=== PATIENT | female | born 1950 | race Caucasian/White ===

== ENCOUNTER → 2016-09-07 | Outpatient (CLI) | payer MEDICARE ==
--- NOTE | 2016-09-08 11:14 | MM ---
Reason for exam: additional evaluation requested from prior study. Last mammogram was performed 1 year ago. History: Patient is postmenopausal. Family history of breast cancer in maternal cousin at age 64. Excisional biopsy of the left breast. 2 excisional biopsies of the right breast. Physical Findings: Nurse did not find any significant physical abnormalities on exam. MG 3D Diag Mammo W/Cad HEATH Bilateral CC and MLO view(s) were taken. Prior study comparison: September 21, 2015, right breast MG 3d diag mammo w/cad RT. April 11, 2015, bilateral MG screening mammo w CAD. There are scattered fibroglandular densities. There is no discrete abnormality. No significant new findings when compared with previous films. These results were verbally communicated with the patient and result sheet given to the patient on 09/07/16. ASSESSMENT: Negative, BI-RAD 1 RECOMMENDATION: Routine screening mammogram of the right breast in 1 year.
== END | disposition home or self-care (01) ==
LOC: RADMAMWWP 15:08
PROVIDERS: ATTEND Family Medicine
DX: R92.8 Other abnormal and inconclusive findings on diagnostic imaging of breast (principal)
CPT/HCPCS: G0204; G0279

== ENCOUNTER → 2017-06-20 | Outpatient (CLI) | payer MEDICARE | END | disposition home or self-care (01) | LOC: LABWHC1 10:06 | PROVIDERS: ATTEND Otolaryngology | DX: J30.89 Other allergic rhinitis (principal) | CPT/HCPCS: 36415 ==

== ENCOUNTER → 2017-06-27 | Outpatient (CLI) | payer MEDICARE ==
[2017-06-27 09:44] LABS: Anion Gap 15 mmol/L; Basophils # (A) 0.1 k/uL (0-0.2); Basophils % (A) 1 %; Blood Urea Nitrogen 7 mg/dL (7-17); Carbon Dioxide 21 mmol/L (22-30); Chloride 98 mmol/L (98-107); Eosinophils # (A) 0.1 k/uL (0-0.7); Eosinophils % (A) 2 %; Glucose 204 mg/dL (74-99); HCT 40.7 % (34.0-46.0); HGB 13.5 gm/dL (11.4-16.0); Lymphocytes # (A) 1.4 k/uL (1.0-4.8); Lymphocytes % (A) 24 %; MCH 27.4 pg (25.0-35.0); MCHC 33.2 g/dL (31.0-37.0); MCV 82.5 fL (80.0-100.0); Mean Platelet Volume 6.5; Monocytes # (A) 0.3 k/uL (0-1.0); Monocytes % (A) 5 %; Neutrophils # (A) 4.1 k/uL (1.3-7.7); Neutrophils % (A) 68 %; Platelet Count 317 k/uL (150-450); RBC 4.94 m/uL (3.80-5.40); Sodium 134 mmol/L (137-145); WBC 6.1 k/uL (3.8-10.6)
== END | disposition home or self-care (01) ==
LOC: LABPAT 08:49
PROVIDERS: ATTEND Obstetrics & Gynecology
DX: Z01.818 Encounter for other preprocedural examination (principal); E11.9 Type 2 diabetes mellitus without complications; I10 Essential (primary) hypertension; N81.10 Cystocele, unspecified; R94.31 Abnormal electrocardiogram [ECG] [EKG]; R00.1 Bradycardia, unspecified; I51.0 Cardiac septal defect, acquired; Z01.812 Encounter for preprocedural laboratory examination
CPT/HCPCS: 36415; 80051; 82565; 82947; 84520; 85025; 87086; 93005

== ENCOUNTER 2017-07-04 07:50 | Day surgery (SDC) | payer MEDICARE ==
[2017-06-23 09:58] VITALS: BMI 29.2
[~2017-07-04 07:50] MED LIST: DEXAMETHASONE SOD PHOSPHATE 10 MG/ML 1 ML VIAL IV ONE; MIDAZOLAM 2 MG/2 ML VIAL IV PRN; ONDANSETRON 4 MG/2 ML VIAL IVP ONE; ceFAZolin IN SWFI 2 GM/20 ML SYRINGE IVP ONE; fentaNYL (PF) 50 MCG/ML 2 ML AMP IV PRN
[2017-07-04] MEDS: LACTATED RINGERS 1,000 ML IV SCH ×3 (08:21→12:59)
[2017-07-04] MEDS ORDERED: LIDOCAINE 1% 20 ML VIAL (10MG/ML) FOR IV START INTRADERMA ONE (08:21)
[2017-07-04 08:23] LABS: Glucose,Whole Blood 232 mg/dL (75-99)
[2017-07-04] MEDS ORDERED: INSULIN ASPART 100 UNIT/ML 1 ML 10 ML VIAL SQ ONE ×2 (08:54→13:47)
[2017-07-04] MEDS ORDERED: diphenhydrAMINE 50 MG/ML 1 ML VIAL ONE (09:13)
[2017-07-04] MEDS ORDERED: MORPHINE SULFATE (PF) 0.3 MG/0.3 ML SYR ONE (09:13)
[2017-07-04] MEDS ORDERED: fentaNYL (PF) 50 MCG/ML 2 ML AMP ONE (09:13)
[2017-07-04] MEDS ORDERED: GLYCOPYRROLATE 0.2 MG/ML 2 ML VIAL ONE (09:13)
[2017-07-04] MEDS ORDERED: PROPOFOL 10 MG/ML 20 ML VIAL IV ONE (09:13)
[2017-07-04] MEDS ORDERED: MIDAZOLAM 2 MG/2 ML VIAL ONE (09:13)
[2017-07-04] MEDS ORDERED: diphenhydrAMINE 50 MG/ML 1 ML VIAL IVP PRN (09:33)
[2017-07-04] MEDS ORDERED: MORPHINE SULF 5MG/10ML VL IVP PRN (09:33)
[2017-07-04] MEDS ORDERED: ONDANSETRON 4 MG/2 ML VIAL IVP PRN (09:33)
[2017-07-04] MEDS ORDERED: NALOXONE 0.4 MG/ML 1 ML VIAL IV PRN (09:33)
[2017-07-04] MEDS ORDERED: VASOPRESSIN 20 UNIT/ML 1 ML VIAL SQ ONE (09:35)
[2017-07-04] MEDS ORDERED: BACITRACIN 500 UNIT/GM OINT 28.4 GM TUBE TOPICAL ONE (09:36)
[2017-07-04] MEDS ORDERED: METOCLOPRAMIDE 5 MG/ML 2 ML VIAL IVP PRN (10:22)
[2017-07-04] MEDS ORDERED: KETOROLAC 30 MG/ML 1 ML VIAL IVP PRN (10:22)
[2017-07-04] MEDS ORDERED: ZOLPIDEM 5 MG TAB PO PRN (10:22)
--- NOTE | 2017-07-04 10:22 | P.OP ---
Date of Procedure: 07/04/17 Preoperative Diagnosis: Grade 4 cystocele Postoperative Diagnosis: Same, enterocele Procedure(s) Performed: Anterior colporrhaphy and enterocele repair Anesthesia: spinal Surgeon: Sandra Gallardo Perforator Loader #1: Chinedu Bo Estimated Blood Loss (ml): 120 IV fluids (ml): 600 Urine output (ml): 375 Pathology: none sent Condition: stable Disposition: PACU Operative Findings: Enterocele, repaired. Description of Procedure: Patient is brought to the operating room where a spinal with Duramorph is administered. She's placed in the dorsal lithotomy position. Antibiotics are given. The appropriate timeout is performed to assure proper patient and procedural identification. The perineal body is prepped and draped in usual sterile fashion. Bladder is drained for 375 mL of clear yellow urine. The uterosacral cardinal ligament dimples are identified and grasped with Allis clamps. An incision is made between the 2 dimples with the scalpel. The tissue was injected with a dilute Pitressin solution. Metzenbaum scissors are used in the midline to approximately 1.5 mL inferior to the urethra and the mucosa is opened. It is held with Allis clamps and a fanlike fashion. The mucosa is dissected off of the underlying fascial layer in its entirety to completely expose the large grade 4 cystocele. Upon doing so an enterocele is noted at the base. This is completely exposed. 2-0 Vicryl sutures are used to bring the mucosal edges along together in the midline to completely reduce the cystocele. A Lucia catheter is placed in the bladder is drained prior to doing so. Urine is noted to be clear. The enterocele was also repaired using 2-0 Vicryl suture with interrupted stitches. Excellent reapproximation and reduction is noted. Metzenbaum scissors are used to trim the redundant mucosa. 2-0 Vicryl sutures used in a running locking fashion to completely close the anterior repair. Reinforcement of the enterocele is performed. Rectal exam reveals no rectal lesions or defects. Lucia is once again noted to be draining clear urine. The vagina is packed with one-inch iodophor gauze. All sponge needle and enhancement counts are correct at the end of the procedure. Total estimated blood loss 120 mL, fluid replacement 600 mL, total urine 375 mL, clear. Patient is brought back to the recovery room in very good condition with stable vital signs including a pulse of 58, respirations 12, blood pressure 140/70.
[2017-07-04 10:32] LABS: Glucose,Whole Blood 213 mg/dL (75-99)
[2017-07-04 14:16] LABS: Glucose,Whole Blood 233 mg/dL (75-99)
[2017-07-04] MEDS: diphenhydrAMINE 50 MG/ML 1 ML VIAL IVP PRN ×2 (14:21→20:12)
[2017-07-04] MEDS ORDERED: metFORMIN 500 MG TAB PO SCH (16:00)
[2017-07-04] MEDS ORDERED: traZODone HCL 50 MG TAB PO SCH (21:00)
[2017-07-04] MEDS ORDERED: MORPHINE ORAL SOLN 10 MG/5 ML CUP PO PRN (22:05)
--- NOTE | 2017-07-05 06:55 | P.PN ---
Progress Note - Text Progress Note Date: 07/05/17 Postoperative day 1 status post cystocele repair, under spinal anesthesia, and intrathecal morphine given for postoperative analgesia, patient doing well, there is no anesthesia related complications, Patient had no headache, vital signs stable , Assessment and plan= postop day 1 ,, doing well there is no anesthesia related complication.
[2017-07-05] MEDS ORDERED: PANTOPRAZOLE 40 MG TABLET PO SCH (07:30)
--- NOTE | 2017-07-05 07:56 | P.DS ---
Providers Date of admission: 07/04/17 Expected date of discharge: 07/05/17 Attending physician: Sandra Gallardo Primary care physician: [facility] Course: This is a 66-year-old female who presented with an increasingly symptomatic perineal bulge. She is status post hysterectomy years ago for benign disease. On examination she is noted to have a grade 4 cystocele. After thorough consultation and consideration, she elected to have surgical repair. Please see my admitting history and physical for details. Preoperatively patient's blood sugar was 232, this was treated with insulin. Patient underwent an anterior colporrhaphy without difficulty, vagina was packed with iodoform gauze. She did well intraoperatively with no issues, please see my dictated operative note for details. This morning she is also doing well. Vaginal packing has been removed. Lucia catheter is removed. Vital signs are stable and she has remained afebrile. Her diet has been advanced as she is passing flatus. Her pain is well controlled, Duramorph spinal was placed yesterday with excellent results. Chest is clear in all quintana. Extremities are negative. There is only scant vaginal drainage noted. Bladder training has commenced this morning. Upon successful results, patient will be discharged home later today. She is in very good condition for discharge home. Her fasting blood sugar this morning is 201, that was covered with 2 units of regular insulin. I have reminded her no intercourse, tampons or douching. She will use [id number] Aleve or Advil as needed for pain. I reminded her no heavy lifting, no driving for 2 weeks, no vacuuming. She will call with any vaginal bleeding, any pain not alleviated by over-the- counter products, or indeed with any difficulties or concerns. She has an appointment upcoming with Dr. Cuello for better blood sugar control. Patient Condition at Discharge: Good Plan - Discharge Summary Discharge Rx Participant: Yes New Discharge Prescriptions: No Action traZODone HCL [Desyrel] 50 mg PO HS Ondansetron [Zofran ODT] 8 mg PO BID PRN PRN Reason: Nausea metFORMIN HCL [Glucophage] 500 mg PO DAILY Pantoprazole [Protonix] 40 mg PO DAILY Lisinopril [Zestril] 10 mg PO DAILY Fluticasone Nasal [place] [Flonase Nasal [place]] 1 spray EA NOSTRIL DAILY Atorvastatin Calcium [Lipitor] 20 mg PO HS Lexapro(Dose Unknown) 1 tab PO DAILY Discharge Medication List traZODone HCL [Desyrel] 50 mg PO HS 09/16/13 [History] Atorvastatin Calcium [Lipitor] 20 mg PO HS 06/23/17 [History] Fluticasone Nasal [place] [Flonase Nasal [place]] 1 spray EA NOSTRIL DAILY 06/23/17 [History] Lexapro(Dose Unknown) 1 tab PO DAILY 06/23/17 [History] Lisinopril [Zestril] 10 mg PO DAILY 06/23/17 [History] Ondansetron [Zofran ODT] 8 mg PO BID PRN 06/23/17 [History] Pantoprazole [Protonix] 40 mg PO DAILY 06/23/17 [History] metFORMIN HCL [Glucophage] 500 mg PO DAILY 06/23/17 [History] Follow up Appointment(s)/Referral(s): Sandra Gallardo MD [STAFF PHYSICIAN] - 2 Weeks
[2017-07-05] MEDS ORDERED: INSULIN ASPART 100 UNIT/ML 1 ML 10 ML VIAL SQ ONE (08:00)
[2017-07-05 13:34] VITALS: BP 153/74; PULSE 70; RESP 20; TEMP 97
== END 2017-07-05 12:25 | disposition home or self-care (01) ==
LOC: OR 07:50 → 6PED 10:17 → OR 07-05 12:25
PROVIDERS: ATTEND Obstetrics & Gynecology
DX: N81.10 Cystocele, unspecified (principal); N81.5 Vaginal enterocele; I10 Essential (primary) hypertension; E78.5 Hyperlipidemia, unspecified; E11.9 Type 2 diabetes mellitus without complications; E78.00 Pure hypercholesterolemia, unspecified; M79.7 Fibromyalgia; K21.9 Gastro-esophageal reflux disease without esophagitis; Z79.84 Long term (current) use of oral hypoglycemic drugs; Z79.899 Other long term (current) drug therapy; Z90.710 Acquired absence of both cervix and uterus; Z82.49 Family history of ischemic heart disease and other diseases of the circulatory system
CPT/HCPCS: 57265; 82947; J2250; J1200; J1100; J2405; J2274; J3010; J2704; J0690; 86850; 86900; 86901

== ENCOUNTER → 2017-10-10 | Outpatient (CLI) | payer MEDICARE ==
--- NOTE | 2017-10-12 11:24 | MM ---
Reason for exam: screening (asymptomatic). Last mammogram was performed 1 year and 1 month ago. History: Patient is postmenopausal. Family history of breast cancer in maternal cousin at age 64. Excisional biopsy of the left breast. 2 excisional biopsies of the right breast. Physical Findings: A clinical breast exam by your physician is recommended on an annual basis and results should be correlated with mammographic findings. MG 3D Screening Mammo W/Cad Bilateral CC and MLO view(s) were taken. Prior study comparison: September 07, 2016, bilateral MG 3d diag mammo w/cad HEATH. September 21, 2015, right breast MG 3d diag mammo w/cad RT. There are scattered fibroglandular densities. There is chronic nodularity in the right breast. No significant changes when compared with prior studies. ASSESSMENT: Negative, BI-RAD 1 RECOMMENDATION: Routine screening mammogram of both breasts in 1 year.
== END | disposition home or self-care (01) ==
LOC: RADMAMWWP 12:56
PROVIDERS: ATTEND Family Medicine
DX: Z12.31 Encounter for screening mammogram for malignant neoplasm of breast (principal)
CPT/HCPCS: 77063; 77067

== ENCOUNTER 2020-04-02 09:00 | Inpatient (IN) | payer MEDICARE ==
[2020-04-02] MEDS ORDERED: SODIUM CHLORIDE 0.9% 1,000 ML IV ONE (09:05)
--- NOTE | 2020-04-02 09:08 | ED ---
General Adult HPI - General Stated complaint: ams Time Seen by Provider: 04/02/20 09:05 Source: patient, EMS, RN notes reviewed Mode of arrival: EMS Limitations: altered mental status, physical limitation - History of Present Illness Initial comments: Patient is a pleasant 69-year-old female presenting to the emergency Department with change in mental status. Patient is a poor historian and offers no history. Patient reportedly has history of similar symptoms previously ass ociated with low sodium levels. Last known well was last night. Patient did have an episode of fall with right knee Fracture approximately 2 weeks ago. - Related Data Home Medications Medication Instructions Recorded Confirmed traZODone HCL [Desyrel] 50 mg PO HS 09/16/13 07/04/17 Atorvastatin Calcium [Lipitor] 20 mg PO HS 06/23/17 07/04/17 Fluticasone Nasal [place] [Flonase 1 spray EA NOSTRIL DAILY 06/23/17 07/04/17 Nasal [place]] Lexapro(Dose Unknown) 1 tab PO DAILY 06/23/17 07/04/17 Ondansetron [Zofran ODT] 8 mg PO BID PRN 06/23/17 07/04/17 Pantoprazole [Protonix] 40 mg PO DAILY 06/23/17 07/04/17 lisinopriL [Zestril] 10 mg PO DAILY 06/23/17 07/04/17 metFORMIN HCL [Glucophage] 500 mg PO DAILY 06/23/17 07/04/17 Allergies Allergy/AdvReac Type Severity Reaction Status Date / Time No Known Allergies Allergy Verified 04/02/20 09:01 Review of Systems ROS Statement: Those systems with pertinent positive or pertinent negative responses have been documented in the HPI. ROS Other: All systems not noted in ROS Statement are negative. Limitations: ROS unobtainable due to patients medical condition Neurological: Reports: confusion Past Medical History Past Medical History: Diabetes Mellitus, GERD/Reflux, Hyperlipidemia, Hypertension Additional Past Medical History / Comment(s): FIBROMYALGIA History of Any Multi-Drug Resistant Organisms: None Reported Past Surgical History: Adenoidectomy, Appendectomy, Cholecystectomy, Hysterectomy, Tonsillectomy, Tubal Ligation Additional Past Surgical History / Comment(s): CARARACT RT EYE 07/02/2013 Past Anesthesia/Blood Transfusion Reactions: Motion Sickness, Postoperative Nausea & Vomiting (PONV) Past Psychological History: No Psychological Hx Reported Past Alcohol Use History: None Reported Past Drug Use History: None Reported - Past Family History Mother Family Medical History: Cancer General Exam Limitations: altered mental status, physical limitation General appearance: alert, in no apparent distress Head exam: Present: atraumatic Eye exam: Present: normal appearance, PERRL, EOMI ENT exam: Present: normal oropharynx Neck exam: Present: normal inspection, full ROM. Absent: tenderness, meningismus Respiratory exam: Present: normal lung sounds bilaterally Cardiovascular Exam: Present: regular rate, normal rhythm GI/Abdominal exam: Present: soft. Absent: tenderness Extremities exam: Present: other (Long-leg cast on the right) Neurological exam: Present: alert, CN II-XII intact. Absent: motor sensory deficit Expanded Neurological exam: Present: protecting the airway Patient oriented to: Absent: person, place, time Cranial nerves: EOM's Intact: Normal Motor strength exam: RUE: 5, LUE: 5, RLE: 5 (Limited evaluation secondary to lo ng leg cast), LLE: 5 Eye Response: (4) open spontaneously Motor Response: (5) localizes to pain Verbal Response: (3) inappropriate words Psychiatric exam: Present: normal affect, normal mood Skin exam: Present: normal color Course Vital Signs 04/02/20 04/02/20 04/02/20 09:02 09:28 09:42 Temperature 96.8 F L Pulse Rate 71 79 64 Respiratory 16 20 16 Rate Blood Pressure 141/110 182/81 152/70 O2 Sat by Pulse 97 97 Oximetry EKG Findings - EKG Comments: EKG Findings:: Normal sinus rhythm 70. OR 158. QRS 74. QT 392. QTC 423. Normal axis. Normal QRS. No acute ST change. Medical Decision Making - Medical Decision Making Patient reevaluated and updated. Case was discussed with Dr. olea, who will admit for Dr. Meraz. She agrees with IV fluids at 75 mL per hour with normal saline. She would like nephrology consult and seizure precautions and telemetry monitoring. - Lab Data Result diagrams: 04/02/20 09:12 04/02/20 09:12 Lab Results 04/02/20 04/02/20 04/02/20 Range/Units 09:06 09:12 09:12 WBC 14.7 H (3.8-10.6) k/uL RBC 4.67 (3.80-5.40) m/uL Hgb 12.9 (11.4-16.0) gm/dL Hct 37.6 (34.0-46.0) % MCV 80.5 D (80.0-100.0) fL MCH 27.6 (25.0-35.0) pg MCHC 34.3 (31.0-37.0) g/dL RDW 13.9 (11.5-15.5) % Plt Count 514 H (150-450) k/uL MPV 5.9 Neutrophils % 87 % Lymphocytes % 7 % Monocytes % 3 % Eosinophils % 1 % Basophils % 1 % Neutrophils # 12.9 H (1.3-7.7) k/uL Lymphocytes # 1.0 (1.0-4.8) k/uL Monocytes # 0.5 (0-1.0) k/uL Eosinophils # 0.2 (0-0.7) k/uL Basophils # 0.1 (0-0.2) k/uL PT 9.7 (9.0-12.0) sec INR 0.9 (<1.2) APTT 22.4 (22.0-30.0) sec Sodium (137-145) mmol/L Potassium (3.5-5.1) mmol/L Chloride (98-107) mmol/L Carbon Dioxide (22-30) mmol/L Anion Gap mmol/L BUN (7-17) mg/dL Creatinine (0.52-1.04) mg/dL Est GFR (CKD-EPI)AfAm (>60 ml/min/1.73 sqM) Est GFR (CKD-EPI)NonAf (>60 ml/min/1.73 sqM) Glucose (74-99) mg/dL POC Glucose (mg/dL) 254 H (75-99) mg/dL POC Glu Ocean Forwarder ID Svacha, II, Humberto Calcium (8.4-10.2) mg/dL Total Bilirubin (0.2-1.3) mg/dL AST (14-36) U/L ALT (4-34) U/L Alkaline Phosphatase (38-126) U/L Troponin I (0.000-0.034) ng/mL Total Protein (6.3-8.2) g/dL Albumin (3.5-5.0) g/dL Urine Color Urine Appearance (Clear) Urine pH (5.0-8.0) Ur Specific Eleva (1.001-1.035) Urine Protein (Negative) Urine Glucose (UA) (Negative) Urine Ketones (Negative) Urine Blood (Negative) Urine Nitrite (Negative) Urine Bilirubin (Negative) Urine Urobilinogen (<2.0) mg/dL Ur Leukocyte Esterase (Negative) Urine RBC (0-5) /hpf Urine WBC (0-5) /hpf Ur Squamous Epith Cells (0-4) /hpf Urine Bacteria (None) /hpf Urine Mucus (None) /hpf Urine Opiates Screen (NotDetected) Ur Oxycodone Screen (NotDetected) Urine Methadone Screen (NotDetected) Ur Propoxyphene Screen (NotDetected) Ur Barbiturates Screen (NotDetected) U Tricyclic Antidepress (NotDetected) Ur Phencyclidine Scrn (NotDetected) Ur Amphetamines Screen (NotDetected) U Methamphetamines Scrn (NotDetected) U Benzodiazepines Scrn (NotDetected) Urine Cocaine Screen (NotDetected) U Marijuana (THC) Screen (NotDetected) 04/02/20 04/02/20 04/02/20 Range/Units 09:12 09:12 09:21 WBC (3.8-10.6) k/uL RBC (3.80-5.40) m/uL Hgb (11.4-16.0) gm/dL Hct (34.0-46.0) % MCV (80.0-100.0) fL MCH (25.0-35.0) pg MCHC (31.0-37.0) g/dL RDW (11.5-15.5) % Plt Count (150-450) k/uL MPV Neutrophils % % Lymphocytes % % Monocytes % % Eosinophils % % Basophils % % Neutrophils # (1.3-7.7) k/uL Lymphocytes # (1.0-4.8) k/uL Monocytes # (0-1.0) k/uL Eosinophils # (0-0.7) k/uL Basophils # (0-0.2) k/uL PT (9.0-12.0) sec INR (<1.2) APTT (22.0-30.0) sec Sodium 119 L* (137-145) mmol/L Potassium 5.1 (3.5-5.1) mmol/L Chloride 85 L (98-107) mmol/L Carbon Dioxide 24 (22-30) mmol/L Anion Gap 10 mmol/L BUN 8 (7-17) mg/dL Creatinine 0.45 L (0.52-1.04) mg/dL Est GFR (CKD-EPI)AfAm >90 (>60 ml/min/1.73 sqM) Est GFR (CKD-EPI)NonAf >90 (>60 ml/min/1.73 sqM) Glucose 256 H (74-99) mg/dL POC Glucose (mg/dL) (75-99) mg/dL POC Glu Ocean Forwarder ID Calcium 9.7 (8.4-10.2) mg/dL Total Bilirubin 1.2 (0.2-1.3) mg/dL AST 31 (14-36) U/L ALT 16 (4-34) U/L Alkaline Phosphatase 134 H (38-126) U/L Troponin I 0.093 H* (0.000-0.034) ng/mL Total Protein 7.7 (6.3-8.2) g/dL Albumin 4.4 (3.5-5.0) g/dL Urine Color Light Yellow Urine Appearance Cloudy H (Clear) Urine pH 6.0 (5.0-8.0) Ur Specific Eleva 1.011 (1.001-1.035) Urine Protein 1+ H (Negative) Urine Glucose (UA) 4+ H (Negative) Urine Ketones Trace H (Negative) Urine Blood Trace H (Negative) Urine Nitrite Negative (Negative) Urine Bilirubin Negative (Negative) Urine Urobilinogen <2.0 (<2.0) mg/dL Ur Leukocyte Esterase Moderate H (Negative) Urine RBC 5 (0-5) /hpf Urine WBC 28 H (0-5) /hpf Ur Squamous Epith Cells 1 (0-4) /hpf Urine Bacteria Many H (None) /hpf Urine Mucus Rare H (None) /hpf Urine Opiates Screen Detected H (NotDetected) Ur Oxycodone Screen Not Detected (NotDetected) Urine Methadone Screen Not Detected (NotDetected) Ur Propoxyphene Screen Not Detected (NotDetected) Ur Barbiturates Screen Not Detected (NotDetected) U Tricyclic Antidepress Not Detected (NotDetected) Ur Phencyclidine Scrn Not Detected (NotDetected) Ur Amphetamines Screen Not Detected (NotDetected) U Methamphetamines Scrn Not Detected (NotDetected) U Benzodiazepines Scrn Detected H (NotDetected) Urine Cocaine Screen Not Detected (NotDetected) U Marijuana (THC) Screen Not Detected (NotDetected) - Radiology Data Radiology results: report reviewed (Computed tomography scan of the brain shows atrophy.), image reviewed (X-ray shows right basilar atelectasis versus infiltrate.) Disposition Clinical Impression: Altered mental status, Hyponatremia Disposition: ADMITTED IP TO THIS HOSP Is patient prescribed a controlled substance at d/c from ED?: No Referrals: Vicky Fabian MD [Primary Care Provider] - 1-2 days Decision Time: 10:44
[2020-04-02 09:12] LABS: Glucose,Whole Blood 254 mg/dL (75-99)
[2020-04-02] MEDS ORDERED: LORazepam 2 MG/ML INJ IV STA (09:13)
[2020-04-02 09:22] LABS: Basophils # (A) 0.1 k/uL (0-0.2); Basophils % (A) 1 %; Eosinophils # (A) 0.2 k/uL (0-0.7); Eosinophils % (A) 1 %; HCT 37.6 % (34.0-46.0); HGB 12.9 gm/dL (11.4-16.0); Lymphocytes % (A) 7 %; MCH 27.6 pg (25.0-35.0); MCHC 34.3 g/dL (31.0-37.0); Mean Platelet Volume 5.9; Monocytes # (A) 0.5 k/uL (0-1.0); Monocytes % (A) 3 %; Neutrophils # (A) 12.9 k/uL (1.3-7.7); Neutrophils % (A) 87 %; Platelet Count 514 k/uL (150-450); RBC 4.67 m/uL (3.80-5.40); RDW 13.9 % (11.5-15.5); WBC 14.7 k/uL (3.8-10.6)
[2020-04-02 09:24] LABS: MCV 80.5 fL (80.0-100.0)
[2020-04-02 09:35] LABS: ALT 16 U/L (4-34); AST 31 U/L (14-36); African American GFR (CKD) >90 (>60 ml/min/1.73 sqM); Albumin 4.4 g/dL (3.5-5.0); Alkaline Phosphatase 134 U/L (38-126); Anion Gap 10 mmol/L; Blood Urea Nitrogen 8 mg/dL (7-17); Calcium 9.7 mg/dL (8.4-10.2); Carbon Dioxide 24 mmol/L (22-30); Chloride 85 mmol/L (98-107); Glucose 256 mg/dL (74-99); Non-African American GFR(CKD) >90 (>60 ml/min/1.73 sqM); Potassium 5.1 mmol/L (3.5-5.1); Total Bilirubin 1.2 mg/dL (0.2-1.3); Total Protein 7.7 g/dL (6.3-8.2)
[2020-04-02 09:37] LABS: INR 0.9 (<1.2); Prothrombin Time 9.7 sec (9.0-12.0)
[2020-04-02 09:38] LABS: Partial Thromboplastin Time 22.4 sec (22.0-30.0)
[2020-04-02 09:46] LABS: Appearance,Urine Cloudy (Clear); Bacteria,Urine Many /hpf; Bilirubin,Urine Negative (Negative); Blood,Urine Trace (Negative); Color,Urine Light Yellow; Glucose,Urine (UA) 4+ (Negative); Ketones,Urine Trace (Negative); Leukocyte Esterase,Urine Moderate (Negative); Mucus,Urine Rare /hpf; Nitrite,Urine Negative (Negative); Protein,Urine 1+ (Negative); RBC,Urine 5 /hpf (0-5); Specific Gravity,Urine 1.011 (1.001-1.035); Squamous Epithelial Cell,Urine 1 /hpf (0-4); Urobilinogen,Urine <2.0 mg/dL (<2.0); WBC,Urine 28 /hpf (0-5)
[2020-04-02 09:53] LABS: Amphetamine Screen,Urine Not Detected (NotDetected); Barbiturate Screen,Urine Not Detected (NotDetected); Benzodiazepines Screen,Urine Detected (NotDetected); Cocaine Screen,Urine Not Detected (NotDetected); Methadone Screen, Urine Not Detected (NotDetected); Opiate Screen,Urine Detected (NotDetected); Oxycodone Screen, Urine Not Detected (NotDetected); Phencyclidine Screen,Urine Not Detected (NotDetected); Tricyclic Antidepressant,Urine Not Detected (NotDetected); Urn Cannabinoid Scrn Not Detected (NotDetected)
--- NOTE | 2020-04-02 09:55 | CT ---
EXAMINATION TYPE: CT brain wo con DATE OF EXAM: 04/02/2020 COMPARISON: None INDICATION: AMS DLP: 2421.4 mGycm, Automated exposure control for dose reduction was used. CONTRAST: None CT of the brain is performed utilizing 3 mm thick sections through the posterior fossa and 3 mm thick sections through the remaining calvarium. Study is performed within 24 hours of arrival to the hosp ital. Some motion artifact is present in the obscure subtle findings. Scan was repeated. No abnormal hyperdensity is present to suggest an acute intracranial hemorrhage. No mass lesion is evident. No acute infarcts are evident. Periventricular white matter hypodensity is present, likely on the bas is of chronic white matter ischemic changes. Ventricles and sulci are prominent for the patient age. Paranasal sinuses and mastoid air cells within the [id number] are clear. IMPRESSIONS: 1. Atrophy with periventricular white matter chronic appearing ischemic type changes.
[2020-04-02 09:58] LABS: Sodium 119 mmol/L (137-145)
[2020-04-02] MEDS ORDERED: SODIUM CHLORIDE 0.9% 500 ML 250 ML IV STA (10:03)
--- NOTE | 2020-04-02 10:10 | XR ---
EXAMINATION TYPE: XR chest 1V portable DATE OF EXAM: 04/02/2020 Comparison: None Clinical History: 69-year-old female confusion, altered mental status Findings: Leftward patient rotation alters the normal cardiomediastinal contours. Heart upper limits of normal in size. Mild interstitial prominence as a chronic appearance. There is some focal medial right basil ar opacity. Left basilar opacity is a strandy appearance suggesting atelectasis. No pleural effusion. Impression: Rotated exam. Focal medial right basilar atelectasis versus infiltrate. Correlate with patient's symp toms. Some strandy left basilar atelectasis.
[2020-04-02] MEDS ORDERED: NALOXONE 0.4 MG/ML 1 ML VIAL IV PRN (10:44)
[2020-04-02 12:21] LABS: Glucose,Whole Blood 193 mg/dL (75-99)
[2020-04-02] MEDS ORDERED: MELATONIN 3 MG TABLET PO PRN (13:59)
[2020-04-02] MEDS ORDERED: ACETAMINOPHEN TAB 325 MG TAB PO PRN (13:59)
[2020-04-02] MEDS ORDERED: bisacodyL 5 MG TABLET.DR PO PRN (13:59)
[2020-04-02] MEDS ORDERED: ONDANSETRON 4 MG/2 ML VIAL IVP PRN (13:59)
[2020-04-02 14:53] VITALS: BMI 23.3
--- NOTE | 2020-04-02 15:11 | P.HPIM ---
History of Present Illness H&P Date: 04/02/20 Chief Complaint: altered mentation Patient is a 69 yo CF with a hx of DM, prior hyponatremia resulting in altered mentation, htn, and hld who presented to the emergency department with family for confusion and altered mentation. She was seen and examined in the emergency department and underwent an extensive evaluation. On arrival her blood pressure was 141/110 the remainder of her vital signs within normal limits. Laboratory analysis showed white blood cell count of 14, 514, sodium 119, BUN 8, creatinine 0.45, glucose 256. Urinalysis showed 20 white blood cells was negative for nitrites. She underwent a chest x-ray which showed possible right lower lobe infiltrate. She also underwent a head CT which showed small vessel ischemic changes. She was given a bolus and started on 0.9 NS @75 MLS per hour. She became agitated and was given one dose of ativan. Patient seen and examined at bedside. She is intermittently awake and follows some simple commands. She is not answering questions. History is obtained from her son Milton over the phone secondary to COVID 19 pandemic. He reports that she was discharged home from [facility] after undergoing surgery for a right knee fracture. She was discharged home on 03/22/2020. She has had a poor appetite. She has been drinking only Diet Coke but no water. He reports that they did start new medications on discharge home. He reports that over the last 1-2 days they noticed that she is speaking nonsensically picking at things that aren't there. He feels she may be hallucinating. He reports she has also been undergoing a dementia workup with the [place] [facility] and they are due to get results back soon. He denies any cough, cold, fever, flu, nausea, vomiting, or diarrhea. Review of Systems Pertinent positives and negatives as discussed in HPI, a complete review of systems was performed and all other systems are negative. Past Medical History Past Medical History: Diabetes Mellitus, GERD/Reflux, Hyperlipidemia, Hypertension Additional Past Medical History / Comment(s): FIBROMYALGIA History of Any Multi-Drug Resistant Organisms: None Reported Past Surgical History: Adenoidectomy, Appendectomy, Cholecystectomy, Hysterectomy, Tonsillectomy, Tubal Ligation Additional Past Surgical History / Comment(s): CARARACT RT EYE 07/02/2013, bladder suspension, repair of the fracture, left knee replacement Past Anesthesia/Blood Transfusion Reactions: Motion Sickness, Postoperative Nausea & Vomiting (PONV) Past Psychological History: Depression Smoking Status: Never smoker Past Drug Use History: None Reported Additional History: Lives with her cousin - Past Family History Mother Family Medical History: Cancer Medications and Allergies Home Medications Medication Instructions Recorded Confirmed Type traZODone HCL [Desyrel] 100 mg PO HS PRN 09/16/13 04/02/20 History Pantoprazole [Protonix] 40 mg PO DAILY 06/23/17 04/02/20 History metFORMIN HCL [Glucophage] 500 mg PO BID 06/23/17 04/02/20 History ARIPiprazole [Abilify] 5 mg PO DAILY 04/02/20 04/02/20 History Aspirin EC [Ecotrin] 325 mg PO DIRECTED 04/02/20 04/02/20 History Ergocalciferol (Vitamin D2) 1,250 mcg PO Q7D 04/02/20 04/02/20 History [Drisdol] FLUoxetine HCL [PROzac] 10 mg PO DAILY 04/02/20 04/02/20 History Furosemide [Lasix] 20 mg PO DAILY 04/02/20 04/02/20 History Metoprolol Tartrate [Lopressor] 100 mg PO BID 04/02/20 04/02/20 History Montelukast Sodium [Singulair] 10 mg PO HS 04/02/20 04/02/20 History Potassium Chloride ER [K-Dur 20] 20 meq PO DAILY 04/02/20 04/02/20 History Allergies Allergy/AdvReac Type Severity Reaction Status Date / Time No Known Allergies Allergy Verified 04/02/20 10:55 Physical Exam Osteopathic Statement: *. No significant issues noted on an osteopathic structural exam other than those noted in the History and Physical/Consult. Vitals: Vital Signs Temp Pulse Pulse Resp BP BP Pulse Ox 04/02/20 11:44 97.8 F 113 H 18 169/73 95 04/02/20 10:50 67 16 151/88 97 04/02/20 09:42 64 16 152/70 97 04/02/20 09:28 79 20 182/81 97 04/02/20 09:02 96.8 F L 71 16 141/110 Intake and Output 04/01/20 04/02/20 04/02/20 22:59 06:59 14:59 Other: Weight 63.503 kg General: non toxic, no distress, appears at stated age Derm: warm, dry Head: atraumatic, normocephalic, symmetric Eyes: EOMI, no lid lag, anicteric sclera, pupils equal round reactive to light ENT: Nose and ears atraumatic, no thrush, no pharyngeal erythema Neck: No thyromegaly, no cervical lymphadenopathy, trachea midline, supple Mouth: no lip lesion, mucus membranes moist Cardiovascular: S1S2 reg, no murmur, positive posterior tibial pulse bilateral, no edema, capillary refill less than 2 seconds Lungs: Decreased breath sounds bilateral bilateral, no ronchi, no rales, no wheeze, no accessory muscle use Abdominal: soft, nontender to palpation, no guarding, no appreciable organomegaly, normal bowel sounds Ext: Right lower extremity with cast in place from ankle to mid thigh, bruising noted at the top of the cast. Patient would not participate in formal muscle strength testing however moving all 4 extremities independently, able to wiggle toes. no contractures Neuro: CN II-XI grossly intact, light touch intact all 4 extremities, cannot follow requests for finger to nose Psych: Alert to self, lethargic, blunted affect Results CBC & Chem 7: 04/02/20 09:12 04/02/20 09:12 Labs: Abnormal Lab Results - Last 24 Hours (Table) 04/02/20 04/02/20 04/02/20 Range/Units 09:06 09:12 09:12 WBC 14.7 H (3.8-10.6) k/uL Plt Count 514 H (150-450) k/uL Neutrophils # 12.9 H (1.3-7.7) k/uL Sodium 119 L* (137-145) mmol/L Chloride 85 L (98-107) mmol/L Creatinine 0.45 L (0.52-1.04) mg/dL Glucose 256 H (74-99) mg/dL POC Glucose (mg/dL) 254 H (75-99) mg/dL Alkaline Phosphatase 134 H (38-126) U/L Troponin I (0.000-0.034) ng/mL Urine Appearance (Clear) Urine Protein (Negative) Urine Glucose (UA) (Negative) Urine Ketones (Negative) Urine Blood (Negative) Ur Leukocyte Esterase (Negative) Urine WBC (0-5) /hpf Urine Bacteria (None) /hpf Urine Mucus (None) /hpf Urine Opiates Screen (NotDetected) U Benzodiazepines Scrn (NotDetected) 04/02/20 04/02/20 04/02/20 Range/Units 09:12 09:21 12:14 WBC (3.8-10.6) k/uL Plt Count (150-450) k/uL Neutrophils # (1.3-7.7) k/uL Sodium (137-145) mmol/L Chloride (98-107) mmol/L Creatinine (0.52-1.04) mg/dL Glucose (74-99) mg/dL POC Glucose (mg/dL) 193 H (75-99) mg/dL Alkaline Phosphatase (38-126) U/L Troponin I 0.093 H* (0.000-0.034) ng/mL Urine Appearance Cloudy H (Clear) Urine Protein 1+ H (Negative) Urine Glucose (UA) 4+ H (Negative) Urine Ketones Trace H (Negative) Urine Blood Trace H (Negative) Ur Leukocyte Esterase Moderate H (Negative) Urine WBC 28 H (0-5) /hpf Urine Bacteria Many H (None) /hpf Urine Mucus Rare H (None) /hpf Urine Opiates Screen Detected H (NotDetected) U Benzodiazepines Scrn Detected H (NotDetected) Chest x-ray: report reviewed, image reviewed CT Scan - head: report reviewed Thrombosis Risk Factor Assmnt - DVT/VTE Prophylaxis DVT/VTE Prophylaxis: Mechanical Prophylaxis ordered - Choose All That Apply Any of the Below Risk Factors Present?: Yes Each Factor Represents 1 point: History of prior major surgery (<1month) Other Risk Factors: Yes Each Risk Factor Represents 2 Points: Age 61-74 years, Immobilizing plaster cast, Major surgery Each Risk Factor Represents 5 Points: Hip, pelvis, or leg fracture (< 1 month) Thrombosis Risk Factor Assessment Total Risk Factor Score: 12 Thrombosis Risk Factor Assessment Level: High Risk Assessment and Plan Assessment: Hyponatremia - suspect due to poor oral intake with lasix and prozac - lytes q6 h - consult nephro - check TSH - check urine lytes - seizure precautions Acute metabolic encephalopathy - likely due to hyponatremia - treatment as above Leukocytosis, suspect reactive - uA bland, CXR possible RLL infiltrate but patient without sx per son - repeat in AM - monitor fever profile Thrombycytosis - suspect reactive Recent R LE fracture - in long cast - obtain records from [facility] until records available - pain medications - resume home aspirin twice daily for DVT prophylaxis DM 2 - hold metformin - SSI - Check A1C HTN, elevated on arrival - continue with lopressor Depression - hold prozac due to hyponatremia - Hold atarax that was recently prescribed due to hx of hallucination - supportive care Recent fall Dementia - safe and supportive environment The patient is admitted with an anticipated greater than 2 midnight stay for evaluation of hyponatremia with altered mentation. Surrogate decision-maker: Biju Rose CODE STATUS:Full, by default Milton unsure what she would want DVT prophylaxis: ASA BID Discussed with: Patient, nursing, son, ED physician Anticipated discharge date: 3-[address]: [facility] vs SNF A total of 65 minutes was spent on the care of this complex patient more than 50% of the time was spent in counseling and care coordination.
[2020-04-02 15:42] LABS: Potassium 4.2 mmol/L (3.5-5.1)
[2020-04-02 17:02] LABS: Glucose,Whole Blood 189 mg/dL (75-99)
[2020-04-02] MEDS: INSULIN ASPART (NovoLOG) 100 UNIT/ML VIAL SQ SCH ×2 (17:22→20:25)
[2020-04-02 19:58] LABS: Glucose,Whole Blood 162 mg/dL (75-99)
[2020-04-02] MEDS: METOPROLOL TARTRATE 50 MG TAB PO SCH (20:24)
[2020-04-02] MEDS: MONTELUKAST 10 MG TAB PO SCH (20:24)
[2020-04-02] MEDS: ASPIRIN 325 MG TAB PO SCH (20:24)
[2020-04-02 21:20] LABS: Potassium 4.1 mmol/L (3.5-5.1)
[2020-04-03 04:32] LABS: Hemoglobin A1C 7.1 % (4.0-6.0)
[2020-04-03 06:10] LABS: Glucose,Whole Blood 193 mg/dL (75-99)
[2020-04-03] MEDS: INSULIN ASPART (NovoLOG) 100 UNIT/ML VIAL SQ SCH ×4 (06:32→20:22)
[2020-04-03] MEDS: PANTOPRAZOLE 40 MG TABLET PO SCH (06:32)
[2020-04-03 07:55] LABS: Basophils # (A) 0.1 k/uL (0-0.2); Basophils % (A) 1 %; Eosinophils # (A) 0.1 k/uL (0-0.7); Eosinophils % (A) 1 %; HCT 32.8 % (34.0-46.0); HGB 11.1 gm/dL (11.4-16.0); Lymphocytes # (A) 1.2 k/uL (1.0-4.8); Lymphocytes % (A) 14 %; MCH 27.5 pg (25.0-35.0); MCHC 33.9 g/dL (31.0-37.0); MCV 81.1 fL (80.0-100.0); Mean Platelet Volume 6.1; Monocytes # (A) 0.4 k/uL (0-1.0); Monocytes % (A) 5 %; Neutrophils # (A) 6.5 k/uL (1.3-7.7); Neutrophils % (A) 78 %; Platelet Count 472 k/uL (150-450); RBC 4.05 m/uL (3.80-5.40); WBC 8.4 k/uL (3.8-10.6)
[2020-04-03 08:17] LABS: African American GFR (CKD) >90 (>60 ml/min/1.73 sqM); Anion Gap 6 mmol/L; Blood Urea Nitrogen 5 mg/dL (7-17); Calcium 9.5 mg/dL (8.4-10.2); Carbon Dioxide 25 mmol/L (22-30); Chloride 92 mmol/L (98-107); Glucose 169 mg/dL (74-99); Magnesium 1.5 mg/dL (1.6-2.3); Non-African American GFR(CKD) >90 (>60 ml/min/1.73 sqM); Phosphorus 3.4 mg/dL (2.5-4.5); Potassium 4.1 mmol/L (3.5-5.1); Sodium 123 mmol/L (137-145)
[2020-04-03] MEDS: ARIPiprazole 5 MG TAB PO SCH (08:44)
[2020-04-03] MEDS: METOPROLOL TARTRATE 50 MG TAB PO SCH ×2 (08:44→20:22)
[2020-04-03] MEDS: ASPIRIN 325 MG TAB PO SCH ×2 (08:44→20:22)
[2020-04-03] MEDS ORDERED: Magnesium Replacement Protocol 1 EACH MISC MISCELLANE PRN (10:05)
[2020-04-03 11:46] LABS: Glucose,Whole Blood 209 mg/dL (75-99)
--- NOTE | 2020-04-03 12:09 | P.PN ---
Subjective Progress Note Date: 04/03/20 (delayed charting seen at 0900) Principal diagnosis: Confusion Patient is a 69 yo CF with a hx of DM, prior hyponatremia resulting in altered mentation, htn, and hld who presented to the emergency department with family for confusion and altered mentation. She was seen and examined in the emergency department and underwent an extensive evaluation. On arrival her blood pressure was 141/110 the remainder of her vital signs within normal limits. Laboratory analysis showed white blood cell count of 14, 514, sodium 119, BUN 8, creatinine 0.45, glucose 256. Urinalysis showed 20 white blood cells was negative for nitrites. She underwent a chest x-ray which showed possible right lower lobe infiltrate. She also underwent a head CT which showed small vessel ischemic changes. She was given a bolus and started on 0.9 NS @75 MLS per hour. She became agitated and was given one dose of ativan. It came to light that she was discharged home from [facility] after undergoing surgery for a right knee fracture. She was discharged home on 03/22/2020. She has had a poor appetite. He reports that they did start new medications on discharge home, which appear to be pain medications, ASA for DVT prophylaxis, and hydroxizine for anxiety. She her hydroxyzine was called has been reported to cause hallucinations. Her Prozac was stopped as her urine lites appear consistent with SIADH. Nephrology was consulted. Patient seen and examined at bedside. Today she is awake and alert to self and being in the hospital. She denies any pain in her right lower extremity. She denies any nausea, vomiting, or diarrhea. She denies any chest pain or shortness of breath. He states she is feeling well. General: non toxic, no distress, appears at stated age Derm: Bruising at the proximal portion of her cast, warm, dry Head: atraumatic, normocephalic, symmetric Eyes: EOMI, no lid lag, anicteric sclera Mouth: no lip lesion, mucus membranes moist Cardiovascular: S1S2 reg, no murmur, positive posterior tibial pulse bilateral, Lungs: CTA bilateral, no rhonchi, no rales , no accessory muscle use Abdominal: soft, nontender to palpation, no guarding, no appreciable o rganomegaly Ext: Right leg in cast, no gross muscle atrophy, no edema, no contractures Neuro: CN II-XI grossly intact, no focal neuro deficits Psych: Alert, oriented to self and being in the hospital, not month or year, appropriate affect Hyponatremia secondary to SIADH and poor solute intake - Improving slowly -Nephrology recommendations appreciated -Decrease IV fluids -Continue off of Prozac -TSH normal -Seizure precautions can be discontinued -Follow lites Acute metabolic encephalopathy -Improving -Stay off hydroxyzine and Prozac. Likely also improving as sodium levels continue to improve Elevated troponin -Not significant enough to be consistent with type II [place] -Likely stress-induced -Not consistent with acute coronary syndrome -No further workup indicated Thrombycytosis - suspect reactive - follow cbc DM 2 - hold metformin - SSI - A1C 7.1 - mild hyperglycemia start levemir Recent R LE fracture - in long cast - NWB - pain medications - Aspirin twice daily for DVT prophylaxis HTN, elevated on arrival - continue with lopressor Depression - hold prozac due to hyponatremia - Hold atarax that was recently prescribed due hallucinations - supportive care Recent fall - fall precautions Dementia - safe and supportive environment - continue out patient work-up Leukocytosis, resolved DVT prophylaxis: ASA BID Discussed with: Patient, nursing, Anticipated discharge date: 3-[address]: [facility] vs SNF A total of 25 minutes was spent on the care of this complex patient more than 50% of the time was spent in counseling and care coordination. Objective - Vital Signs Vital signs: Vital Signs Temp 97.7 F 04/03/20 07:45 Pulse 71 04/03/20 08:00 Resp 17 04/03/20 08:00 BP 138/65 04/03/20 07:45 Pulse Ox 96 04/03/20 07:45 Intake & Output 04/02/20 04/03/20 04/03/20 18:59 06:59 18:59 Intake Total 240 259 240 Output Total 650 350 Balance -410 -91 240 Weight 63.503 kg 67 kg Intake: Intake, IV Titration 159 Amount Sodium Chloride 0.9% 1, 159 000 ml @ 75 mls/hr IV . [id number] ONE Rx#:[id number] Oral 240 100 240 Output: Urine 650 350 Other: Voiding Method Indwelling Catheter Indwelling Catheter Indwelling Catheter - Labs CBC & Chem 7: 04/03/20 07:10 04/03/20 07:10 Labs: Abnormal Lab Results - Last 24 Hours (Table) 12/31/20 12/31/20 12/31/20 Range/Units 12:14 14:44 14:44 Hgb (11.4-16.0) gm/dL Hct (34.0-46.0) % Plt Count (150-450) k/uL Sodium (137-145) mmol/L Chloride (98-107) mmol/L BUN (7-17) mg/dL Creatinine (0.52-1.04) mg/dL Glucose (74-99) mg/dL POC Glucose (mg/dL) 193 H (75-99) mg/dL Hemoglobin A1c (4.0-6.0) % Osmolality 256 L (280-301) mosm/kg Magnesium (1.6-2.3) mg/dL Troponin I 0.073 H* (0.000-0.034) ng/mL 04/02/20 04/02/20 04/02/20 Range/Units 14:44 16:39 16:59 Hgb (11.4-16.0) gm/dL Hct (34.0-46.0) % Plt Count (150-450) k/uL Sodium 120 L (137-145) mmol/L Chloride 89 L (98-107) mmol/L BUN (7-17) mg/dL Creatinine (0.52-1.04) mg/dL Glucose (74-99) mg/dL POC Glucose (mg/dL) 189 H (75-99) mg/dL Hemoglobin A1c (4.0-6.0) % Osmolality (280-301) mosm/kg Magnesium (1.6-2.3) mg/dL Troponin I 0.071 H* (0.000-0.034) ng/mL 04/02/20 04/02/20 04/02/20 Range/Units 17:02 19:55 20:47 Hgb (11.4-16.0) gm/dL Hct (34.0-46.0) % Plt Count (150-450) k/uL Sodium 120 L (137-145) mmol/L Chloride 91 L (98-107) mmol/L BUN (7-17) mg/dL Creatinine (0.52-1.04) mg/dL Glucose (74-99) mg/dL POC Glucose (mg/dL) 162 H (75-99) mg/dL Hemoglobin A1c 7.1 H (4.0-6.0) % Osmolality (280-301) mosm/kg Magnesium (1.6-2.3) mg/dL Troponin I (0.000-0.034) ng/mL 04/03/20 04/03/20 04/03/20 Range/Units 02:28 06:07 07:10 Hgb (11.4-16.0) gm/dL Hct (34.0-46.0) % Plt Count (150-450) k/uL Sodium 122 L 123 L (137-145) mmol/L Chloride 92 L 92 L (98-107) mmol/L BUN 5 L (7-17) mg/dL Creatinine 0.48 L (0.52-1.04) mg/dL Glucose 169 H (74-99) mg/dL POC Glucose (mg/dL) 193 H (75-99) mg/dL Hemoglobin A1c (4.0-6.0) % Osmolality (280-301) mosm/kg Magnesium 1.5 L (1.6-2.3) mg/dL Troponin I (0.000-0.034) ng/mL 04/03/20 04/03/20 Range/Units 07:10 11:43 Hgb 11.1 L (11.4-16.0) gm/dL Hct 32.8 L (34.0-46.0) % Plt Count 472 H (150-450) k/uL Sodium (137-145) mmol/L Chloride (98-107) mmol/L BUN (7-17) mg/dL Creatinine (0.52-1.04) mg/dL Glucose (74-99) mg/dL POC Glucose (mg/dL) 209 H (75-99) mg/dL Hemoglobin A1c (4.0-6.0) % Osmolality (280-301) mosm/kg Magnesium (1.6-2.3) mg/dL Troponin I (0.000-0.034) ng/mL Microbiology - Last 24 Hours (Table) 04/02/20 09:21 Urine Culture - Preliminary Urine,Voided
[2020-04-03] MEDS: SODIUM CHLORIDE 0.9% 1,000 ML IV SCH (12:14)
[2020-04-03] MEDS: MAGNESIUM SULFATE-D5W PMX 1 GM in DEXTROSE/WATER 1 100ML.BAG IVPB SCH ×2 (12:15→17:11)
[2020-04-03 13:18] LABS: Sodium 123 mmol/L (137-145)
--- NOTE | 2020-04-03 13:22 | CONS ---
CONSULTATION REASON FOR CONSULT: Hyponatremia. HISTORY OF PRESENT ILLNESS: The patient is a 69-year-old female who was admitted to the hospital with history of altered mental status according to family. The patient was noted to have a serum sodium of 119 on admission. Patient initially received normal saline bolus, a liter, and also received 75 mL an hour of saline. Her serum sodium increased to 122 early this morning and then 123 today. There is no history of nausea, vomiting or diarrhea. However, it appears that the patient has not been eating much recently prior to admission. A urine osmolality was done, which was 449. Random urine sodium 80. Blood pressure has not been low. Systolic blood pressure has been about 130-140 with occasional elevated pressure at 160 mmHg for systolic. Patient has had good urine output. She was maintained on Lasix prior to admission. She is also maintained on Prozac which is not new. Review of previous labs shows serum sodium of 128 and 132 in February of 2020. PAST MEDICAL HISTORY: Significant for type 2 diabetes, gastroesophageal reflux disease, hyperlipidemia, hypertension, fibromyalgia. PAST SURGICAL HISTORY: Adenoidectomy, appendectomy, cholecystectomy, hysterectomy, tonsillectomy, tubal ligation, history of left knee arthroplasty, bladder suspension, repair of fractured left knee, cataract surgery. SOCIAL HISTORY: Negative for smoking, drug abuse or alcohol abuse. MEDICATIONS: Medications prior to admission included Desyrel, Protonix, Glucophage, Abilify, aspirin, Drisdol, Prozac, Lasix, Lopressor, Singulair, K-Dur. ALLERGIES: None. REVIEW OF SYSTEMS: As per HPI. Other systems negative. EXAMINATION: Patient is comfortable. She is awake but confused, not in any acute distress. Blood pressure is 138/65, heart rate 71 per minute, she is afebrile. Examination of the heart S1, S2. Examination of lungs, decreased breath sounds at bases. Abdomen is soft, nontender. Examination of lower extremities shows no significant edema. LEATHER SEASONER exam grossly intact. LABS: Show sodium 123, potassium 4.1, chloride 92, BUN 5, serum creatinine 0.48. TSH 1.06. Phosphorus is low at 1.5. Urine osmolality 449, random urine sodium 80. Chest x-ray on admission shows medial right basilar atelectasis versus infiltrate. ASSESSMENT: 1. Hyponatremia, possibly hypovolemic as serum sodium has improved with normal saline administration. I will resume saline at about 75 mL an hour and recheck sodium in 4 hours time. TSH is not elevated. Random urine osmolality is slightly on the higher side. However, if the serum sodium continues to improve with the saline, then that goes against SIADH. Volume status-paredes, patient appears euvolemic or mildly hypovolemic. 2. Possible pneumonia noted on chest x-ray. 3. Hypophosphatemia associated with decreased oral intake. 4. Type 2 diabetes maintained on Glucophage as outpatient. 5. Encephalopathy, most likely related to underlying electrolyte disturbance and possible urinary tract infection. PLAN: Resume saline at 50 mL an hour. Repeat sodium in 4 hours. Encourage increased oral intake. Replace phosphorus. Add Neutra-Phos orally. Encourage increased oral protein intake and check random cortisol level. Thank you for this consultation. We will continue to follow the patient with you during her hospitalization. MMMAYKELL / CANDYN: [phone] /
[2020-04-03 16:28] LABS: Glucose,Whole Blood 164 mg/dL (75-99)
[2020-04-03 20:10] LABS: Glucose,Whole Blood 252 mg/dL (75-99)
[2020-04-03] MEDS: traZODone HCL 50 MG TAB PO PRN (20:22)
[2020-04-03] MEDS: MONTELUKAST 10 MG TAB PO SCH (20:22)
[2020-04-03] MEDS: INSULIN DETEMIR (LEVEMIR) 100 UNIT/ML SYR SQ SCH (20:24)
[2020-04-04] MEDS: SODIUM CHLORIDE 0.9% 1,000 ML IV SCH ×2 (05:32→22:50)
[2020-04-04 06:15] LABS: Glucose,Whole Blood 222 mg/dL (75-99)
[2020-04-04] MEDS: PANTOPRAZOLE 40 MG TABLET PO SCH (06:20)
[2020-04-04] MEDS: INSULIN ASPART (NovoLOG) 100 UNIT/ML VIAL SQ SCH ×4 (06:20→20:22)
[2020-04-04 06:49] LABS: HCT 31.9 % (34.0-46.0); HGB 10.9 gm/dL (11.4-16.0); MCHC 34.1 g/dL (31.0-37.0); Mean Platelet Volume 6.1; Platelet Count 475 k/uL (150-450); RBC 3.89 m/uL (3.80-5.40); RDW 14.1 % (11.5-15.5); WBC 9.5 k/uL (3.8-10.6)
[2020-04-04 06:56] LABS: African American GFR (CKD) >90 (>60 ml/min/1.73 sqM); Anion Gap 7 mmol/L; Blood Urea Nitrogen 6 mg/dL (7-17); Calcium 9.4 mg/dL (8.4-10.2); Carbon Dioxide 25 mmol/L (22-30); Chloride 96 mmol/L (98-107); Glucose 162 mg/dL (74-99); Magnesium 1.6 mg/dL (1.6-2.3); Non-African American GFR(CKD) >90 (>60 ml/min/1.73 sqM); Potassium 3.6 mmol/L (3.5-5.1); Sodium 128 mmol/L (137-145)
--- NOTE | 2020-04-04 09:09 | P.PN ---
Subjective Progress Note Date: 04/04/20 Principal diagnosis: This is a 69-year-old female seen in consultation because of hyponatremia, with mental status changes. Her hyponatremia is likely from volume depletion from h er mental status changes and may be secondary to the hyponatremia but other causes need to be explored. She has responded very well to IV saline. Her urine studies though were somewhat suggestive of SIADH with urine osmolality being 449 and urine sodium me 80. She remains confused but awake alert cheerful She is eating 50% of the meals per the sitter was in the room and looks comfortable Objective - Vital Signs Vital signs: Vital Signs Temp 98.0 F 04/04/20 03:16 Pulse 63 04/04/20 03:16 Resp 16 04/04/20 03:16 BP 141/85 04/04/20 03:16 Pulse Ox 100 04/04/20 03:16 Intake & Output 04/03/20 04/04/20 04/04/20 18:59 06:59 18:59 Intake Total 480 675 240 Output Total 400 1800 Balance 80 -1125 240 Weight 61.5 kg Intake: Intake, IV Titration 675 Amount Sodium Chloride 0.9% 1, 675 000 ml @ 50 mls/hr IV . Q20H ANDREW Rx#:[id number] Oral 480 240 Output: Urine 400 1800 Uretheral (Lucia) 900 Other: Voiding Method Indwelling Catheter Diaper # Voids 2 Awake alert but this patient. HEENT exam no JVP neck is supple no facial asymmetry Lungs clear to auscultation good air entry bilaterally Heart sounds unremarkable no murmur rub gallop Abdomen soft nontender Extremity exam was minimal neurologically awake alert but disoriented moves all her exchanges #Right leg is in cast - Labs CBC & Chem 7: 04/04/20 06:17 04/04/20 06:17 Labs: Abnormal Lab Results - Last 24 Hours (Table) 04/03/20 04/03/20 04/03/20 Range/Units 11:43 12:44 16:26 Hgb (11.4-16.0) gm/dL Hct (34.0-46.0) % Plt Count (150-450) k/uL Sodium 123 L (137-145) mmol/L Chloride (98-107) mmol/L BUN (7-17) mg/dL Creatinine (0.52-1.04) mg/dL Glucose (74-99) mg/dL POC Glucose (mg/dL) 209 H 164 H (75-99) mg/dL 04/03/20 04/03/20 04/04/20 Range/Units 20:09 20:12 06:13 Hgb (11.4-16.0) gm/dL Hct (34.0-46.0) % Plt Count (150-450) k/uL Sodium 122 L (137-145) mmol/L Chloride (98-107) mmol/L BUN (7-17) mg/dL Creatinine (0.52-1.04) mg/dL Glucose (74-99) mg/dL POC Glucose (mg/dL) 252 H 222 H (75-99) mg/dL 04/04/20 04/04/20 Range/Units 06:17 06:17 Hgb 10.9 L (11.4-16.0) gm/dL Hct 31.9 L (34.0-46.0) % Plt Count 475 H (150-450) k/uL Sodium 128 L (137-145) mmol/L Chloride 96 L (98-107) mmol/L BUN 6 L (7-17) mg/dL Creatinine 0.42 L (0.52-1.04) mg/dL Glucose 162 H (74-99) mg/dL POC Glucose (mg/dL) (75-99) mg/dL Microbiology - Last 24 Hours (Table) 04/02/20 10:59 Blood Culture - Preliminary Blood No Growth after 24 hours 04/02/20 09:21 Urine Culture - Preliminary Urine,Voided Gram Neg Bacilli Assessment and Plan Assessment: Impression 1. Hyponatremia likely from volume depletion improved with IV saline. Sodium was 119 on 04/02/2020 and is currently 128 this morning on 04/04/19. 2. Encephalopathy remains confused but awake alert. 3. Diabetes mellitus with blood sugar in the 200 range recommendation 1. Maintain IV saline at 50 an hour. 2. Avoid any medication that might add to her confusion 3. Monitor labs today and tomorrow 4. Will continue to follow closely
[2020-04-04] MEDS: ASPIRIN 325 MG TAB PO SCH ×2 (09:17→20:22)
[2020-04-04] MEDS: METOPROLOL TARTRATE 50 MG TAB PO SCH ×2 (09:17→20:22)
[2020-04-04] MEDS: ARIPiprazole 5 MG TAB PO SCH (09:17)
--- NOTE | 2020-04-04 11:52 | P.PN ---
Subjective Progress Note Date: 04/04/20 (delayed charting seen at 0910) Principal diagnosis: Confusion Patient is a 69 yo CF with a hx of DM, prior hyponatremia resulting in altered mentation, htn, and hld who presented to the emergency department with family for confusion and altered mentation. She was seen and examined in the emergency department and underwent an extensive evaluation. On arrival her blood pressure was 141/110 the remainder of her vital signs within normal limits. Laboratory analysis showed white blood cell count of 14, 514, sodium 119, BUN 8, creatinine 0.45, glucose 256. Urinalysis showed 20 white blood cells was negative for nitrites. She underwent a chest x-ray which showed possible right lower lobe infiltrate. She also underwent a head CT which showed small vessel ischemic changes. She was given a bolus and started on 0.9 NS @75 MLS per hour. She became agitated and was given one dose of ativan. It came to light that she was discharged home from [facility] after undergoing surgery for a right knee fracture. She was discharged home on 03/22/2020. She has had a poor appetite. He reports that they did start new medications on discharge home, which appear to be pain medications, ASA for DVT prophylaxis, and hydroxizine for anxiety. She her hydroxyzine was called has been reported to cause hallucinations. Her Prozac was stopped as her urine lytes appear consistent with SIADH. Nephrology was consulted. They felt likely due to dehydration. She was continued on IVF. Her sodium continued to improved. She had clear mentation on 04/03/20, but then she had worsening hallucination on 04/04/20. Patient seen and examined at bedside. Today she is awake and alert to self only. She denies chest pain, shortness of breath, nausea, and pain. General: non toxic, no distress, appears at stated age Derm: Bruising at the proximal portion of her cast, warm, dry Head: atraumatic, normocephalic, symmetric Eyes: EOMI, no lid lag, anicteric sclera Mouth: no lip lesion, mucus membranes moist Cardiovascular: S1S2 reg, no murmur, positive posterior tibial pulse bilateral, Lungs: CTA bilateral, no rhonchi, no rales , no accessory muscle use Abdominal: soft, nontender to palpation, no guarding, no appreciable organomegaly Ext: Right leg in cast, no gross muscle atrophy, no edema, no contractures Neuro: CN II-XI grossly intact, no focal neuro deficits Psych: Alert, oriented to self and being in the hospital, not month or year, appropriate affect Hyponatremia secondary to dehydration - Improving slowly - Nephrology recommendations appreciated - Decrease IV fluids - trial back on prozac - TSH normal - Seizure precautions can be discontinued - Follow lytes - off lasix Acute metabolic encephalopathy on dementia -Improving -Stay off hydroxyzine and Prozac. Likely also improving as sodium levels continue to improve Klebsiella UTI - Kefzol - transition to keflex on discharge Elevated troponin -Not significant enough to be consistent with type II VT -Likely stress-induced -Not consistent with acute coronary syndrome -No further workup indicated Thrombycytosis - suspect reactive - follow cbc DM 2 - hold metformin - SSI - A1C 7.1 - levemir Recent R LE fracture - in long cast - NWB - pain medications start scheduled - Aspirin twice daily for DVT prophylaxis HTN, elevated on arrival - continue with lopressor Depression - hold prozac due to hyponatremia - Hold atarax that was recently prescribed due hallucinations - supportive care Recent fall - fall precautions Dementia - safe and supportive environment - continue out patient work-up Leukocytosis, resolved Was going to call son but DVT prophylaxis: ASA BID Discussed with: Patient, nursing, Anticipated discharge date: 2-[address]: [facility] A total of 25 minutes was spent on the care of this complex patient more than 50% of the time was spent in counseling and care coordination. Objective - Vital Signs Vital signs: Vital Signs Temp 97.7 F 04/04/20 08:00 Pulse 66 04/04/20 11:25 Resp 18 04/04/20 11:25 BP 166/67 04/04/20 11:25 Pulse Ox 97 04/04/20 11:25 Intake & Output 04/03/20 04/04/20 04/04/20 18:59 06:59 18:59 Intake Total 480 675 240 Output Total 400 1800 Balance 80 -1125 240 Weight 61.5 kg Intake: Intake, IV Titration 675 Amount Sodium Chloride 0.9% 1, 675 000 ml @ 50 mls/hr IV . Q20H [facility] Rx#:[id number] Oral 480 240 Output: Urine 400 1800 Uretheral (Lucia) 900 Other: Voiding Method Indwelling Catheter Diaper Diaper # Voids 2 - Labs CBC & Chem 7: 04/04/20 06:17 04/04/20 06:17 Labs: Abnormal Lab Results - Last 24 Hours (Table) 04/03/20 04/03/20 04/03/20 Range/Units 11:43 12:44 16:26 Hgb (11.4-16.0) gm/dL Hct (34.0-46.0) % Plt Count (150-450) k/uL Sodium 123 L (137-145) mmol/L Chloride (98-107) mmol/L BUN (7-17) mg/dL Creatinine (0.52-1.04) mg/dL Glucose (74-99) mg/dL POC Glucose (mg/dL) 209 H 164 H (75-99) mg/dL 04/03/20 04/03/20 04/04/20 Range/Units 20:09 20:12 06:13 Hgb (11.4-16.0) gm/dL Hct (34.0-46.0) % Plt Count (150-450) k/uL Sodium 122 L (137-145) mmol/L Chloride (98-107) mmol/L BUN (7-17) mg/dL Creatinine (0.52-1.04) mg/dL Glucose (74-99) mg/dL POC Glucose (mg/dL) 252 H 222 H (75-99) mg/dL 04/04/20 04/04/20 Range/Units 06:17 06:17 Hgb 10.9 L (11.4-16.0) gm/dL Hct 31.9 L (34.0-46.0) % Plt Count 475 H (150-450) k/uL Sodium 128 L (137-145) mmol/L Chloride 96 L (98-107) mmol/L BUN 6 L (7-17) mg/dL Creatinine 0.42 L (0.52-1.04) mg/dL Glucose 162 H (74-99) mg/dL POC Glucose (mg/dL) (75-99) mg/dL Microbiology - Last 24 Hours (Table) 04/02/20 09:21 Urine Culture - Final Urine,Voided Klebsiella pneumoniae 04/02/20 10:59 Blood Culture - Preliminary Blood No Growth after 24 hours
[2020-04-04 12:05] LABS: Glucose,Whole Blood 112 mg/dL (75-99)
[2020-04-04] MEDS: FLUoxetine HCL 10 MG CAP PO SCH (12:40)
[2020-04-04] MEDS: ACETAMINOPHEN TAB 325 MG TAB PO SCH ×2 (12:40→20:22)
[2020-04-04 16:29] LABS: Glucose,Whole Blood 159 mg/dL (75-99)
[2020-04-04 18:32] LABS: African American GFR (CKD) >90 (>60 ml/min/1.73 sqM); Anion Gap 6 mmol/L; Blood Urea Nitrogen 7 mg/dL (7-17); Calcium 9.2 mg/dL (8.4-10.2); Carbon Dioxide 23 mmol/L (22-30); Chloride 99 mmol/L (98-107); Glucose 196 mg/dL (74-99); Non-African American GFR(CKD) >90 (>60 ml/min/1.73 sqM); Potassium 3.5 mmol/L (3.5-5.1); Sodium 128 mmol/L (137-145)
[2020-04-04 20:14] LABS: Glucose,Whole Blood 196 mg/dL (75-99)
[2020-04-04] MEDS: MONTELUKAST 10 MG TAB PO SCH (20:22)
[2020-04-04] MEDS: traZODone HCL 50 MG TAB PO PRN (20:22)
[2020-04-04] MEDS: INSULIN DETEMIR (LEVEMIR) 100 UNIT/ML SYR SQ SCH (20:22)
[2020-04-05] MEDS: ACETAMINOPHEN TAB 325 MG TAB PO SCH ×3 (03:41→21:41)
[2020-04-05 06:15] LABS: Glucose,Whole Blood 155 mg/dL (75-99)
[2020-04-05] MEDS: INSULIN ASPART (NovoLOG) 100 UNIT/ML VIAL SQ SCH ×4 (06:27→21:41)
[2020-04-05] MEDS: PANTOPRAZOLE 40 MG TABLET PO SCH (06:29)
[2020-04-05 06:47] LABS: African American GFR (CKD) >90 (>60 ml/min/1.73 sqM); Anion Gap 4 mmol/L; Blood Urea Nitrogen 8 mg/dL (7-17); Calcium 9.2 mg/dL (8.4-10.2); Carbon Dioxide 24 mmol/L (22-30); Chloride 99 mmol/L (98-107); Glucose 146 mg/dL (74-99); Non-African American GFR(CKD) >90 (>60 ml/min/1.73 sqM); Potassium 3.8 mmol/L (3.5-5.1); Sodium 127 mmol/L (137-145)
[2020-04-05 06:50] LABS: HCT 33.8 % (34.0-46.0); HGB 10.7 gm/dL (11.4-16.0); Hypochromasia Slight; MCH 26.8 pg (25.0-35.0); MCHC 31.7 g/dL (31.0-37.0); MCV 84.6 fL (80.0-100.0); Mean Platelet Volume 6.3; Platelet Count 479 k/uL (150-450); RBC 3.99 m/uL (3.80-5.40); RDW 14.4 % (11.5-15.5)
--- NOTE | 2020-04-05 09:50 | P.PN ---
Subjective Progress Note Date: 04/05/20 Principal diagnosis: This is a 69-year-old female seen in consultation because of hyponatremia, with mental status changes. Her hyponatremia is likely from volume depletion, as it responded fairly well with normal saline. Her mental status changes is slightly better this morning. Her sodium is in the 128. According to the nursing staff she is eating about 75% of her food and is not taking in large amounts of fluids Patient seems happy cheerful was able to tell me that she was at [facility] but unable to name it and she was disoriented in time Although her response to IV fluid suggest volume depletion, Her urine studies though were somewhat suggestive of SIADH with urine osmolality being 449 and urine sodium me 80. Objective - Vital Signs Vital signs: Vital Signs Temp 97.9 F 04/05/20 04:00 Pulse 58 L 04/05/20 04:00 Resp 14 04/05/20 04:00 BP 165/74 04/05/20 04:00 Pulse Ox 99 04/05/20 04:00 Intake & Output 04/04/20 04/05/20 04/05/20 18:59 06:59 18:59 Intake Total 1370 400 0 Output Total 600 350 Balance 770 50 0 Weight 69 kg Intake: IV 400 400 Sodium Chloride 0.9% 1, 400 400 000 ml @ 50 mls/hr IV . Q20H [facility] Rx#:[id number] Intake, IV Titration 50 Amount ceFAZolin 2 gm In Sodium 50 Chloride 0.9% 50 ml @ 100 mls/hr IVPB Q8HR [facility] Rx# :[id number] Oral 920 0 Output: Urine 600 350 Other: Voiding Method Indwelling Catheter Indwelling Catheter # Voids 1 Exertion awake alert disoriented except that [facility] neck is supple no facial asymmetry Lungs are clear to auscultation good air entry bilaterally Heart sounds unremarkable Abdomen soft nontender Was no edema Neurologically awake alert but disoriented - Labs CBC & Chem 7: 04/05/20 06:11 04/05/20 06:11 Labs: Abnormal Lab Results - Last 24 Hours (Table) 04/04/20 04/04/20 04/04/20 Range/Units 12:01 16:27 18:02 Hgb (11.4-16.0) gm/dL Hct (34.0-46.0) % Plt Count (150-450) k/uL Sodium 128 L (137-145) mmol/L Creatinine 0.48 L (0.52-1.04) mg/dL Glucose 196 H (74-99) mg/dL POC Glucose (mg/dL) 112 H 159 H (75-99) mg/dL 04/04/20 04/05/20 04/05/20 Range/Units 20:11 06:11 06:11 Hgb 10.7 L (11.4-16.0) gm/dL Hct 33.8 L (34.0-46.0) % Plt Count 479 H (150-450) k/uL Sodium 127 L (137-145) mmol/L Creatinine 0.47 L (0.52-1.04) mg/dL Glucose 146 H (74-99) mg/dL POC Glucose (mg/dL) 196 H (75-99) mg/dL 04/05/20 Range/Units 06:14 Hgb (11.4-16.0) gm/dL Hct (34.0-46.0) % Plt Count (150-450) k/uL Sodium (137-145) mmol/L Creatinine (0.52-1.04) mg/dL Glucose (74-99) mg/dL POC Glucose (mg/dL) 155 H (75-99) mg/dL Microbiology - Last 24 Hours (Table) 04/02/20 10:59 Blood Culture - Preliminary Blood No Growth after 48 hours 04/02/20 09:21 Urine Culture - Final Urine,Voided Klebsiella pneumoniae Assessment and Plan Assessment: Impression 1. Hyponatremia likely from volume depletion improved with IV saline. Sodium was 119 on 04/02/2020 and is currently 128 on 04/04/19, further is down to 127. 2. Encephalopathy remains confused but awake alert, slight improvement. 3. Diabetes mellitus with blood sugar in the 146-190 rang. Recommendations 1. Discontinue IV fluids and reassess 2. Check orthostatic changes and reported back to me 3. Recheck labs tomorrow 4. Will continue to follow closely
[2020-04-05] MEDS: ASPIRIN 325 MG TAB PO SCH ×2 (10:09→21:40)
[2020-04-05] MEDS: METOPROLOL TARTRATE 50 MG TAB PO SCH ×2 (10:09→21:40)
--- NOTE | 2020-04-05 11:02 | P.PN ---
Subjective Progress Note Date: 04/05/20 Principal diagnosis: Confusion Patient is a 69 yo CF with a hx of DM, prior hyponatremia resulting in altered mentation, htn, and hld who presented to the emergency department with family for confusion and altered mentation. She was seen and examined in the emergency department and underwent an extensive evaluation. On arrival her blood pressure was 141/110 the remainder of her vital signs within normal limits. Laboratory analysis showed white blood cell count of 14, 514, sodium 119, BUN 8, creatinine 0.45, glucose 256. Urinalysis showed 20 white blood cells was negative for nitrites. She underwent a chest x-ray which showed possible right lower lobe infiltrate. She also underwent a head CT which showed small vessel ischemic changes. She was given a bolus and started on 0.9 NS @75 MLS per hour. She became agitated and was given one dose of ativan. It came to light that she was discharged home from [facility] after undergoing surgery for a right knee fracture. She was discharged home on 03/22/2020. She has had a poor appetite. He reports that they did start new medications on discharge home, which appear to be pain medications, ASA for DVT prophylaxis, and hydroxizine for anxiety. She her hydroxyzine was called has been reported to cause hallucinations. Her Prozac was stopped as her urine lytes appear consistent with SIADH. Nephrology was consulted. They felt likely due to dehydration. She was continued on IVF. Her sodium continued to improved. She had clear mentation on 04/03/20, but then she had worsening hallucination on 04/04/20. She was found to have a klebsiella UTI and was started on kefzol. She also had urinary retention and a hernandez cath was placed. She was started on scheduled tylenol. She seen and examined at bedside. She is alert and oriented to her date, year, and place. She is much more awake and alert and does not longer period be hallucinating. She initially eyes pain but when after she got Tylenol she does state Yes her leg hurts slightly. She denies any nausea or vomiting and ate breakfast well. General: non toxic, no distress, appears at stated age Derm: Bruising at the proximal portion of her cast, warm, dry Head: atraumatic, normocephalic, symmetric Eyes: EOMI, no lid lag, anicteric sclera Mouth: no lip lesion, mucus membranes moist Cardiovascular: S1S2 reg, no murmur, positive posterior tibial pulse bilateral, Lungs: CTA bilateral, no rhonchi, no rales , no accessory muscle use Abdominal: soft, nontender to palpation, no guarding, no appreciable organomegaly Ext: Right leg in cast, no gross muscle atrophy, no edema, no contractures Neuro: CN II-XI grossly intact, no focal neuro deficits Psych: Alert, oriented to self and being in the hospital, not month or year, appropriate affect Hyponatremia secondary to dehydration - Improving slowly - Nephrology recommendations appreciated, off IVF - trial back on prozac started on 04/04/20 - TSH normal - Follow lytes - off lasix Acute metabolic encephalopathy on dementia -Improving -Stay off hydroxyzine. Likely also improving as sodium levels continue to improve Klebsiella UTI - Kefzol - transition to keflex on discharge Elevated troponin -Not significant enough to be consistent with type II NM -Likely stress-induced -Not consistent with acute coronary syndrome -No further workup indicated Thrombycytosis - suspect reactive - follow cbc DM 2 - hold metformin - SSI - A1C 7.1 - levemir Recent R LE fracture - in long cast - WB as tolerated - pain medications start scheduled - Aspirin twice daily for DVT prophylaxis HTN, elevated on arrival - continue with lopressor Depression - hold prozac due to hyponatremia - Hold atarax that was recently prescribed due hallucinations - supportive care Recent fall - fall precautions Dementia - safe and supportive environment - continue out patient work-up Leukocytosis, resolved Was going to call son but DVT prophylaxis: ASA BID Discussed with: Patient, nursing, Anticipated discharge date: in AM Anticipated discharge place: A total of 25 minutes was spent on the care of this complex patient more than 50% of the time was spent in counseling and care coordination. Objective - Vital Signs Vital signs: Vital Signs Temp 98.4 F 04/05/20 09:00 Pulse 57 L 04/05/20 09:00 Resp 16 04/05/20 09:00 BP 143/63 04/05/20 09:00 Pulse Ox 99 04/05/20 09:00 Intake & Output 04/04/20 04/05/20 04/05/20 18:59 06:59 18:59 Intake Total 1370 400 0 Output Total 600 350 Balance 770 50 0 Weight 69 kg Intake: IV 400 400 Sodium Chloride 0.9% 1, 400 400 000 ml @ 50 mls/hr IV . Q20H [facility] Rx#:[id number] Intake, IV Titration 50 Amount ceFAZolin 2 gm In Sodium 50 Chloride 0.9% 50 ml @ 100 mls/hr IVPB Q8HR [facility] Rx# :[id number] Oral 920 0 Output: Urine 600 350 Other: Voiding Method Indwelling Catheter Indwelling Catheter Indwelling Catheter # Voids 1 - Labs CBC & Chem 7: 04/05/20 06:11 04/05/20 06:11 Labs: Abnormal Lab Results - Last 24 Hours (Table) 04/04/20 04/04/20 04/04/20 Range/Units 12:01 16:27 18:02 Hgb (11.4-16.0) gm/dL Hct (34.0-46.0) % Plt Count (150-450) k/uL Sodium 128 L (137-145) mmol/L Creatinine 0.48 L (0.52-1.04) mg/dL Glucose 196 H (74-99) mg/dL POC Glucose (mg/dL) 112 H 159 H (75-99) mg/dL 04/04/20 04/05/20 04/05/20 Range/Units 20:11 06:11 06:11 Hgb 10.7 L (11.4-16.0) gm/dL Hct 33.8 L (34.0-46.0) % Plt Count 479 H (150-450) k/uL Sodium 127 L (137-145) mmol/L Creatinine 0.47 L (0.52-1.04) mg/dL Glucose 146 H (74-99) mg/dL POC Glucose (mg/dL) 196 H (75-99) mg/dL 04/05/20 Range/Units 06:14 Hgb (11.4-16.0) gm/dL Hct (34.0-46.0) % Plt Count (150-450) k/uL Sodium (137-145) mmol/L Creatinine (0.52-1.04) mg/dL Glucose (74-99) mg/dL POC Glucose (mg/dL) 155 H (75-99) mg/dL Microbiology - Last 24 Hours (Table) 04/02/20 10:59 Blood Culture - Preliminary Blood No Growth after 48 hours 04/02/20 09:21 Urine Culture - Final Urine,Voided Klebsiella pneumoniae
[2020-04-05 11:08] LABS: Glucose,Whole Blood 199 mg/dL (75-99)
[2020-04-05] MEDS: FLUoxetine HCL 10 MG CAP PO SCH (11:22)
[2020-04-05] MEDS: ARIPiprazole 5 MG TAB PO SCH (11:22)
[2020-04-05 17:06] LABS: Glucose,Whole Blood 195 mg/dL (75-99)
[2020-04-05 21:14] LABS: Glucose,Whole Blood 192 mg/dL (75-99)
[2020-04-05] MEDS: MONTELUKAST 10 MG TAB PO SCH (21:40)
[2020-04-05] MEDS: INSULIN DETEMIR (LEVEMIR) 100 UNIT/ML SYR SQ SCH (21:41)
[2020-04-06] MEDS: ACETAMINOPHEN TAB 325 MG TAB PO SCH ×2 (04:56→14:12)
[2020-04-06 05:31] LABS: African American GFR (CKD) >90 (>60 ml/min/1.73 sqM); Anion Gap 5 mmol/L; Blood Urea Nitrogen 9 mg/dL (7-17); Calcium 9.3 mg/dL (8.4-10.2); Carbon Dioxide 25 mmol/L (22-30); Chloride 99 mmol/L (98-107); Glucose 168 mg/dL (74-99); Magnesium 1.4 mg/dL (1.6-2.3); Non-African American GFR(CKD) >90 (>60 ml/min/1.73 sqM); Sodium 129 mmol/L (137-145)
[2020-04-06] MEDS: MAGNESIUM SULFATE-D5W PMX 1 GM in DEXTROSE/WATER 1 100ML.BAG IVPB SCH ×3 (06:06→14:12)
[2020-04-06 07:30] LABS: Glucose,Whole Blood 138 mg/dL (75-99)
[2020-04-06] MEDS: PANTOPRAZOLE 40 MG TABLET PO SCH (09:19)
[2020-04-06] MEDS: INSULIN ASPART (NovoLOG) 100 UNIT/ML VIAL SQ SCH ×2 (09:19→14:13)
[2020-04-06] MEDS: ARIPiprazole 5 MG TAB PO SCH (09:19)
[2020-04-06] MEDS: METOPROLOL TARTRATE 50 MG TAB PO SCH (09:20)
[2020-04-06] MEDS: FLUoxetine HCL 10 MG CAP PO SCH (09:20)
[2020-04-06] MEDS: ASPIRIN 325 MG TAB PO SCH (09:22)
--- NOTE | 2020-04-06 09:27 | P.DS ---
Providers Date of admission: 04/02/20 10:44 Expected date of discharge: 04/06/20 Attending physician: Idalmis Puri DO Consults: 04/02/20 10:44 Consult Physician Urgent Consulting Provider: Alix Martin Consult Reason/Comments: Hyponatremia, altered mental status Do you want consulting provider notified?: Yes [facility]: Discharge Diagnosis: Hyponatremia secondary to dehydration Acute metabolic encephalopathy on dementia Klebsiella UTI, present on admission Elevated troponin Thrombocytosis Diabetes mellitus type 2 Right lower extremity patellar fracture Hypertension Depression Recent fall Leukocytosis Hospital Course: Patient is a 69 yo CF with a hx of DM, prior hyponatremia resulting in altered mentation, htn, and hld who presented to the emergency department with family for confusion and altered mentation. She was seen and examined in the emergency department and underwent an extensive evaluation. On arrival her blood pressure was 141/110 the remainder of her vital signs within normal limits. Laboratory analysis showed white blood cell count of 14, 514, sodium 119, BUN 8, creatinine 0.45, glucose 256. Urinalysis showed 20 white blood cells was negative for nitrites. She underwent a chest x-ray which showed possible right lower lobe in filtrate. She also underwent a head CT which showed small vessel ischemic changes. She was given a bolus and started on 0.9 NS @75 MLS per hour. She became agitated and was given one dose of ativan. It came to light that she was discharged home from [facility] after undergoing surgery for a right knee fracture. She was discharged home on 03/22/2020. She has had a poor appetite. He reports that they did start new medications on discharge home, which appear to be pain medications, ASA for DVT prophylaxis, and hydroxizine for anxiety. She her hydroxyzine was called has been reported to cause hallucinations. Her Prozac was stopped as her urine lytes appear consistent with SIADH. Nephrology was consulted. They felt likely due to dehydration. She was continued on IVF. Her sodium continued to improved. She had clear mentation on 04/03/20, but then she had worsening hallucination on 04/04/20. She was found to have a klebsiella UTI and was started on kefzol. She also had urinary retention and a hernandez cath was placed, this was discontinued on the evening of 04/05/2020 and she was able to void on her own. She was started on scheduled tylenol seemed to improve her mentation. She continued to do well off of IV fluids and on her Prozac. She was determined state discharge home. She will have a repeat basic metabolic profile in 3-5 days with results to Dr. Fabian. She will also complete an additional 4 days of Cefpodoxime. Patient seen and examined at bedside. She denies any pain, nausea, vomiting. Vital signs reviewed and stable. General: non toxic, no distress, appears at stated age Derm: warm, dry Head: atraumatic, normocephalic, symmetric Eyes: EOMI, no lid lag, anicteric sclera Mouth: no lip lesion, mucus membranes moist Cardiovascular: S1S2 reg, no murmur, positive posterior tibial pulse bilateral, Lungs: CTA bilateral, no rhonchi, no rales , no accessory muscle use Abdominal: soft, nontender to palpation, no guarding, no appreciable organomega ly Ext: no gross muscle atrophy, no edema, no contractures Neuro: CN II-XI grossly intact, no focal neuro deficits Psych: Alert, oriented to self and location, not year, appropriate affect A total of 35 minutes of time were spent preparing this complex discharge summary . Plan - Discharge Summary Discharge Rx Participant: No New Discharge Prescriptions: New RX: Cefpodoxime Proxetil [Vantin] 200 mg PO Q12HR #8 tab Continue RX: traZODone HCL [Desyrel] 100 mg PO HS PRN PRN Reason: SLEEP RX: metFORMIN HCL [Glucophage] 500 mg PO BID RX: Pantoprazole [Protonix] 40 mg PO DAILY RX: Aspirin EC [Ecotrin] 325 mg PO DIRECTED RX: Metoprolol Tartrate [Lopressor] 100 mg PO BID RX: Montelukast Sodium [Singulair] 10 mg PO HS RX: FLUoxetine HCL [PROzac] 10 mg PO DAILY RX: Ergocalciferol (Vitamin D2) [Drisdol] 1,250 mcg PO Q7D RX: ARIPiprazole [Abilify] 5 mg PO DAILY Discontinued Potassium Chloride ER [K-Dur 20] 20 meq PO DAILY Furosemide [Lasix] 20 mg PO DAILY Discharge Medication List RX: traZODone HCL [Desyrel] 100 mg PO HS PRN 09/16/13 [History] RX: Pantoprazole [Protonix] 40 mg PO DAILY 06/23/17 [History] RX: metFORMIN HCL [Glucophage] 500 mg PO BID 06/23/17 [History] RX: ARIPiprazole [Abilify] 5 mg PO DAILY 04/02/20 [History] RX: Aspirin EC [Ecotrin] 325 mg PO DIRECTED 04/02/20 [History] RX: Ergocalciferol (Vitamin D2) [Drisdol] 1,250 mcg PO Q7D 04/02/20 [History] RX: FLUoxetine HCL [PROzac] 10 mg PO DAILY 04/02/20 [History] RX: Metoprolol Tartrate [Lopressor] 100 mg PO BID 04/02/20 [History] RX: Montelukast Sodium [Singulair] 10 mg PO HS 04/02/20 [History] RX: Cefpodoxime Proxetil [Vantin] 200 mg PO Q12HR #8 tab 04/06/20 [Rx] Follow up Appointment(s)/Referral(s): Vicky Fabian MD [Primary Care Provider] - 1-2 days Ambulatory/Diagnostic Orders: Basic Metabolic Panel [LAB.AMB] Time Frame: 3 Days, Location: None Selected Activity/Diet/Wound Care/Special Instructions: Activity: as tolerated Diet: Carb consistent Special Instructions: Repeat Labs in 3-5 days with home health Discharge Disposition: HOME WITH HOME HEALTH SERVICES
[2020-04-06 12:04] LABS: Glucose,Whole Blood 222 mg/dL (75-99)
[2020-04-06 12:15] VITALS: BP 126/78; PULSE 53; RESP 16; TEMP 97.5
== END 2020-04-06 15:48 | disposition home health service (06) | DRG 640 ==
LOC: EC 09:00 → 3SCARD 10:44 → 6NMEDSUR 04-05 16:29
PROVIDERS: ADMIT Internal Medicine; ATTEND Internal Medicine
DX: E87.1 Hypo-osmolality and hyponatremia (principal); G93.41 Metabolic encephalopathy; I67.89 Other cerebrovascular disease; N39.0 Urinary tract infection, site not specified; F03.90 Unspecified dementia, unspecified severity, without behavioral disturbance, psychotic disturbance, mood disturbance, and anxiety; E11.65 Type 2 diabetes mellitus with hyperglycemia; B96.1 Klebsiella pneumoniae [K. pneumoniae] as the cause of diseases classified elsewhere; E78.5 Hyperlipidemia, unspecified; E86.1 Hypovolemia; E86.0 Dehydration; I10 Essential (primary) hypertension; M79.7 Fibromyalgia; F32.9 Major depressive disorder, single episode, unspecified; F41.9 Anxiety disorder, unspecified; R77.8 Other specified abnormalities of plasma proteins; K21.9 Gastro-esophageal reflux disease without esophagitis; Z79.84 Long term (current) use of oral hypoglycemic drugs; Z79.82 Long term (current) use of aspirin; Z79.899 Other long term (current) drug therapy; Z91.81 History of falling; Z90.89 Acquired absence of other organs; Z90.49 Acquired absence of other specified parts of digestive tract; Z87.19 Personal history of other diseases of the digestive system; Z90.710 Acquired absence of both cervix and uterus; Z87.42 Personal history of other diseases of the female genital tract; Z98.51 Tubal ligation status; Z87.81 Personal history of (healed) traumatic fracture; Z96.652 Presence of left artificial knee joint; Z98.41 Cataract extraction status, right eye; Z87.448 Personal history of other diseases of urinary system; Z98.890 Other specified postprocedural states; Z80.9 Family history of malignant neoplasm, unspecified
CPT/HCPCS: 36415; 51702; 70450; 71045; 80048; 80051; 80053; 80306; 81001; 82533; 83036; 83735; 83930; 83935; 84100; 84295; 84300; 84443; 84484; 85025; 85027; 85610; 85730; 87040; 87077; 87086; 87186; 93005; 96361; 96374; 99285

== ENCOUNTER 2020-07-14 10:54 | Inpatient (IN) | payer MEDICARE ==
--- NOTE | 2020-07-14 11:59 | XR ---
EXAMINATION TYPE: XR chest 2V DATE OF EXAM: 07/14/2020 COMPARISON: 04/02/2020 TECHNIQUE: PA and lateral views submitted. HISTORY: Weakness FINDINGS: The lungs are clear and there is no pneumothorax, pleural effusion, or focal pneumonia. Heart enlar ged. Coarsened interstitium. Hyperinflation suggests COPD. Degenerative changes of the spine. IMPRESSION: 1. Cardiomegaly and COPD correlate for interstitial chronic lung disease or mild interstitial pneumon itis..
[2020-07-14 12:16] LABS: Basophils # (A) 0.1 k/uL (0-0.2); Basophils % (A) 1 %; Eosinophils # (A) 0.1 k/uL (0-0.7); Eosinophils % (A) 1 %; HCT 36.1 % (34.0-46.0); HGB 11.5 gm/dL (11.4-16.0); Lymphocytes % (A) 12 %; MCH 24.7 pg (25.0-35.0); MCHC 31.8 g/dL (31.0-37.0); MCV 77.7 fL (80.0-100.0); Mean Platelet Volume 6.3; Microcytosis Slight; Monocytes # (A) 0.3 k/uL (0-1.0); Monocytes % (A) 4 %; Neutrophils # (A) 6.6 k/uL (1.3-7.7); Neutrophils % (A) 82 %; Platelet Count 346 k/uL (150-450); RBC 4.65 m/uL (3.80-5.40); RDW 15.1 % (11.5-15.5); WBC 8.1 k/uL (3.8-10.6)
[2020-07-14 12:22] LABS: ALT 15 U/L (4-34); AST 25 U/L (14-36); African American GFR (CKD) >90 (>60 ml/min/1.73 sqM); Albumin 4.2 g/dL (3.5-5.0); Alkaline Phosphatase 117 U/L (38-126); Anion Gap 8 mmol/L; Blood Urea Nitrogen 10 mg/dL (7-17); Calcium 9.8 mg/dL (8.4-10.2); Carbon Dioxide 25 mmol/L (22-30); Chloride 93 mmol/L (98-107); Glucose 180 mg/dL (74-99); Magnesium 1.5 mg/dL (1.6-2.3); Non-African American GFR(CKD) >90 (>60 ml/min/1.73 sqM); Phosphorus 4.2 mg/dL (2.5-4.5); Potassium 4.8 mmol/L (3.5-5.1); Sodium 126 mmol/L (137-145); Total Bilirubin 0.7 mg/dL (0.2-1.3); Total Protein 7.2 g/dL (6.3-8.2)
[2020-07-14 12:28] LABS: INR 0.9 (<1.2); Prothrombin Time 9.9 sec (9.0-12.0)
[2020-07-14] MEDS: SODIUM CHLORIDE 0.9% 1,000 ML IV SCH (12:45)
[2020-07-14] MEDS ORDERED: MAGNESIUM OXIDE 400 MG TAB PO STA (12:53)
[2020-07-14] MEDS ORDERED: NALOXONE 0.4 MG/ML 1 ML VIAL IV PRN ×2 (12:55→14:06)
--- NOTE | 2020-07-14 12:55 | ED ---
Weakness HPI - General Chief complaint: Weakness Stated complaint: Weakness Source: EMS Mode of arrival: EMS Limitations: altered mental status - History of Present Illness Initial comments: 69-year-old female presenting today for chief complaint of generalized weakness. Patient lives in assisted care where she has appeared weaker for the past 2 days. Patient today was using her walker when they stated that she was so weak she slumped over. Patient denies any current complaints she states she has no chest pain shortness of breath nausea vomiting diarrhea fevers rashes he denies any abdominal pain, or headaches. on arrival patient is appears well nontoxic in no acute distress. - Related Data Home Medications Medication Instructions Recorded Confirmed traZODone HCL [Desyrel] 100 mg PO HS PRN 09/16/13 04/02/20 Pantoprazole [Protonix] 40 mg PO DAILY 06/23/17 04/02/20 metFORMIN HCL [Glucophage] 500 mg PO BID 06/23/17 04/02/20 ARIPiprazole [Abilify] 5 mg PO DAILY 04/02/20 04/02/20 Aspirin EC [Ecotrin] 325 mg PO DIRECTED 04/02/20 04/02/20 Ergocalciferol (Vitamin D2) 1,250 mcg PO Q7D 04/02/20 04/02/20 [Drisdol (50,000 Iu)] FLUoxetine HCL [PROzac] 10 mg PO DAILY 04/02/20 04/02/20 Metoprolol Tartrate [Lopressor] 100 mg PO BID 04/02/20 04/02/20 Montelukast Sodium [Singulair] 10 mg PO HS 04/02/20 04/02/20 Previous Rx's Medication Instructions Recorded Cefpodoxime Proxetil [Vantin] 200 mg PO Q12HR #8 tab 04/06/20 Allergies Allergy/AdvReac Type Severity Reaction Status Date / Time No Known Allergies Allergy Verified 07/14/20 12:50 Review of Systems ROS Statement: Those systems with pertinent positive or pertinent negative responses have been documented in the HPI. ROS Other: All systems not noted in ROS Statement are negative. Past Medical History Past Medical History: Dementia, Diabetes Mellitus, GERD/Reflux, Hyperlipidemia, Hypertension Additional Past Medical History / Comment(s): FIBROMYALGIA History of Any Multi-Drug Resistant Organisms: None Reported Past Surgical History: Adenoidectomy, Appendectomy, Cholecystectomy, Hysterectomy, Tonsillectomy, Tubal Ligation Additional Past Surgical History / Comment(s): CARARACT RT EYE 07/02/2013, bladder suspension, repair of the fracture, left knee replacement Past Anesthesia/Blood Transfusion Reactions: Motion Sickness, Postoperative Nausea & Vomiting (PONV) Past Psychological History: Depression Smoking Status: Never smoker Past Alcohol Use History: None Reported Past Drug Use History: None Reported - Past Family History Mother Family Medical History: Cancer General Exam - General Exam Comments Initial Comments: General: The patient is awake and alert, in no distress Eye: +3 mm pupils are equal, round and reactive to light, extra-ocular movements are intact. No nystagmus. There is normal conjunctiva bilaterally. No signs of icterus. Ears, nose, mouth and throat: There are moist mucous membranes and no oral lesions. Neck: The neck is supple, there is no tenderness or JVD. Cardiovascular: There is a regular rate and rhythm. No murmur, rub or gallop is appreciated. Respiratory: Lungs are clear to auscultation, respirations are non-labored, breath sounds are equal. No wheezes, stridor, rales, or rhonchi. Gastrointestinal: Soft, non-distended, non-tender abdomen without masses or organomegaly noted. There is no rebound or guarding present. Musculoskeletal: Normal ROM, no tenderness. Strength 5/5. Sensation intact. Radial and DP pulses equal bilaterally 2+. Neurological: A&O x 2 (not to time). CN II-XII intact, There are no obvious motor or sensory deficits. Coordination appears grossly intact. Speech is normal. Skin: Skin is warm and dry and no rashes or lesions are noted. Psychiatric: Cooperative, appropriate mood & affect, normal judgment. Limitations: altered mental status Course Vital Signs 07/14/20 07/14/20 07/14/20 10:58 11:30 12:00 Temperature 98.0 F Pulse Rate 66 59 L 68 Respiratory 16 16 16 Rate Blood Pressure 152/82 152/82 151/73 O2 Sat by Pulse 100 100 97 Oximetry EKG Findings - EKG Comments: EKG Findings:: Ventricular rate 64 bpm, TX interval 148 ms, QRS duration 76. And, QT/QTC 416/429 ms. This is normal sinus with no ST elevation or depression. Nonspecific T wave changes Medical Decision Making - Medical Decision Making Patient is both hyponatremic and hypochloremic. She has struggled with hyponatremia in the past. Given patient's symptomatic with generalized weakness patient will be admitted for replenishment. patient appears well nontoxic in no acute distress. Dr Monterroso is agreeable to admission. SOund physicians accepted admission. - Lab Data Result diagrams: 07/14/20 11:40 07/14/20 11:40 Lab Results 07/14/20 07/14/20 07/14/20 Range/Units 11:40 11:40 11:40 WBC 8.1 (3.8-10.6) k/uL RBC 4.65 (3.80-5.40) m/uL Hgb 11.5 (11.4-16.0) gm/dL Hct 36.1 (34.0-46.0) % MCV 77.7 L (80.0-100.0) fL MCH 24.7 L (25.0-35.0) pg MCHC 31.8 (31.0-37.0) g/dL RDW 15.1 (11.5-15.5) % Plt Count 346 (150-450) k/uL MPV 6.3 Neutrophils % 82 % Lymphocytes % 12 % Monocytes % 4 % Eosinophils % 1 % Basophils % 1 % Neutrophils # 6.6 (1.3-7.7) k/uL Lymphocytes # 1.0 (1.0-4.8) k/uL Monocytes # 0.3 (0-1.0) k/uL Eosinophils # 0.1 (0-0.7) k/uL Basophils # 0.1 (0-0.2) k/uL Microcytosis Slight PT 9.9 (9.0-12.0) sec INR 0.9 (<1.2) APTT 19.2 L (22.0-30.0) sec Sodium 126 L (137-145) mmol/L Potassium 4.8 (3.5-5.1) mmol/L Chloride 93 L (98-107) mmol/L Carbon Dioxide 25 (22-30) mmol/L Anion Gap 8 mmol/L BUN 10 (7-17) mg/dL Creatinine 0.52 (0.52-1.04) mg/dL Est GFR (CKD-EPI)AfAm >90 (>60 ml/min/1.73 sqM) Est GFR (CKD-EPI)NonAf >90 (>60 ml/min/1.73 sqM) Glucose 180 H (74-99) mg/dL Plasma Lactic Acid Matty (0.7-2.0) mmol/L Calcium 9.8 (8.4-10.2) mg/dL Phosphorus 4.2 (2.5-4.5) mg/dL Magnesium 1.5 L (1.6-2.3) mg/dL Total Bilirubin 0.7 (0.2-1.3) mg/dL AST 25 (14-36) U/L ALT 15 (4-34) U/L Alkaline Phosphatase 117 (38-126) U/L Troponin I (0.000-0.034) ng/mL Total Protein 7.2 (6.3-8.2) g/dL Albumin 4.2 (3.5-5.0) g/dL Coronavirus (PCR) (Not Detectd) 07/14/20 07/14/20 07/14/20 Range/Units 11:40 11:40 11:40 WBC (3.8-10.6) k/uL RBC (3.80-5.40) m/uL Hgb (11.4-16.0) gm/dL Hct (34.0-46.0) % MCV (80.0-100.0) fL MCH (25.0-35.0) pg MCHC (31.0-37.0) g/dL RDW (11.5-15.5) % Plt Count (150-450) k/uL MPV Neutrophils % % Lymphocytes % % Monocytes % % Eosinophils % % Basophils % % Neutrophils # (1.3-7.7) k/uL Lymphocytes # (1.0-4.8) k/uL Monocytes # (0-1.0) k/uL Eosinophils # (0-0.7) k/uL Basophils # (0-0.2) k/uL Microcytosis PT (9.0-12.0) sec INR (<1.2) APTT (22.0-30.0) sec Sodium (137-145) mmol/L Potassium (3.5-5.1) mmol/L Chloride (98-107) mmol/L Carbon Dioxide (22-30) mmol/L Anion Gap mmol/L BUN (7-17) mg/dL Creatinine (0.52-1.04) mg/dL Est GFR (CKD-EPI)AfAm (>60 ml/min/1.73 sqM) Est GFR (CKD-EPI)NonAf (>60 ml/min/1.73 sqM) Glucose (74-99) mg/dL Plasma Lactic Acid Matty 1.3 (0.7-2.0) mmol/L Calcium (8.4-10.2) mg/dL Phosphorus (2.5-4.5) mg/dL Magnesium (1.6-2.3) mg/dL Total Bilirubin (0.2-1.3) mg/dL AST (14-36) U/L ALT (4-34) U/L Alkaline Phosphatase (38-126) U/L Troponin I <0.012 (0.000-0.034) ng/mL Total Protein (6.3-8.2) g/dL Albumin (3.5-5.0) g/dL Coronavirus (PCR) Not Detected (Not Detectd) Disposition Clinical Impression: Hyponatremia, Generalized weakness Disposition: ADMITTED IP TO THIS HOSP Condition: Stable Is patient prescribed a controlled substance at d/c from ED?: No Referrals: Vicky Fabian MD [Primary Care Provider] - 1-2 days Time of Disposition: 12:54 Decision to Admit Reason: Admit from EC Decision Date: 07/14/20 Decision Time: 12:55
[2020-07-14 12:58] LABS: Partial Thromboplastin Time 19.2 sec (22.0-30.0)
[2020-07-14] MEDS ORDERED: MELATONIN 3 MG TABLET PO PRN (14:06)
[2020-07-14] MEDS ORDERED: ACETAMINOPHEN TAB 325 MG TAB PO PRN (14:06)
[2020-07-14] MEDS: MAGNESIUM SULFATE-D5W PMX 1 GM in DEXTROSE/WATER 1 100ML.BAG IVPB SCH ×2 (14:11→15:38)
[2020-07-14 14:38] LABS: Appearance,Urine Clear (Clear); Bilirubin,Urine Negative (Negative); Blood,Urine Negative (Negative); Color,Urine Colorless; Glucose,Urine (UA) Negative (Negative); Ketones,Urine Negative (Negative); Leukocyte Esterase,Urine Negative (Negative); Nitrite,Urine Negative (Negative); Protein,Urine Trace (Negative); Urobilinogen,Urine <2.0 mg/dL (<2.0)
--- NOTE | 2020-07-14 15:06 | P.HPIM ---
History of Present Illness H&P Date: 07/14/20 History of presenting illness: Patient is a 69-year-old female with a past medical history of hypertension, hyperlipidemia, ama-[id number]-[id number] diabetes mellitus type 2, COPD not on home oxygen dependent, GERD, and dementia. Patient presented to the emergency department with a chief complaint of weakness and was found to be hyponatremic with sodium of 126 and hypomagnesemic with magnesium of 1.5 resulting in admission under our services for continued medical management. EKG was completed showing normal sinus rhythm at 64 bpm with no noted T-wave or ST abnormalities. Troponin normal findings at < 0.012. Covid 19 PCR negative. CBC and liver profile unremarkable. Serum glucose 180. Chest x-ray negative for acute cardiopulmonary process showing signs of chronic interstitial lung disease/COPD and cardiomegaly. Upon assessment at bedside patient was alert to person and place but is confused to time and situation. Patient reports that the year is 1981 and she lives at home with her mom and dad who take care of her, however she was able to state her full name, that she was in [facility] [place], and that she had 2 sons name Jackie. Pt denies having any complaints at this time including headache, lightheadedness, dizziness, chest pain, palpitations, shortness of breath, abdominal pain, nausea, or experiencing any numbness/tingling/weakness in extremities. Called and spoke with patient's son, Milton Del Real. Patient's son reports that his mother lives at home with her cousin and typically takes care of herself. He does report that she has episodes of confusion and will at times believes that her parents are still ali ve or will be confused to her current location. He states that she just recently had a stay in [facility] for physical therapy and was discharged home back home 2 weeks ago and has since been fine. Milton confirmed patient's past medical history and states that his mother is to remain a full code at this time. Review of systems: Pertinent positives and negatives as discussed in HPI, a complete review of systems was unable to be performed secondary to patient's alteration in mental status. Physical exam: General: non toxic, no distress, appears at stated age Derm: warm, dry Head: atraumatic, normocephalic, symmetric Eyes: Pupils equal, round, and reactive. EOMI, no lid lag, anicteric sclera. Mouth: no lip lesion, mucus membranes moist. Cardiovascular: S1S2 normal with regular rate and rhythm. Murmur noted. Positive posterior tibial pulses bilaterally, cap refill less than 2 seconds. Lungs: Respirations even, regular, and unlabored on room air. Lungs CTA bilater ally, no rhonchi, no rales, or wheezes noted. No accessory muscle use. Abdominal: Soft, nontender to palpation, no guarding, no appreciable organomegaly Ext: No gross muscle atrophy, no edema, no contractures. Neuro: GCS 14. Patient following commands and moving upper and lower extremities was equal and moderate strength. Sensation reported to be intact. No focal neuro deficits. Psych: Awake, confused with pleasant and appropriate affect Assessment and Plan of care: Weakness, possibly resulting from mild dehydration -Gentle hydration with IV fluids. -Replacement of abnormal electrolyte levels. -PT/OT consult for evaluation for possible placement in subacute rehabilitation facility. -Fall precautions. -Bladder management with Urinalysis. Hyponatremia, likely secondary to dehydration -Sodium 126 -Gentle hydration with 0.9% normal saline at 75 mL's per hour. -Will continue to monitor closely with repeat a.m. labs. Hypomagnesemia -Magnesium 1.5. Orders for replacement. -Will continue to monitor with repeat a.m. labs. Dementia with increased confusion -Patient to be provided with assistance and redirection as needed. -Fall precautions. -Placement of abnormal electrolyte levels. -Urinalysis to be obtained secondary to increased confusion. Hypertension -Monitor vital signs and Patient to continue daily medication management with metoprolol 100 mg twice daily. COPD, not in acute exacerbation -Chest x-ray positive for hyperinflation suggestive of chronic interstitial lung disease/COPD and cardiomegaly. Negative for acute cardiopulmonary process. -Continue daily Singulair -Encourage incentive spirometry 10-15 times hourly while awake. The patient is admitted with an anticipated greater than 2 midnight stay for evaluation of increased weakness. Surrogate decision-maker: Self, in the event patient is unable to make decisions for herself, decisions to be made by her son's Milton and Juan CODE STATUS: Full code DVT prophylaxis: Lovenox Discussed with: Patient, RN, and patient's son Milton Anticipated discharge date: Clinical course to determine Anticipated discharge place: Home A total of 45 minutes was spent on the care of this complex patient more than 50% of the time was spent in counseling and care coordination. Past Medical History Past Medical History: Dementia, Diabetes Mellitus, GERD/Reflux, Hyperlipidemia, Hypertension Additional Past Medical History / Comment(s): FIBROMYALGIA History of Any Multi-Drug Resistant Organisms: None Reported Past Surgical History: Adenoidectomy, Appendectomy, Cholecystectomy, Hysterectomy, Tonsillectomy, Tubal Ligation Additional Past Surgical History / Comment(s): CARARACT RT EYE 07/02/2013, bladder suspension, repair of the fracture, left knee replacement Past Anesthesia/Blood Transfusion Reactions: Motion Sickness, Postoperative Nausea & Vomiting (PONV) Past Psychological History: Depression Smoking Status: Never smoker Past Alcohol Use History: None Reported Past Drug Use History: None Reported - Past Family History Mother Family Medical History: Cancer Medications and Allergies Home Medications Medication Instructions Recorded Confirmed Type metFORMIN HCL [Glucophage] 500 mg PO BID 06/23/17 07/14/20 History Aspirin EC [Ecotrin] 325 mg PO DAILY 04/02/20 07/14/20 History Metoprolol Tartrate [Lopressor] 100 mg PO BID 04/02/20 07/14/20 History Montelukast Sodium [Singulair] 10 mg PO DAILY 04/02/20 07/14/20 History ALPRAZolam [Xanax] 0.25 mg PO BID 07/14/20 07/14/20 History FLUoxetine HCL [PROzac] 20 mg PO DAILY 07/14/20 07/14/20 History Tamsulosin [Flomax] 0.4 mg PO DAILY 07/14/20 07/14/20 History Vitamin D3 1250 Mcg 1,250 mcg PO TH 07/14/20 07/14/20 History Allergies Allergy/AdvReac Type Severity Reaction Status Date / Time No Known Allergies Allergy Verified 07/14/20 12:50 Physical Exam Vitals: Vital Signs Temp Pulse Resp BP Pulse Ox 07/14/20 12:00 68 16 151/73 97 07/14/20 11:30 59 L 16 152/82 100 07/14/20 10:58 98.0 F 66 16 152/82 100 Intake and Output 07/13/20 07/14/20 07/14/20 22:59 06:59 14:59 Other: Weight 72.575 kg Results CBC & Chem 7: 07/14/20 11:40 07/14/20 11:40 Labs: Abnormal Lab Results - Last 24 Hours (Table) 07/14/20 07/14/20 07/14/20 Range/Units 11:40 11:40 11:40 MCV 77.7 L (80.0-100.0) fL MCH 24.7 L (25.0-35.0) pg APTT 19.2 L (22.0-30.0) sec Sodium 126 L (137-145) mmol/L Chloride 93 L (98-107) mmol/L Glucose 180 H (74-99) mg/dL Magnesium 1.5 L (1.6-2.3) mg/dL
[2020-07-14 17:12] LABS: Glucose,Whole Blood 142 mg/dL (75-99)
[2020-07-14 20:17] LABS: Glucose,Whole Blood 177 mg/dL (75-99)
[2020-07-14] MEDS: METOPROLOL TARTRATE 50 MG TAB PO SCH (20:21)
[2020-07-15] MEDS: SODIUM CHLORIDE 0.9% 1,000 ML IV SCH ×2 (01:10→15:04)
[2020-07-15 06:29] LABS: Basophils % (A) 1 %; Eosinophils % (A) 1 %; HCT 32.8 % (34.0-46.0); HGB 11.4 gm/dL (11.4-16.0); Lymphocytes % (A) 20 %; MCH 26.6 pg (25.0-35.0); MCHC 34.8 g/dL (31.0-37.0); MCV 76.5 fL (80.0-100.0); Mean Platelet Volume 6.6; Microcytosis Slight; Monocytes # (A) 0.3 k/uL (0-1.0); Monocytes % (A) 6 %; Neutrophils # (A) 3.6 k/uL (1.3-7.7); Neutrophils % (A) 71 %; Platelet Count 317 k/uL (150-450); RBC 4.28 m/uL (3.80-5.40); RDW 14.9 % (11.5-15.5); WBC 5.1 k/uL (3.8-10.6)
[2020-07-15 06:58] LABS: ALT 13 U/L (4-34); AST 24 U/L (14-36); African American GFR (CKD) >90 (>60 ml/min/1.73 sqM); Albumin 3.6 g/dL (3.5-5.0); Albumin/Globulin Ratio 1.3; Alkaline Phosphatase 101 U/L (38-126); Anion Gap 9 mmol/L; Blood Urea Nitrogen 7 mg/dL (7-17); Calcium 9.4 mg/dL (8.4-10.2); Carbon Dioxide 24 mmol/L (22-30); Chloride 98 mmol/L (98-107); Globulin 2.7 g/dL; Glucose 170 mg/dL (74-99); Magnesium 1.7 mg/dL (1.6-2.3); Non-African American GFR(CKD) >90 (>60 ml/min/1.73 sqM); Potassium 4.3 mmol/L (3.5-5.1); Sodium 131 mmol/L (137-145); Total Bilirubin 0.8 mg/dL (0.2-1.3); Total Protein 6.3 g/dL (6.3-8.2)
[2020-07-15 07:04] LABS: Glucose,Whole Blood 181 mg/dL (75-99)
[2020-07-15] MEDS: METOPROLOL TARTRATE 50 MG TAB PO SCH (07:55)
[2020-07-15] MEDS ORDERED: ASPIRIN 325 MG TAB PO SCH (09:00)
[2020-07-15] MEDS ORDERED: FLUoxetine HCL 20 MG CAP PO SCH (09:00)
[2020-07-15] MEDS ORDERED: TAMSULOSIN 0.4 MG CAP.ER.24H PO SCH (09:00)
[2020-07-15] MEDS ORDERED: MONTELUKAST 10 MG TAB PO SCH (09:00)
[2020-07-15] MEDS ORDERED: ENOXAPARIN 40 MG/0.4 ML SYRINGE SQ SCH (09:00)
[2020-07-15 11:41] LABS: Glucose,Whole Blood 172 mg/dL (75-99)
[2020-07-15] MEDS: MAGNESIUM SULFATE-D5W PMX 1 GM in DEXTROSE/WATER 1 100ML.BAG IVPB SCH ×2 (12:41→13:49)
--- NOTE | 2020-07-15 12:53 | P.DS ---
Providers Date of admission: 07/14/20 12:55 Expected date of discharge: 07/15/20 Attending physician: Garry Hamlin Primary care physician: Vicky Fabian [facility] Course: Discharge Diagnosis: Weakness, secondary to mild dehydration Hyponatremia, likely secondary to dehydration, improved Hypomagnesemia, resolved Dementia Hypertension COPD, not in acute exacerbation Hospital Course: Patient is a 69-year-old female with a past medical history of hypertension, hyperlipidemia, [id number] diabetes mellitus type 2, COPD not on home oxygen dependent, GERD, and dementia. Patient presented to the emergency department with a chief complaint of weakness status post a recent stay at [facility] for rehab. EKG was completed showing normal sinus rhythm at 64 bpm with no noted T-wave or ST abnormalities. Troponin normal findings at < 0.012. Covid 19 PCR negative. CBC and liver profile unremarkable. Serum glucose 180. BMP revealed hyponatremia with sodium of 126 and hypomagnesemia with magnesium of 1.5. Chest x-ray negative for acute cardiopulmonary process showing signs of chronic interstitial lung disease/COPD and cardiomegaly. Urinalysis negative for infection. She was found to be hyponatremic with sodium of 126 and hypomagnesemic with magnesium of 1.5 resulting in admission under our services for continued medical management. Electrolyte abnormalities were replaced/corrected. Patient currently at baseline mentation and condition is stable. She is being discharged home in the care of her cousin Nina and as discussed with pt's son, Milton. Patient has 24-hour residential home care to assist with any further needs. Family declining PT/OT or any further assistance at this time. Patient is being discharged home on Mag- Ox 400 mg daily and given scripts to have BMP and magnesium levels drawn in 3 days to continue to monitor electrolyte levels with results to be sent to PCP. Physical exam: Patient seen and evaluated at bedside. She is doing well this morning. Sitting up in bed eating her breakfast. she remains confused and continues to think parents are still alive and asking RN to call her dad. After discussion with pt's son this is reported to be patient's baseline mentation.Pt denies any complaints, states her breakfast is fantastic and denies having any headache, dizziness, lightheadedness, chest pain, palpitations, shortness of breath, weakness, tingling, or numbness. General: non toxic, no distress, appears at stated age Derm: warm, dry Head: atraumatic, normocephalic, symmetric Eyes: Pupils equal, round, and reactive. EOMI, no lid lag, anicteric sclera. Mouth: no lip lesion, mucus membranes moist. Cardiovascular: S1S2 normal with regular rate and rhythm. Murmur noted. Positive posterior tibial pulses bilaterally, cap refill less than 2 seconds. Lungs: Respirations even, regular, and unlabored on room air. Lungs CTA bilaterally, no rhonchi, no rales, or wheezes noted. No accessory muscle use. Abdominal: Soft, nontender to palpation, no guarding, no appreciable organomegaly Ext: No gross muscle atrophy, no edema, no contractures. Neuro: GCS 14. Patient following commands and moving upper and lower ext remities was equal and moderate strength. Sensation reported to be intact. No focal neuro deficits. Psych: Awake, confused with pleasant and appropriate affect A total of 45 minutes of time were spent preparing this complex discharge summary. Patient Condition at Discharge: Stable Plan - Discharge Summary Discharge Rx Participant: No New Discharge Prescriptions: New Magnesium Oxide [Magox 400] 400 mg PO DAILY 30 Days #30 tablet Continue metFORMIN HCL [Glucophage] 500 mg PO BID Aspirin EC [Ecotrin] 325 mg PO DAILY Metoprolol Tartrate [Lopressor] 100 mg PO BID Montelukast Sodium [Singulair] 10 mg PO DAILY FLUoxetine HCL [PROzac] 20 mg PO DAILY ALPRAZolam [Xanax] 0.25 mg PO BID Tamsulosin [Flomax] 0.4 mg PO DAILY Vitamin D3 1250 Mcg 1,250 mcg PO TH Discharge Medication List metFORMIN HCL [Glucophage] 500 mg PO BID 06/23/17 [History] Aspirin EC [Ecotrin] 325 mg PO DAILY 04/02/20 [History] Metoprolol Tartrate [Lopressor] 100 mg PO BID 04/02/20 [History] Montelukast Sodium [Singulair] 10 mg PO DAILY 04/02/20 [History] ALPRAZolam [Xanax] 0.25 mg PO BID 07/14/20 [History] FLUoxetine HCL [PROzac] 20 mg PO DAILY 07/14/20 [History] Tamsulosin [Flomax] 0.4 mg PO DAILY 07/14/20 [History] Vitamin D3 1250 Mcg 1,250 mcg PO TH 07/14/20 [History] Magnesium Oxide [Magox 400] 400 mg PO DAILY 30 Days #30 tablet 07/15/20 [Rx] Follow up Appointment(s)/Referral(s): Vicky Fabian MD [Primary Care Provider] - 1-2 days Residential Home,Health [NON-STAFF] - 1-2 Days Ambulatory/Diagnostic Orders: Basic Metabolic Panel [LAB.AMB] Time Frame: 3 Days, Location: None Selected Magnesium [LAB.AMB] Time Frame: 3 Days, Location: None Selected Activity/Diet/Wound Care/Special Instructions: Activity: As tolerated Diet: Heart healthy and carb consistent diet. Special Instructions: You are being discharged back home with residential home care. We are sending you home on a new medication, Mag-Ox. This is for supplementation of your magnesium because your levels were very low. It is important that you follow up with your PCP-Dr. Sharpe for a follow up evaluation and also have your blood drawn in 3 days to check your magnesium and sodium levels because they were both low when you came in. Thank you for allowing us to participate in your care.
[2020-07-15 14:55] VITALS: BP 164/77; PULSE 57; RESP 16; TEMP 97.6
[2020-07-16] MEDS ORDERED: CHOLECALCIFEROL 25 MCG (1000 IU) TABLET PO SCH (09:00)
== END 2020-07-15 15:27 | disposition home health service (06) | DRG 641 ==
LOC: EC 10:54 → 6NMEDSUR 12:55
PROVIDERS: ADMIT Internal Medicine; ATTEND Internal Medicine
DX: E87.1 Hypo-osmolality and hyponatremia (principal); E86.0 Dehydration; F03.90 Unspecified dementia, unspecified severity, without behavioral disturbance, psychotic disturbance, mood disturbance, and anxiety; E11.9 Type 2 diabetes mellitus without complications; Z96.652 Presence of left artificial knee joint; F32.9 Major depressive disorder, single episode, unspecified; K21.9 Gastro-esophageal reflux disease without esophagitis; E78.5 Hyperlipidemia, unspecified; I11.9 Hypertensive heart disease without heart failure; E87.8 Other disorders of electrolyte and fluid balance, not elsewhere classified; E83.42 Hypomagnesemia; J44.9 Chronic obstructive pulmonary disease, unspecified; Z20.822 Contact with and (suspected) exposure to COVID-19; M79.7 Fibromyalgia; Z79.84 Long term (current) use of oral hypoglycemic drugs; Z79.82 Long term (current) use of aspirin; Z79.899 Other long term (current) drug therapy; Z90.49 Acquired absence of other specified parts of digestive tract; Z90.710 Acquired absence of both cervix and uterus; Z90.89 Acquired absence of other organs; Z98.51 Tubal ligation status; Z98.41 Cataract extraction status, right eye; Z98.890 Other specified postprocedural states; Z80.9 Family history of malignant neoplasm, unspecified
CPT/HCPCS: 36415; 71046; 80053; 81003; 83605; 83735; 83880; 84100; 84484; 85025; 85610; 85730; 87635; 93005; 99285

== ENCOUNTER 2020-07-24 16:09 | Inpatient (IN) | payer MEDICARE ==
[2020-07-24 16:37] LABS: Basophils # (A) 0.1 k/uL (0-0.2); Basophils % (A) 1 %; Eosinophils # (A) 0.1 k/uL (0-0.7); Eosinophils % (A) 1 %; Lymphocytes # (A) 1.7 k/uL (1.0-4.8); Lymphocytes % (A) 23 %; MCH 25.2 pg (25.0-35.0); MCHC 32.6 g/dL (31.0-37.0); MCV 77.3 fL (80.0-100.0); Mean Platelet Volume 6.4; Monocytes # (A) 0.4 k/uL (0-1.0); Monocytes % (A) 5 %; Neutrophils # (A) 5.1 k/uL (1.3-7.7); Neutrophils % (A) 68 %; Platelet Count 367 k/uL (150-450); RBC 4.78 m/uL (3.80-5.40); RDW 14.8 % (11.5-15.5); WBC 7.5 k/uL (3.8-10.6)
[2020-07-24 17:09] LABS: ALT 12 U/L (4-34); AST 26 U/L (14-36); African American GFR (CKD) >90 (>60 ml/min/1.73 sqM); Albumin 4.2 g/dL (3.5-5.0); Alkaline Phosphatase 158 U/L (38-126); Anion Gap 10 mmol/L; Blood Urea Nitrogen 9 mg/dL (7-17); Calcium 10.1 mg/dL (8.4-10.2); Carbon Dioxide 24 mmol/L (22-30); Chloride 92 mmol/L (98-107); Glucose 136 mg/dL (74-99); Non-African American GFR(CKD) >90 (>60 ml/min/1.73 sqM); Potassium 4.4 mmol/L (3.5-5.1); Sodium 126 mmol/L (137-145); Total Bilirubin 0.6 mg/dL (0.2-1.3); Total Protein 7.1 g/dL (6.3-8.2)
--- NOTE | 2020-07-24 17:09 | US ---
EXAMINATION TYPE: US venous doppler duplex LE RT DATE OF EXAM: 07/24/2020 4:21 PM COMPARISON: NONE CLINICAL HISTORY: swelling. Edema right leg SIDE PERFORMED: right TECHNIQUE: The lower extremity deep venous system is examined utilizing real time linear array sonog michele with graded compression, doppler sonography and color-flow sonography. VESSELS IMAGED: Common Femoral Vein Deep Femoral Vein Greater Saphenous Vein * Femoral Vein Popliteal Vein Small Saphenous Vein * Proximal Calf Veins (* superficial vessels) Right Leg: Grayscale, color doppler, spectral doppler imaging performed of the deep veins of the rig ht lower extremity. There is normal flow, compressibility, and vascular waveforms. IMPRESSION: No evidence of right lower extremity deep venous thrombosis.
[2020-07-24] MEDS ORDERED: SODIUM CHLORIDE 0.9% 1,000 ML IV ONE (17:34)
[2020-07-24] MEDS ORDERED: SODIUM CHLORIDE 0.9% 1,000 ML IV SCH (17:45)
[2020-07-24] MEDS ORDERED: NALOXONE 0.4 MG/ML 1 ML VIAL IV PRN (18:54)
--- NOTE | 2020-07-24 18:54 | ED ---
General Adult HPI - General Chief complaint: Recheck/Abnormal Lab/Rx Stated complaint: Abn Labs Source: patient, EMS, Caregiver Mode of arrival: EMS - History of Present Illness Initial comments: 69 female who presents with history of dementia presents to the emergency department for abnormal labs. Patient states that she had labs completed yesterday. Her primary care office. Was called today and told that her sodium level was low. Patient admits to generalized weakness however cannot provide any additional history. Patient does not appear to be on a diuretic. She denies any dizziness or headaches. Reports good oral intake of food and water. She denies any chest pain or shortness of breath. No changes in her urination to include increased frequency or retention. On physical exam is noted the patient has right lower trauma swelling. States this been present for several months. Denies history of DVT or PE. The remainder of the HPI is limited because of the patient's dementia - Related Data Home Medications Medication Instructions Recorded Confirmed metFORMIN HCL [Glucophage] 500 mg PO BID 06/23/17 07/30/20 Aspirin EC [Ecotrin] 325 mg PO DAILY 04/02/20 07/30/20 Metoprolol Tartrate [Lopressor] 100 mg PO BID 04/02/20 07/30/20 Montelukast Sodium [Singulair] 10 mg PO DAILY 04/02/20 07/30/20 ALPRAZolam [Xanax] 0.25 mg PO BID 07/14/20 07/30/20 Tamsulosin [Flomax] 0.4 mg PO DAILY 07/14/20 07/30/20 Cholecalciferol [Vitamin D3 (25 25 mcg PO DAILY 07/24/20 07/30/20 Mcg = 1000 Iu)] Donepezil [Aricept] 10 mg PO DAILY 07/24/20 07/30/20 Allergies Allergy/AdvReac Type Severity Reaction Status Date / Time No Known Allergies Allergy Verified 07/30/20 12:46 Review of Systems ROS Statement: Those systems with pertinent positive or pertinent negative responses have been documented in the HPI. ROS Other: All systems not noted in ROS Statement are negative. Past Medical History Past Medical History: Dementia, Diabetes Mellitus, GERD/Reflux, Hyperlipidemia, Hypertension Additional Past Medical History / Comment(s): FIBROMYALGIA History of Any Multi-Drug Resistant Organisms: None Reported Past Surgical History: Adenoidectomy, Appendectomy, Cholecystectomy, Hysterectomy, Tonsillectomy, Tubal Ligation Additional Past Surgical History / Comment(s): CARARACT RT EYE 07/02/2013, bladder suspension, repair of the fracture, left knee replacement Past Anesthesia/Blood Transfusion Reactions: Motion Sickness, Postoperative Nausea & Vomiting (PONV) Past Psychological History: Depression Smoking Status: Never smoker Past Alcohol Use History: None Reported Past Drug Use History: None Reported - Past Family History Mother Family Medical History: Cancer General Exam General appearance: alert, in no apparent distress Head exam: Present: atraumatic, normocephalic, normal inspection Eye exam: Present: normal appearance, PERRL, EOMI. Absent: scleral icterus, conjunctival injection, periorbital swelling ENT exam: Present: normal exam, mucous membranes moist Neck exam: Present: normal inspection. Absent: tenderness, meningismus, lymphadenopathy Respiratory exam: Present: normal lung sounds bilaterally. Absent: respiratory distress, wheezes, rales, rhonchi, stridor Cardiovascular Exam: Present: regular rate, normal rhythm, normal heart sounds. Absent: systolic murmur, diastolic murmur, rubs, gallop, clicks GI/Abdominal exam: Present: soft, normal bowel sounds. Absent: distended, t enderness, guarding, rebound, rigid Extremities exam: Present: normal inspection, full ROM, normal capillary refill. Absent: tenderness, pedal edema, joint swelling, calf tenderness Back exam: Present: normal inspection Neurological exam: Present: alert, CN II-XII intact, other (oriented x 2. poor historian) Psychiatric exam: Present: normal affect, normal mood Skin exam: Present: warm, dry, intact, normal color. Absent: rash Course Vital Signs 07/24/20 07/24/20 16:11 20:12 Temperature 98.5 F Pulse Rate 63 57 L Respiratory 18 18 Rate Blood Pressure 151/82 168/87 O2 Sat by Pulse 99 99 Oximetry EKG Findings - EKG Comments: EKG Findings:: EKG demonstrates normal sinus rhythm with a ventricular rate of 62. UT interval 154. QRS 74. QTC 420. No acute ST segment elevations or depressions Medical Decision Making - Medical Decision Making Upon arrival patient is placed into room 23. A thorough history and physical exam was performed. IV is established. Laboratory studies are conducted. Ultrasound is performed patient's right lower extremity. Sodium is 126. Ultrasound demonstrates no evidence of DVT. Patient was given a liter bolus of normal saline. Reports that she cannot urinate at this time. Did recommend admission. Spoke with Dr. Johansen who agreed to admit the patient. Patient awaiting a bed on the floor. - Lab Data Result diagrams: 07/25/20 05:50 07/26/20 06:02 Lab Results 07/24/20 07/24/20 07/24/20 Range/Units 16:27 16:27 16:27 WBC 7.5 (3.8-10.6) k/uL RBC 4.78 (3.80-5.40) m/uL Hgb 12.0 (11.4-16.0) gm/dL Hct 37.0 (34.0-46.0) % MCV 77.3 L (80.0-100.0) fL MCH 25.2 (25.0-35.0) pg MCHC 32.6 (31.0-37.0) g/dL RDW 14.8 (11.5-15.5) % Plt Count 367 (150-450) k/uL MPV 6.4 Neutrophils % 68 % Lymphocytes % 23 % Monocytes % 5 % Eosinophils % 1 % Basophils % 1 % Neutrophils # 5.1 (1.3-7.7) k/uL Lymphocytes # 1.7 (1.0-4.8) k/uL Monocytes # 0.4 (0-1.0) k/uL Eosinophils # 0.1 (0-0.7) k/uL Basophils # 0.1 (0-0.2) k/uL Sodium 126 L (137-145) mmol/L Potassium 4.4 (3.5-5.1) mmol/L Chloride 92 L (98-107) mmol/L Carbon Dioxide 24 (22-30) mmol/L Anion Gap 10 mmol/L BUN 9 (7-17) mg/dL Creatinine 0.51 L (0.52-1.04) mg/dL Est GFR (CKD-EPI)AfAm >90 (>60 ml/min/1.73 sqM) Est GFR (CKD-EPI)NonAf >90 (>60 ml/min/1.73 sqM) Glucose 136 H (74-99) mg/dL Osmolality 267 L (280-301) mosm/kg Calcium 10.1 (8.4-10.2) mg/dL Total Bilirubin 0.6 (0.2-1.3) mg/dL AST 26 (14-36) U/L ALT 12 (4-34) U/L Alkaline Phosphatase 158 H (38-126) U/L NT-Pro-B Natriuret Pep 895 pg/mL Total Protein 7.1 (6.3-8.2) g/dL Albumin 4.2 (3.5-5.0) g/dL TSH 2.010 (0.465-4.680) mIU/L Coronavirus (PCR) (Not Detectd) 07/24/20 Range/Units 18:26 WBC (3.8-10.6) k/uL RBC (3.80-5.40) m/uL Hgb (11.4-16.0) gm/dL Hct (34.0-46.0) % MCV (80.0-100.0) fL MCH (25.0-35.0) pg MCHC (31.0-37.0) g/dL RDW (11.5-15.5) % Plt Count (150-450) k/uL MPV Neutrophils % % Lymphocytes % % Monocytes % % Eosinophils % % Basophils % % Neutrophils # (1.3-7.7) k/uL Lymphocytes # (1.0-4.8) k/uL Monocytes # (0-1.0) k/uL Eosinophils # (0-0.7) k/uL Basophils # (0-0.2) k/uL Sodium (137-145) mmol/L Potassium (3.5-5.1) mmol/L Chloride (98-107) mmol/L Carbon Dioxide (22-30) mmol/L Anion Gap mmol/L BUN (7-17) mg/dL Creatinine (0.52-1.04) mg/dL Est GFR (CKD-EPI)AfAm (>60 ml/min/1.73 sqM) Est GFR (CKD-EPI)NonAf (>60 ml/min/1.73 sqM) Glucose (74-99) mg/dL Osmolality (280-301) mosm/kg Calcium (8.4-10.2) mg/dL Total Bilirubin (0.2-1.3) mg/dL AST (14-36) U/L ALT (4-34) U/L Alkaline Phosphatase (38-126) U/L NT-Pro-B Natriuret Pep pg/mL Total Protein (6.3-8.2) g/dL Albumin (3.5-5.0) g/dL TSH (0.465-4.680) mIU/L Coronavirus (PCR) Not Detected (Not Detectd) Disposition Clinical Impression: Hyponatremia, Generalized weakness Disposition: ADMITTED IP TO THIS [facility] Condition: Stable Is patient prescribed a controlled substance at d/c from ED?: No Decision to Admit Reason: Admit from EC Decision Date: 07/24/20 Decision Time: 18:53
--- NOTE | 2020-07-24 22:13 | P.HPIM ---
History of Present Illness H&P Date: 07/24/20 The patient is a 69 yo F with a PMH of dementia, COPD, Type 2 DM, HTN, and depression who was sent to the ED at advice of her production internship for hyponatremia. History obtained from the patient's son Vimal via phone as well as the emergency room physician. The patient was recently admitted to [facility] 2 weeks ago for hyponatremia and subsequently underwent blood work yesterday ordered by the production internship who then contacted the patient earlier today after her sodium resulted as 123 as per the son. The patient was subsequently brought into the emergency room. The patient was unable to provide any meaningful history due to her dementia. She noted that the last thing she remembers was waking up in the emergency room and that she could not tell me the events of the day or of the prior day. The son notes that this is in line with the patient's moderate dementia and that she is normally only oriented to self and place. The patient also was unable to recall that she lives with her cousin who helps her with her ADLs. The son also reports that he does not believe that his mother drinks an excess amount of water. The patient however denied any active complaints. She denied dizziness, headaches, weakness, numbness, tingling. Denied chest discomfort, shortness of breath, fever, chills, cough, nausea, vomiting, abdominal pain, diarrhea. evaluation in the emergency [facility] revealed a sodium of 126, chloride 92, BUN 9, creatinine 0.51, glucose 136, osmolality low at 267, alk phos 158, proBNP 895, albumin 4.2. Review of Systems Pertinent positives and negatives as discussed in HPI, a complete review of systems was performed and all other systems are negative. Past Medical History Past Medical History: Dementia, Diabetes Mellitus, GERD/Reflux, Hyperlipidemia, Hypertension Additional Past Medical History / Comment(s): FIBROMYALGIA History of Any Multi-Drug Resistant Organisms: None Reported Past Surgical History: Adenoidectomy, Appendectomy, Cholecystectomy, Hysterectomy, Tonsillectomy, Tubal Ligation Additional Past Surgical History / Comment(s): CARARACT RT EYE 07/02/2013, bladder suspension, repair of the fracture, left knee replacement Past Anesthesia/Blood Transfusion Reactions: Motion Sickness, Postoperative Nausea & Vomiting (PONV) Past Psychological History: Depression Smoking Status: Never smoker Past Alcohol Use History: None Reported Past Drug Use History: None Reported - Past Family History Mother Family Medical History: Cancer Medications and Allergies Home Medications Medication Instructions Recorded Confirmed Type metFORMIN HCL [Glucophage] 500 mg PO BID 06/23/17 07/24/20 History Aspirin EC [Ecotrin] 325 mg PO DAILY 04/02/20 07/24/20 History Metoprolol Tartrate [Lopressor] 100 mg PO BID 04/02/20 07/24/20 History Montelukast Sodium [Singulair] 10 mg PO DAILY 04/02/20 07/24/20 History ALPRAZolam [Xanax] 0.25 mg PO BID 07/14/20 07/24/20 History FLUoxetine HCL [PROzac] 20 mg PO DAILY 07/14/20 07/24/20 History Tamsulosin [Flomax] 0.4 mg PO DAILY 07/14/20 07/24/20 History Cholecalciferol [Vitamin D3 (25 25 mcg PO DAILY 07/24/20 07/24/20 History Mcg = 1000 Iu)] Donepezil [Aricept] 10 mg PO DAILY 07/24/20 07/24/20 History Allergies Allergy/AdvReac Type Severity Reaction Status Date / Time No Known Allergies Allergy Verified 07/14/20 12:50 Physical Exam Vitals: Vital Signs Temp Pulse Resp BP Pulse Ox 07/24/20 20:12 57 L 18 168/87 99 07/24/20 16:11 98.5 F 63 18 151/82 99 Intake and Output 07/24/20 07/24/20 07/24/20 06:59 14:59 22:59 Other: Weight 83.915 kg General: non toxic, no distress, appears at stated age, obese Derm: no unusual rashes/lesions no unusual ecchymoses, warm, dry Head: atraumatic, normocephalic, symmetric Eyes: EOMI, no lid lag, anicteric sclera, pupils equal round reactive to light ENT: Nose and ears atraumatic, no thrush, no pharyngeal erythema Neck: No thyromegaly, no cervical lymphadenopathy, trachea midline, supple Mouth: no lip lesion, mucus membranes moist Cardiovascular: S1S2 reg, no murmur, positive posterior tibial pulse bilateral, trace bilateral lower extremity pitting edema, capillary refill less than 2 seconds Lungs: CTA bilateral, no rhonchi, no rales , no accessory muscle use Abdominal: soft, nontender to palpation, no guarding, no appreciable organomegaly, normal bowel sounds Ext: no gross muscle atrophy, muscle strength 5 out of 5 in all 4 extremities grossly, no contractures, Neuro: CN II-XI grossly intact, light touch intact all 4 extremities, finger to nose within normal limits, Psych: Alert, oriented only to self, knows she is in the hospital, not oriented to time Results CBC & Chem 7: 07/24/20 16:27 07/24/20 16:27 Labs: Abnormal Lab Results - Last 24 Hours (Table) 07/24/20 07/24/20 Range/Units 16:27 16:27 MCV 77.3 L (80.0-100.0) fL Sodium 126 L (137-145) mmol/L Chloride 92 L (98-107) mmol/L Creatinine 0.51 L (0.52-1.04) mg/dL Glucose 136 H (74-99) mg/dL Osmolality 267 L (280-301) mosm/kg Alkaline Phosphatase 158 H (38-126) U/L Assessment and Plan Plan: Asymptomatic hypotonic hyponatremia, unclear etiology, possibly SIADH (?drug induced from SSRI use) versus primary polydipsia -Obtain urine studies -Patient not on diuretic at home -Consult nephrology (patient following with Dr Montes as an outpt) -Monitor BMP -Fluid restriction for now due to hypotonicity Chronic conditions: Dementia, hypertension, COPD, type II DM -Continue with home medications -Hold oral hypoglycemics -Check A1c -Lispro insulin sliding scale blood glucose monitoring DVT prophylaxis -Heparin subq The patient is admitted with an anticipated greater than 2 midnight stay for evaluation of hyponatremia CODE STATUS: Full Code Discussed with: Patient Anticipated discharge date: 2-[address]: Home A total of 35 minutes was spent on the care of this complex patient more than 50% of the time was spent in counseling and care coordination.
[2020-07-24] MEDS: HEPARIN SODIUM,PORCINE/PF 5,000 UNIT/0.5 ML SYRINGE SQ SCH (23:27)
[2020-07-25 03:23] LABS: Appearance,Urine Clear (Clear); Bilirubin,Urine Negative (Negative); Blood,Urine Negative (Negative); Color,Urine Colorless; Glucose,Urine (UA) Negative (Negative); Ketones,Urine Negative (Negative); Leukocyte Esterase,Urine Negative (Negative); Nitrite,Urine Negative (Negative); Protein,Urine Negative (Negative); Specific Gravity,Urine 1.006 (1.001-1.035); Urobilinogen,Urine <2.0 mg/dL (<2.0)
[2020-07-25 03:58] LABS: Creatinine,Urine Random 24.2 mg/dL
[2020-07-25 06:28] LABS: Basophils # (A) 0.1 k/uL (0-0.2); Basophils % (A) 1 %; Eosinophils # (A) 0.1 k/uL (0-0.7); Eosinophils % (A) 1 %; HCT 32.5 % (34.0-46.0); Lymphocytes # (A) 1.4 k/uL (1.0-4.8); Lymphocytes % (A) 23 %; MCH 25.9 pg (25.0-35.0); MCHC 33.7 g/dL (31.0-37.0); MCV 76.8 fL (80.0-100.0); Mean Platelet Volume 6.2; Microcytosis Slight; Monocytes # (A) 0.4 k/uL (0-1.0); Monocytes % (A) 6 %; Neutrophils % (A) 67 %; Platelet Count 341 k/uL (150-450); RBC 4.24 m/uL (3.80-5.40); RDW 14.9 % (11.5-15.5)
[2020-07-25 06:54] LABS: African American GFR (CKD) >90 (>60 ml/min/1.73 sqM); Anion Gap 7 mmol/L; Blood Urea Nitrogen 7 mg/dL (7-17); Calcium 9.4 mg/dL (8.4-10.2); Carbon Dioxide 24 mmol/L (22-30); Chloride 97 mmol/L (98-107); Glucose 148 mg/dL (74-99); Magnesium 1.4 mg/dL (1.6-2.3); Non-African American GFR(CKD) >90 (>60 ml/min/1.73 sqM); Potassium 4.3 mmol/L (3.5-5.1); Sodium 128 mmol/L (137-145)
[2020-07-25 07:11] LABS: Glucose,Whole Blood 175 mg/dL (75-99)
[2020-07-25] MEDS: ASPIRIN 325 MG TAB PO SCH (07:58)
[2020-07-25] MEDS: MONTELUKAST 10 MG TAB PO SCH (07:58)
[2020-07-25] MEDS: HEPARIN SODIUM,PORCINE/PF 5,000 UNIT/0.5 ML SYRINGE SQ SCH ×2 (07:58→16:35)
[2020-07-25] MEDS: TAMSULOSIN 0.4 MG CAP.ER.24H PO SCH (07:58)
[2020-07-25] MEDS: INSULIN ASPART (NovoLOG) 100 UNIT/ML VIAL SQ SCH ×4 (07:58→20:51)
[2020-07-25] MEDS: METOPROLOL TARTRATE 50 MG TAB PO SCH ×2 (07:58→20:51)
[2020-07-25] MEDS: DONEPEZIL 10 MG TAB PO SCH (07:58)
[2020-07-25 11:26] LABS: Glucose,Whole Blood 160 mg/dL (75-99)
--- NOTE | 2020-07-25 12:40 | P.PN ---
Subjective Progress Note Date: 07/25/20 Principal diagnosis: hyponatremia Patient does not know why she is in the hospital. She denied any complaints currently. No pain, or sob. Objective - Vital Signs Vital signs: Vital Signs Temp 98.1 F 07/25/20 12:29 Pulse 54 L 07/25/20 12:29 Resp 16 07/25/20 12:29 BP 165/76 07/25/20 12:29 Pulse Ox 98 07/25/20 12:29 Intake & Output 07/24/20 07/25/20 07/25/20 18:59 06:59 18:59 Intake Total 600 Balance 600 Weight 83.915 kg 83.915 kg Intake: Intake, IV Titration 600 Amount Sodium Chloride 0.9% 1, 600 000 ml @ 75 mls/hr IV . [id number] [facility] Rx#:[id number] Other: Voiding Method Toilet # Voids 3 1 # Bowel Movements 1 - Exam General: non toxic, no distress, appears at stated age, obese Derm: no unusual rashes/lesions no unusual ecchymoses, warm, dry Head: atraumatic, normocephalic, symmetric Eyes: EOMI, no lid lag, anicteric sclera, pupils equal round reactive to light ENT: Nose and ears atraumatic, no thrush, no pharyngeal erythema Neck: No thyromegaly, no cervical lymphadenopathy, trachea midline, supple Mouth: no lip lesion, mucus membranes moist Cardiovascular: S1S2 reg, no murmur, positive posterior tibial pulse bilateral, trace bilateral lower extremity pitting edema, capillary refill less than 2 seconds Lungs: CTA bilateral, no rhonchi, no rales , no accessory muscle use Abdominal: soft, nontender to palpation, no guarding, no appreciable organomegaly, normal bowel sounds Ext: no gross muscle atrophy, muscle strength 5 out of 5 in all 4 extremities grossly, no contractures, Neuro: CN II-XI grossly intact, light touch intact all 4 extremities, finger to nose within normal limits, Psych: Alert, oriented only to self, knows she is in the hospital, not oriented to time - Labs CBC & Chem 7: 07/25/20 05:50 07/25/20 05:50 Labs: Abnormal Lab Results - Last 24 Hours (Table) 07/24/20 07/24/20 07/25/20 Range/Units 16:27 16:27 05:50 Hgb 11.0 L (11.4-16.0) gm/dL Hct 32.5 L (34.0-46.0) % MCV 77.3 L 76.8 L (80.0-100.0) fL Sodium 126 L (137-145) mmol/L Chloride 92 L (98-107) mmol/L Creatinine 0.51 L (0.52-1.04) mg/dL Glucose 136 H (74-99) mg/dL POC Glucose (mg/dL) (75-99) mg/dL Osmolality 267 L (280-301) mosm/kg Magnesium (1.6-2.3) mg/dL Alkaline Phosphatase 158 H (38-126) U/L 07/25/20 07/25/20 07/25/20 Range/Units 05:50 07:10 11:24 Hgb (11.4-16.0) gm/dL Hct (34.0-46.0) % MCV (80.0-100.0) fL Sodium 128 L (137-145) mmol/L Chloride 97 L (98-107) mmol/L Creatinine 0.47 L (0.52-1.04) mg/dL Glucose 148 H (74-99) mg/dL POC Glucose (mg/dL) 175 H 160 H (75-99) mg/dL Osmolality (280-301) mosm/kg Magnesium 1.4 L (1.6-2.3) mg/dL Alkaline Phosphatase (38-126) U/L Assessment and Plan Plan: Asymptomatic hypotonic hyponatremia, unclear etiology, possibly SIADH (?drug induced from SSRI use) versus primary polydipsia -Plasma and urine osmolalities noted. Could be mild SIADH but more consistent with dehydration. -Consult nephrology (patient following with Dr Montes as an outpt) -Monitor BMP -Fluid restriction Chronic conditions: Dementia, hypertension, COPD, type II DM -Continue with home medications -Hold oral hypoglycemics -Check A1c -Lispro insulin sliding scale blood glucose monitoring DVT prophylaxis -Heparin subq CODE STATUS: Full Code Discussed with: Patient Anticipated discharge date: [address]: Home A total of 35 minutes was spent on the care of this complex patient more than 50% of the time was spent in counseling and care coordination.
[2020-07-25] MEDS: MAGNESIUM SULFATE-D5W PMX 1 GM in DEXTROSE/WATER 1 100ML.BAG IVPB SCH ×2 (12:56→14:24)
--- NOTE | 2020-07-25 13:54 | P.NPCON ---
History of Present Illness - Reason for Consult Consult date: 07/25/20 hyponatremia - Chief Complaint Hyponatremia - History of Present Illness This is a 69-year-old female seen in consultation because of hyponatremia Known with depression, supposedly dementia COPD diabetes and was admitted because of abnormal labs. She is also known with diabetes on metformin Patient denies any cough fever chills shortness of breath nausea vomiting diarrhea. Says she had a good appetite but doesn't like the food is provided here in the hospital. Denies any dizziness Past Medical History Past Medical History: Dementia, Diabetes Mellitus, GERD/Reflux, Hyperlipidemia, Hypertension Additional Past Medical History / Comment(s): FIBROMYALGIA History of Any Multi-Drug Resistant Organisms: None Reported Past Surgical History: Adenoidectomy, Appendectomy, Cholecystectomy, Hysterectomy, Tonsillectomy, Tubal Ligation Additional Past Surgical History / Comment(s): CARARACT RT EYE 07/02/2013, bladder suspension, repair of the fracture, left knee replacement Past Anesthesia/Blood Transfusion Reactions: Motion Sickness, Postoperative Nausea & Vomiting (PONV) Past Psychological History: Depression Smoking Status: Never smoker Past Alcohol Use History: None Reported Past Drug Use History: None Reported - Past Family History Mother Family Medical History: Cancer Medications and Allergies Home Medications Medication Instructions Recorded Confirmed Type metFORMIN HCL [Glucophage] 500 mg PO BID 06/23/17 07/24/20 History Aspirin EC [Ecotrin] 325 mg PO DAILY 04/02/20 07/24/20 History Metoprolol Tartrate [Lopressor] 100 mg PO BID 04/02/20 07/24/20 History Montelukast Sodium [Singulair] 10 mg PO DAILY 04/02/20 07/24/20 History ALPRAZolam [Xanax] 0.25 mg PO BID 07/14/20 07/24/20 History FLUoxetine HCL [PROzac] 20 mg PO DAILY 07/14/20 07/24/20 History Tamsulosin [Flomax] 0.4 mg PO DAILY 07/14/20 07/24/20 History Cholecalciferol [Vitamin D3 (25 25 mcg PO DAILY 07/24/20 07/24/20 History Mcg = 1000 Iu)] Donepezil [Aricept] 10 mg PO DAILY 07/24/20 07/24/20 History Allergies Allergy/AdvReac Type Severity Reaction Status Date / Time No Known Allergies Allergy Verified 07/14/20 12:50 Physical Exam Vitals: Vital Signs Temp Pulse Pulse Resp BP BP Pulse Ox 07/25/20 12:29 98.1 F 54 L 16 165/76 98 07/25/20 04:47 97.8 F 59 L 16 171/79 99 07/24/20 21:16 97.6 F 58 L 16 146/76 97 07/24/20 20:12 57 L 18 168/87 99 07/24/20 16:11 98.5 F 63 18 151/82 99 Intake and Output 07/24/20 07/25/20 07/25/20 22:59 06:59 14:59 Intake Total 600 Balance 600 Intake: Intake, IV Titration 600 Amount Sodium Chloride 0.9% 1, 600 000 ml @ 75 mls/hr IV . [id number] [facility] Rx#:[id number] Other: Voiding Method Toilet # Voids 3 1 # Bowel Movements 1 Weight 83.915 kg Awake alert oriented seems to be comfortable HEENT exam no JVP neck is supple no facial asymmetry Lungs clear to auscultation good air entry bilaterally Heart sounds unremarkable for any murmur rub gallop Abdomen soft nontender Extremity exam was no edema Neurologically awake alert oriented Results - Lab Results Most recent lab results Calcium 9.4 mg/dL (8.4-10.2) 07/25/20 05:50 Magnesium 1.4 mg/dL (1.6-2.3) L 07/25/20 05:50 07/25/20 05:50 07/25/20 05:50 Assessment and Plan Assessment: Impression 1. Hyponatremia secondary to SIADH. Sodium was 126 with normal saline came up to 120. Urine osmolality is 260, urine sodium is 78. TSH was 2.01 on 07/24/2020 and cortisol was 28 2. History of depression and dementia 3. History of COPD 4. History of diabetes mellitus Admission 1. Fluid restrict 2000 mL 2. High-protein intake 3. Check orthostatic changes. Thank you for this consultation we'll continue to follow
[2020-07-25 17:23] LABS: Glucose,Whole Blood 170 mg/dL (75-99)
[2020-07-25 20:24] LABS: Glucose,Whole Blood 145 mg/dL (75-99)
[2020-07-26] MEDS: HEPARIN SODIUM,PORCINE/PF 5,000 UNIT/0.5 ML SYRINGE SQ SCH ×2 (00:59→08:00)
[2020-07-26 07:12] LABS: Glucose,Whole Blood 159 mg/dL (75-99)
[2020-07-26] MEDS: TAMSULOSIN 0.4 MG CAP.ER.24H PO SCH (08:00)
[2020-07-26] MEDS: INSULIN ASPART (NovoLOG) 100 UNIT/ML VIAL SQ SCH ×2 (08:00→13:03)
[2020-07-26] MEDS: METOPROLOL TARTRATE 50 MG TAB PO SCH (08:00)
[2020-07-26] MEDS: MONTELUKAST 10 MG TAB PO SCH (08:00)
[2020-07-26] MEDS: DONEPEZIL 10 MG TAB PO SCH (08:00)
[2020-07-26] MEDS: ASPIRIN 325 MG TAB PO SCH (08:00)
[2020-07-26] MEDS ORDERED: ONDANSETRON 4 MG/2 ML VIAL IVP PRN (10:26)
[2020-07-26 11:28] LABS: African American GFR (CKD) 107.8 (60.0-200.0); Anion Gap 8.5 mmol/L (4.00-12.00); BUN/Creat Ratio 11.67 Ratio (12.00-20.00); Calcium 9.8 mg/dL (8.7-10.3); Carbon Dioxide 23.5 mmol/L (21.6-31.8); Magnesium 1.7 mg/dL (1.5-2.4); Potassium 3.8 mmol/L (3.5-5.5)
[2020-07-26 11:44] LABS: Glucose,Whole Blood 208 mg/dL (75-99)
[2020-07-26 12:40] VITALS: BP 179/81; PULSE 58; RESP 14; TEMP 97.9
--- NOTE | 2020-07-26 15:13 | P.DS ---
Providers Date of admission: 07/24/20 18:54 Expected date of discharge: 07/26/20 Attending physician: Garry Hamlin Consults: 07/24/20 22:11 Consult Physician Urgent Consulting Provider: Sergio Montes Consult Reason/Comments: hypoNa Do you want consulting provider notified?: Yes Primary care physician: [facility] Course: 69 yo F with a PMH of dementia, COPD, Type 2 DM, HTN, and depression who was sent to the ED at advice of her publication director for hyponatremia. Patient was recently admitted to [facility] 2 weeks ago for hyponatremia and subseq uently underwent blood work ordered by the publication director showed Na 123. The patient was subsequently brought into the emergency room. She was confused and did not remember what happened when seen in the ER according to the admitting physician. The patient also was unable to recall that she lives with her cousin who helps her with her ADLs. She doesn't drink an excess amount of water according to her son. The patient however denied any active complaints. She denied dizziness, headaches, weakness, numbness, tingling. Denied chest discomfort, shortness of breath, fever, chills, cough, nausea, vomiting, abdominal pain, diarrhea. Evaluation in the emergency room revealed a sodium of 126, chloride 92, BUN 9, creatinine 0.51, glucose 136, osmolality low at 267, alk phos 158, proBNP 895, albumin 4.2. She was admitted for further evaluation and treatment. Her urine osm came back at 260. This was consistent with SIADH according to nephrology who saw patient while hospitalized. Subsequently she was started on fluid restriction down to 2L per day and that improved her Na to 131 on the day of discharge. She is currently doing well. Her memory seems to be ok according to my exam. She was told that she needs to be on fluid restriction up to 2L per day. BMP will be rechecked in 3 days after discharge. Patient also needs follow up with nephro. She will be discharged in a stable condition. Time for discharge 35 min Patient Condition at Discharge: Stable Plan - Discharge Summary New Discharge Prescriptions: Continue RX: metFORMIN HCL [Glucophage] 500 mg PO BID RX: Aspirin EC [Ecotrin] 325 mg PO DAILY RX: Metoprolol Tartrate [Lopressor] 100 mg PO BID RX: Montelukast Sodium [Singulair] 10 mg PO DAILY RX: ALPRAZolam [Xanax] 0.25 mg PO BID RX: Donepezil [Aricept] 10 mg PO DAILY RX: Cholecalciferol [Vitamin D3 (25 Mcg = 1000 Iu)] 25 mcg PO DAILY RX: Tamsulosin [Flomax] 0.4 mg PO DAILY Discontinued RX: FLUoxetine HCL [PROzac] 20 mg PO DAILY Discharge Medication List RX: metFORMIN HCL [Glucophage] 500 mg PO BID 06/23/17 [History] RX: Aspirin EC [Ecotrin] 325 mg PO DAILY 04/02/20 [History] RX: Metoprolol Tartrate [Lopressor] 100 mg PO BID 04/02/20 [History] RX: Montelukast Sodium [Singulair] 10 mg PO DAILY 04/02/20 [History] RX: ALPRAZolam [Xanax] 0.25 mg PO BID 07/14/20 [History] RX: Tamsulosin [Flomax] 0.4 mg PO DAILY 07/14/20 [History] RX: Cholecalciferol [Vitamin D3 (25 Mcg = 1000 Iu)] 25 mcg PO DAILY 07/24/20 [History] RX: Donepezil [Aricept] 10 mg PO DAILY 07/24/20 [History] Follow up Appointment(s)/Referral(s): Vicky Fabian MD [Primary Care Provider] - 1-2 days [facility] [NON-STAFF] - 1-2 Days Sergio Montes DO [STAFF PHYSICIAN] - 1 Week Patient Instructions/Handouts: Hyponatremia (DC), Weakness (DC), Altered Mental Status (GEN) Activity/Diet/Wound Care/Special Instructions: Per Dr. Warner 2,000cc fluid restriction per 24 hours.
== END 2020-07-26 15:30 | disposition home health service (06) | DRG 645 ==
LOC: EC 16:09 → 5NMEDONC 18:54
PROVIDERS: ADMIT Internal Medicine; ATTEND Internal Medicine
DX: E22.2 Syndrome of inappropriate secretion of antidiuretic hormone (principal); F03.90 Unspecified dementia, unspecified severity, without behavioral disturbance, psychotic disturbance, mood disturbance, and anxiety; E11.9 Type 2 diabetes mellitus without complications; J44.9 Chronic obstructive pulmonary disease, unspecified; Z20.822 Contact with and (suspected) exposure to COVID-19; F32.9 Major depressive disorder, single episode, unspecified; E86.0 Dehydration; E78.5 Hyperlipidemia, unspecified; I10 Essential (primary) hypertension; K21.9 Gastro-esophageal reflux disease without esophagitis; M79.7 Fibromyalgia; Z79.82 Long term (current) use of aspirin; Z79.84 Long term (current) use of oral hypoglycemic drugs; Z79.899 Other long term (current) drug therapy; Z90.49 Acquired absence of other specified parts of digestive tract; Z90.710 Acquired absence of both cervix and uterus; Z90.89 Acquired absence of other organs; Z98.51 Tubal ligation status; Z87.19 Personal history of other diseases of the digestive system; Z87.42 Personal history of other diseases of the female genital tract; Z96.652 Presence of left artificial knee joint; Z98.41 Cataract extraction status, right eye; Z87.81 Personal history of (healed) traumatic fracture; Z87.448 Personal history of other diseases of urinary system; Z98.890 Other specified postprocedural states; Z80.9 Family history of malignant neoplasm, unspecified
CPT/HCPCS: 36415; 80048; 80053; 81003; 82570; 83735; 83880; 83930; 83935; 84300; 84443; 85025; 87635; 93005; 96360; 99285

== ENCOUNTER 2020-07-30 11:25 | Inpatient (IN) | payer MEDICARE ==
[2020-07-30 12:34] LABS: Basophils % (A) 0 %; Eosinophils % (A) 0 %; HCT 35.4 % (34.0-46.0); HGB 12.2 gm/dL (11.4-16.0); Lymphocytes # (A) 0.9 k/uL (1.0-4.8); Lymphocytes % (A) 10 %; MCH 25.9 pg (25.0-35.0); MCHC 34.4 g/dL (31.0-37.0); MCV 75.1 fL (80.0-100.0); Mean Platelet Volume 6.5; Microcytosis Slight; Monocytes # (A) 0.5 k/uL (0-1.0); Monocytes % (A) 5 %; Neutrophils # (A) 7.6 k/uL (1.3-7.7); Neutrophils % (A) 83 %; Platelet Count 363 k/uL (150-450); RBC 4.72 m/uL (3.80-5.40); RDW 14.6 % (11.5-15.5); WBC 9.1 k/uL (3.8-10.6)
[2020-07-30 12:43] LABS: ALT 12 U/L (4-34); AST 22 U/L (14-36); African American GFR (CKD) >90 (>60 ml/min/1.73 sqM); Alkaline Phosphatase 172 U/L (38-126); Anion Gap 10 mmol/L; Blood Urea Nitrogen 7 mg/dL (7-17); Calcium 9.3 mg/dL (8.4-10.2); Carbon Dioxide 25 mmol/L (22-30); Chloride 92 mmol/L (98-107); Glucose 148 mg/dL (74-99); Magnesium 1.2 mg/dL (1.6-2.3); Non-African American GFR(CKD) >90 (>60 ml/min/1.73 sqM); Phosphorus 3.4 mg/dL (2.5-4.5); Potassium 3.3 mmol/L (3.5-5.1); Sodium 127 mmol/L (137-145); Total Bilirubin 1.2 mg/dL (0.2-1.3); Total Protein 6.8 g/dL (6.3-8.2)
[2020-07-30] MEDS ORDERED: POTASSIUM CHLORIDE ER 20 MEQ TAB.ER PO STA (12:52)
[2020-07-30] MEDS ORDERED: SODIUM CHLORIDE 0.9% 1,000 ML IV STA (13:06)
[2020-07-30] MEDS: MAGNESIUM SULFATE-D5W PMX 1 GM in DEXTROSE/WATER 1 100ML.BAG IVPB SCH ×2 (13:17→14:17)
[2020-07-30 13:41] LABS: Appearance,Urine Cloudy (Clear); Bacteria,Urine Rare /hpf; Bilirubin,Urine Negative (Negative); Blood,Urine Small (Negative); Color,Urine Light Yellow; Glucose,Urine (UA) Negative (Negative); Ketones,Urine Negative (Negative); Leukocyte Esterase,Urine Large (Negative); Mucus,Urine Rare /hpf; Nitrite,Urine Positive (Negative); PH, Urine 6.5 (5.0-8.0); Protein,Urine Trace (Negative); RBC,Urine 16 /hpf (0-5); Specific Gravity,Urine 1.008 (1.001-1.035); Squamous Epithelial Cell,Urine 1 /hpf (0-4); Urobilinogen,Urine <2.0 mg/dL (<2.0); WBC,Urine >182 /hpf (0-5)
[2020-07-30] MEDS ORDERED: cefTRIAXone IN SWFI 1,000 MG/10 ML SYRINGE IVP STA (14:01)
--- NOTE | 2020-07-30 14:08 | ED ---
Recheck HPI - General Chief Complaint: Recheck/Abnormal Lab/Rx Stated Complaint: LOW SODIUM Time Seen by Provider: 07/30/20 12:14 Source: patient, EMS Mode of arrival: EMS Limitations: no limitations - History of Present Illness Initial Comments: 69-year-old female with history of dementia, AOx1 at baseline, electron imbalance is present to the emergency department a chief complaint of low sodium. Patient presented to the ED via EMS. The primary care physician contacted the patient's and informed them of a sodium level 124. Patient states she otherwise is feeling well. Patient is alert to self and place but not time. She denies any abdominal, back pain, dysuria, increased urgency or frequency. She denies any chest pain or shortness of breath. Denies any fevers or chills. - Related Data Home Medications Medication Instructions Recorded Confirmed metFORMIN HCL [Glucophage] 500 mg PO BID 06/23/17 07/30/20 Aspirin EC [Ecotrin] 325 mg PO DAILY 04/02/20 07/30/20 Metoprolol Tartrate [Lopressor] 100 mg PO BID 04/02/20 07/30/20 Montelukast Sodium [Singulair] 10 mg PO DAILY 04/02/20 07/30/20 ALPRAZolam [Xanax] 0.25 mg PO BID 07/14/20 07/30/20 Tamsulosin [Flomax] 0.4 mg PO DAILY 07/14/20 07/30/20 Cholecalciferol [Vitamin D3 (25 25 mcg PO DAILY 07/24/20 07/30/20 Mcg = 1000 Iu)] Donepezil [Aricept] 10 mg PO DAILY 07/24/20 07/30/20 Allergies Allergy/AdvReac Type Severity Reaction Status Date / Time No Known Allergies Allergy Verified 07/30/20 12:46 Review of Systems ROS Statement: Those systems with pertinent positive or pertinent negative responses have been documented in the HPI. ROS Other: All systems not noted in ROS Statement are negative. Past Medical History Past Medical History: Dementia, Diabetes Mellitus, GERD/Reflux, Hyperlipidemia, Hypertension Additional Past Medical History / Comment(s): FIBROMYALGIA History of Any Multi-Drug Resistant Organisms: None Reported Past Surgical History: Adenoidectomy, Appendectomy, Cholecystectomy, Hyst erectomy, Tonsillectomy, Tubal Ligation Additional Past Surgical History / Comment(s): CARARACT RT EYE 07/02/2013, bladder suspension, repair of the fracture, left knee replacement Past Anesthesia/Blood Transfusion Reactions: Motion Sickness, Postoperative Nausea & Vomiting (PONV) Past Psychological History: Depression Smoking Status: Never smoker Past Alcohol Use History: None Reported Past Drug Use History: None Reported - Past Family History Mother Family Medical History: Cancer General Exam Limitations: no limitations General appearance: alert, in no apparent distress Head exam: Present: atraumatic, normocephalic, normal inspection Eye exam: Present: normal appearance, PERRL, EOMI Pupils: Present: normal accommodation ENT exam: Present: normal exam, normal oropharynx, mucous membranes moist Neck exam: Present: normal inspection, full ROM. Absent: tenderness Respiratory exam: Present: normal lung sounds bilaterally. Absent: respiratory distress Cardiovascular Exam: Present: regular rate, normal rhythm, normal heart sounds. Absent: systolic murmur Extremities exam: Present: normal inspection, full ROM Back exam: Present: normal inspection, full ROM. Absent: tenderness Neurological exam: Present: alert, oriented X3 Psychiatric exam: Present: normal affect, normal mood Skin exam: Present: warm, dry, intact, normal color Course Vital Signs 07/30/20 11:28 Temperature 98.0 F Pulse Rate 55 L Respiratory 16 Rate Blood Pressure 160/74 O2 Sat by Pulse 100 Oximetry Medical Decision Making - Medical Decision Making 69-year-old female with history of dementia, AOx1 at baseline, electron imb alance is present to the emergency department a chief complaint of low sodium. On physical examination, patient is AOx2. Sodium is 127. Potassium 3.3. Magnesium 1.2.CBCs and a [place]. UA shows elevated leukocyte esterase, white blood cells and positive nitrates. Urine culture pending. We'll start patient on 1 g Rocephin. Last urine culture positive for Klebsiella. Patient was also started on 40 mg of Mariana Dur. 2 g of magnesium sulfate. 75 mL per hour of normal saline. She was ordered given 200 mL of saline bolus and indolence. I spoke with who will admit for further medical management. Case discussed with - Lab Data Result diagrams: 07/30/20 12:20 07/30/20 12:20 Lab Results 07/30/20 07/30/20 07/30/20 Range/Units 12:20 12:20 13:13 WBC 9.1 (3.8-10.6) k/uL RBC 4.72 (3.80-5.40) m/uL Hgb 12.2 (11.4-16.0) gm/dL Hct 35.4 (34.0-46.0) % MCV 75.1 L (80.0-100.0) fL MCH 25.9 (25.0-35.0) pg MCHC 34.4 (31.0-37.0) g/dL RDW 14.6 (11.5-15.5) % Plt Count 363 (150-450) k/uL MPV 6.5 Neutrophils % 83 % Lymphocytes % 10 % Monocytes % 5 % Eosinophils % 0 % Basophils % 0 % Neutrophils # 7.6 (1.3-7.7) k/uL Lymphocytes # 0.9 L (1.0-4.8) k/uL Monocytes # 0.5 (0-1.0) k/uL Eosinophils # 0.0 (0-0.7) k/uL Basophils # 0.0 (0-0.2) k/uL Microcytosis Slight Sodium 127 L (137-145) mmol/L Potassium 3.3 L (3.5-5.1) mmol/L Chloride 92 L (98-107) mmol/L Carbon Dioxide 25 (22-30) mmol/L Anion Gap 10 mmol/L BUN 7 (7-17) mg/dL Creatinine 0.49 L (0.52-1.04) mg/dL Est GFR (CKD-EPI)AfAm >90 (>60 ml/min/1.73 sqM) Est GFR (CKD-EPI)NonAf >90 (>60 ml/min/1.73 sqM) Glucose 148 H (74-99) mg/dL Calcium 9.3 (8.4-10.2) mg/dL Phosphorus 3.4 (2.5-4.5) mg/dL Magnesium 1.2 L (1.6-2.3) mg/dL Total Bilirubin 1.2 (0.2-1.3) mg/dL AST 22 (14-36) U/L ALT 12 (4-34) U/L Alkaline Phosphatase 172 H (38-126) U/L Total Protein 6.8 (6.3-8.2) g/dL Albumin 4.0 (3.5-5.0) g/dL Urine Color Light Yellow Urine Appearance Cloudy H (Clear) Urine pH 6.5 (5.0-8.0) Ur Specific [place] 1.008 (1.001-1.035) Urine Protein Trace H (Negative) Urine Glucose (UA) Negative (Negative) Urine Ketones Negative (Negative) Urine Blood Small H (Negative) Urine Nitrite Positive H (Negative) Urine Bilirubin Negative (Negative) Urine Urobilinogen <2.0 (<2.0) mg/dL Ur Leukocyte Esterase Large H (Negative) Urine RBC 16 H (0-5) /hpf Urine WBC >182 H (0-5) /hpf Urine WBC Clumps Few H (None) /hpf Ur Squamous Epith Cells 1 (0-4) /hpf Urine Bacteria Rare H (None) /hpf Urine Mucus Rare H (None) /hpf Urine Osmolality (50-1400) mosm/kg 07/30/20 Range/Units 13:14 WBC (3.8-10.6) k/uL RBC (3.80-5.40) m/uL Hgb (11.4-16.0) gm/dL Hct (34.0-46.0) % MCV (80.0-100.0) fL MCH (25.0-35.0) pg MCHC (31.0-37.0) g/dL RDW (11.5-15.5) % Plt Count (150-450) k/uL MPV Neutrophils % % Lymphocytes % % Monocytes % % Eosinophils % % Basophils % % Neutrophils # (1.3-7.7) k/uL Lymphocytes # (1.0-4.8) k/uL Monocytes # (0-1.0) k/uL Eosinophils # (0-0.7) k/uL Basophils # (0-0.2) k/uL Microcytosis Sodium (137-145) mmol/L Potassium (3.5-5.1) mmol/L Chloride (98-107) mmol/L Carbon Dioxide (22-30) mmol/L Anion Gap mmol/L BUN (7-17) mg/dL Creatinine (0.52-1.04) mg/dL Est GFR (CKD-EPI)AfAm (>60 ml/min/1.73 sqM) Est GFR (CKD-EPI)NonAf (>60 ml/min/1.73 sqM) Glucose (74-99) mg/dL Calcium (8.4-10.2) mg/dL Phosphorus (2.5-4.5) mg/dL Magnesium (1.6-2.3) mg/dL Total Bilirubin (0.2-1.3) mg/dL AST (14-36) U/L ALT (4-34) U/L Alkaline Phosphatase (38-126) U/L Total Protein (6.3-8.2) g/dL Albumin (3.5-5.0) g/dL Urine Color Urine Appearance (Clear) Urine pH (5.0-8.0) Ur Specific [place] (1.001-1.035) Urine Protein (Negative) Urine Glucose (UA) (Negative) Urine Ketones (Negative) Urine Blood (Negative) Urine Nitrite (Negative) Urine Bilirubin (Negative) Urine Urobilinogen (<2.0) mg/dL Ur Leukocyte Esterase (Negative) Urine RBC (0-5) /hpf Urine WBC (0-5) /hpf Urine WBC Clumps (None) /hpf Ur Squamous Epith Cells (0-4) /hpf Urine Bacteria (None) /hpf Urine Mucus (None) /hpf Urine Osmolality 206 (50-1400) mosm/kg - EKG Data EKG Comments: Sinus bradycardia [place] rate 53, [place] 134, QRS 80, QTC 444. Disposition Clinical Impression: Hypokalemia, Hyponatremia, Hypomagnesemia, Urinary tract infection Disposition: ADMITTED IP TO THIS HOSP Condition: Fair Is patient prescribed a controlled substance at d/c from ED?: No Referrals: Vicky Fabian MD [Primary Care Provider] - 1-2 days Time of Disposition: 14:25
[2020-07-30] MEDS ORDERED: ONDANSETRON 4 MG/2 ML VIAL IVP PRN (14:17)
[2020-07-30] MEDS ORDERED: MORPHINE SULFATE 4 MG/ML SYRINGE IV PRN (14:17)
[2020-07-30] MEDS ORDERED: LORazepam 2 MG/ML INJ IV PRN (14:17)
[2020-07-30] MEDS ORDERED: traMADol 50 MG TAB PO PRN (14:17)
[2020-07-30] MEDS ORDERED: NALOXONE 0.4 MG/ML 1 ML VIAL IV PRN ×2 (14:17→14:46)
[2020-07-30] MEDS ORDERED: LACTATED RINGERS 1,000 ML IV ONE (14:43)
[2020-07-30] MEDS ORDERED: ACETAMINOPHEN TAB 325 MG TAB PO PRN (14:46)
[2020-07-30] MEDS ORDERED: MELATONIN 3 MG TABLET PO PRN (14:46)
[2020-07-30] MEDS: HEPARIN SODIUM,PORCINE/PF 5,000 UNIT/0.5 ML SYRINGE SQ SCH (16:11)
--- NOTE | 2020-07-30 16:18 | P.HPIM ---
History of Present Illness H&P Date: 07/30/20 Chief Complaint: Hyponatremia 69-year-old woman with a history of dementia, depression, SIADH, COPD, diabetes, HTN/HLD presented with hyponatremia. Patient is a poor historian and cannot provide any history, can minimally participate in review of systems. Therefore, history is taken from chart review and ER provider signout. Patient was recently discharged for similar issue, which improved with fluid restriction. Her last hospitalization was characterized by incidental finding of hyponatremia on routine blood check in nephrology clinic, and a short hospitalization with fluid restriction which improved her sodium level. She was discharged approximately 4 days ago, and had routine follow-up with BMP check with her PCP. Her was informed today the patient had hyponatremia again down to 124, and was requested to bring the patient into the emergency room for further evaluation. On arrival, patient's sodium was noted to be 127, but she was also noted to have a urinary tract infection. Medicine was asked to admit the patient for further management of hyponatremia and UTI. Review of Systems All Systems reviewed and pertinent positives and negatives noted in HPI, all other symptoms are negative Past Medical History Past Medical History: Dementia, Diabetes Mellitus, GERD/Reflux, Hyperlipidemia, Hypertension Additional Past Medical History / Comment(s): FIBROMYALGIA History of Any Multi-Drug Resistant Organisms: None Reported Past Surgical History: Adenoidectomy, Appendectomy, Cholecystectomy, Hysterect nguyen, Tonsillectomy, Tubal Ligation Additional Past Surgical History / Comment(s): CARARACT RT EYE 07/02/2013, bladder suspension, repair of the fracture, left knee replacement Past Anesthesia/Blood Transfusion Reactions: Motion Sickness, Postoperative Nausea & Vomiting (PONV) Past Psychological History: Depression Smoking Status: Never smoker Past Alcohol Use History: None Reported Past Drug Use History: None Reported - Past Family History Mother Family Medical History: Cancer Medications and Allergies Home Medications Medication Instructions Recorded Confirmed Type metFORMIN HCL [Glucophage] 500 mg PO BID 06/23/17 07/30/20 History Aspirin EC [Ecotrin] 325 mg PO DAILY 04/02/20 07/30/20 History Metoprolol Tartrate [Lopressor] 100 mg PO BID 04/02/20 07/30/20 History Montelukast Sodium [Singulair] 10 mg PO DAILY 04/02/20 07/30/20 History ALPRAZolam [Xanax] 0.25 mg PO BID 07/14/20 07/30/20 History Tamsulosin [Flomax] 0.4 mg PO DAILY 07/14/20 07/30/20 History Cholecalciferol [Vitamin D3 (25 25 mcg PO DAILY 07/24/20 07/30/20 History Mcg = 1000 Iu)] Donepezil [Aricept] 10 mg PO DAILY 07/24/20 07/30/20 History Allergies Allergy/AdvReac Type Severity Reaction Status Date / Time No Known Allergies Allergy Verified 07/30/20 12:46 Physical Exam Osteopathic Statement: *. No significant issues noted on an osteopathic structural exam other than those noted in the History and Physical/Consult. Vitals: Vital Signs Temp Pulse Resp BP Pulse Ox 07/30/20 11:28 98.0 F 55 L 16 160/74 100 Intake and Output 07/30/20 07/30/20 07/30/20 06:59 14:59 22:59 Other: Weight 74.843 kg Gen: awake, alert and oriented 1 HEENT: normocephalic, atraumatic, good hearing acuity, moist mucous membranes Resp: good air exchange, breathing comfortably with no accessory muscle use, clear to auscultation bilaterally without wheezes or crackles CVS: good distal perfusion x 4, regular rate and rhythm, soft systolic murmur GI: soft, NTTP, ND, appropriate bowel sounds : no SPT, no CVAT, hernandez catheter not present MSK: no pitting edema, no clubbing Neuro: non-focal, moving all extremities Psych: cooperative, euthymic mood Results CBC & Chem 7: 07/30/20 12:20 07/30/20 12:20 Labs: Abnormal Lab Results - Last 24 Hours (Table) 07/30/20 07/30/20 07/30/20 Range/Units 12:20 12:20 13:13 MCV 75.1 L (80.0-100.0) fL Lymphocytes # 0.9 L (1.0-4.8) k/uL Sodium 127 L (137-145) mmol/L Potassium 3.3 L (3.5-5.1) mmol/L Chloride 92 L (98-107) mmol/L Creatinine 0.49 L (0.52-1.04) mg/dL Glucose 148 H (74-99) mg/dL Magnesium 1.2 L (1.6-2.3) mg/dL Alkaline Phosphatase 172 H (38-126) U/L Urine Appearance Cloudy H (Clear) Urine Protein Trace H (Negative) Urine Blood Small H (Negative) Urine Nitrite Positive H (Negative) Ur Leukocyte Esterase Large H (Negative) Urine RBC 16 H (0-5) /hpf Urine WBC >182 H (0-5) /hpf Urine WBC Clumps Few H (None) /hpf Urine Bacteria Rare H (None) /hpf Urine Mucus Rare H (None) /hpf Assessment and Plan Assessment: Hyponatremia secondary to SIADH -Fluid restriction at 2000 mL -Nephrology consult -Urine sodium, osmolality -Serum osmolality -Daily BMP, magnesium -Lactated Ringer's at 75 mL per hour Complicated urinary tract infection -Ceftriaxone 1 g every 24 hours -Follow up urine culture Chronic medical conditions: Hypertension Hyperlipidemia Dementia COPD without exacerbation Type 2 diabetes Depression -Continue home meds -Before meals and at bedtime sugar checks -Low-dose sliding scale insulin -DuoNeb when necessary Patient is a full code Patient's is next of kin DVT prophylaxis with heparin 3 times a day
[2020-07-30] MEDS: INSULIN ASPART (NovoLOG) 100 UNIT/ML VIAL SQ SCH (20:20)
[2020-07-30 20:29] LABS: Glucose,Whole Blood 223 mg/dL (75-99)
[2020-07-30] MEDS: METOPROLOL TARTRATE 50 MG TAB PO SCH (20:31)
[2020-07-30 21:44] LABS: Glucose,Whole Blood 169 mg/dL (75-99)
[2020-07-31] MEDS: ALPRAZolam 0.25 MG TAB PO SCH ×3 (00:16→21:27)
[2020-07-31] MEDS: HEPARIN SODIUM,PORCINE/PF 5,000 UNIT/0.5 ML SYRINGE SQ SCH ×4 (00:18→23:54)
[2020-07-31 05:57] LABS: Basophils % (A) 0 %; Eosinophils % (A) 1 %; HCT 32.4 % (34.0-46.0); HGB 11.1 gm/dL (11.4-16.0); Lymphocytes # (A) 1.6 k/uL (1.0-4.8); Lymphocytes % (A) 20 %; MCH 25.8 pg (25.0-35.0); MCHC 34.4 g/dL (31.0-37.0); MCV 75.2 fL (80.0-100.0); Mean Platelet Volume 6.4; Microcytosis Slight; Monocytes # (A) 0.5 k/uL (0-1.0); Monocytes % (A) 6 %; Neutrophils # (A) 5.6 k/uL (1.3-7.7); Neutrophils % (A) 72 %; Platelet Count 330 k/uL (150-450); RBC 4.31 m/uL (3.80-5.40); RDW 14.7 % (11.5-15.5); WBC 7.8 k/uL (3.8-10.6)
[2020-07-31 07:04] LABS: Glucose,Whole Blood 159 mg/dL (75-99)
[2020-07-31] MEDS: INSULIN ASPART (NovoLOG) 100 UNIT/ML VIAL SQ SCH ×3 (08:07→17:57)
[2020-07-31] MEDS: CHOLECALCIFEROL 25 MCG (1000 IU) TABLET PO SCH (08:07)
[2020-07-31] MEDS: DONEPEZIL 10 MG TAB PO SCH (08:07)
[2020-07-31] MEDS: TAMSULOSIN 0.4 MG CAP.ER.24H PO SCH (08:07)
[2020-07-31] MEDS: MONTELUKAST 10 MG TAB PO SCH (08:07)
[2020-07-31] MEDS: METOPROLOL TARTRATE 50 MG TAB PO SCH ×2 (08:09→21:27)
[2020-07-31] MEDS: ASPIRIN 325 MG TAB PO SCH (09:04)
[2020-07-31 12:28] LABS: Glucose,Whole Blood 130 mg/dL (75-99)
[2020-07-31 13:56] LABS: African American GFR (CKD) 123.2 (60.0-200.0); Anion Gap 11.9 mmol/L (4.00-12.00); Carbon Dioxide 20.1 mmol/L (21.6-31.8); Magnesium 1.3 mg/dL (1.5-2.4); Non-African American GFR(CKD) 106.3 (60.0-200.0); Potassium 3.3 mmol/L (3.5-5.5)
--- NOTE | 2020-07-31 14:01 | P.NPCON ---
History of Present Illness - Reason for Consult hyponatremia - History of Present Illness Reason for consultation: Hyponatremia History of present illness: Patient is a 69-year-old female seen in consultation for hyponatremia. Patient has history of dementia and is not a reliable historian. Patient had blood work an outpatient and was advised to go to the hospital for low sodium level. Her sodium level was 124 and was 127 on admission. She's currently receiving IV fluids. Labs from today are pending. I don't see any diuretics and her home medications. Oral intake has been fair. She denies any vomiting or diarrhea. Denies chest pain or shortness of breath. No edema. Has been voiding. She is incontinent. No fever or chills. Blood pressure stable. Tested negative for coronavirus. Urine osmolality was 206. Patient's potassium and magnesium level were also low on admission. Vital signs are stable. General: The patient appeared well nourished and normally developed. HEENT: Head exam is unremarkable. Neck is without jugular venous distension. LUNGS: Breath sounds decreased. HEART: Rate and Rhythm are regular. ABDOMEN: Soft, nontender. EXTREMITITES: No edema. Past Medical History Past Medical History: Dementia, Diabetes Mellitus, GERD/Reflux, Hyperlipidemia, Hypertension Additional Past Medical History / Comment(s): FIBROMYALGIA History of Any Multi-Drug Resistant Organisms: None Reported Past Surgical History: Adenoidectomy, Appendectomy, Cholecystectomy, Hysterectomy, Tonsillectomy, Tubal Ligation Additional Past Surgical History / Comment(s): CARARACT RT EYE 07/02/2013, bladder suspension, repair of the fracture, left knee replacement Past Anesthesia/Blood Transfusion Reactions: Motion Sickness, Postoperative Nausea & Vomiting (PONV) Past Psychological History: Depression Smoking Status: Never smoker Past Alcohol Use History: None Reported Past Drug Use History: None Reported - Past Family History Mother Family Medical History: Cancer Medications and Allergies Home Medications Medication Instructions Recorded Confirmed Type metFORMIN HCL [Glucophage] 500 mg PO BID 06/23/17 07/30/20 History Aspirin EC [Ecotrin] 325 mg PO DAILY 04/02/20 07/30/20 History Metoprolol Tartrate [Lopressor] 100 mg PO BID 04/02/20 07/30/20 History Montelukast Sodium [Singulair] 10 mg PO DAILY 04/02/20 07/30/20 History ALPRAZolam [Xanax] 0.25 mg PO BID 07/14/20 07/30/20 History Tamsulosin [Flomax] 0.4 mg PO DAILY 07/14/20 07/30/20 History Cholecalciferol [Vitamin D3 (25 25 mcg PO DAILY 07/24/20 07/30/20 History Mcg = 1000 Iu)] Donepezil [Aricept] 10 mg PO DAILY 07/24/20 07/30/20 History Allergies Allergy/AdvReac Type Severity Reaction Status Date / Time No Known Allergies Allergy Verified 07/30/20 12:46 Physical Exam Vitals: Vital Signs Temp Pulse Pulse Resp BP BP Pulse Ox 07/31/20 12:42 98 F 52 L 16 163/82 98 07/31/20 08:09 56 L 07/31/20 04:47 97.6 F 49 L 16 157/75 98 07/30/20 21:33 97.6 F 50 L 16 152/76 98 07/30/20 20:31 97.9 F 56 L 16 155/73 98 07/30/20 16:56 63 18 149/69 99 Intake and Output 07/30/20 07/31/20 07/31/20 22:59 06:59 14:59 Other: Voiding Method Toilet Diaper # Voids 1 Weight 74.843 kg Results - Lab Results Most recent lab results Calcium 9.3 mg/dL (8.4-10.2) 07/30/20 12:20 Phosphorus 3.4 mg/dL (2.5-4.5) 07/30/20 12:20 Magnesium 1.2 mg/dL (1.6-2.3) L 07/30/20 12:20 07/31/20 05:23 07/30/20 12:20 Assessment and Plan Plan: Assessment: 1. Hypovolemic hyponatremia. Sodium level CXXVII on admission. Labs from today pending. Urine osmolality 206. 2. Hypokalemia from poor intake and hypomagnesemia. 3. Hypomagnesemia from poor intake. 4. Diabetes mellitus. Plan: Maintain IV fluids. Normal saline at 75 mL an hour. Magnesium was replaced. Follow-up morning labs. Check TSH. Encourage oral intake, particularly protein. 1500 mL fluid restriction. Check urine sodium level. Thank you for the consultation. I will continue to follow the patient with you during her hospital stay.
[2020-07-31] MEDS ORDERED: POTASSIUM CHLORIDE ER 20 MEQ TAB.ER PO STA (14:49)
[2020-07-31] MEDS: SODIUM CHLORIDE 0.9% 1,000 ML IV SCH ×2 (14:55→23:57)
[2020-07-31 15:21] LABS: African American GFR (CKD) >90 (>60 ml/min/1.73 sqM); Anion Gap 8 mmol/L; Blood Urea Nitrogen 6 mg/dL (7-17); Calcium 9.3 mg/dL (8.4-10.2); Carbon Dioxide 24 mmol/L (22-30); Chloride 96 mmol/L (98-107); Glucose 185 mg/dL (74-99); Magnesium 1.4 mg/dL (1.6-2.3); Non-African American GFR(CKD) >90 (>60 ml/min/1.73 sqM); Potassium 3.4 mmol/L (3.5-5.1); Sodium 128 mmol/L (137-145)
[2020-07-31] MEDS: MAGNESIUM SULFATE-D5W PMX 1 GM in DEXTROSE/WATER 1 100ML.BAG IVPB SCH ×4 (15:48→19:38)
[2020-07-31 17:10] LABS: Glucose,Whole Blood 171 mg/dL (75-99)
--- NOTE | 2020-07-31 17:15 | P.PN ---
Subjective Progress Note Date: 07/31/20 No new complaints today. Na is improving. Objective - Vital Signs Vital signs: Vital Signs Temp 98 F 07/31/20 12:42 Pulse 52 L 07/31/20 12:42 Resp 16 07/31/20 12:42 BP 163/82 07/31/20 12:42 Pulse Ox 98 07/31/20 12:42 Intake & Output 07/30/20 07/31/20 07/31/20 18:59 06:59 18:59 Weight 74.843 kg 74.843 kg Other: Voiding Method Toilet Diaper # Voids 1 - Exam Gen: awake, alert and oriented 1 HEENT: normocephalic, atraumatic, good hearing acuity, moist mucous membranes Resp: good air exchange, breathing comfortably with no accessory muscle use, cl ear to auscultation bilaterally without wheezes or crackles CVS: good distal perfusion x 4, regular rate and rhythm, soft systolic murmur GI: soft, NTTP, ND, appropriate bowel sounds : no SPT, no CVAT, hernandez catheter not present MSK: no pitting edema, no clubbing Neuro: non-focal, moving all extremities Psych: cooperative, euthymic mood - Labs CBC & Chem 7: 07/31/20 05:23 07/31/20 14:09 Labs: Abnormal Lab Results - Last 24 Hours (Table) 07/30/20 07/30/20 07/31/20 Range/Units 20:18 21:42 05:23 Hgb 11.1 L (11.4-16.0) gm/dL Hct 32.4 L (34.0-46.0) % MCV 75.2 L (80.0-100.0) fL Sodium (135-145) mmol/L Potassium (3.5-5.5) mmol/L Chloride (98-107) mmol/L Carbon Dioxide (21.6-31.8) mmol/L BUN (9.0-27.0) mg/dL Creatinine (0.6-1.5) mg/dL Glucose (70-110) mg/dL POC Glucose (mg/dL) 223 H 169 H (75-99) mg/dL Magnesium (1.5-2.4) mg/dL 07/31/20 07/31/20 07/31/20 Range/Units 05:23 07:03 12:24 Hgb (11.4-16.0) gm/dL Hct (34.0-46.0) % MCV (80.0-100.0) fL Sodium 130 L (135-145) mmol/L Potassium 3.3 L (3.5-5.5) mmol/L Chloride (98-107) mmol/L Carbon Dioxide 20.1 L (21.6-31.8) mmol/L BUN 6.0 L (9.0-27.0) mg/dL Creatinine 0.4 L (0.6-1.5) mg/dL Glucose 139 H (70-110) mg/dL POC Glucose (mg/dL) 159 H 130 H (75-99) mg/dL Magnesium 1.3 L (1.5-2.4) mg/dL 07/31/20 07/31/20 Range/Units 14:09 17:08 Hgb (11.4-16.0) gm/dL Hct (34.0-46.0) % MCV (80.0-100.0) fL Sodium 128 L (135-145) mmol/L Potassium 3.4 L (3.5-5.5) mmol/L Chloride 96 L (98-107) mmol/L Carbon Dioxide (21.6-31.8) mmol/L BUN 6 L (9.0-27.0) mg/dL Creatinine (0.6-1.5) mg/dL Glucose 185 H (70-110) mg/dL POC Glucose (mg/dL) 171 H (75-99) mg/dL Magnesium 1.4 L (1.5-2.4) mg/dL Microbiology - Last 24 Hours (Table) 07/30/20 13:13 Urine Culture - Preliminary Urine,Voided Assessment and Plan Assessment: Hyponatremia secondary to SIADH -Fluid restriction at 2000 mL --> reduced to 1500cc by nephro team -Nephrology consult, appreciate recs -Urine sodium, osmolality = pending, 206 -Serum osmolality = pending -Daily BMP, magnesium -Lactated Ringer's at 75 mL per hour -TSH = pending Complicated urinary tract infection -Ceftriaxone 1 g every 24 hours -Follow up urine culture = pending Chronic medical conditions: Hypertension Hyperlipidemia Dementia COPD without exacerbation Type 2 diabetes Depression -Continue home meds -Before meals and at bedtime sugar checks -Low-dose sliding scale insulin -DuoNeb when necessary Patient is a full code Patient's is next of kin DVT prophylaxis with heparin 3 times a day
[2020-07-31 20:24] LABS: Glucose,Whole Blood 215 mg/dL (75-99)
[2020-08-01 07:07] LABS: Glucose,Whole Blood 137 mg/dL (75-99)
[2020-08-01] MEDS: INSULIN ASPART (NovoLOG) 100 UNIT/ML VIAL SQ SCH ×3 (08:32→17:46)
[2020-08-01] MEDS: HEPARIN SODIUM,PORCINE/PF 5,000 UNIT/0.5 ML SYRINGE SQ SCH ×3 (08:33→23:20)
[2020-08-01] MEDS: ASPIRIN 325 MG TAB PO SCH (08:33)
[2020-08-01] MEDS: ALPRAZolam 0.25 MG TAB PO SCH ×2 (08:33→20:18)
[2020-08-01] MEDS: TAMSULOSIN 0.4 MG CAP.ER.24H PO SCH (08:33)
[2020-08-01] MEDS: DONEPEZIL 10 MG TAB PO SCH (08:34)
[2020-08-01] MEDS: CHOLECALCIFEROL 25 MCG (1000 IU) TABLET PO SCH (08:34)
[2020-08-01] MEDS: METOPROLOL TARTRATE 50 MG TAB PO SCH ×2 (08:34→20:18)
[2020-08-01] MEDS: MONTELUKAST 10 MG TAB PO SCH (08:34)
[2020-08-01 10:25] LABS: African American GFR (CKD) 107.8 (60.0-200.0); Anion Gap 11.1 mmol/L (4.00-12.00); BUN/Creat Ratio 8.33 Ratio (12.00-20.00); Calcium 8.9 mg/dL (8.7-10.3); Carbon Dioxide 22.9 mmol/L (21.6-31.8); Magnesium 1.8 mg/dL (1.5-2.4); Potassium 3.6 mmol/L (3.5-5.5)
[2020-08-01 11:29] LABS: Glucose,Whole Blood 228 mg/dL (75-99)
--- NOTE | 2020-08-01 12:43 | P.PN ---
Subjective Progress Note Date: 08/01/20 No major changes, partially oriented, does not appear to be in distress Objective - Vital Signs Vital signs: Vital Signs Temp 97.8 F 08/01/20 12:14 Pulse 54 L 08/01/20 12:14 Resp 18 08/01/20 08:00 BP 136/72 08/01/20 12:14 Pulse Ox 100 08/01/20 12:14 Intake & Output 07/31/20 08/01/20 08/01/20 18:59 06:59 18:59 Intake Total 240 1330 Balance 240 1330 Intake: Intake, IV Titration 1000 Amount Magnesium Sulfate-D5w Pmx 100 1 gm In Dextrose/Water 1 100ml.bag @ 100 mls/hr IVPB Q1H [facility] Rx#: [id number] Sodium Chloride 0.9% 1, 900 000 ml @ 75 mls/hr IV . [id number] [facility] Rx#:[id number] Oral 240 330 Other: Voiding Method Toilet Toilet Toilet Diaper Diaper Diaper Incontinent # Voids 2 1 - Exam Gen: awake, alert and oriented 1 HEENT: normocephalic, atraumatic Resp: Clear to auscultation, no wheezing CVS: good distal perfusion x 4, regular rate and rhythm, soft systolic murmur GI: soft, NTTP, ND, appropriate bowel sounds MSK: no pitting edema, no clubbing Neuro: non-focal, moving all extremities Psych: cooperative - Labs CBC & Chem 7: 07/31/20 05:23 08/01/20 03:39 Labs: Abnormal Lab Results - Last 24 Hours (Table) 07/31/20 07/31/20 07/31/20 Range/Units 05:23 14:09 17:08 Sodium 130 L 128 L (135-145) mmol/L Potassium 3.3 L 3.4 L (3.5-5.5) mmol/L Chloride 96 L (98-107) mmol/L Carbon Dioxide 20.1 L (21.6-31.8) mmol/L BUN 6.0 L 6 L (9.0-27.0) mg/dL Creatinine 0.4 L (0.6-1.5) mg/dL BUN/Creatinine Ratio (12.00-20.00) Ratio Glucose 139 H 185 H (70-110) mg/dL POC Glucose (mg/dL) 171 H (75-99) mg/dL Magnesium 1.3 L 1.4 L (1.5-2.4) mg/dL 07/31/20 08/01/20 08/01/20 Range/Units 20:23 03:39 07:05 Sodium 133 L (135-145) mmol/L Potassium (3.5-5.5) mmol/L Chloride (98-107) mmol/L Carbon Dioxide (21.6-31.8) mmol/L BUN 5.0 L (9.0-27.0) mg/dL Creatinine (0.6-1.5) mg/dL BUN/Creatinine Ratio 8.33 L (12.00-20.00) Ratio Glucose 141 H (70-110) mg/dL POC Glucose (mg/dL) 215 H 137 H (75-99) mg/dL Magnesium (1.5-2.4) mg/dL 08/01/20 Range/Units 11:26 Sodium (135-145) mmol/L Potassium (3.5-5.5) mmol/L Chloride (98-107) mmol/L Carbon Dioxide (21.6-31.8) mmol/L BUN (9.0-27.0) mg/dL Creatinine (0.6-1.5) mg/dL BUN/Creatinine Ratio (12.00-20.00) Ratio Glucose (70-110) mg/dL POC Glucose (mg/dL) 228 H (75-99) mg/dL Magnesium (1.5-2.4) mg/dL Microbiology - Last 24 Hours (Table) 07/30/20 13:13 Urine Culture - Preliminary Urine,Voided Gram Neg Bacilli Assessment and Plan Assessment: Hyponatremia secondary to SIADH -Fluid restriction 1500cc -Nephrology consult, appreciate recs -Lactated Ringer's at 75 mL per hour -TSH = 1.67 Serum sodium improved from 127 upon admission up to 133 Complicated urinary tract infection, gram-negative bacilli -Ceftriaxone 1 g every 24 hours -Follow up urine culture Hypomagnesemia: Magnesium 1.2 upon admission, resolved. Chronic medical conditions: Hypertension Hyperlipidemia Dementia COPD without exacerbation: Oxygen and bronchodilators as indicated Type 2 diabetes: Continue sliding scale Depression Patient is a full code DVT prophylaxis with heparin 3 times a day Disposition: Pending clinical progression
--- NOTE | 2020-08-01 14:34 | P.PN ---
Subjective Progress Note Date: 08/01/20 Follow-up for hyponatremia doing better. No nausea vomiting diarrhea. Objective - Vital Signs Vital signs: Vital Signs Temp 97.8 F 08/01/20 12:14 Pulse 54 L 08/01/20 12:14 Resp 18 08/01/20 08:00 BP 136/72 08/01/20 12:14 Pulse Ox 100 08/01/20 12:14 Intake & Output 07/31/20 08/01/20 08/01/20 18:59 06:59 18:59 Intake Total 240 1330 Balance 240 1330 Intake: Intake, IV Titration 1000 Amount Magnesium Sulfate-D5w Pmx 100 1 gm In Dextrose/Water 1 100ml.bag @ 100 mls/hr IVPB Q1H [facility] Rx#: [id number] Sodium Chloride 0.9% 1, 900 000 ml @ 75 mls/hr IV . [id number] [facility] Rx#:[id number] Oral 240 330 Other: Voiding Method Toilet Toilet Toilet Diaper Diaper Diaper Incontinent # Voids 2 1 - Exam No acute distress S1-S2 heard Decreased breath sounds No edema - Labs CBC & Chem 7: 07/31/20 05:23 08/01/20 03:39 Labs: Abnormal Lab Results - Last 24 Hours (Table) 07/31/20 07/31/20 07/31/20 Range/Units 14:09 17:08 20:23 Sodium 128 L (137-145) mmol/L Potassium 3.4 L (3.5-5.1) mmol/L Chloride 96 L (98-107) mmol/L BUN 6 L (7-17) mg/dL BUN/Creatinine Ratio (12.00-20.00) Ratio Glucose 185 H (74-99) mg/dL POC Glucose (mg/dL) 171 H 215 H (75-99) mg/dL Magnesium 1.4 L (1.6-2.3) mg/dL 08/01/20 08/01/20 08/01/20 Range/Units 03:39 07:05 11:26 Sodium 133 L (137-145) mmol/L Potassium (3.5-5.1) mmol/L Chloride (98-107) mmol/L BUN 5.0 L (7-17) mg/dL BUN/Creatinine Ratio 8.33 L (12.00-20.00) Ratio Glucose 141 H (74-99) mg/dL POC Glucose (mg/dL) 137 H 228 H (75-99) mg/dL Magnesium (1.6-2.3) mg/dL Microbiology - Last 24 Hours (Table) 07/30/20 13:13 Urine Culture - Preliminary Urine,Voided Gram Neg Bacilli Assessment and Plan Assessment: #1 acute on chronic hypovolemic hyponatremia. Baseline serum sodium around 130 to 134. #2 hypokalemia and hypomagnesemia from poor oral intake Plan: #1 serum sodium improving continue on saline at 75 ML's an hour. #2 can be discharged from nephrology point of view to be followed up in the office in 1-2 weeks.
[2020-08-01] MEDS: SODIUM CHLORIDE 0.9% 1,000 ML IV SCH (15:31)
[2020-08-01 17:16] LABS: Glucose,Whole Blood 135 mg/dL (75-99)
[2020-08-01 20:13] LABS: Glucose,Whole Blood 192 mg/dL (75-99)
[2020-08-01 20:39] VITALS: RESP 16
[2020-08-02 06:28] LABS: Basophils # (A) 0.1 k/uL (0-0.2); Basophils % (A) 1 %; Eosinophils # (A) 0.1 k/uL (0-0.7); Eosinophils % (A) 1 %; HCT 33.5 % (34.0-46.0); Lymphocytes # (A) 1.4 k/uL (1.0-4.8); Lymphocytes % (A) 22 %; MCH 25.4 pg (25.0-35.0); MCHC 32.8 g/dL (31.0-37.0); MCV 77.5 fL (80.0-100.0); Mean Platelet Volume 6.4; Microcytosis Slight; Monocytes # (A) 0.4 k/uL (0-1.0); Monocytes % (A) 6 %; Neutrophils # (A) 4.5 k/uL (1.3-7.7); Neutrophils % (A) 68 %; Platelet Count 312 k/uL (150-450); RBC 4.32 m/uL (3.80-5.40); RDW 15.2 % (11.5-15.5); WBC 6.5 k/uL (3.8-10.6)
[2020-08-02 06:45] LABS: ALT 10 U/L (4-34); AST 19 U/L (14-36); African American GFR (CKD) >90 (>60 ml/min/1.73 sqM); Albumin 3.4 g/dL (3.5-5.0); Albumin/Globulin Ratio 1.4; Alkaline Phosphatase 159 U/L (38-126); Anion Gap 6 mmol/L; Blood Urea Nitrogen 6 mg/dL (7-17); Calcium 9.3 mg/dL (8.4-10.2); Carbon Dioxide 24 mmol/L (22-30); Chloride 102 mmol/L (98-107); Globulin 2.4 g/dL; Glucose 147 mg/dL (74-99); Non-African American GFR(CKD) >90 (>60 ml/min/1.73 sqM); Potassium 3.6 mmol/L (3.5-5.1); Sodium 132 mmol/L (137-145); Total Bilirubin 0.6 mg/dL (0.2-1.3); Total Protein 5.8 g/dL (6.3-8.2)
[2020-08-02 07:24] LABS: Glucose,Whole Blood 132 mg/dL (75-99)
[2020-08-02] MEDS: SODIUM CHLORIDE 0.9% 1,000 ML IV SCH (08:21)
[2020-08-02] MEDS: INSULIN ASPART (NovoLOG) 100 UNIT/ML VIAL SQ SCH ×3 (08:21→18:04)
[2020-08-02] MEDS: HEPARIN SODIUM,PORCINE/PF 5,000 UNIT/0.5 ML SYRINGE SQ SCH ×3 (08:56→23:48)
[2020-08-02] MEDS: ALPRAZolam 0.25 MG TAB PO SCH ×2 (08:56→20:20)
[2020-08-02] MEDS: METOPROLOL TARTRATE 50 MG TAB PO SCH ×2 (08:56→20:20)
[2020-08-02] MEDS: ASPIRIN 325 MG TAB PO SCH (08:56)
[2020-08-02] MEDS: CHOLECALCIFEROL 25 MCG (1000 IU) TABLET PO SCH (08:56)
[2020-08-02] MEDS: TAMSULOSIN 0.4 MG CAP.ER.24H PO SCH (08:56)
[2020-08-02] MEDS: MONTELUKAST 10 MG TAB PO SCH (08:56)
[2020-08-02] MEDS: DONEPEZIL 10 MG TAB PO SCH (08:56)
--- NOTE | 2020-08-02 11:14 | P.PN ---
Subjective Progress Note Date: 08/02/20 Feels better, no chest pain no abdominal pain, no nausea no vomiting no dizziness. No shortness of breath. Mental status appears to be better. Objective - Vital Signs Vital signs: Vital Signs Temp 97.8 F 08/02/20 05:00 Pulse 61 08/02/20 08:57 Resp 16 08/02/20 05:00 BP 176/92 08/02/20 05:00 Pulse Ox 100 08/02/20 05:00 Intake & Output 08/01/20 08/02/20 08/02/20 18:59 06:59 18:59 Intake Total 1580 240 Balance 1580 240 Intake: Intake, IV Titration 900 Amount Sodium Chloride 0.9% 1, 900 000 ml @ 75 mls/hr IV . [id number] [facility] Rx#:[id number] Oral 680 240 Other: Voiding Method Toilet Diaper Diaper Incontinent Incontinent # Voids 4 2 - Exam Gen: awake, alert and oriented 2 HEENT: normocephalic, atraumatic Resp: Clear to auscultation, no wheezing CVS: good distal perfusion x 4, regular rate and rhythm, soft systolic murmur GI: soft, NTTP, ND, appropriate bowel sounds MSK: no pitting edema, no clubbing Neuro: non-focal, moving all extremities Psych: cooperative, not in distress - Labs CBC & Chem 7: 08/02/20 05:36 08/02/20 05:36 Labs: Abnormal Lab Results - Last 24 Hours (Table) 08/01/20 08/01/20 08/01/20 Range/Units 11:26 17:12 20:12 Hgb (11.4-16.0) gm/dL Hct (34.0-46.0) % MCV (80.0-100.0) fL Sodium (137-145) mmol/L BUN (7-17) mg/dL Creatinine (0.52-1.04) mg/dL Glucose (74-99) mg/dL POC Glucose (mg/dL) 228 H 135 H 192 H (75-99) mg/dL Alkaline Phosphatase (38-126) U/L Total Protein (6.3-8.2) g/dL Albumin (3.5-5.0) g/dL 08/02/20 08/02/20 08/02/20 Range/Units 05:36 05:36 07:22 Hgb 11.0 L (11.4-16.0) gm/dL Hct 33.5 L (34.0-46.0) % MCV 77.5 L (80.0-100.0) fL Sodium 132 L (137-145) mmol/L BUN 6 L (7-17) mg/dL Creatinine 0.46 L (0.52-1.04) mg/dL Glucose 147 H (74-99) mg/dL POC Glucose (mg/dL) 132 H (75-99) mg/dL Alkaline Phosphatase 159 H (38-126) U/L Total Protein 5.8 L (6.3-8.2) g/dL Albumin 3.4 L (3.5-5.0) g/dL Microbiology - Last 24 Hours (Table) 07/30/20 13:13 Urine Culture - Final Urine,Voided Escherichia coli Assessment and Plan Assessment: Hyponatremia secondary to SIADH -Fluid restriction 1500cc -Nephrology consult, appreciate recs -Lactated Ringer's at 75 mL per hour discontinue fluids. -TSH = 1.67 Serum sodium improved from 127 upon admission up to 132 Complicated urinary tract infection, E. coli -Ceftriaxone 1 g every 24 hours, change to meropenem Hypomagnesemia: Magnesium 1.2 upon admission, resolved. Weakness: Consult PTOT Chronic medical conditions: Hypertension Hyperlipidemia Dementia COPD without exacerbation: Oxygen and bronchodilators as indicated Type 2 diabetes: Continue sliding scale Depression Patient is a full code DVT prophylaxis with heparin 3 times a day Disposition: Pending clinical progression, home versus rehab in 1-2 days
[2020-08-02 11:36] LABS: Glucose,Whole Blood 197 mg/dL (75-99)
[2020-08-02] MEDS: MEROPENEM 1 GM in SODIUM CHLORIDE 0.9% 100 ML IVPB SCH ×2 (13:01→20:20)
--- NOTE | 2020-08-02 15:17 | P.PN ---
Subjective Progress Note Date: 08/02/20 Follow-up for hyponatremia doing better. No nausea vomiting diarrhea. Objective - Vital Signs Vital signs: Vital Signs Temp 97.8 F 08/02/20 12:23 Pulse 55 L 08/02/20 12:23 Resp 16 08/02/20 08:00 BP 164/78 08/02/20 12:23 Pulse Ox 99 08/02/20 12:23 Intake & Output 08/01/20 08/02/20 08/02/20 18:59 06:59 18:59 Intake Total 1580 240 Balance 1580 240 Intake: Intake, IV Titration 900 Amount Sodium Chloride 0.9% 1, 900 000 ml @ 75 mls/hr IV . [id number] [facility] Rx#:[id number] Oral 680 240 Other: Voiding Method Toilet Diaper Diaper Diaper Incontinent Incontinent Incontinent # Voids 4 2 - Exam No acute distress S1-S2 heard Decreased breath sounds No edema - Labs CBC & Chem 7: 08/02/20 05:36 08/02/20 05:36 Labs: Abnormal Lab Results - Last 24 Hours (Table) 08/01/20 08/01/20 08/02/20 Range/Units 17:12 20:12 05:36 Hgb 11.0 L (11.4-16.0) gm/dL Hct 33.5 L (34.0-46.0) % MCV 77.5 L (80.0-100.0) fL Sodium (137-145) mmol/L BUN (7-17) mg/dL Creatinine (0.52-1.04) mg/dL Glucose (74-99) mg/dL POC Glucose (mg/dL) 135 H 192 H (75-99) mg/dL Alkaline Phosphatase (38-126) U/L Total Protein (6.3-8.2) g/dL Albumin (3.5-5.0) g/dL 08/02/20 08/02/20 08/02/20 Range/Units 05:36 07:22 11:34 Hgb (11.4-16.0) gm/dL Hct (34.0-46.0) % MCV (80.0-100.0) fL Sodium 132 L (137-145) mmol/L BUN 6 L (7-17) mg/dL Creatinine 0.46 L (0.52-1.04) mg/dL Glucose 147 H (74-99) mg/dL POC Glucose (mg/dL) 132 H 197 H (75-99) mg/dL Alkaline Phosphatase 159 H (38-126) U/L Total Protein 5.8 L (6.3-8.2) g/dL Albumin 3.4 L (3.5-5.0) g/dL Microbiology - Last 24 Hours (Table) 07/30/20 13:13 Urine Culture - Final Urine,Voided Escherichia coli Assessment and Plan Assessment: #1 acute on chronic hypovolemic hyponatremia. Baseline serum sodium around 130 to 134. #2 hypokalemia and hypomagnesemia from poor oral intake Plan: #1 serum sodium stable. Add Lasix 20 mg by mouth daily. #2 can be discharged from nephrology point of view to be followed up in the office in 1-2 weeks.
[2020-08-02] MEDS: FUROSEMIDE 20 MG TAB PO SCH (16:20)
[2020-08-02 17:21] LABS: Glucose,Whole Blood 146 mg/dL (75-99)
[2020-08-02 20:09] LABS: Glucose,Whole Blood 158 mg/dL (75-99)
[2020-08-03] MEDS: MEROPENEM 1 GM in SODIUM CHLORIDE 0.9% 100 ML IVPB SCH ×2 (04:09→12:56)
[2020-08-03 04:34] VITALS: BP 153/74; TEMP 97.9
[2020-08-03 06:21] LABS: Basophils # (A) 0.1 k/uL (0-0.2); Basophils % (A) 1 %; Eosinophils # (A) 0.1 k/uL (0-0.7); Eosinophils % (A) 1 %; HCT 37.2 % (34.0-46.0); Lymphocytes # (A) 1.9 k/uL (1.0-4.8); Lymphocytes % (A) 25 %; MCH 25.1 pg (25.0-35.0); MCHC 32.4 g/dL (31.0-37.0); MCV 77.5 fL (80.0-100.0); Mean Platelet Volume 7.3; Monocytes # (A) 0.5 k/uL (0-1.0); Monocytes % (A) 7 %; Neutrophils # (A) 4.9 k/uL (1.3-7.7); Neutrophils % (A) 65 %; Platelet Count 348 k/uL (150-450); RDW 14.8 % (11.5-15.5); WBC 7.5 k/uL (3.8-10.6)
[2020-08-03 06:57] LABS: Glucose,Whole Blood 152 mg/dL (75-99)
[2020-08-03] MEDS: INSULIN ASPART (NovoLOG) 100 UNIT/ML VIAL SQ SCH ×2 (08:15→13:00)
[2020-08-03] MEDS: METOPROLOL TARTRATE 50 MG TAB PO SCH (08:16)
[2020-08-03] MEDS: HEPARIN SODIUM,PORCINE/PF 5,000 UNIT/0.5 ML SYRINGE SQ SCH (08:16)
[2020-08-03] MEDS: ASPIRIN 325 MG TAB PO SCH (08:16)
[2020-08-03] MEDS: ALPRAZolam 0.25 MG TAB PO SCH (08:16)
[2020-08-03] MEDS: CHOLECALCIFEROL 25 MCG (1000 IU) TABLET PO SCH (08:18)
[2020-08-03] MEDS: MONTELUKAST 10 MG TAB PO SCH (08:18)
[2020-08-03] MEDS: FUROSEMIDE 20 MG TAB PO SCH (08:18)
[2020-08-03] MEDS: DONEPEZIL 10 MG TAB PO SCH (08:18)
[2020-08-03] MEDS: TAMSULOSIN 0.4 MG CAP.ER.24H PO SCH (08:18)
[2020-08-03 08:26] VITALS: PULSE 60
[2020-08-03 09:32] LABS: African American GFR (CKD) 107.8 (60.0-200.0); Albumin/Globulin Ratio 1.67 (1.60-3.17); Anion Gap 14.2 mmol/L (4.00-12.00); Calcium 9.1 mg/dL (8.7-10.3); Carbon Dioxide 21.8 mmol/L (21.6-31.8); Globulin 2.4 g/dL (1.6-3.3); Potassium 3.6 mmol/L (3.5-5.5); Total Bilirubin 0.6 mg/dL (0.3-1.2); Total Protein 6.4 g/dL (6.2-8.2)
--- NOTE | 2020-08-03 10:12 | P.DS ---
Providers Date of admission: 07/30/20 14:54 Expected date of discharge: 08/03/20 Attending physician: Garry Hamlin Consults: 07/30/20 14:48 Consult Physician Routine Consulting Provider: Sergio Montes Consult Reason/Comments: Hyponatremia Do you want consulting provider notified?: Yes Primary care physician: [facility] Course: HPI: 69-year-old woman with a history of dementia, depression, SIADH, COPD, diabetes, HTN/HLD presented with hyponatremia. Patient is a poor historian and cannot provide any history, can minimally participate in review of systems. Therefore, history is taken from chart review and ER provider signout. Patient was recently discharged for similar issue, which improved with fluid restriction. Her last hospitalization was characterized by incidental finding of hyponatremia on routine blood check in nephrology clinic, and a short hospitalization with fluid restriction which improved her sodium level. She was discharged a pproximately 4 days ago, and had routine follow-up with BMP check with her PCP. Her was informed today the patient had hyponatremia again down to 124, and was requested to bring the patient into the emergency room for further evaluation. On arrival, patient's sodium was noted to be 127, but she was also noted to have a urinary tract infection. Medicine was asked to admit the patient for further management of hyponatremia and UTI. Hospital course and treatment Patient was admitted to the hospital with hyponatremia. She was evaluated by nephrology. Serum sodium 127, she was placed on fluid restriction. She was also given Lasix. She continued to gradually improve. Serum sodium 127 upon admission improved to 134. She also was found to have acute metabolic encephalopathy secondary to UTI. She was seen with IV Rocephin. Urine cultures were consistent with E. coli. She will be discharged home on Macrobid. Metabolic encephalopathy resolved. She feels much better. She will be discharged home with home health follow-up with PCP as an outpatient. That was upon discharge: 1. Acute UTI with metabolic encephalopathy with E. coli 2. Acute on chronic hyponatremia secondary to SIADH 3. Diabetes type 2 with hyperglycemia 4. Metabolic encephalopathy Patient Condition at Discharge: Stable Plan - Discharge Summary New Discharge Prescriptions: New Sulfamethox-Tmp 800-160Mg [Bactrim DS 800-160 mg] 1 tab PO Q12HR 10 Days #20 tab Continue metFORMIN HCL [Glucophage] 500 mg PO BID Aspirin EC [Ecotrin] 325 mg PO DAILY Metoprolol Tartrate [Lopressor] 100 mg PO BID Montelukast Sodium [Singulair] 10 mg PO DAILY ALPRAZolam [Xanax] 0.25 mg PO BID Donepezil [Aricept] 10 mg PO DAILY Cholecalciferol [Vitamin D3 (25 Mcg = 1000 Iu)] 25 mcg PO DAILY Tamsulosin [Flomax] 0.4 mg PO DAILY Discharge Medication List metFORMIN HCL [Glucophage] 500 mg PO BID 06/23/17 [History] Aspirin EC [Ecotrin] 325 mg PO DAILY 04/02/20 [History] Metoprolol Tartrate [Lopressor] 100 mg PO BID 04/02/20 [History] Montelukast Sodium [Singulair] 10 mg PO DAILY 04/02/20 [History] ALPRAZolam [Xanax] 0.25 mg PO BID 07/14/20 [History] Tamsulosin [Flomax] 0.4 mg PO DAILY 07/14/20 [History] Cholecalciferol [Vitamin D3 (25 Mcg = 1000 Iu)] 25 mcg PO DAILY 07/24/20 [History] Donepezil [Aricept] 10 mg PO DAILY 07/24/20 [History] Sulfamethox-Tmp 800-160Mg [Bactrim DS 800-160 mg] 1 tab PO Q12HR 10 Days #20 tab 08/03/20 [Rx] Follow up Appointment(s)/Referral(s): Vicky Fabian MD [Primary Care Provider] - 1-2 days [facility] [NON-STAFF] - 1 Week Discharge Disposition: HOME WITH HOME HEALTH SERVICES
[2020-08-03 12:43] LABS: Glucose,Whole Blood 188 mg/dL (75-99)
--- NOTE | 2020-08-03 14:31 | PN ---
PROGRESS NOTE Patient is seen for followup for hyponatremia which has currently improved with serum sodium staying at about 132-134 mEq/dL. She did get IV fluids and it was mostly hypovolemic hyponatremia. PHYSICAL EXAMINATION: On examination today, blood pressure is 153/74, heart rate 50 per minute. She is afebrile. EXAMINATION OF THE HEART: S1, S2. EXAMINATION OF THE LUNGS: Bilateral breath sounds are heard. Abdomen is soft, nontender. Examination of lower extremities shows no evidence of edema. FOUNDRY METALLURGIST exam grossly intact. LABS: Labs show sodium 134, potassium 3.6, BUN of 6, serum creatinine 0.6 mg/dL. ASSESSMENT: Hyponatremia mostly hypovolemic currently improved. which have been discontinued. Patient can be discharged. She is advised to increase oral intake of protein post discharge and maintain some degree of free water restriction. Repeat labs as outpatient in 3-4 days. MMODL / IJN: [id number] /
== END 2020-08-03 13:30 | disposition home health service (06) | DRG 643 ==
LOC: EC 11:25 → 5NMEDONC 14:54
PROVIDERS: ADMIT Internal Medicine; ATTEND Internal Medicine
DX: E22.2 Syndrome of inappropriate secretion of antidiuretic hormone (principal); G93.41 Metabolic encephalopathy; N39.0 Urinary tract infection, site not specified; I10 Essential (primary) hypertension; F32.9 Major depressive disorder, single episode, unspecified; F03.90 Unspecified dementia, unspecified severity, without behavioral disturbance, psychotic disturbance, mood disturbance, and anxiety; J44.9 Chronic obstructive pulmonary disease, unspecified; E87.6 Hypokalemia; E83.42 Hypomagnesemia; E78.5 Hyperlipidemia, unspecified; M79.7 Fibromyalgia; Z79.84 Long term (current) use of oral hypoglycemic drugs; Z79.82 Long term (current) use of aspirin; E11.65 Type 2 diabetes mellitus with hyperglycemia; Z96.652 Presence of left artificial knee joint; Z20.822 Contact with and (suspected) exposure to COVID-19; B96.20 Unspecified Escherichia coli [E. coli] as the cause of diseases classified elsewhere; E86.1 Hypovolemia; R32 Unspecified urinary incontinence; Z90.710 Acquired absence of both cervix and uterus; B96.1 Klebsiella pneumoniae [K. pneumoniae] as the cause of diseases classified elsewhere; Z79.899 Other long term (current) drug therapy
CPT/HCPCS: 36415; 80048; 80053; 81001; 83735; 83935; 84100; 84300; 84443; 85025; 87077; 87086; 87186; 87635; 93005; 96374; 96375; 96376; 99284

== ENCOUNTER → 2020-08-11 | Outpatient (CLI) | payer MEDICARE ==
--- NOTE | 2020-08-11 12:03 | US ---
EXAMINATION TYPE: US extremity nonvasc mass RT DATE OF EXAM: 08/11/2020 COMPARISON: NONE CLINICAL HISTORY: R22.41 Localized swelling, mass and lump,. Patient unsure why this test was ordered , she said the office felt something. No injury, no bruising, no palp that tech can find. Soft tissue scan of right lateral hip produces no obvious abnormality. IMPRESSION: 1. No abnormality by ultrasound.
== END | disposition home or self-care (01) ==
LOC: RADUSWWP 11:00
PROVIDERS: ATTEND Family Medicine
DX: R22.41 Localized swelling, mass and lump, right lower limb (principal)

== ENCOUNTER 2020-08-21 15:46 | Inpatient (IN) | payer MEDICARE ==
[2020-08-21] MEDS ORDERED: LORazepam 2 MG/ML INJ IV STA (16:03)
[2020-08-21] MEDS ORDERED: SODIUM CHLORIDE 0.9% 500 ML 500 ML IV STA (16:03)
[2020-08-21 16:15] LABS: Glucose,Whole Blood 213 mg/dL (75-99)
--- NOTE | 2020-08-21 16:21 | ED ---
General Adult HPI - General Chief complaint: Seizure Stated complaint: seizure Time Seen by Provider: 08/21/20 16:03 Source: EMS, RN notes reviewed, old records reviewed Mode of arrival: EMS Limitations: altered mental status - History of Present Illness Initial comments: 69-year-old female who had presented with suspected seizure. Upon arrival patient was unable to contribute to history, shortly after arrival she does have a tonic-clonic seizure lasting approximately 1 minute. Patient is maintaining her airway. According to EMS there is no previous history of seizure disorder. Further history will be obtained when family is available. - Related Data Home Medications Medication Instructions Recorded Confirmed metFORMIN HCL [Glucophage] 500 mg PO BID 06/23/17 07/30/20 Aspirin EC [Ecotrin] 325 mg PO DAILY 04/02/20 07/30/20 Metoprolol Tartrate [Lopressor] 100 mg PO BID 04/02/20 07/30/20 Montelukast Sodium [Singulair] 10 mg PO DAILY 04/02/20 07/30/20 ALPRAZolam [Xanax] 0.25 mg PO BID 07/14/20 07/30/20 Tamsulosin [Flomax] 0.4 mg PO DAILY 07/14/20 07/30/20 Cholecalciferol [Vitamin D3 (25 25 mcg PO DAILY 07/24/20 07/30/20 Mcg = 1000 Iu)] Donepezil [Aricept] 10 mg PO DAILY 07/24/20 07/30/20 Previous Rx's Medication Instructions Recorded Furosemide [Lasix] 20 mg PO DAILY 30 Days #30 tab 08/03/20 Sulfamethox-Tmp 800-160Mg [Bactrim 1 tab PO Q12HR 10 Days #20 tab 08/03/20 DS 800-160 mg] Allergies Allergy/AdvReac Type Severity Reaction Status Date / Time No Known Allergies Allergy Verified 08/21/20 15:56 Review of Systems ROS Statement: Those systems with pertinent positive or pertinent negative responses have been documented in the HPI. ROS Other: All systems not noted in ROS Statement are negative. Past Medical History Past Medical History: Dementia, Diabetes Mellitus, GERD/Reflux, Hyperlipidemia, Hypertension Additional Past Medical History / Comment(s): FIBROMYALGIA History of Any Multi-Drug Resistant Organisms: ESBL Date of last positivie culture/infection: 08/01/20 MDRO Source:: urine Past Surgical History: Adenoidectomy, Appendectomy, Cholecystectomy, Hyste rectomy, Tonsillectomy, Tubal Ligation Additional Past Surgical History / Comment(s): CARARACT RT EYE 07/02/2013, bladder suspension, repair of the fracture, left knee replacement Past Anesthesia/Blood Transfusion Reactions: Motion Sickness, Postoperative Nausea & Vomiting (PONV) Past Psychological History: Depression Smoking Status: Never smoker Past Alcohol Use History: None Reported Past Drug Use History: None Reported - Past Family History Mother Family Medical History: Cancer General Exam Limitations: no limitations General appearance: obtunded Head exam: Present: atraumatic, normocephalic Eye exam: Present: normal appearance, PERRL ENT exam: Present: normal exam Neck exam: Present: normal inspection. Absent: tenderness, meningismus Respiratory exam: Present: normal lung sounds bilaterally. Absent: respiratory distress, wheezes Cardiovascular Exam: Present: regular rate, irregular rhythm GI/Abdominal exam: Present: soft. Absent: distended, tenderness Extremities exam: Present: normal inspection, normal capillary refill Neurological exam: Present: other (Postictal). Absent: alert Skin exam: Present: warm, dry, intact. Absent: cyanosis, diaphoretic Course Vital Signs 08/21/20 08/21/20 15:52 17:31 Temperature 98.2 F Pulse Rate 74 76 Respiratory 16 16 Rate Blood Pressure 117/49 116/73 O2 Sat by Pulse 98 100 Oximetry - Reevaluation(s) Reevaluation #1: 08/21/20 17:51 Patient remains somewhat confused but is awake, nonfocal exam. EKG Findings - EKG Comments: EKG Findings:: EKG: Sinus rhythm with sinus arrhythmia, low voltage, rate of 78, NC interval 164, QRS duration 90, QTC 378, no ST segment elevation Medical Decision Making - Medical Decision Making 69-year-old female presenting with new onset seizure. No history of seizure reported. She had ceased prior to arrival and then while in the emergency department has approximately a 92nd episode of tonic-clonic seizure. Head CT performed, negative for intracranial hemorrhage or mass effect. Laboratory testing reveals a hyponatremia, hypokalemia, and hypomagnesemia. His electrolytes are replaced. Patient will be kept in a monitored bed, she is loaded with Keppra. Case discussed with [facility]. Neurology placed on consult. - Lab Data Result diagrams: 08/21/20 16:19 08/21/20 16:19 Lab Results 08/21/20 08/21/20 08/21/20 Range/Units 16:14 16:19 16:19 WBC 9.0 (3.8-10.6) k/uL RBC 4.64 (3.80-5.40) m/uL Hgb 12.0 (11.4-16.0) gm/dL Hct 36.4 (34.0-46.0) % MCV 78.5 L (80.0-100.0) fL MCH 25.9 (25.0-35.0) pg MCHC 32.9 (31.0-37.0) g/dL RDW 15.1 (11.5-15.5) % Plt Count 399 (150-450) k/uL MPV 6.9 Neutrophils % 63 % Lymphocytes % 30 % Monocytes % 5 % Eosinophils % 1 % Basophils % 1 % Neutrophils # 5.6 (1.3-7.7) k/uL Lymphocytes # 2.7 (1.0-4.8) k/uL Monocytes # 0.4 (0-1.0) k/uL Eosinophils # 0.1 (0-0.7) k/uL Basophils # 0.0 (0-0.2) k/uL Sodium 133 L (137-145) mmol/L Potassium 3.3 L (3.5-5.1) mmol/L Chloride 97 L (98-107) mmol/L Carbon Dioxide 14 L (22-30) mmol/L Anion Gap 22 mmol/L BUN 11 (7-17) mg/dL Creatinine 0.61 (0.52-1.04) mg/dL Est GFR (CKD-EPI)AfAm >90 (>60 ml/min/1.73 sqM) Est GFR (CKD-EPI)NonAf >90 (>60 ml/min/1.73 sqM) Glucose 215 H (74-99) mg/dL POC Glucose (mg/dL) 213 H (75-99) mg/dL POC Glu Patient Safety Manager ID Diana Anders Calcium 9.6 (8.4-10.2) mg/dL Magnesium 1.1 L (1.6-2.3) mg/dL Total Bilirubin 0.2 (0.2-1.3) mg/dL AST 25 (14-36) U/L ALT 16 (4-34) U/L Alkaline Phosphatase 126 (38-126) U/L Total Protein 6.8 (6.3-8.2) g/dL Albumin 4.2 (3.5-5.0) g/dL Urine Opiates Screen (NotDetected) Ur Oxycodone Screen (NotDetected) Urine Methadone Screen (NotDetected) Ur Propoxyphene Screen (NotDetected) Ur Barbiturates Screen (NotDetected) U Tricyclic Antidepress (NotDetected) Ur Phencyclidine Scrn (NotDetected) Ur Amphetamines Screen (NotDetected) U Methamphetamines Scrn (NotDetected) U Benzodiazepines Scrn (NotDetected) Urine Cocaine Screen (NotDetected) U Marijuana (THC) Screen (NotDetected) Serum Alcohol <10 mg/dL 08/21/20 Range/Units 17:00 WBC (3.8-10.6) k/uL RBC (3.80-5.40) m/uL Hgb (11.4-16.0) gm/dL Hct (34.0-46.0) % MCV (80.0-100.0) fL MCH (25.0-35.0) pg MCHC (31.0-37.0) g/dL RDW (11.5-15.5) % Plt Count (150-450) k/uL MPV Neutrophils % % Lymphocytes % % Monocytes % % Eosinophils % % Basophils % % Neutrophils # (1.3-7.7) k/uL Lymphocytes # (1.0-4.8) k/uL Monocytes # (0-1.0) k/uL Eosinophils # (0-0.7) k/uL Basophils # (0-0.2) k/uL Sodium (137-145) mmol/L Potassium (3.5-5.1) mmol/L Chloride (98-107) mmol/L Carbon Dioxide (22-30) mmol/L Anion Gap mmol/L BUN (7-17) mg/dL Creatinine (0.52-1.04) mg/dL Est GFR (CKD-EPI)AfAm (>60 ml/min/1.73 sqM) Est GFR (CKD-EPI)NonAf (>60 ml/min/1.73 sqM) Glucose (74-99) mg/dL POC Glucose (mg/dL) (75-99) mg/dL POC Glu Patient Safety Manager ID Calcium (8.4-10.2) mg/dL Magnesium (1.6-2.3) mg/dL Total Bilirubin (0.2-1.3) mg/dL AST (14-36) U/L ALT (4-34) U/L Alkaline Phosphatase (38-126) U/L Total Protein (6.3-8.2) g/dL Albumin (3.5-5.0) g/dL Urine Opiates Screen Not Detected (NotDetected) Ur Oxycodone Screen Not Detected (NotDetected) Urine Methadone Screen Not Detected (NotDetected) Ur Propoxyphene Screen Not Detected (NotDetected) Ur Barbiturates Screen Not Detected (NotDetected) U Tricyclic Antidepress Not Detected (NotDetected) Ur Phencyclidine Scrn Not Detected (NotDetected) Ur Amphetamines Screen Not Detected (NotDetected) U Methamphetamines Scrn Not Detected (NotDetected) U Benzodiazepines Scrn Detected H (NotDetected) Urine Cocaine Screen Not Detected (NotDetected) U Marijuana (THC) Screen Not Detected (NotDetected) Serum Alcohol mg/dL Critical Care Time Critical Care Time: Yes Total Critical Care Time: 35 Disposition Clinical Impression: New onset seizure Disposition: ADMITTED IP TO THIS [facility] Instructions (If sedation given, give patient instructions): Seizure/Epilepsy Discharge Instructions & Follow-Up Referrals: Vicky Fabian MD [Primary Care Provider] - 1-2 days Decision to Admit Reason: Admit from EC Decision Date: 08/21/20 Decision Time: 17:52
[2020-08-21 16:24] LABS: Basophils % (A) 1 %; Eosinophils # (A) 0.1 k/uL (0-0.7); Eosinophils % (A) 1 %; HCT 36.4 % (34.0-46.0); Lymphocytes # (A) 2.7 k/uL (1.0-4.8); Lymphocytes % (A) 30 %; MCH 25.9 pg (25.0-35.0); MCHC 32.9 g/dL (31.0-37.0); MCV 78.5 fL (80.0-100.0); Mean Platelet Volume 6.9; Monocytes # (A) 0.4 k/uL (0-1.0); Monocytes % (A) 5 %; Neutrophils # (A) 5.6 k/uL (1.3-7.7); Neutrophils % (A) 63 %; Platelet Count 399 k/uL (150-450); RBC 4.64 m/uL (3.80-5.40); RDW 15.1 % (11.5-15.5)
[2020-08-21 16:37] LABS: AST 25 U/L (14-36); African American GFR (CKD) >90 (>60 ml/min/1.73 sqM); Albumin 4.2 g/dL (3.5-5.0); Alcohol <10 mg/dL; Alkaline Phosphatase 126 U/L (38-126); Anion Gap 22 mmol/L; Blood Urea Nitrogen 11 mg/dL (7-17); Calcium 9.6 mg/dL (8.4-10.2); Carbon Dioxide 14 mmol/L (22-30); Chloride 97 mmol/L (98-107); Glucose 215 mg/dL (74-99); Magnesium 1.1 mg/dL (1.6-2.3); Non-African American GFR(CKD) >90 (>60 ml/min/1.73 sqM); Potassium 3.3 mmol/L (3.5-5.1); Sodium 133 mmol/L (137-145); Total Bilirubin 0.2 mg/dL (0.2-1.3); Total Protein 6.8 g/dL (6.3-8.2)
[2020-08-21 16:43] LABS: ALT 16 U/L (4-34)
--- NOTE | 2020-08-21 16:43 | CT ---
EXAM: CT brain wo con CLINICAL HISTORY: Pain. COMPARISON: 04/02/2020 TECHNIQUE: Contiguous axial noncontrast images of the brain were obtained. Coronal and sagittal refor mats were generated and reviewed. Automated dose control was used for this exam. FINDINGS: There is no evidence for intracranial hemorrhage, mass effect or midline shift. There is mild white m atter disease and parenchymal volume loss. Ventricular size and configuration is within normal limits for degree of parenchymal volume. The paranasal sinuses are clear. The mastoid air cells are clear. No evidence for calvarial fracture. IMPRESSION: No acute intracranial abnormality.
[2020-08-21 17:25] LABS: Amphetamine Screen,Urine Not Detected (NotDetected); Barbiturate Screen,Urine Not Detected (NotDetected); Benzodiazepines Screen,Urine Detected (NotDetected); Cocaine Screen,Urine Not Detected (NotDetected); Methadone Screen, Urine Not Detected (NotDetected); Opiate Screen,Urine Not Detected (NotDetected); Oxycodone Screen, Urine Not Detected (NotDetected); Phencyclidine Screen,Urine Not Detected (NotDetected); Tricyclic Antidepressant,Urine Not Detected (NotDetected); Urn Cannabinoid Scrn Not Detected (NotDetected)
[2020-08-21] MEDS: MAGNESIUM SULFATE-D5W PMX 1 GM in DEXTROSE/WATER 1 100ML.BAG IVPB SCH ×2 (17:30→19:35)
[2020-08-21] MEDS: SODIUM CHLORIDE 0.9% 1,000 ML IV SCH (17:30)
[2020-08-21] MEDS ORDERED: levETIRAcetam IV 1,000 MG in SALINE 1 100ML.BAG IVPB STA (17:48)
[2020-08-21] MEDS ORDERED: LORazepam 2 MG/ML INJ IV PRN (17:49)
[2020-08-21] MEDS ORDERED: ACETAMINOPHEN TAB 325 MG TAB PO PRN (17:49)
[2020-08-21] MEDS ORDERED: NALOXONE 0.4 MG/ML 1 ML VIAL IV PRN (17:49)
[2020-08-21] MEDS: POTASSIUM CHLORIDE 10 MEQ in WATER FOR INJECTION 1 100ML.BAG IVPB SCH ×2 (20:53→22:44)
[2020-08-21 23:01] LABS: Glucose,Whole Blood 159 mg/dL (75-99)
--- NOTE | 2020-08-21 23:12 | XR ---
EXAMINATION TYPE: XR knee complete RT DATE OF EXAM: 08/21/2020 COMPARISON: NONE HISTORY: Knee pain TECHNIQUE: 3 views FINDINGS: There is plate with screws fixing old fracture of the patella. There is bony density above the patella consistent with 1.5 cm avulsion chip fracture of the superior patella. This is displaced approximately 2 cm. There is small knee joint effusion. Knee joint spaces are fairly normal. IMPRESSION: Old fracture of the patella. There is probably an acute large displaced chip fracture of the superior patella.
--- NOTE | 2020-08-22 00:41 | P.HPIM ---
History of Present Illness H&P Date: 08/22/20 The patient is a 69-year-old female with a PMH of dementia, type II DM, hypertension, hyperlipidemia, SIADH, and depression who was sent in to the emergency room after an episode of seizure at home. Discussed the case with the son Milton via phone ([phone]) who noted that they were having dinner together when she suddenly became unresponsive and tense and subsequently had shaking movements of her entire body. He denied noticing any trauma during the episode. The entire episode lasted nearly a minute with subsequent confusion. The son reports that at baseline, the patient is only oriented to self and place and usually not oriented to time. She was brought into the emergency room where she was noted to have a witnessed tonic-clonic seizure which lasted roughly 1 minute with subsequent post-ictal confusion. At time of interview, the patient was oriented to self and knew she was in the hospital but did not relay any additional complaints. She reported feeling "not well" but denied weakness, numbness, tingling. Denied headache, chest pain, SOB, fever, chills, cough, nausea, vomiting, abdominal pain. She underwent an extensive evaluation in the emergency room with CT brain with no acute abnormalities. EKG reveals sinus rhythm with marked sinus arrhythmia with low voltage QRS at 78 bpm. Laboratory evaluation was remarkable for a magnesium of 1.1, sodium 133, potassium 3.3, chloride 97, CO2 14, and COVID pcr negative. Review of Systems Pertinent positives and negatives as discussed in HPI, a complete review of systems was performed and all other systems are negative. Past Medical History Past Medical History: Dementia, Diabetes Mellitus, GERD/Reflux, Hyperlipidemia, Hypertension Additional Past Medical History / Comment(s): FIBROMYALGIA History of Any Multi-Drug Resistant Organisms: ESBL Date of last positivie culture/infection: 08/01/20 MDRO Source:: urine Past Surgical History: Adenoidectomy, Appendectomy, Cholecystectomy, Hysterectomy, Tonsillectomy, Tubal Ligation Additional Past Surgical History / Comment(s): CARARACT RT EYE 07/02/2013, bladder suspension, repair of the fracture, left knee replacement Past Anesthesia/Blood Transfusion Reactions: Motion Sickness, Postoperative Nausea & Vomiting (PONV) Past Psychological History: Depression Smoking Status: Never smoker Past Alcohol Use History: None Reported Past Drug Use History: None Reported - Past Family History Mother Family Medical History: Cancer Medications and Allergies Home Medications Medication Instructions Recorded Confirmed Type metFORMIN HCL [Glucophage] 500 mg PO BID 06/23/17 08/21/20 History Aspirin EC [Ecotrin] 325 mg PO DAILY 04/02/20 08/21/20 History Metoprolol Tartrate [Lopressor] 100 mg PO BID 04/02/20 08/21/20 History Montelukast Sodium [Singulair] 10 mg PO DAILY 04/02/20 08/21/20 History ALPRAZolam [Xanax] 0.25 mg PO BID 07/14/20 08/21/20 History Tamsulosin [Flomax] 0.4 mg PO DAILY 07/14/20 08/21/20 History Cholecalciferol [Vitamin D3 (25 25 mcg PO DAILY 07/24/20 08/21/20 History Mcg = 1000 Iu)] Donepezil [Aricept] 10 mg PO DAILY 07/24/20 08/21/20 History Furosemide [Lasix] 20 mg PO DAILY 30 Days #30 tab 08/03/20 08/21/20 Rx Allergies Allergy/AdvReac Type Severity Reaction Status Date / Time No Known Allergies Allergy Verified 08/21/20 17:53 Physical Exam Vitals: Vital Signs Temp Pulse Resp BP Pulse Ox 08/21/20 19:02 71 17 131/59 100 08/21/20 17:31 76 16 116/73 100 08/21/20 15:52 98.2 F 74 16 117/49 98 Intake and Output 08/21/20 08/21/20 08/21/20 06:59 14:59 22:59 Other: Weight 68.039 kg General: non toxic, no distress, appears older than stated age, normal weight Derm: no unusual rashes/lesions no unusual ecchymoses, warm, dry Head: atraumatic, normocephalic, symmetric Eyes: EOMI, no lid lag, anicteric sclera, pupils equal round reactive to light ENT: Nose and ears atraumatic, no thrush, no pharyngeal erythema Neck: No thyromegaly, no cervical lymphadenopathy, trachea midline, supple Mouth: no lip lesion, mucus membranes moist Cardiovascular: S1S2 reg, systolic murmur appreciated, positive posterior tibial pulse bilateral, no edema, capillary refill less than 2 seconds Lungs: CTA bilateral, no rhonchi, no rales , no accessory muscle use Abdominal: soft, nontender to palpation, no guarding, no appreciable organome deondre, normal bowel sounds Ext: no gross muscle atrophy, muscle strength 3 out of 5 in all 4 extremities grossly, no contractures, Neuro: CN II-XI grossly intact, light touch intact all 4 extremities, finger to nose within normal limits, Psych: Somewhat lethargic, oriented to person and place him on and oriented to time, knows that she is in [facility] Results CBC & Chem 7: 08/21/20 16:19 08/21/20 16:19 Labs: Abnormal Lab Results - Last 24 Hours (Table) 08/21/20 08/21/20 08/21/20 Range/Units 16:14 16:19 16:19 MCV 78.5 L (80.0-100.0) fL Sodium 133 L (137-145) mmol/L Potassium 3.3 L (3.5-5.1) mmol/L Chloride 97 L (98-107) mmol/L Carbon Dioxide 14 L (22-30) mmol/L Glucose 215 H (74-99) mg/dL POC Glucose (mg/dL) 213 H (75-99) mg/dL Magnesium 1.1 L (1.6-2.3) mg/dL U Benzodiazepines Scrn (NotDetected) 08/21/20 Range/Units 17:00 MCV (80.0-100.0) fL Sodium (137-145) mmol/L Potassium (3.5-5.1) mmol/L Chloride (98-107) mmol/L Carbon Dioxide (22-30) mmol/L Glucose (74-99) mg/dL POC Glucose (mg/dL) (75-99) mg/dL Magnesium (1.6-2.3) mg/dL U Benzodiazepines Scrn Detected H (NotDetected) Assessment and Plan Plan: New onset seizure, possibly secondary to hypomagnesemia -Continue with Keppra -Replace magnesium and monitor -Neurology consult -Seizure, fall, aspiration precautions Hypokalemia -Replace and monitor Hyponatremia, at baseline Chronic conditions: Type II DM, hypertension, hyperlipidemia, dementia -Lispro sliding scale for blood glucose monitoring -Continue with home meds DVT prophylaxis -Heparin subq The patient is admitted with an anticipated greater than 2 midnight stay for evaluation of seizure CODE STATUS: Full Code Discussed with: Patient, Son Anticipated discharge date: 2-[address]: Home A total of 35 minutes was spent on the care of this complex patient more than 50% of the time was spent in counseling and care coordination.
[2020-08-22] MEDS ORDERED: POTASSIUM CHLORIDE ER 20 MEQ TAB.ER PO STA (02:04)
[2020-08-22] MEDS: POTASSIUM CHLORIDE 10 MEQ in WATER FOR INJECTION 1 100ML.BAG IVPB SCH (03:35)
[2020-08-22 07:02] LABS: Glucose,Whole Blood 118 mg/dL (75-99)
--- NOTE | 2020-08-22 07:26 | P.CNNES ---
History of Present Illness Consult date: 08/21/20 Requesting physician: Jean Pierre Jones Reason for Consult: New onset seizure History of Present Illness: Patient is a 69-year-old female who came to the hospital today by ambulance at 3:46 PM for new onset seizure. Patient's vital signs on arrival blood pressure was 117/49, pulse rate 74, temperature 98.2. Patient does not remember details. As per EMS flow sheet, when they arrived, patient was responsive to pain only. Family has mentioned that patient was eating lunch when she went stiff and stopped talking or responding. Family states that it only lasted for a few seconds. When the stiffness was over, the patient would not talk and seemed almost unconscious. No focal deficits were noted by the paramedics. Patient was alert to self, unable to answer questions. There was no facial droop or arm drift. Her blood pressure at the scene was 136/70, pulse rate 62, respiration 12 saturation 95%, and blood glucose 174. Patient's son has informed the primary physician that the seizure lasted for nearly a minute with subsequent confusion. The son has mentioned that because of dementia patient at baseline is oriented to self and place and usually not oriented to time. In the ER patient was noted to have a witnessed tonic-clonic seizure which lasted roughly 1 minute with subsequent post ictal confusion. Patient denies any history of seizures, no family history of epilepsy. She has never smoked tobacco, does not drink alcohol. At present patient denies any problem with the vision, chest pain, any numbness tingling focal weakness or vertigo. No nausea vomiting diarrhea, no headache. No fever or chills. Patient states that she lives with her cousin. She does have 2 children. Patient's blood tests shows normal CBC, sodium 133 potassium 3.3, normal renal functions, normal hepatic panel, urine drug screen positive for benzodiazepine. Grade alcohol level negative. Preston virus PCR negative. CT head showed no acute intracranial process EKG shows sinus rhythm with marked sinus arrhythmia. X-ray of the right knee shows old fracture of the patella. There is probable an acute large displaced chip fracture of the superior patella. Patient does have history of diabetes type 2, dementia, hypertension SIADH and depression. Review of Systems As per mentioned in HPI. All other review of systems completely unremarkable. Patient's right knee is swollen although she is not complaining of pain. Past Medical History Past Medical History: Dementia, Diabetes Mellitus, GERD/Reflux, Hyperlipidemia, Hypertension Additional Past Medical History / Comment(s): FIBROMYALGIA History of Any Multi-Drug Resistant Organisms: ESBL Date of last positivie culture/infection: 08/01/20 MDRO Source:: urine Past Surgical History: Adenoidectomy, Appendectomy, Cholecystectomy, Hysterectomy, Tonsillectomy, Tubal Ligation Additional Past Surgical History / Comment(s): CARARACT RT EYE 07/02/2013, bladder suspension, repair of the fracture, left knee replacement Past Anesthesia/Blood Transfusion Reactions: Motion Sickness, Postoperative Nausea & Vomiting (PONV) Past Psychological History: Depression Smoking Status: Never smoker Past Alcohol Use History: None Reported Past Drug Use History: None Reported - Past Family History Mother Family Medical History: Cancer Medications and Allergies Home Medications Medication Instructions Recorded Confirmed Type metFORMIN HCL [Glucophage] 500 mg PO BID 06/23/17 08/21/20 History Aspirin EC [Ecotrin] 325 mg PO DAILY 04/02/20 08/21/20 History Metoprolol Tartrate [Lopressor] 100 mg PO BID 04/02/20 08/21/20 History Montelukast Sodium [Singulair] 10 mg PO DAILY 04/02/20 08/21/20 History ALPRAZolam [Xanax] 0.25 mg PO BID 07/14/20 08/21/20 History Tamsulosin [Flomax] 0.4 mg PO DAILY 07/14/20 08/21/20 History Cholecalciferol [Vitamin D3 (25 25 mcg PO DAILY 07/24/20 08/21/20 History Mcg = 1000 Iu)] Donepezil [Aricept] 10 mg PO DAILY 07/24/20 08/21/20 History Furosemide [Lasix] 20 mg PO DAILY 30 Days #30 tab 08/03/20 08/21/20 Rx Allergies Allergy/AdvReac Type Severity Reaction Status Date / Time No Known Allergies Allergy Verified 08/21/20 17:53 Physical Examination - Vital Signs Vital Signs: Vital Signs Temp Pulse Resp BP Pulse Ox 08/21/20 21:06 98.2 F 63 18 153/76 98 08/21/20 20:39 98.1 F 61 18 132/76 99 08/21/20 19:02 71 17 131/59 100 08/21/20 17:31 76 16 116/73 100 08/21/20 15:52 98.2 F 74 16 117/49 98 Intake and Output 08/21/20 08/21/20 08/22/20 14:59 22:59 06:59 Other: Weight 68.039 kg Patient is an elderly female, in no acute distress. Patient appears somewhat spacey, flat affect. Patient is having some tardive dyskinesia type movements of her mouth. Patient is alert awake, cannot tell what month or year is it. Patient states that she is currently in [facility] [place] in [place]. She knows her name and date of but does not know her age. Does not know name of the current president. Speech and language functions are normal. Attention, concentration and fund of knowledge is very limited. On cranial examination, pupils are equal, round and reacting to light, visual quintana are full on confrontation with no neglect, extraocular muscles are intact with no nystagmus. Face is symmetric, tongue protrudes to the midline. Palatal elevation and sensation normal, hearing and shoulder shrug normal, facial sensation normal. Shoulder shrug normal. On muscle strength testing, there is no pronator drift and the strength is normal in arms and legs distally and proximally. Deep tendon reflexes are symmetric, 1+ at the biceps, 1 brachioradialis, 1 at the knee, 1 ankle and plantars are upgoing. Patient's right knee is significantly swollen, with bruise on the top. Sensory to touch is equal with no neglect. Cerebellar function showed no ataxia for [id number] testing. No dysdiadochokinesia. Tone and bulk of muscles normal. Gait not checked. On general examination, there is no carotid bruit or murmur, S1-S2 audible. Abdomen is soft nontender. Chest is clear. Peripheral pulses are present. No edema. Results - Laboratory Findings CBC and BMP: 08/21/20 16:19 08/21/20 16:19 Abnormal Lab Findings: Abnormal Labs 08/21/20 08/21/20 08/21/20 16:14 16:19 16:19 MCV 78.5 L Sodium 133 L Potassium 3.3 L Chloride 97 L Carbon Dioxide 14 L Glucose 215 H POC Glucose (mg/dL) 213 H Magnesium 1.1 L U Benzodiazepines Scrn 08/21/20 17:00 MCV Sodium Potassium Chloride Carbon Dioxide Glucose POC Glucose (mg/dL) Magnesium U Benzodiazepines Scrn Detected H Assessment and Plan Assessment: * New onset seizure, unclear etiology * Diabetes * Hypertension * Dementia * Right knee swelling * Mild hyponatremia and hypokalemia, likely not the cause of seizure. Plan: * Patient has new onset seizure (x2), once at home and the second seizure in ER witnessed. Unclear etiology. Patient currently is on Xanax, but apparently her urine drug screen is positive for benzodiazepine, therefore probably not a benzodiazepine withdrawal seizure. * Patient needs further workup including an EEG, MRI of the brain. * Patient's right knee is swollen. Stat x-ray of the right knee was performed, which revealed old fracture of the patella. There is probably an acute large displaced chip fracture of the superior patella. Patient will need orthopedic consultation. * Patient was loaded with Keppra 1000 mg in the ER. We will maintain on Keppra 500 mg twice a day. * Seizure precautions and seizure restrictions discussed including driving, climbing ladders, operating dangerous machinery or unsupervised swimming.
[2020-08-22] MEDS: INSULIN ASPART (NovoLOG) 100 UNIT/ML VIAL SQ SCH ×4 (07:41→20:43)
[2020-08-22] MEDS: SODIUM CHLORIDE 0.9% 1,000 ML IV SCH ×2 (07:42→20:45)
[2020-08-22] MEDS: TAMSULOSIN 0.4 MG CAP.ER.24H PO SCH (09:00)
[2020-08-22] MEDS: MONTELUKAST 10 MG TAB PO SCH (09:00)
[2020-08-22] MEDS: DONEPEZIL 10 MG TAB PO SCH (09:00)
[2020-08-22] MEDS: ASPIRIN 325 MG TAB PO SCH (09:00)
[2020-08-22] MEDS ORDERED: levETIRAcetam IV 500 MG in SODIUM CHLORIDE 0.9% 100 ML IVPB SCH (09:00)
[2020-08-22] MEDS: CHOLECALCIFEROL 25 MCG (1000 IU) TABLET PO SCH (09:00)
[2020-08-22] MEDS: FUROSEMIDE 20 MG TAB PO SCH (09:00)
[2020-08-22] MEDS: levETIRAcetam 500 MG TAB PO SCH ×2 (09:00→20:43)
[2020-08-22] MEDS: HEPARIN SODIUM,PORCINE/PF 5,000 UNIT/0.5 ML SYRINGE SQ SCH ×2 (09:01→16:48)
[2020-08-22] MEDS ORDERED: LORazepam 2 MG/ML INJ IV PRN ×2 (11:01→18:09)
--- NOTE | 2020-08-22 12:08 | P.PN ---
<Gavino Orellana - Last Filed: 08/22/20 11:07> Subjective Progress Note Date: 08/22/20 Hospital course: Patient is a 69-year-old female with a past medical history of hypertension, h yperlipidemia, diabetes mellitus type 2, SIADH, GERD, and dementia. She presented to the emergency department after having a new onset seizure witnessed at home by her son lasting approximately 1 minute. Per ED report patient arrived to the hospital in a postictal state and shortly after had another witnessed seizure by ED staff reported to tonic-clonic motions lasting approximately 90 seconds. Patient was found to have significant hypomagnesemia with a magnesium of 1.1 and hypokalemia with potassium of 3.3. A CT of her head was completed showing no acute intercranial abnormalities. An EKG was completed revealing normal sinus rhythm at 78 bpm with a sinus arrhythmia. X-ray left knee also completed revealing an old fracture of the patella with an acute large displaced chip fracture of the superior patella. CBC and liver profile unremarkable. Covid 19 PCR negative. Patient was given loading dose of Keppra 1000 mg along with magnesium replacement and admitted under our services for evaluation of new onset seizure and severe hypomagnesemia. Neurology and orthopedic surgery on consult. Physical exam: Patient seen and fully evaluated at the bedside. She reports feeling well this morning. She denies having any headache, lightheadedness, dizziness, changes in her vision or hearing, chest pain, palpitations, shortness of breath, abdominal pain, nausea, or experiencing any numbness/tingling/weakness in her extremities. Orthopedic surgery consulted for acute large displaced chip fracture of patient superior patella noted on x-ray. Morning labs still pending results at 11:55 AM. Patient scheduled to have MRI and EEG later today. General: non toxic, no distress, appears at stated age Derm: warm, dry Head: atraumatic, normocephalic, symmetric Eyes: EOMI, no lid lag, anicteric sclera Mouth: no lip lesion, mucus membranes moist Cardiovascular: S1-S2 normal with regular rate and rhythm. Murmur present. No gallops or rubs noted. Posterior tibial pulses palpated. Cap refill less than 2 seconds. No lower extremity edema. Lungs: Respirations even, regular, and unlabored on room air. Lungs clear to auscultation bilaterally. No wheezes, rhonchi, or rales noted. No accessory muscle use. Abdominal: Soft, nontender to palpation, no guarding, no appreciable organomegaly Ext: no gross muscle atrophy, no edema, no contractures Neuro: GCS 14. Patient alert to person and place confused to time and situation. CN II-XII grossly intact with no noted no focal neuro deficits. Negative arm drop, normal [id number], normal [id number]. Psych: Alert, oriented, appropriate affect Plan of care: New-onset seizure, possibly secondary to electrolyte abnormalities -Neurology following, patient scheduled for EEG and MRI later today. -Seizure precautions, aspiration precautions, and fall precautions in place. -Ativan IVP as needed for active seizure activity. -Telemetry monitoring -Continue Keppra 500 mg twice a day. -Electrolyte replacement with continued close monitoring Hypomagnesemia with magnesium 1.1 -Magnesium was replaced, morning labs remain pending. -Will continue to monitor closely and replace abnormal electrolyte values as needed. Hypokalemia -Potassium 3.3, replaced. -We will continue to monitor closely and replace abnormal electrolyte, use as needed. Hypertension -Monitor vital signs and continue daily medication management with metoprolol. Diabetes mellitus -Hold Glucophage in place patient on glycemic protocol NovoLog sliding scale. Dementia -Continue Aricept -Maintain safety while providing assistance and redirection as needed. Other chronic conditions include SIADH, GERD, and hyperlipidemia. CODE STATUS: Full code DVT prophylaxis: Heparin Discussed with: Patient and RN Anticipated discharge date: 1-[address]: Home. A total of 45 minutes was spent on the care of this complex patient more than 50% of the time was spent in counseling and care coordination. Objective - Vital Signs Vital signs: Vital Signs Temp 98.0 F 08/22/20 07:15 Pulse 56 L 08/22/20 07:15 Resp 12 08/22/20 07:15 BP 146/69 08/22/20 07:15 Pulse Ox 100 08/22/20 07:15 Intake & Output 08/21/20 08/22/20 08/22/20 18:59 06:59 18:59 Intake Total 600 Balance 600 Weight 68.039 kg 68.039 kg Intake: Intake, IV Titration 600 Amount Sodium Chloride 0.9% 1, 600 000 ml @ 75 mls/hr IV . [id number] [facility] Rx#:[id number] Other: Voiding Method Bedpan Diaper # Voids 2 - Labs CBC & Chem 7: 08/21/20 16:19 08/21/20 16:19 Labs: Abnormal Lab Results - Last 24 Hours (Table) 08/21/20 08/21/20 08/21/20 Range/Units 16:14 16:19 16:19 MCV 78.5 L (80.0-100.0) fL Sodium 133 L (137-145) mmol/L Potassium 3.3 L (3.5-5.1) mmol/L Chloride 97 L (98-107) mmol/L Carbon Dioxide 14 L (22-30) mmol/L Glucose 215 H (74-99) mg/dL POC Glucose (mg/dL) 213 H (75-99) mg/dL Magnesium 1.1 L (1.6-2.3) mg/dL U Benzodiazepines Scrn (NotDetected) 08/21/20 08/21/20 08/22/20 Range/Units 17:00 22:48 07:01 MCV (80.0-100.0) fL Sodium (137-145) mmol/L Potassium (3.5-5.1) mmol/L Chloride (98-107) mmol/L Carbon Dioxide (22-30) mmol/L Glucose (74-99) mg/dL POC Glucose (mg/dL) 159 H 118 H (75-99) mg/dL Magnesium (1.6-2.3) mg/dL U Benzodiazepines Scrn Detected H (NotDetected) <Misha Milton - Last Filed: 08/22/20 17:49> Objective - Vital Signs Vital signs: Vital Signs Temp 98.3 F 08/22/20 13:05 Pulse 48 L 08/22/20 13:05 Resp 14 08/22/20 13:05 BP 154/69 08/22/20 13:05 Pulse Ox 99 08/22/20 13:05 Intake & Output 08/21/20 08/22/20 08/22/20 18:59 06:59 18:59 Intake Total 600 Balance 600 Weight 68.039 kg 68.039 kg Intake: Intake, IV Titration 600 Amount Sodium Chloride 0.9% 1, 600 000 ml @ 75 mls/hr IV . [id number] [facility] Rx#:[id number] Other: Voiding Method Bedpan Bedpan Diaper Diaper # Voids 2 - Labs CBC & Chem 7: 08/21/20 16:19 08/22/20 07:33 Labs: Abnormal Lab Results - Last 24 Hours (Table) 08/21/20 08/22/20 08/22/20 Range/Units 22:48 07:01 07:33 BUN 6.0 L (9.0-27.0) mg/dL Creatinine 0.5 L (0.6-1.5) mg/dL Glucose 131 H (70-110) mg/dL POC Glucose (mg/dL) 159 H 118 H (75-99) mg/dL Hemoglobin A1c (4.0-6.0) % Magnesium 1.4 L (1.5-2.4) mg/dL 08/22/20 08/22/20 08/22/20 Range/Units 07:33 13:00 16:51 BUN (9.0-27.0) mg/dL Creatinine (0.6-1.5) mg/dL Glucose (70-110) mg/dL POC Glucose (mg/dL) 139 H 113 H (75-99) mg/dL Hemoglobin A1c 7.1 H (4.0-6.0) % Magnesium (1.5-2.4) mg/dL Assessment and Plan Assessment: I reviewed the documentation as provided by the HOLDEN above, who is the original author of this note. I agree with the documented assessment and plan, with the following changes: None
[2020-08-22 12:17] LABS: African American GFR (CKD) 114.5 (60.0-200.0); Anion Gap 8.1 mmol/L (4.00-12.00); Calcium 8.8 mg/dL (8.7-10.3); Carbon Dioxide 23.9 mmol/L (21.6-31.8); Magnesium 1.4 mg/dL (1.5-2.4); Non-African American GFR(CKD) 98.8 (60.0-200.0); Potassium 3.5 mmol/L (3.5-5.5)
--- NOTE | 2020-08-22 12:47 | MR ---
EXAMINATION TYPE: MR brain wo/w con DATE OF EXAM: 08/22/2020 COMPARISON: CT brain from yesterday. HISTORY: New onset seizure. TECHNIQUE: Multiplanar, multisequence images of the brain and brainstem is performed without and with IV contras t, utilizing 7 mL intravenous Gadavist . FINDINGS: Exam slightly suboptimal as patient unable to hold still for ideal imaging. Diffusion weigh ramandeep images demonstrate no evidence of a recent infarct or other diffusion abnormality. There is no w orrisome extra-axial fluid collection. Mild/moderate diffuse ventricular and sulcal prominence. Areas of T2 hyperintensity throughout the white matter bilaterally greatest at periventricular levels note d. Midline structures demonstrate normal morphology. The craniocervical junction appears within normal limits. Post contrast images demonstrate no abnormal enhancement. The dural venous sinuses appear pa tent. The visualized sinuses are clear and the globes are intact. IMPRESSION: Mild to moderate diffuse cerebral atrophy and chronic small vessel ischemic changes. No s uspicious enhancement noted.
[2020-08-22] MEDS: METOPROLOL TARTRATE 50 MG TAB PO SCH ×2 (12:50→20:43)
[2020-08-22 13:01] LABS: Glucose,Whole Blood 139 mg/dL (75-99)
[2020-08-22 14:12] LABS: Hemoglobin A1C 7.1 % (4.0-6.0)
[2020-08-22] MEDS: MAGNESIUM SULFATE-D5W PMX 1 GM in DEXTROSE/WATER 1 100ML.BAG IVPB SCH ×3 (16:39→18:38)
[2020-08-22 16:52] LABS: Glucose,Whole Blood 113 mg/dL (75-99)
--- NOTE | 2020-08-22 19:57 | P.CNOR ---
<Rafael Weaver - Last Filed: 08/22/20 19:57> History of Present Illness - HPI Consult date: 08/22/20 Requesting physician: Gavino Oerllana Consult reason: other (X-ray left knee revealing acute Lg displaced chip fracture superior patella) History of present illness: Patient peeling the hospital yesterday status post seizure. Patient does have a complex medical history including hypertension, hyperlipidemia, diabetes, dementia. Procedure was witnessed by son last night and last about a minute. Patient cannot hospital postictal state and had another seizure which the ER staff witnessed. This lasts about [address] of head was performed and found no acute intercranial changes. X-ray left knee showed acute large displaced chip fracture of the superior patella. I saw the patient late this afternoon and knee immobilizer was placed. She does say she has a previous history of left knee replacement. Patient does not have great recall due to mental status. Patient says she does have pain over the right knee. Patient denies any radiation. Patient denies pain in any other locations. She says once the immobilizer was then placed she has been able to walk. Patient denies shortness breath, chest pain, fever, nausea, vomiting, change in vision.. Patient denies loss of bowel/bladder control. Past Medical History Past Medical History: Dementia, Diabetes Mellitus, GERD/Reflux, Hyperlipidemia, Hypertension Additional Past Medical History / Comment(s): FIBROMYALGIA History of Any Multi-Drug Resistant Organisms: ESBL Year Discovered:: 08/01/20 MDRO Source:: urine Past Surgical History: Adenoidectomy, Appendectomy, Cholecystectomy, Hysterectomy, Tonsillectomy, Tubal Ligation Additional Past Surgical History / Comment(s): CARARACT RT EYE 07/02/2013, bladder suspension, repair of the fracture, left knee replacement Past Anesthesia/Blood Transfusion Reactions: Motion Sickness, Postoperative Nausea & Vomiting (PONV) Past Psychological History: Depression Smoking Status: Never smoker Past Alcohol Use History: None Reported Past Drug Use History: None Reported - Past Family History Mother Family Medical History: Cancer Medications and Allergies Home Medications Medication Instructions Recorded Confirmed Type metFORMIN HCL [Glucophage] 500 mg PO BID 06/23/17 08/21/20 History Aspirin EC [Ecotrin] 325 mg PO DAILY 04/02/20 08/21/20 History Metoprolol Tartrate [Lopressor] 100 mg PO BID 04/02/20 08/21/20 History Montelukast Sodium [Singulair] 10 mg PO DAILY 04/02/20 08/21/20 History ALPRAZolam [Xanax] 0.25 mg PO BID 07/14/20 08/21/20 History Tamsulosin [Flomax] 0.4 mg PO DAILY 07/14/20 08/21/20 History Cholecalciferol [Vitamin D3 (25 25 mcg PO DAILY 07/24/20 08/21/20 History Mcg = 1000 Iu)] Donepezil [Aricept] 10 mg PO DAILY 07/24/20 08/21/20 History Furosemide [Lasix] 20 mg PO DAILY 30 Days #30 tab 08/03/20 08/21/20 Rx Allergies Allergy/AdvReac Type Severity Reaction Status Date / Time No Known Allergies Allergy Verified 08/21/20 17:53 Physical Examination Skin inspection: Right knee demonstrates ecchymosis anteriorly over the right patella. Scar evident over the left anterior knee. Rest of exam negative Palpation: Tenderness to palpation of right patella superiorly. Nontender to palpation throughout the rest of exam; mild suprapatellar effusion. Range of motion: Right lower extremity exam limited due to patient pain in area. Upper extremities full range of motion. Left lower extremity full range of motion Sensation: Sensation equal, bilateral, symmetric throughout the upper and lower extremities bilaterally. Motor: Upper extremities bilateral - 5/5; left lower extremity 5/5; right lower extremity - 4/5 hip flexion. Dorsiflexion and plantarflexion of feet 5/5 bilaterally Neurovascular: Capillary refill below 3 seconds in feet bilaterally. Dorsalis pedis pulse present 2+ bilaterally; radial pulses present 2+ bilaterally. Tensioning signs: Negative Homans; negative Kassy's bilaterally. Negative clonus upon dorsiflexing feet bilaterally Results - Labs Labs: Abnormal Lab Results - Last 24 Hours (Table) 08/21/20 08/22/20 08/22/20 Range/Units 22:48 07:01 07:33 BUN 6.0 L (9.0-27.0) mg/dL Creatinine 0.5 L (0.6-1.5) mg/dL Glucose 131 H (70-110) mg/dL POC Glucose (mg/dL) 159 H 118 H (75-99) mg/dL Hemoglobin A1c (4.0-6.0) % Magnesium 1.4 L (1.5-2.4) mg/dL 08/22/20 08/22/20 08/22/20 Range/Units 07:33 13:00 16:51 BUN (9.0-27.0) mg/dL Creatinine (0.6-1.5) mg/dL Glucose (70-110) mg/dL POC Glucose (mg/dL) 139 H 113 H (75-99) mg/dL Hemoglobin A1c 7.1 H (4.0-6.0) % Magnesium (1.5-2.4) mg/dL H & H 08/21/20 Range/Units 16:19 Hgb 12.0 (11.4-16.0) gm/dL Hct 36.4 (34.0-46.0) % Result Diagrams: 08/21/20 16:19 08/22/20 07:33 Assessment and Plan Assessment: 1. Large displaced chip fracture superior right patella 2. Multiple medical comorbidities Plan: 1. Large displaced chip fracture superior right patella - knee immobilizer applied. awaiting CT results. We'll continue to follow patient in hospital. 2. Multiple medical comorbidities - medical following 3. Appreciate medical management 4. Pain management - stable at this time; continue Tylenol 5. PT/OT - weight bearing as tolerated 6. GI prophylaxis/DVT prophylaxis - heparin 7. Appreciate consult Time with Patient: Less than 30 <Charles Ortega - Last Filed: 08/22/20 20:00> Physical Examination Osteopathic Statement: *. No significant issues noted on an osteopathic structural exam other than those noted in the History and Physical/Consult. Results - Labs Labs: Abnormal Lab Results - Last 24 Hours (Table) 08/21/20 08/22/20 08/22/20 Range/Units 22:48 07:01 07:33 BUN 6.0 L (9.0-27.0) mg/dL Creatinine 0.5 L (0.6-1.5) mg/dL Glucose 131 H (70-110) mg/dL POC Glucose (mg/dL) 159 H 118 H (75-99) mg/dL Hemoglobin A1c (4.0-6.0) % Magnesium 1.4 L (1.5-2.4) mg/dL 08/22/20 08/22/20 08/22/20 Range/Units 07:33 13:00 16:51 BUN (9.0-27.0) mg/dL Creatinine (0.6-1.5) mg/dL Glucose (70-110) mg/dL POC Glucose (mg/dL) 139 H 113 H (75-99) mg/dL Hemoglobin A1c 7.1 H (4.0-6.0) % Magnesium (1.5-2.4) mg/dL H & H 08/21/20 Range/Units 16:19 Hgb 12.0 (11.4-16.0) gm/dL Hct 36.4 (34.0-46.0) % Result Diagrams: 08/21/20 16:19 08/22/20 07:33 Assessment and Plan Plan: 1. Displaced proximal pole patellar fracture s/p patellar OIRF, suspect quad insufficiency secondary to this - knee immobilizer applied. awaiting CT results. We'll continue to follow patient in hospital. 2. Multiple medical comorbidities - medical following 3. Appreciate medical management 4. Pain management - stable at this time; continue Tylenol 5. PT/OT - weight bearing as tolerated 6. GI prophylaxis/DVT prophylaxis - heparin 7. Appreciate consult
[2020-08-22 20:37] LABS: Glucose,Whole Blood 170 mg/dL (75-99)
--- NOTE | 2020-08-22 22:28 | CT ---
EXAMINATION TYPE: CT knee RT wo con DATE OF EXAM: 08/22/2020 COMPARISON: Knee x-ray yesterday HISTORY: Right knee pain. CT DLP: 377.4 mGycm Automated exposure control for dose reduction was used. Images obtained from the distal femur to the proximal tibia without contrast. There is large knee joint effusion. There is irregular comminuted fragmented bone in the knee joint e ffusion above the patella. This is angular and consistent with a large chip fracture of the superior aspect of the patella. This is 13 mm from the body of the patella. There is expanded metal and screws fixing old fracture of the patella. The distal femur is intact. The proximal tibia is intact. There is metal artifact from the hardware f ixing the patella. The medial and lateral joint spaces are fairly well-maintained. IMPRESSION: Large chip fracture with comminution of the superior patella and superior displacement of the fragmen t. Large knee joint effusion. 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 These measure up to 8 mm. No change in fragment position compared to the knee x-ray yesterday. The joint effusion appears incre ased compared to yesterday.
[2020-08-23 07:42] LABS: Glucose,Whole Blood 135 mg/dL (75-99)
[2020-08-23] MEDS: INSULIN ASPART (NovoLOG) 100 UNIT/ML VIAL SQ SCH ×4 (08:25→21:33)
[2020-08-23] MEDS: TAMSULOSIN 0.4 MG CAP.ER.24H PO SCH (08:34)
[2020-08-23] MEDS: levETIRAcetam 500 MG TAB PO SCH ×2 (08:34→21:32)
[2020-08-23] MEDS: HEPARIN SODIUM,PORCINE/PF 5,000 UNIT/0.5 ML SYRINGE SQ SCH ×4 (08:34→23:11)
[2020-08-23] MEDS: SODIUM CHLORIDE 0.9% 1,000 ML IV SCH ×2 (08:35→23:12)
[2020-08-23] MEDS: CHOLECALCIFEROL 25 MCG (1000 IU) TABLET PO SCH (08:35)
[2020-08-23] MEDS: MONTELUKAST 10 MG TAB PO SCH (08:35)
[2020-08-23] MEDS: METOPROLOL TARTRATE 50 MG TAB PO SCH ×2 (08:35→21:33)
[2020-08-23] MEDS: FUROSEMIDE 20 MG TAB PO SCH (08:35)
[2020-08-23] MEDS: DONEPEZIL 10 MG TAB PO SCH (08:35)
[2020-08-23] MEDS: ASPIRIN 325 MG TAB PO SCH (08:35)
[2020-08-23 08:51] LABS: HCT 34.3 % (34.0-46.0); HGB 11.8 gm/dL (11.4-16.0); MCH 26.4 pg (25.0-35.0); MCHC 34.4 g/dL (31.0-37.0); MCV 76.7 fL (80.0-100.0); Mean Platelet Volume 6.5; Microcytosis Slight; Platelet Count 359 k/uL (150-450); RBC 4.46 m/uL (3.80-5.40); RDW 15.1 % (11.5-15.5); WBC 7.7 k/uL (3.8-10.6)
[2020-08-23 09:11] LABS: African American GFR (CKD) >90 (>60 ml/min/1.73 sqM); Anion Gap 7 mmol/L; Blood Urea Nitrogen 3 mg/dL (7-17); Calcium 9.4 mg/dL (8.4-10.2); Carbon Dioxide 26 mmol/L (22-30); Chloride 99 mmol/L (98-107); Glucose 179 mg/dL (74-99); Magnesium 1.5 mg/dL (1.6-2.3); Non-African American GFR(CKD) >90 (>60 ml/min/1.73 sqM); Potassium 3.7 mmol/L (3.5-5.1); Sodium 132 mmol/L (137-145)
--- NOTE | 2020-08-23 09:20 | P.PN ---
Subjective Progress Note Date: 08/23/20 Principal diagnosis: Large displaced chip fracture superior right patella I saw the patient late this morning. She does say she has a previous history of left knee replacement. Patient does not have great recall due to mental status. Patient says she does have pain over the right knee. Patient denies any radiation. Patient denies pain in any other locations. She says once the immobilizer was then placed she has been able to walk. Patient cannot recall what surgeons performs knee surgery. She denies any new pain today. Knee immobilizer is still in place. Patient denies shortness breath, chest pain, fever, nausea, vomiting, change in vision.. Patient denies loss of bowel/bladder control. Objective - Vital Signs Vital signs: Vital Signs Temp 98.1 F 08/23/20 04:15 Pulse 62 08/23/20 04:15 Resp 20 08/23/20 04:15 BP 154/89 08/23/20 04:15 Pulse Ox 99 08/23/20 04:15 Intake & Output 08/22/20 08/23/20 08/23/20 18:59 06:59 18:59 Intake Total 1520 340 Balance 1520 340 Intake: Intake, IV Titration 900 Amount Magnesium Sulfate-D5w Pmx 300 1 gm In Dextrose/Water 1 100ml.bag @ 100 mls/hr IVPB Q1H ANDREW Rx#: [id number] Sodium Chloride 0.9% 1, 600 000 ml @ 75 mls/hr IV . [id number] ANDREW Rx#:[id number] Oral 620 340 Other: Voiding Method Bedpan Bedpan Diaper Diaper # Voids 3 2 - Exam Skin inspection: Right knee demonstrates ecchymosis anteriorly over the right patella. Scar evident over the left anterior knee. Rest of exam negative Palpation: Tenderness to palpation of right patella superiorly. Nontender to palpation throughout the rest of exam; mild suprapatellar effusion. Range of motion: Right lower extremity exam limited due to patient pain in area. Upper extremities full range of motion. Left lower extremity full range of motion Sensation: Sensation equal, bilateral, symmetric throughout the upper and lower extremities bilaterally. Motor: Upper extremities bilateral - 5/5; left lower extremity 5/5; right lower extremity - 4/5 hip flexion. Dorsiflexion and plantarflexion of feet 5/5 bilaterally Neurovascular: Capillary refill below 3 seconds in feet bilaterally. Dorsalis pedis pulse present 2+ bilaterally; radial pulses present 2+ bilaterally. Tensioning signs: Negative Homans; negative Kassy's bilaterally. Negative clonus upon dorsiflexing feet bilaterally - Labs CBC & Chem 7: 08/23/20 08:36 08/23/20 08:36 Labs: Abnormal Lab Results - Last 24 Hours (Table) 08/22/20 08/22/20 08/22/20 Range/Units 07:33 07:33 13:00 MCV (80.0-100.0) fL Sodium (137-145) mmol/L BUN 6.0 L (9.0-27.0) mg/dL Creatinine 0.5 L (0.6-1.5) mg/dL Glucose 131 H (70-110) mg/dL POC Glucose (mg/dL) 139 H (75-99) mg/dL Hemoglobin A1c 7.1 H (4.0-6.0) % Magnesium 1.4 L (1.5-2.4) mg/dL 08/22/20 08/22/20 08/23/20 Range/Units 16:51 20:36 07:40 MCV (80.0-100.0) fL Sodium (137-145) mmol/L BUN (9.0-27.0) mg/dL Creatinine (0.6-1.5) mg/dL Glucose (70-110) mg/dL POC Glucose (mg/dL) 113 H 170 H 135 H (75-99) mg/dL Hemoglobin A1c (4.0-6.0) % Magnesium (1.5-2.4) mg/dL 08/23/20 08/23/20 Range/Units 08:36 08:36 MCV 76.7 L (80.0-100.0) fL Sodium 132 L (137-145) mmol/L BUN 3 L (9.0-27.0) mg/dL Creatinine 0.51 L (0.6-1.5) mg/dL Glucose 179 H (70-110) mg/dL POC Glucose (mg/dL) (75-99) mg/dL Hemoglobin A1c (4.0-6.0) % Magnesium 1.5 L (1.5-2.4) mg/dL Assessment and Plan Assessment: 1. Large displaced chip fracture superior right patella 2. Multiple medical comorbidities Plan: 1. Large displaced chip fracture superior right patella - CT performed yesterday demonstrating similar findings x-ray. No significant new findings. Patient to keep the knee immobilizer on at this time. We'll continue with conservative treatment at this time. We'll continue to follow patient in hospital. 2. Multiple medical comorbidities - medical following 3. Appreciate medical management 4. Pain management - stable at this time; continue Tylenol 5. PT/OT - weight bearing as tolerated 6. GI prophylaxis/DVT prophylaxis - heparin 7. Appreciate consult Time with Patient: Less than 30
--- NOTE | 2020-08-23 11:40 | P.PN ---
<Gavino Orellana - Last Filed: 08/23/20 11:33> Subjective Progress Note Date: 08/23/20 Hospital course: Patient is a 69-year-old female with a past medical history of hypertension, h yperlipidemia, diabetes mellitus type 2, SIADH, GERD, and dementia. She presented to the emergency department after having a new onset seizure witnessed at home by her son lasting approximately 1 minute. Per ED report patient arrived to the hospital in a postictal state and shortly after had another witnessed seizure by ED staff reported to tonic-clonic motions lasting approximately 90 seconds. Patient was found to have significant hypomagnesemia with a magnesium of 1.1 and hypokalemia with potassium of 3.3. A CT of her head was completed showing no acute intercranial abnormalities. An EKG was completed revealing normal sinus rhythm at 78 bpm with a sinus arrhythmia. X-ray left knee also completed revealing an old fracture of the patella with an acute large displaced chip fracture of the superior patella. CBC and liver profile unremarkable. Covid 19 PCR negative. Patient was given loading dose of Keppra 1000 mg along with magnesium replacement and admitted under our services for evaluation of new onset seizure and severe hypomagnesemia. Neurology and orthopedic surgery on consult. Physical exam: Patient seen and fully evaluated at the bedside. She reports feeling well this morning. Per RN and sitter at bedside patient has had multiple episodes of confusion and anxious behaviors. Patient required medication to assist with behaviors and agitation. Currently patient is calm and cooperative and alert to person and place only. She denies having any headache, lightheadedness, dizziness, changes in her vision or hearing, chest pain, palpitations, shortness of breath, abdominal pain, nausea, or experiencing any numbness/t ingling/weakness in her extremities. Patient is awaiting to have EEG completed later today. Continues to have hypomagnesemia with magnesium of 1.5, will give an additional 3 g. General: non toxic, no distress, appears at stated age Derm: warm, dry Head: atraumatic, normocephalic, symmetric Eyes: EOMI, no lid lag, anicteric sclera Mouth: no lip lesion, mucus membranes moist Cardiovascular: S1-S2 normal with regular rate and rhythm. Murmur present. No gallops or rubs noted. Posterior tibial pulses palpated. Cap refill less than 2 seconds. No lower extremity edema. Lungs: Respirations even, regular, and unlabored on room air. Lungs clear to auscultation bilaterally. No wheezes, rhonchi, or rales noted. No accessory muscle use. Abdominal: Soft, nontender to palpation, no guarding, no appreciable organomegaly Ext: no gross muscle atrophy, no edema, no contractures Neuro: GCS 14. Patient alert to person and place confused to time and situation. CN II-XII grossly intact with no noted no focal neuro deficits. Negative arm drop, normal [id number], normal [id number]. Psych: Alert, oriented, appropriate affect Plan of care: New-onset seizure, possibly secondary to electrolyte abnormalities with significant hypomagnesemia -Neurology following, patient awaiting for EEG to be completed. -MRI brain completed revealing mild to moderate diffuse cerebral atrophy and chronic small vessel ischemic changes. No suspicious enhancement noted.. -Seizure precautions, aspiration precautions, and fall precautions in place. -Ativan IVP as needed for active seizure activity. -Telemetry monitoring -Continue Keppra 500 mg twice a day. -Electrolyte replacement with continued close monitoring Hypomagnesemia -Magnesium 1.5, replaced -Will continue to monitor closely and replace abnormal electrolyte values as needed. Hypokalemia, resolved Hypertension -Monitor vital signs and continue daily medication management with metoprolol. Diabetes mellitus -Hold Glucophage and place patient on glycemic protocol with NovoLog sliding scale. Dementia -Continue Aricept -Maintain safety while providing assistance and redirection as needed. Other chronic conditions include SIADH, GERD, and hyperlipidemia. CODE STATUS: Full code DVT prophylaxis: Heparin Discussed with: Patient and RN Anticipated discharge date: 1-[address]: Home. A total of 45 minutes was spent on the care of this complex patient more than 50% of the time was spent in counseling and care coordination. Objective - Vital Signs Vital signs: Vital Signs Temp 98.1 F 08/23/20 04:15 Pulse 62 08/23/20 04:15 Resp 20 08/23/20 04:15 BP 154/89 08/23/20 04:15 Pulse Ox 99 08/23/20 04:15 Intake & Output 08/22/20 08/23/20 08/23/20 18:59 06:59 18:59 Intake Total 1520 340 Balance 1520 340 Intake: Intake, IV Titration 900 Amount Magnesium Sulfate-D5w Pmx 300 1 gm In Dextrose/Water 1 100ml.bag @ 100 mls/hr IVPB Q1H ANDREW Rx#: [id number] Sodium Chloride 0.9% 1, 600 000 ml @ 75 mls/hr IV . [id number] ANDREW Rx#:[id number] Oral 620 340 Other: Voiding Method Bedpan Bedpan Diaper Diaper # Voids 3 2 - Labs CBC & Chem 7: 08/23/20 08:36 08/23/20 08:36 Labs: Abnormal Lab Results - Last 24 Hours (Table) 08/22/20 08/22/20 08/22/20 Range/Units 07:33 07:33 13:00 MCV (80.0-100.0) fL Sodium (137-145) mmol/L BUN 6.0 L (9.0-27.0) mg/dL Creatinine 0.5 L (0.6-1.5) mg/dL Glucose 131 H (70-110) mg/dL POC Glucose (mg/dL) 139 H (75-99) mg/dL Hemoglobin A1c 7.1 H (4.0-6.0) % Magnesium 1.4 L (1.5-2.4) mg/dL 08/22/20 08/22/20 08/23/20 Range/Units 16:51 20:36 07:40 MCV (80.0-100.0) fL Sodium (137-145) mmol/L BUN (9.0-27.0) mg/dL Creatinine (0.6-1.5) mg/dL Glucose (70-110) mg/dL POC Glucose (mg/dL) 113 H 170 H 135 H (75-99) mg/dL Hemoglobin A1c (4.0-6.0) % Magnesium (1.5-2.4) mg/dL 08/23/20 08/23/20 Range/Units 08:36 08:36 MCV 76.7 L (80.0-100.0) fL Sodium 132 L (137-145) mmol/L BUN 3 L (9.0-27.0) mg/dL Creatinine 0.51 L (0.6-1.5) mg/dL Glucose 179 H (70-110) mg/dL POC Glucose (mg/dL) (75-99) mg/dL Hemoglobin A1c (4.0-6.0) % Magnesium 1.5 L (1.5-2.4) mg/dL <KarineOpalmaulik - Last Filed: 08/23/20 12:10> Objective - Vital Signs Vital signs: Vital Signs Temp 98.1 F 08/23/20 04:15 Pulse 62 08/23/20 04:15 Resp 20 08/23/20 04:15 BP 154/89 08/23/20 04:15 Pulse Ox 99 08/23/20 04:15 Intake & Output 08/22/20 08/23/20 08/23/20 18:59 06:59 18:59 Intake Total 1520 340 Balance 1520 340 Intake: Intake, IV Titration 900 Amount Magnesium Sulfate-D5w Pmx 300 1 gm In Dextrose/Water 1 100ml.bag @ 100 mls/hr IVPB Q1H ANDREW Rx#: [id number] Sodium Chloride 0.9% 1, 600 000 ml @ 75 mls/hr IV . [id number] ANDREW Rx#:[id number] Oral 620 340 Other: Voiding Method Bedpan Bedpan Diaper Diaper # Voids 3 2 - Labs CBC & Chem 7: 08/23/20 08:36 08/23/20 08:36 Labs: Abnormal Lab Results - Last 24 Hours (Table) 08/22/20 08/22/20 08/22/20 Range/Units 07:33 07:33 13:00 MCV (80.0-100.0) fL Sodium (137-145) mmol/L BUN 6.0 L (9.0-27.0) mg/dL Creatinine 0.5 L (0.6-1.5) mg/dL Glucose 131 H (70-110) mg/dL POC Glucose (mg/dL) 139 H (75-99) mg/dL Hemoglobin A1c 7.1 H (4.0-6.0) % Magnesium 1.4 L (1.5-2.4) mg/dL 08/22/20 08/22/20 08/23/20 Range/Units 16:51 20:36 07:40 MCV (80.0-100.0) fL Sodium (137-145) mmol/L BUN (9.0-27.0) mg/dL Creatinine (0.6-1.5) mg/dL Glucose (70-110) mg/dL POC Glucose (mg/dL) 113 H 170 H 135 H (75-99) mg/dL Hemoglobin A1c (4.0-6.0) % Magnesium (1.5-2.4) mg/dL 08/23/20 08/23/20 Range/Units 08:36 08:36 MCV 76.7 L (80.0-100.0) fL Sodium 132 L (137-145) mmol/L BUN 3 L (9.0-27.0) mg/dL Creatinine 0.51 L (0.6-1.5) mg/dL Glucose 179 H (70-110) mg/dL POC Glucose (mg/dL) (75-99) mg/dL Hemoglobin A1c (4.0-6.0) % Magnesium 1.5 L (1.5-2.4) mg/dL Assessment and Plan Assessment: I reviewed the documentation as provided by the HOLDEN above, who is the original author of this note. I agree with the documented assessment and plan, with the following changes: None
[2020-08-23 12:20] LABS: Glucose,Whole Blood 153 mg/dL (75-99)
[2020-08-23] MEDS: MAGNESIUM SULFATE-D5W PMX 1 GM in DEXTROSE/WATER 1 100ML.BAG IVPB SCH ×3 (12:23→15:01)
[2020-08-23 17:04] LABS: Glucose,Whole Blood 178 mg/dL (75-99)
[2020-08-23 21:06] LABS: Glucose,Whole Blood 163 mg/dL (75-99)
--- NOTE | 2020-08-24 00:05 | P.PN ---
Subjective Progress Note Date: 08/23/20 Agent was seen for a follow-up via Tele-neurology. Patient is laying comfortably in the bed. Has not had any further syncopal spells or seizures. Telemetry monitoring showing sinus bradycardia in the 50s and 40s. Patient denies any headache or any pain anywhere. Apparently patient had undergone [place] wireless vaccination from [employer] recently. After the first dose, she was hospitalized and was found to have electrolyte imbalance with low sodium potassium and magnesium. She received the second dose of Pfizer vaccine given 08/18/2020, 4 days prior to seizure. Uncertain if there is any relation to the vaccination. Objective - Vital Signs Vital signs: Vital Signs Temp 98.1 F 08/23/20 04:15 Pulse 62 08/23/20 04:15 Resp 20 08/23/20 04:15 BP 154/89 08/23/20 04:15 Pulse Ox 99 08/23/20 04:15 Intake & Output 08/22/20 08/23/20 08/23/20 18:59 06:59 18:59 Intake Total 1520 340 Balance 1520 340 Intake: Intake, IV Titration 900 Amount Magnesium Sulfate-D5w Pmx 300 1 gm In Dextrose/Water 1 100ml.bag @ 100 mls/hr IVPB Q1H ANDREW Rx#: [id number] Sodium Chloride 0.9% 1, 600 000 ml @ 75 mls/hr IV . [id number] ANDREW Rx#:[id number] Oral 620 340 Other: Voiding Method Bedpan Bedpan Diaper Diaper # Voids 3 2 - Exam Patient is alert and awake, laying comfortably in the bed. Patient could not tell the current month or the year. She knows her name, and date of , but does not know her age. She thinks she is a house in [facility]. When I asked, whose house as it, states some person named "Poly" owns it. Patient moves her arms and left leg easily. Her right leg is in a brace because of knee injury. - Labs CBC & Chem 7: 08/23/20 08:36 08/23/20 08:36 Labs: Abnormal Lab Results - Last 24 Hours (Table) 08/22/20 08/22/20 08/22/20 Range/Units 07:33 07:33 13:00 MCV (80.0-100.0) fL Sodium (137-145) mmol/L BUN 6.0 L (9.0-27.0) mg/dL Creatinine 0.5 L (0.6-1.5) mg/dL Glucose 131 H (70-110) mg/dL POC Glucose (mg/dL) 139 H (75-99) mg/dL Hemoglobin A1c 7.1 H (4.0-6.0) % Magnesium 1.4 L (1.5-2.4) mg/dL 08/22/20 08/22/20 08/23/20 Range/Units 16:51 20:36 07:40 MCV (80.0-100.0) fL Sodium (137-145) mmol/L BUN (9.0-27.0) mg/dL Creatinine (0.6-1.5) mg/dL Glucose (70-110) mg/dL POC Glucose (mg/dL) 113 H 170 H 135 H (75-99) mg/dL Hemoglobin A1c (4.0-6.0) % Magnesium (1.5-2.4) mg/dL 08/23/20 08/23/20 Range/Units 08:36 08:36 MCV 76.7 L (80.0-100.0) fL Sodium 132 L (137-145) mmol/L BUN 3 L (9.0-27.0) mg/dL Creatinine 0.51 L (0.6-1.5) mg/dL Glucose 179 H (70-110) mg/dL POC Glucose (mg/dL) (75-99) mg/dL Hemoglobin A1c (4.0-6.0) % Magnesium 1.5 L (1.5-2.4) mg/dL Assessment and Plan Assessment: * New onset seizure, unclear etiology * Patient has recently received [employer] Covid vaccination, 4 days prior to her seizure. * Diabetes * Hypertension * Dementia * Right knee swelling * Mild hyponatremia and hypokalemia, likely not the cause of seizure. Plan: * Patient has new onset seizure (x2), once at home and the second seizure in ER witnessed. Unclear etiology. Patient currently is on Xanax, but apparently her urine drug screen is positive for benzodiazepine, therefore probably not a benzodiazepine withdrawal seizure. * EEG is pending. * MRI of the brain with and without contrast revealed mild to moderate diffuse cerebral atrophy and chronic small vessel ischemic changes. No suspicious enhancement noted. * Patient's right knee CT revealed large chip fracture with comminution of the superior patella and superior displacement of the fragment. Large knee joint effusion. 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 These measure up to 8 mm. Patient is followed up by orthopedic surgery. * Patient was loaded with Keppra 1000 mg in the ER. We will maintain on Keppra 500 mg twice a day. * Patient has dementia. We will check B12, folate, RPR. TSH is normal 1.92. Patient is on Aricept 10 mg daily. May consider adding Namenda. * Seizure precautions and seizure restrictions discussed including driving, climbing ladders, operating dangerous machinery or unsupervised swimming.
[2020-08-24 06:30] LABS: African American GFR (CKD) >90 (>60 ml/min/1.73 sqM); Anion Gap 8 mmol/L; Blood Urea Nitrogen 3 mg/dL (7-17); Carbon Dioxide 25 mmol/L (22-30); Chloride 99 mmol/L (98-107); Glucose 144 mg/dL (74-99); Potassium 3.4 mmol/L (3.5-5.1); Sodium 132 mmol/L (137-145)
[2020-08-24 06:31] LABS: ALT 11 U/L (4-34); AST 20 U/L (14-36); Albumin 3.5 g/dL (3.5-5.0); Albumin/Globulin Ratio 1.4; Alkaline Phosphatase 114 U/L (38-126); Calcium 9.2 mg/dL (8.4-10.2); Globulin 2.5 g/dL; Magnesium 1.5 mg/dL (1.6-2.3); Non-African American GFR(CKD) >90 (>60 ml/min/1.73 sqM); Total Bilirubin 0.5 mg/dL (0.2-1.3)
[2020-08-24 07:21] LABS: Glucose,Whole Blood 156 mg/dL (75-99)
[2020-08-24] MEDS ORDERED: POTASSIUM CHLORIDE ER 20 MEQ TAB.ER PO STA (07:57)
--- NOTE | 2020-08-24 08:05 | P.PN ---
Subjective Progress Note Date: 08/24/20 Patient seen and examined she is doing well she is seated eating breakfast this morning she has a knee immobilizer right lower extremity no pain at this time no fevers chills shortness of breath or chest pain Objective - Vital Signs Vital signs: Vital Signs Temp 98.3 F 08/24/20 05:00 Pulse 53 L 08/24/20 05:00 Resp 16 08/24/20 05:00 BP 169/77 08/24/20 05:00 Pulse Ox 98 08/24/20 05:00 Intake & Output 08/23/20 08/24/20 08/24/20 18:59 06:59 18:59 Intake Total 240 825 Balance 240 825 Intake: Intake, IV Titration 825 Amount Sodium Chloride 0.9% 1, 825 000 ml @ 75 mls/hr IV . [id number] [facility] Rx#:[id number] Oral 240 Other: Voiding Method Bedpan Bedside Commode Diaper # Voids 2 1 1 # Bowel Movements 1 1 - Exam Patient is alert and oriented 3 appears well-nourished well-hydrated is in no acute distress. They does not appear septic. On exam the patient has no tenderness to palpation of her thoracic or lumbar spine. There is no edema or ballottement sign. Lower extremities with 5 out of 5 strength in all major muscle groups. She is unable to bend her right knee secondary to pain and being in the knee immobilizer however other faculties are intact Upper extremities show 5/5 strength in all major muscle groups. There is FROM that is painless of the b/l UE and LE in all major joints. They are intact to light touch sensation in L2 to S1 nerve distribution. Patient has palpable dorsalis pedis was posterior tibial pulses. Compartments are soft and compressible. Patient shows a negative Homans, Orozco's, negative Babinski's negative clonus bilaterally. negative straight leg raise bilaterally. No tensioning signs. Cranial nerves II through XII are grossly intact. Overall alignment is well-maintained in the sagittal coronal planes. No erythema or ecchymosis or edema - Labs CBC & Chem 7: 08/23/20 08:36 08/24/20 05:46 Labs: Abnormal Lab Results - Last 24 Hours (Table) 08/23/20 08/23/20 08/23/20 Range/Units 08:36 08:36 12:19 MCV 76.7 L (80.0-100.0) fL Sodium 132 L (137-145) mmol/L Potassium (3.5-5.1) mmol/L BUN 3 L (7-17) mg/dL Creatinine 0.51 L (0.52-1.04) mg/dL Glucose 179 H (74-99) mg/dL POC Glucose (mg/dL) 153 H (75-99) mg/dL Magnesium 1.5 L (1.6-2.3) mg/dL Total Protein (6.3-8.2) g/dL 08/23/20 08/23/20 08/24/20 Range/Units 17:02 21:04 05:46 MCV (80.0-100.0) fL Sodium 132 L (137-145) mmol/L Potassium 3.4 L (3.5-5.1) mmol/L BUN 3 L (7-17) mg/dL Creatinine (0.52-1.04) mg/dL Glucose 144 H (74-99) mg/dL POC Glucose (mg/dL) 178 H 163 H (75-99) mg/dL Magnesium 1.5 L (1.6-2.3) mg/dL Total Protein 6.0 L (6.3-8.2) g/dL 08/24/20 Range/Units 07:01 MCV (80.0-100.0) fL Sodium (137-145) mmol/L Potassium (3.5-5.1) mmol/L BUN (7-17) mg/dL Creatinine (0.52-1.04) mg/dL Glucose (74-99) mg/dL POC Glucose (mg/dL) 156 H (75-99) mg/dL Magnesium (1.6-2.3) mg/dL Total Protein (6.3-8.2) g/dL Assessment and Plan Assessment: 69-year-old female status post fall from standing with postsurgical changes right knee with right superior pole tell her fracture displaced likely quad instability Plan: -Continue knee immobilizer at all times right lower extremity -May weight-bear as tolerated right lower extremity with a straight leg and a knee immobilizer only with assist -Ice rest elevation for pain and swelling -Pain control as needed -GI DVT prophylaxis -Appreciate medical management -Orthopedic stable for discharge follow-up in 2 weeks
[2020-08-24] MEDS: ASPIRIN 325 MG TAB PO SCH (08:09)
[2020-08-24] MEDS: MAGNESIUM SULFATE-D5W PMX 1 GM in DEXTROSE/WATER 1 100ML.BAG IVPB SCH ×3 (08:09→12:32)
[2020-08-24] MEDS: TAMSULOSIN 0.4 MG CAP.ER.24H PO SCH (08:09)
[2020-08-24] MEDS: FUROSEMIDE 20 MG TAB PO SCH (08:09)
[2020-08-24] MEDS: DONEPEZIL 10 MG TAB PO SCH (08:09)
[2020-08-24] MEDS: levETIRAcetam 500 MG TAB PO SCH (08:10)
[2020-08-24] MEDS: METOPROLOL TARTRATE 50 MG TAB PO SCH (08:10)
[2020-08-24] MEDS: MONTELUKAST 10 MG TAB PO SCH (08:10)
[2020-08-24] MEDS: CHOLECALCIFEROL 25 MCG (1000 IU) TABLET PO SCH (08:10)
[2020-08-24] MEDS: INSULIN ASPART (NovoLOG) 100 UNIT/ML VIAL SQ SCH ×2 (08:10→12:30)
[2020-08-24] MEDS: HEPARIN SODIUM,PORCINE/PF 5,000 UNIT/0.5 ML SYRINGE SQ SCH ×2 (08:11→16:01)
--- NOTE | 2020-08-24 10:38 | P.PN ---
<Gavino Orellana - Last Filed: 08/24/20 10:29> Subjective Progress Note Date: 08/24/20 Hospital course: Patient is a 69-year-old female with a past medical history of hypertension, h yperlipidemia, diabetes mellitus type 2, SIADH, GERD, and dementia. She presented to the emergency department after having a new onset seizure witnessed at home by her son lasting approximately 1 minute. Per ED report patient arrived to the hospital in a postictal state and shortly after had another witnessed seizure by ED staff reported to tonic-clonic motions lasting approximately 90 seconds. Patient was found to have significant hypomagnesemia with a magnesium of 1.1 and hypokalemia with potassium of 3.3. A CT of her head was completed showing no acute intercranial abnormalities. An EKG was completed revealing normal sinus rhythm at 78 bpm with a sinus arrhythmia. X-ray left knee also completed revealing an old fracture of the patella with an acute large displaced chip fracture of the superior patella. CBC and liver profile unremarkable. Covid 19 PCR negative. Patient was given loading dose of Keppra 1000 mg along with magnesium replacement and admitted under our services for evaluation of new onset seizure and severe hypomagnesemia. Neurology and orthopedic surgery on consult. Physical exam: Patient seen and fully evaluated at the bedside. She reports feeling well this morning and is eating breakfast. Sitter remains at bedside to maintain safety. Currently patient is calm and cooperative and alert to person and place only. She denies having any headache, lightheadedness, dizziness, changes in her vision or hearing, chest pain, palpitations, shortness of breath, abdominal pain, nausea, or experiencing any numbness/tingling/weakness in her extremities. Patient is awaiting to have EEG completed later today. Continues to have hypomagnesemia with magnesium of 1.5, will give an additional 3 g and hyperkalemia with K+ also being replaced with K-Dur 40 mEq. General: non toxic, no distress, appears at stated age Derm: warm, dry Head: atraumatic, normocephalic, symmetric Eyes: EOMI, no lid lag, anicteric sclera Mouth: no lip lesion, mucus membranes moist Cardiovascular: S1-S2 normal with regular rate and rhythm. Murmur present. No gallops or rubs noted. Posterior tibial pulses palpated. Cap refill less than 2 seconds. No lower extremity edema. Lungs: Respirations even, regular, and unlabored on room air. Lungs clear to auscultation bilaterally. No wheezes, rhonchi, or rales noted. No accessory muscle use. Abdominal: Soft, nontender to palpation, no guarding, no appreciable organomegaly Ext: no gross muscle atrophy, no edema, no contractures, knee immobilizer in place to right lower extremity. Neuro: GCS 14. Patient alert to person and place confused to time and situation. CN II-XII grossly intact with no noted no focal neuro deficits. Negative arm drop, normal [id number] Psych: Alert, oriented, appropriate affect Plan of care: New-onset seizure, possibly secondary to electrolyte abnormalities with significant hypomagnesemia -Neurology following, patient awaiting for EEG to be completed. -MRI brain completed revealing mild to moderate diffuse cerebral atrophy and chronic small vessel ischemic changes. No suspicious enhancement noted.. -Seizure precautions, aspiration precautions, and fall precautions in place. -Ativan IVP as needed for active seizure activity. -Telemetry monitoring -Continue Keppra 500 mg twice a day. -Electrolyte replacement with continued close monitoring Displaced chip fracture of the superior right patella. -X-ray left knee also completed revealing an old fracture of the patella with an acute large displaced chip fracture of the superior patella. -CT right knee confirming large chip fracture with comminution of the superior patella and superior displacement of the fragment. 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 -Orthopedic surgery following, patient is in knee immobilizer. Ortho Evra recommending continue knee immobilizer at all times and allow weightbearing as tolerated. Hypomagnesemia -Magnesium 1.5, replaced -Will continue to monitor closely and replace abnormal electrolyte values as needed. Hypokalemia -Potassium 3.4, replaced -We will continue to monitor with repeat a.m. labs Hypertension -Monitor vital signs and continue daily medication management with metoprolol. Diabetes mellitus -Hold Glucophage and place patient on glycemic protocol with NovoLog sliding scale. Dementia -Continue Aricept -Maintain safety while providing assistance and redirection as needed. Other chronic conditions include SIADH, GERD, and hyperlipidemia. CODE STATUS: Full code DVT prophylaxis: Heparin Discussed with: Patient and RN Anticipated discharge date: Possibly tomorrow, pending completion of EEG Anticipated discharge place: Home. A total of 45 minutes was spent on the care of this complex patient more than 50% of the time was spent in counseling and care coordination. Objective - Vital Signs Vital signs: Vital Signs Temp 98.3 F 08/24/20 05:00 Pulse 53 L 08/24/20 05:00 Resp 16 08/24/20 05:00 BP 169/77 08/24/20 05:00 Pulse Ox 98 08/24/20 05:00 Intake & Output 08/23/20 08/24/20 08/24/20 18:59 06:59 18:59 Intake Total 240 825 Balance 240 825 Intake: Intake, IV Titration 825 Amount Sodium Chloride 0.9% 1, 825 000 ml @ 75 mls/hr IV . [id number] [facility] Rx#:[id number] Oral 240 Other: Voiding Method Bedpan Bedside Commode Diaper # Voids 2 1 1 # Bowel Movements 1 1 - Labs CBC & Chem 7: 08/23/20 08:36 08/24/20 05:46 Labs: Abnormal Lab Results - Last 24 Hours (Table) 08/23/20 08/23/20 08/23/20 Range/Units 12:19 17:02 21:04 Sodium (137-145) mmol/L Potassium (3.5-5.1) mmol/L BUN (7-17) mg/dL Glucose (74-99) mg/dL POC Glucose (mg/dL) 153 H 178 H 163 H (75-99) mg/dL Magnesium (1.6-2.3) mg/dL Total Protein (6.3-8.2) g/dL 08/24/20 08/24/20 Range/Units 05:46 07:01 Sodium 132 L (137-145) mmol/L Potassium 3.4 L (3.5-5.1) mmol/L BUN 3 L (7-17) mg/dL Glucose 144 H (74-99) mg/dL POC Glucose (mg/dL) 156 H (75-99) mg/dL Magnesium 1.5 L (1.6-2.3) mg/dL Total Protein 6.0 L (6.3-8.2) g/dL <Misha Milton - Last Filed: 05/24/21 17:28> Objective - Vital Signs Vital signs: Vital Signs Temp 97.6 F 08/24/20 11:36 Pulse 50 L 08/24/20 11:36 Resp 18 08/24/20 11:36 BP 153/75 08/24/20 11:36 Pulse Ox 100 08/24/20 11:36 Intake & Output 08/23/20 08/24/20 08/24/20 18:59 06:59 18:59 Intake Total 240 825 Balance 240 825 Intake: Intake, IV Titration 825 Amount Sodium Chloride 0.9% 1, 825 000 ml @ 75 mls/hr IV . [id number] [facility] Rx#:[id number] Oral 240 Other: Voiding Method Bedpan Bedside Commode Diaper # Voids 2 1 1 # Bowel Movements 1 1 - Labs CBC & Chem 7: 08/23/20 08:36 08/24/20 05:46 Labs: Abnormal Lab Results - Last 24 Hours (Table) 08/23/20 08/24/20 08/24/20 Range/Units 21:04 05:46 07:01 Sodium 132 L (137-145) mmol/L Potassium 3.4 L (3.5-5.1) mmol/L BUN 3 L (7-17) mg/dL Glucose 144 H (74-99) mg/dL POC Glucose (mg/dL) 163 H 156 H (75-99) mg/dL Magnesium 1.5 L (1.6-2.3) mg/dL Total Protein 6.0 L (6.3-8.2) g/dL Vitamin B12 1006.0 H (200.0-944.0) pg/mL 08/24/20 Range/Units 12:08 Sodium (137-145) mmol/L Potassium (3.5-5.1) mmol/L BUN (7-17) mg/dL Glucose (74-99) mg/dL POC Glucose (mg/dL) 158 H (75-99) mg/dL Magnesium (1.6-2.3) mg/dL Total Protein (6.3-8.2) g/dL Vitamin B12 (200.0-944.0) pg/mL Assessment and Plan Assessment: I reviewed the documentation as provided by the HOLDEN above, who is the original author of this note. I agree with the documented assessment and plan, with the following changes: None
[2020-08-24 12:10] LABS: Glucose,Whole Blood 158 mg/dL (75-99)
[2020-08-24 12:18] VITALS: BP 153/75; PULSE 50; RESP 18; TEMP 97.6
[2020-08-24] MEDS: SODIUM CHLORIDE 0.9% 1,000 ML IV SCH (12:32)
[2020-08-24 13:59] LABS: Folate, Serum 7.9 ng/mL
--- NOTE | 2020-08-24 14:58 | P.PN ---
Subjective Progress Note Date: 08/24/20 I'm seeing the patient for the first time. Please refer to Dr. Coelho's note for detailed further neurological history and the plan. No further seizure per nurse. Objective - Vital Signs Vital signs: Vital Signs Temp 97.6 F 08/24/20 11:36 Pulse 50 L 08/24/20 11:36 Resp 18 08/24/20 11:36 BP 153/75 08/24/20 11:36 Pulse Ox 100 08/24/20 11:36 Intake & Output 08/23/20 08/24/20 08/24/20 18:59 06:59 18:59 Intake Total 240 825 Balance 240 825 Intake: Intake, IV Titration 825 Amount Sodium Chloride 0.9% 1, 825 000 ml @ 75 mls/hr IV . [id number] [facility] Rx#:[id number] Oral 240 Other: Voiding Method Bedpan Bedside Commode Diaper # Voids 2 1 1 # Bowel Movements 1 1 - Exam GENERAL: The patient is lying in bed and is not in acute distress. NEUROLOGICAL: Higher mental function: The patient is awake, alert, oriented to self, place. She stated the year was 2020 but stated the month was September or October. Patient is following commands. No aphasia and no neglect. Cranial nerves: The pupils are round, equal and reactive to light and accommodation. Visual quintana are full to confrontation throughout. Extraocular movement is intact no nystagmus is noted. Facial sensation is normal to touch throughout. The facial strength is normal throughout. Tongue is midline and moved [id number] without any difficulty. No dysarthria is noted. Shoulder shrug is normal bilaterally. Motor: Gait is deferred. The strength is moving all extremities above gravity without drift. Sensation: Sensation is normal to touch throughout. Plantars are downgoing bilaterally. - Labs CBC & Chem 7: 08/23/20 08:36 08/24/20 05:46 Labs: Abnormal Lab Results - Last 24 Hours (Table) 08/23/20 08/23/20 08/24/20 Range/Units 17:02 21:04 05:46 Sodium 132 L (137-145) mmol/L Potassium 3.4 L (3.5-5.1) mmol/L BUN 3 L (7-17) mg/dL Glucose 144 H (74-99) mg/dL POC Glucose (mg/dL) 178 H 163 H (75-99) mg/dL Magnesium 1.5 L (1.6-2.3) mg/dL Total Protein 6.0 L (6.3-8.2) g/dL Vitamin B12 1006.0 H (200.0-944.0) pg/mL 08/24/20 08/24/20 Range/Units 07:01 12:08 Sodium (137-145) mmol/L Potassium (3.5-5.1) mmol/L BUN (7-17) mg/dL Glucose (74-99) mg/dL POC Glucose (mg/dL) 156 H 158 H (75-99) mg/dL Magnesium (1.6-2.3) mg/dL Total Protein (6.3-8.2) g/dL Vitamin B12 (200.0-944.0) pg/mL Assessment and Plan Assessment: * New onset seizure, unclear etiology * Patient has recently received [employer] vaccination, 4 days prior to her seizure. * Diabetes * Hypertension * Dementia * Right knee swelling * Mild hyponatremia and hypokalemia, likely not the cause of seizure. Plan: * Patient has new onset seizure (x2), once at home and the second seizure in ER witnessed. Unclear etiology. Patient currently is on Xanax, but apparently her urine drug screen is positive for benzodiazepine, therefore probably not a benzodiazepine withdrawal seizure. * Routine EEG preliminary read: Abnormal study. The background slowing is suggestive of mild encephalopathy. There are no focal slowing, epileptiform discharge or seizure on the EEG. * MRI of the brain with and without contrast revealed mild to moderate diffuse cerebral atrophy and chronic small vessel ischemic changes. No suspicious enhancement noted. * Patient's right knee CT revealed large chip fracture with comminution of the superior patella and superior displacement of the fragment. Large knee joint effusion. 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 These measure up to 8 mm. Patient is followed up by orthopedic surgery. * Patient was loaded with Keppra 1000 mg in the ER. We will maintain on Keppra 500 mg twice a day. * Patient has dementia. We will check B12, folate, RPR. TSH is normal 1.92. Patient is on Aricept 10 mg daily. May consider adding Namenda. * Seizure precautions and seizure restrictions discussed including driving, climbing ladders, operating dangerous machinery or unsupervised swimming. * Recommend prolonged sleep deprived EEG as outpatient. * Recommend for the patient to follow-up with a neurologist within 1-2 weeks. The plan is discussed with the patient's nurse. There is no further neurological work-up. Please notify neurology if any other concerns. Oscar Maloney MD Neuro-Hospitalist Time with Patient: Less than 30
--- NOTE | 2020-08-24 15:14 | EEG ---
ELECTROENCEPHALOGRAM REPORT DATE OF SERVICE: 08/24/2020. CLINICAL HISTORY: This is a 69-year-old woman with new onset seizure. This video EEG is obtained to evaluate for seizure epileptiform activity. RELEVANT MEDICATION: Keppra. EEG TYPE: This is a routine 21-channel EEG performed with video using the 10/20 electrode placement system. DESCRIPTION: Wakefulness and drowsiness are obtained. During wakefulness, there is a posterior dominant rhythm of low to moderate voltage, well modulated, of 6.5-7 hertz activity. There is no physiological stage 2 sleep seen. There is no focal slowing. Interictal and ictal are none. ACTIVATION PROCEDURE: Photic stimulation did evoke a posterior driving response at multiple flash frequencies. There is no abnormality during the photic stimulation. Hyperventilation is not performed. CLINICAL INTERPRETATION: This is an abnormal routine EEG. The background slowing is suggestive of mild encephalopathy. There are no focal slowing, epileptiform discharge or seizure on the EEG. Clinical correlation is recommended. DEA / YANNI: [id number] / MTDD
--- NOTE | 2020-08-24 15:36 | P.DS ---
<Gavino Orellana - Last Filed: 08/24/20 15:27> Hospital Course: Discharge Diagnosis: New-onset seizure, possibly secondary to electrolyte abnormalities with significant hypomagnesemia Displaced chip fracture of the superior right patella. Hypomagnesemia Hypokalemia Hypertension Diabetes mellitus Dementia SIADH GERD Hyperlipidemia Hospital Course: Patient is a 69-year-old female with a past medical history of hypertension, hyperlipidemia, diabetes mellitus type 2, SIADH, GERD, and dementia. She presented to the emergency department after having a new onset seizure witnessed at home by her son lasting approximately 1 minute. Per ED report patient arrived to the hospital in a postictal state and shortly after had another witnessed seizure by ED staff reported to tonic-clonic motions lasting approximately 90 seconds. Patient was found to have significant hypomagnesemia with a magnesium of 1.1 and hypokalemia with potassium of 3.3. A CT of her head was completed showing no acute intercranial abnormalities. An EKG was completed revealing normal sinus rhythm at 78 bpm with a sinus arrhythmia. X-ray left knee also completed revealing an old fracture of the patella with an acute large displaced chip fracture of the superior patella. CBC and liver profile unremarkable. Covid 19 PCR negative. Patient was given loading dose of Keppra 1000 mg along with magnesium replacement and admitted under our services for evaluation of new onset seizure and severe hypomagnesemia. Neurology and orthopedic surgery on consult. 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 Orthopedic surgery placed patient in knee immobilizer, recommended weightbearing as tolerated in for patient to follow-up outpatient in our office. MRI of brain with and without contrast revealed mild to moderate diffuse cerebral atrophy and chronic small vessel ischemic changes, no suspicious enhancement noted. He reported an abnormal routine EEG showing mild background slowing suggestive of mild encephalopathy, no focal slowing or epileptiform discharge or seizure on the EEG. Patient cleared by neurology and instructed to follow-up outpatient in the office in one week. Patient to continue Keppra 500 mg twice a day and being discharged home on oral magnesium and potassium supplements. Patient given prescription to follow up outpatient to have electrolyte levels drawn with results to go to PCP. Patient being discharged home into care of family with residential home health. Please refer to progress note completed earlier today to review of old detailed physical assessment. A total of 45 minutes of time were spent preparing this complex discharge summary. Assessment: I reviewed the documentation as provided by the HOLDEN above, who is the original author of this note. I agree with the documented assessment and plan, with the following changes: None Patient Condition at Discharge: Stable Plan - Discharge Summary New Discharge Prescriptions: New Potassium Chloride ER [K-Dur 10] 10 meq PO DAILY 30 Days #30 tab levETIRAcetam [Keppra] 500 mg PO Q12HR 30 Days #60 tab Magnesium Oxide [Magox 400] 400 mg PO DAILY #30 tablet Continue metFORMIN HCL [Glucophage] 500 mg PO BID Aspirin EC [Ecotrin] 325 mg PO DAILY Metoprolol Tartrate [Lopressor] 100 mg PO BID Montelukast Sodium [Singulair] 10 mg PO DAILY ALPRAZolam [Xanax] 0.25 mg PO BID Donepezil [Aricept] 10 mg PO DAILY Cholecalciferol [Vitamin D3 (25 Mcg = 1000 Iu)] 25 mcg PO DAILY Tamsulosin [Flomax] 0.4 mg PO DAILY Furosemide [Lasix] 20 mg PO DAILY 30 Days #30 tab Discharge Medication List metFORMIN HCL [Glucophage] 500 mg PO BID 06/23/17 [History] Aspirin EC [Ecotrin] 325 mg PO DAILY 04/02/20 [History] Metoprolol Tartrate [Lopressor] 100 mg PO BID 04/02/20 [History] Montelukast Sodium [Singulair] 10 mg PO DAILY 04/02/20 [History] ALPRAZolam [Xanax] 0.25 mg PO BID 07/14/20 [History] Tamsulosin [Flomax] 0.4 mg PO DAILY 07/14/20 [History] Cholecalciferol [Vitamin D3 (25 Mcg = 1000 Iu)] 25 mcg PO DAILY 07/24/20 [History] Donepezil [Aricept] 10 mg PO DAILY 07/24/20 [History] Furosemide [Lasix] 20 mg PO DAILY 30 Days #30 tab 08/03/20 [Rx] Magnesium Oxide [Magox 400] 400 mg PO DAILY #30 tablet 08/24/20 [Rx] Potassium Chloride ER [K-Dur 10] 10 meq PO DAILY 30 Days #30 tab 08/24/20 [Rx] levETIRAcetam [Keppra] 500 mg PO Q12HR 30 Days #60 tab 08/24/20 [Rx] Follow up Appointment(s)/Referral(s): Vicky Fabian MD [Primary Care Provider] - 1-2 days (Office will call patients son to make an appointment.) Yobany Fernando MD [STAFF PHYSICIAN] - 09/02/20 1:00 pm Tray Marino PAC [PHYSICIAN DATA MANAGEMENT] - 09/09/20 2:00 pm Radha Childers MD [REFERRING] - 1 Week (Office will call patient to make the follow up appointment.) [facility] [NON-STAFF] - 1 Week Ambulatory/Diagnostic Orders: Comprehensive Metabolic Panel [LAB.AMB] Time Frame: 3 Days, Location: None Selected Magnesium [LAB.AMB] Time Frame: 3 Days, Location: None Selected Patient Instructions/Handouts: Seizure/Epilepsy Discharge Instructions & Follow-Up, Potassium Supplement (By mouth), Levetiracetam (By mouth), Magnesium Oxide (By mouth), Heart Healthy Diet (DC), Hypomagnesemia (DC), Knee Immobilizer (DC), Comprehensive Metabolic Panel (GEN) Activity/Diet/Wound Care/Special Instructions: Activity: As tolerated, requires 24-hour supervision. Diet: Heart healthy diet Special Instructions: Make sure to take medications daily as directed without missing any doses. It is very important to follow up with neurologist in 1 week as scheduled for recommended sleep deprived EEG as an outpatient. Seizure precautions, avoid ladders or swimming/bathing alone. Requires 24-hour supervision. Orthopedic discharge instructions: Wear knee immobilizer at all times on right lower extremity keep right lower extremity straight May weight-bear as tolerated on right lower extremity with knee immobilizer Ice rest and elevate for pain and swelling control Take pain meds only as needed Discharge Disposition: HOME WITH HOME HEALTH SERVICES <Misha Milton - Last Filed: 08/24/20 17:23> Providers Date of admission: 08/21/20 17:49 Expected date of discharge: 08/24/20 Attending physician: Idalmis Puri DO Consults: 08/21/20 17:50 Consult Physician Routine Consulting Provider: Cody Coelho Consult Reason/Comments: New onset seizure Do you want consulting provider notified?: Yes 08/22/20 11:48 Consult Physician Routine Consulting Provider: Charles Ortega Consult Reason/Comments: X-ray left knee revealing acute Lg displaced chip fracture superior patella Do you want consulting provider notified?: Yes Primary care physician: Vicky Fabian
== END 2020-08-24 17:46 | disposition home health service (06) | DRG 101 ==
LOC: EC 15:46 → 5NMEDONC 17:49
PROVIDERS: ADMIT Internal Medicine; ATTEND Internal Medicine
DX: R56.9 Unspecified convulsions (principal); S82.009A Unspecified fracture of unspecified patella, initial encounter for closed fracture; E22.2 Syndrome of inappropriate secretion of antidiuretic hormone; F03.90 Unspecified dementia, unspecified severity, without behavioral disturbance, psychotic disturbance, mood disturbance, and anxiety; E11.9 Type 2 diabetes mellitus without complications; Z20.822 Contact with and (suspected) exposure to COVID-19; E83.42 Hypomagnesemia; E78.5 Hyperlipidemia, unspecified; E87.6 Hypokalemia; I10 Essential (primary) hypertension; K21.9 Gastro-esophageal reflux disease without esophagitis; F32.9 Major depressive disorder, single episode, unspecified; M79.7 Fibromyalgia; Z79.82 Long term (current) use of aspirin; Z79.84 Long term (current) use of oral hypoglycemic drugs; Z79.899 Other long term (current) drug therapy; Z90.49 Acquired absence of other specified parts of digestive tract; Z90.710 Acquired absence of both cervix and uterus; Z90.89 Acquired absence of other organs; Z98.51 Tubal ligation status; Z98.41 Cataract extraction status, right eye; Z96.652 Presence of left artificial knee joint; Z87.448 Personal history of other diseases of urinary system; Z86.19 Personal history of other infectious and parasitic diseases; Z87.81 Personal history of (healed) traumatic fracture; Z98.890 Other specified postprocedural states; W18.30XA Fall on same level, unspecified, initial encounter; Z80.9 Family history of malignant neoplasm, unspecified
CPT/HCPCS: 36415; 70450; 70553; 80048; 80053; 80306; 80320; 82607; 82746; 83036; 83735; 85025; 85027; 86780; 87635; 93005; 95819; 96361; 96374; 96375; 99285

== ENCOUNTER 2020-08-29 06:53 | Inpatient (IN) | payer MEDICARE ==
[2020-08-29] MEDS ORDERED: ACETAMINOPHEN TAB 325 MG TAB PO STA (07:02)
[2020-08-29] MEDS ORDERED: SODIUM CHLORIDE 0.9% 1,000 ML IV STA ×2 (07:02)
--- NOTE | 2020-08-29 07:11 | ED ---
General Adult HPI <Jean Pierre Monterroso - Last Filed: 08/29/20 09:03> - General Source: patient, EMS, RN notes reviewed, old records reviewed Mode of arrival: EMS Limitations: altered mental status <Angeles Quintero - Last Filed: 08/29/20 09:09> - General Chief complaint: Weakness Stated complaint: Weakness Time Seen by Provider: 08/29/20 06:53 - History of Present Illness Initial comments: This patient's a 69-year-old female history of dementia recently admitted the hospital for new onset seizure. Possibly related to hypokalemia and hypomagnesemia. Recent hospitalization Patient had thorough evaluation including MRI of the brain and EEGs. She was discharged on Keppra. Family contacted EMS today due to continued weakness. Due to history of dementia she is a poor story in. Patient has evidence of bruises over her right adventist and right mandible and does not remember and she fell however these do appear to be recent. Patient's denying any pain, including chest pain, abdominal pain. She does report she does have right knee pain and swelling and upon review of the chart she has a patellar chip fracture. She was not any immobilizer and she arrived to the ER today. (Angeles Quintero) - Related Data Home Medications Medication Instructions Recorded Confirmed metFORMIN HCL [Glucophage] 500 mg PO BID 06/23/17 08/21/20 Aspirin EC [Ecotrin] 325 mg PO DAILY 04/02/20 08/21/20 Metoprolol Tartrate [Lopressor] 100 mg PO BID 04/02/20 08/21/20 Montelukast Sodium [Singulair] 10 mg PO DAILY 04/02/20 08/21/20 ALPRAZolam [Xanax] 0.25 mg PO BID 07/14/20 08/21/20 Tamsulosin [Flomax] 0.4 mg PO DAILY 07/14/20 08/21/20 Cholecalciferol [Vitamin D3 (25 25 mcg PO DAILY 07/24/20 08/21/20 Mcg = 1000 Iu)] Donepezil [Aricept] 10 mg PO DAILY 07/24/20 08/21/20 Previous Rx's Medication Instructions Recorded Furosemide [Lasix] 20 mg PO DAILY 30 Days #30 tab 08/03/20 Magnesium Oxide [Magox 400] 400 mg PO DAILY #30 tablet 08/24/20 Potassium Chloride ER [K-Dur 10] 10 meq PO DAILY 30 Days #30 tab 08/24/20 levETIRAcetam [Keppra] 500 mg PO Q12HR 30 Days #60 tab 08/24/20 Allergies Allergy/AdvReac Type Severity Reaction Status Date / Time No Known Allergies Allergy Verified 08/21/20 17:53 Review of Systems ROS Other: All systems not noted in ROS Statement are negative. <Jean Pierre Monterroso - Last Filed: 08/29/20 09:03> ROS Other: All systems not noted in ROS Statement are negative. <Angela Quinteroily - Last Filed: 08/29/20 09:09> ROS Statement: Those systems with pertinent positive or pertinent negative responses have been documented in the HPI. Past Medical History Past Medical History: Dementia, Diabetes Mellitus, GERD/Reflux, Hyperlipidemia, Hypertension Additional Past Medical History / Comment(s): FIBROMYALGIA History of Any Multi-Drug Resistant Organisms: Unobtainable Date of last positivie culture/infection: 08/01/20 MDRO Source:: urine Past Surgical History: Adenoidectomy, Appendectomy, Cholecystectomy, Hysterectomy, Tonsillectomy, Tubal Ligation Additional Past Surgical History / Comment(s): CARARACT RT EYE 07/02/2013, bladder suspension, repair of the fracture, left knee replacement Past Anesthesia/Blood Transfusion Reactions: Motion Sickness, Postoperative Nausea & Vomiting (PONV) Past Psychological History: Depression Smoking Status: Never smoker Past Alcohol Use History: None Reported Past Drug Use History: None Reported - Past Family History Mother Family Medical History: Cancer <LeonAngeles - Last Filed: 08/29/20 09:09> General Exam Limitations: altered mental status General appearance: alert, in no apparent distress Head exam: Present: normocephalic, other (Patient has contusion of the right adventist.). Absent: atraumatic, normal inspection Eye exam: Present: normal appearance, PERRL, EOMI. Absent: scleral icterus, conjunctival injection, periorbital swelling ENT exam: Present: mucous membranes moist, other (Pt has 5cm area of contusion over the right mandible.). Absent: normal exam Neck exam: Present: normal inspection. Absent: tenderness, meningismus, lymphadenopathy Respiratory exam: Present: normal lung sounds bilaterally. Absent: respiratory distress, wheezes, rales, rhonchi, stridor Cardiovascular Exam: Present: regular rate, normal rhythm, normal heart sounds. Absent: systolic murmur, diastolic murmur, rubs, gallop, clicks GI/Abdominal exam: Present: soft, normal bowel sounds. Absent: distended, tenderness, guarding, rebound, rigid Extremities exam: Present: full ROM, normal capillary refill. Absent: normal inspection, tenderness, pedal edema, joint swelling, calf tenderness Right Upper Leg exam: Present: normal inspection, full ROM Knee exam: Present: tenderness, swelling. Absent: normal inspection Lower Leg exam: Present: normal inspection, full ROM Ankle exam: Present: normal inspection, full ROM Neurovascular tendon exam: Present: no vascular compromise Back exam: Present: normal inspection Neurological exam: Present: alert (A and O X2 ), CN II-XII intact Psychiatric exam: Present: normal affect, normal mood Skin exam: Present: warm, dry, intact, normal color. Absent: rash <Angeles Quintero - Last Filed: 08/29/20 09:09> - General Exam Comments Initial Comments: Patient is a 69-year-old female with dementia. Alert and oriented 2. Patient has fever 101.3. (Angeles Quintero) Course <Jean Pierre Monterroso - Last Filed: 08/29/20 09:03> Vital Signs 08/29/20 08/29/20 06:54 08:28 Temperature 101.3 F H 100.5 F H Pulse Rate 55 L 54 L Respiratory 16 18 Rate Blood Pressure 164/62 156/84 O2 Sat by Pulse 97 98 Oximetry - Reevaluation(s) Reevaluation #1: 08/29/20 09:04 PA supervision did personally evaluate this case patient was recently admitted to this facility today the patient was brought in for evaluation for weakness patient does have dementia and is a poor historian she is found have evidence of UTI and hypomagnesemia. He does have a fever. Patient will be admitted for inpatient evaluation and treatment IV antibiotics. I do agree with the assessm ent and plan. (Jean Pierre Monterroso) Medical Decision Making - Lab Data Result diagrams: 08/29/20 07:13 08/29/20 07:13 <Jean Pierre Monterroso - Last Filed: 08/29/20 09:03> - Lab Data Result diagrams: 08/29/20 07:13 08/29/20 07:13 - Radiology Data Radiology results: report reviewed <LeonAngeles - Last Filed: 08/29/20 09:09> - Medical Decision Making Patient is a 69-year-old female with a history of dementia with recent development of seizures. She has been the last week for seizure evaluation and is also found to have a right patellar chip fracture of the right knee and swelling. She arrived to the emergency department today she had a fever 101.3. And was brought in for generalized weakness. She denied any complaints of pain. Sepsis workup was completed and she does have evidence of urinary tract infection. She was given IV Rocephin. Her magnesium is low again at 1.3 and this was requested 1 g of magnesium sulfate. I discussed this with Dr. Monterroso, whom also examined Patient. Patient will be admitted at this time after discussing with Dr. Hamlin. I did contact patient son Milton, whom is aware of mother in hospital. (Angeles Miranda) - Lab Data Lab Results 08/29/20 08/29/20 08/29/20 Range/Units 07:13 07:13 07:13 WBC 11.2 H (3.8-10.6) k/uL RBC 4.56 (3.80-5.40) m/uL Hgb 11.9 (11.4-16.0) gm/dL Hct 34.7 (34.0-46.0) % MCV 76.0 L (80.0-100.0) fL MCH 26.0 (25.0-35.0) pg MCHC 34.3 (31.0-37.0) g/dL RDW 15.3 (11.5-15.5) % Plt Count 276 (150-450) k/uL MPV 6.5 Neutrophils % 87 % Lymphocytes % 6 % Monocytes % 6 % Eosinophils % 1 % Basophils % 0 % Neutrophils # 9.8 H (1.3-7.7) k/uL Lymphocytes # 0.6 L (1.0-4.8) k/uL Monocytes # 0.7 (0-1.0) k/uL Eosinophils # 0.1 (0-0.7) k/uL Basophils # 0.0 (0-0.2) k/uL Microcytosis Slight PT 10.5 (9.0-12.0) sec INR 1.0 (<1.2) APTT 17.8 L (22.0-30.0) sec Sodium (137-145) mmol/L Potassium (3.5-5.1) mmol/L Chloride (98-107) mmol/L Carbon Dioxide (22-30) mmol/L Anion Gap mmol/L BUN (7-17) mg/dL Creatinine (0.52-1.04) mg/dL Est GFR (CKD-EPI)AfAm (>60 ml/min/1.73 sqM) Est GFR (CKD-EPI)NonAf (>60 ml/min/1.73 sqM) Glucose (74-99) mg/dL Plasma Lactic Acid Matty (0.7-2.0) mmol/L Calcium (8.4-10.2) mg/dL Phosphorus (2.5-4.5) mg/dL Magnesium (1.6-2.3) mg/dL Total Bilirubin (0.2-1.3) mg/dL AST (14-36) U/L ALT (4-34) U/L Alkaline Phosphatase (38-126) U/L Troponin I (0.000-0.034) ng/mL Total Protein (6.3-8.2) g/dL Albumin (3.5-5.0) g/dL Urine Color Yellow Urine Appearance Turbid H (Clear) Urine pH 6.0 (5.0-8.0) Ur Specific [place] 1.010 (1.001-1.035) Urine Protein 1+ H (Negative) Urine Glucose (UA) Negative (Negative) Urine Ketones Negative (Negative) Urine Blood Small H (Negative) Urine Nitrite Positive H (Negative) Urine Bilirubin Negative (Negative) Urine Urobilinogen <2.0 (<2.0) mg/dL Ur Leukocyte Esterase Large H (Negative) Urine RBC 14 H (0-5) /hpf Urine WBC >182 H (0-5) /hpf Urine WBC Clumps Occasional H (None) /hpf Amorphous Sediment Rare H (None) /hpf Urine Bacteria Many H (None) /hpf Coronavirus (PCR) (Not Detectd) 08/29/20 08/29/20 08/29/20 Range/Units 07:13 07:13 07:13 WBC (3.8-10.6) k/uL RBC (3.80-5.40) m/uL Hgb (11.4-16.0) gm/dL Hct (34.0-46.0) % MCV (80.0-100.0) fL MCH (25.0-35.0) pg MCHC (31.0-37.0) g/dL RDW (11.5-15.5) % Plt Count (150-450) k/uL MPV Neutrophils % % Lymphocytes % % Monocytes % % Eosinophils % % Basophils % % Neutrophils # (1.3-7.7) k/uL Lymphocytes # (1.0-4.8) k/uL Monocytes # (0-1.0) k/uL Eosinophils # (0-0.7) k/uL Basophils # (0-0.2) k/uL Microcytosis PT (9.0-12.0) sec INR (<1.2) APTT (22.0-30.0) sec Sodium 131 L (137-145) mmol/L Potassium 3.8 (3.5-5.1) mmol/L Chloride 95 L (98-107) mmol/L Carbon Dioxide 27 (22-30) mmol/L Anion Gap 9 mmol/L BUN 7 (7-17) mg/dL Creatinine 0.62 (0.52-1.04) mg/dL Est GFR (CKD-EPI)AfAm >90 (>60 ml/min/1.73 sqM) Est GFR (CKD-EPI)NonAf >90 (>60 ml/min/1.73 sqM) Glucose 169 H (74-99) mg/dL Plasma Lactic Acid Matty 1.5 (0.7-2.0) mmol/L Calcium 9.5 (8.4-10.2) mg/dL Phosphorus 2.7 (2.5-4.5) mg/dL Magnesium 1.3 L (1.6-2.3) mg/dL Total Bilirubin 0.9 (0.2-1.3) mg/dL AST 20 (14-36) U/L ALT 11 (4-34) U/L Alkaline Phosphatase 133 H (38-126) U/L Troponin I <0.012 (0.000-0.034) ng/mL Total Protein 6.7 (6.3-8.2) g/dL Albumin 3.9 (3.5-5.0) g/dL Urine Color Urine Appearance (Clear) Urine pH (5.0-8.0) Ur Specific [place] (1.001-1.035) Urine Protein (Negative) Urine Glucose (UA) (Negative) Urine Ketones (Negative) Urine Blood (Negative) Urine Nitrite (Negative) Urine Bilirubin (Negative) Urine Urobilinogen (<2.0) mg/dL Ur Leukocyte Esterase (Negative) Urine RBC (0-5) /hpf Urine WBC (0-5) /hpf Urine WBC Clumps (None) /hpf Amorphous Sediment (None) /hpf Urine Bacteria (None) /hpf Coronavirus (PCR) (Not Detectd) 08/29/20 Range/Units 07:13 WBC (3.8-10.6) k/uL RBC (3.80-5.40) m/uL Hgb (11.4-16.0) gm/dL Hct (34.0-46.0) % MCV (80.0-100.0) fL MCH (25.0-35.0) pg MCHC (31.0-37.0) g/dL RDW (11.5-15.5) % Plt Count (150-450) k/uL MPV Neutrophils % % Lymphocytes % % Monocytes % % Eosinophils % % Basophils % % Neutrophils # (1.3-7.7) k/uL Lymphocytes # (1.0-4.8) k/uL Monocytes # (0-1.0) k/uL Eosinophils # (0-0.7) k/uL Basophils # (0-0.2) k/uL Microcytosis PT (9.0-12.0) sec INR (<1.2) APTT (22.0-30.0) sec Sodium (137-145) mmol/L Potassium (3.5-5.1) mmol/L Chloride (98-107) mmol/L Carbon Dioxide (22-30) mmol/L Anion Gap mmol/L BUN (7-17) mg/dL Creatinine (0.52-1.04) mg/dL Est GFR (CKD-EPI)AfAm (>60 ml/min/1.73 sqM) Est GFR (CKD-EPI)NonAf (>60 ml/min/1.73 sqM) Glucose (74-99) mg/dL Plasma Lactic Acid Matty (0.7-2.0) mmol/L Calcium (8.4-10.2) mg/dL Phosphorus (2.5-4.5) mg/dL Magnesium (1.6-2.3) mg/dL Total Bilirubin (0.2-1.3) mg/dL AST (14-36) U/L ALT (4-34) U/L Alkaline Phosphatase (38-126) U/L Troponin I (0.000-0.034) ng/mL Total Protein (6.3-8.2) g/dL Albumin (3.5-5.0) g/dL Urine Color Urine Appearance (Clear) Urine pH (5.0-8.0) Ur Specific [place] (1.001-1.035) Urine Protein (Negative) Urine Glucose (UA) (Negative) Urine Ketones (Negative) Urine Blood (Negative) Urine Nitrite (Negative) Urine Bilirubin (Negative) Urine Urobilinogen (<2.0) mg/dL Ur Leukocyte Esterase (Negative) Urine RBC (0-5) /hpf Urine WBC (0-5) /hpf Urine WBC Clumps (None) /hpf Amorphous Sediment (None) /hpf Urine Bacteria (None) /hpf Coronavirus (PCR) Not Detected (Not Detectd) 08/29/20 08:29 Sinus bradycardia with premature super ventricular complexes. Anterior infarct age indeterminate. Abnormal EKG. Ventricular rate 53 bpm. WA interval 148 ms. QS shinto is 74 ms. QT QTc is 426/399 ms. (Angeles Quintero) - Radiology Data CXR is negative for acute process. ct brain and c spine: There is no acute fracture dislocation evident cervical spine. No acute injury cranial hemorrhage mass effect or midline shift is seen. CT facial bones: the sinus are clear and the osiomeatal complex is patent bilaterally. The mandible is intact, soft tissue injury. Correlate for polyp disease the anterior nasal region on the right as described. (Angeles Quintero) Disposition <Jean Pierre Monterroso - Last Filed: 08/29/20 09:03> Is patient prescribed a controlled substance at d/c from ED?: No Time of Disposition: 09:09 <Angeles Quintero - Last Filed: 08/29/20 09:09> Clinical Impression: UTI (urinary tract infection), Hypomagnesemia, Generalized weakness, Swelling of right knee joint, Fever Disposition: ADMITTED IP TO THIS HOSP Condition: Stable Referrals: Vicky Fabian MD [Primary Care Provider] - 1-2 days
[2020-08-29 07:42] LABS: Amorphous Sediment,Urine Rare /hpf; Appearance,Urine Turbid (Clear); Bacteria,Urine Many /hpf; Basophils % (A) 0 %; Bilirubin,Urine Negative (Negative); Blood,Urine Small (Negative); Color,Urine Yellow; Eosinophils # (A) 0.1 k/uL (0-0.7); Eosinophils % (A) 1 %; Glucose,Urine (UA) Negative (Negative); HCT 34.7 % (34.0-46.0); HGB 11.9 gm/dL (11.4-16.0); Ketones,Urine Negative (Negative); Leukocyte Esterase,Urine Large (Negative); Lymphocytes # (A) 0.6 k/uL (1.0-4.8); Lymphocytes % (A) 6 %; MCHC 34.3 g/dL (31.0-37.0); Mean Platelet Volume 6.5; Microcytosis Slight; Monocytes # (A) 0.7 k/uL (0-1.0); Monocytes % (A) 6 %; Neutrophils # (A) 9.8 k/uL (1.3-7.7); Neutrophils % (A) 87 %; Nitrite,Urine Positive (Negative); Platelet Count 276 k/uL (150-450); Protein,Urine 1+ (Negative); RBC 4.56 m/uL (3.80-5.40); RBC,Urine 14 /hpf (0-5); RDW 15.3 % (11.5-15.5); Urobilinogen,Urine <2.0 mg/dL (<2.0); WBC 11.2 k/uL (3.8-10.6); WBC,Urine >182 /hpf (0-5)
[2020-08-29 08:03] LABS: ALT 11 U/L (4-34); AST 20 U/L (14-36); African American GFR (CKD) >90 (>60 ml/min/1.73 sqM); Albumin 3.9 g/dL (3.5-5.0); Alkaline Phosphatase 133 U/L (38-126); Anion Gap 9 mmol/L; Blood Urea Nitrogen 7 mg/dL (7-17); Calcium 9.5 mg/dL (8.4-10.2); Carbon Dioxide 27 mmol/L (22-30); Chloride 95 mmol/L (98-107); Glucose 169 mg/dL (74-99); Magnesium 1.3 mg/dL (1.6-2.3); Non-African American GFR(CKD) >90 (>60 ml/min/1.73 sqM); Phosphorus 2.7 mg/dL (2.5-4.5); Potassium 3.8 mmol/L (3.5-5.1); Sodium 131 mmol/L (137-145); Total Bilirubin 0.9 mg/dL (0.2-1.3); Total Protein 6.7 g/dL (6.3-8.2)
--- NOTE | 2020-08-29 08:06 | XR ---
EXAMINATION TYPE: XR chest 2V DATE OF EXAM: 08/29/2020 COMPARISON: Prior chest x-ray dated 07/14/2020 HISTORY: Weakness TECHNIQUE: Frontal and lateral views of the chest are obtained. FINDINGS: There is no focal air space opacity, pleural effusion, or pneumothorax seen. Strand-like densities at the left lung base likely reflects scarring. There are overlying leads. The cardiac silh ouette size is within normal limits. The osseous structures are intact. IMPRESSION: No acute cardiopulmonary process.
[2020-08-29 08:11] LABS: Prothrombin Time 10.5 sec (9.0-12.0)
--- NOTE | 2020-08-29 08:16 | CT ---
EXAMINATION TYPE: CT brain cspine wo con DATE OF EXAM: 08/29/2020 COMPARISON: CT brain 08/21/2020 HISTORY: bruising to Rt sided mandible, trauma and pain CT DLP: 1115.1 mGycm Automated exposure control for dose reduction was used. TECHNIQUE: CT scan of the head and cervical spine are performed without contrast. FINDINGS: There is no acute intracranial hemorrhage, mass effect, or midline shift identified. The ventricles and sulci are within normal limits in size. Periventricular white matter again shows patc hy low attenuation, there is stable cortical atrophy, calcification within the basal ganglia and cere bral vascular calcifications The globes are intact and the visualized sinuses are clear. Abnormal sof t tissue noted in the anterior nasal region may represent polyp disease. Cervical spine is visualized in its entirety from C1 through upper thoracic levels and demonstrates n ear-anatomic alignment without evidence of acute fracture or dislocation. There are facet arthropath y changes, multilevel spondylosis, loss of disc height present at intervertebral levels consistent wi th disc desiccation and degenerative disc disease Prevertebral soft tissue appears within normal limi ts. The C1-C2 articulation is unremarkable. There is multilevel spondylosis. There is increased att enuation within the soft tissues in the submandibular location on the right likely representing ecchy mosis, there is some associated skin thickening. IMPRESSION: 1. There is no acute fracture or dislocation evident in the cervical spine. 2. No acute intracranial hemorrhage, mass effect, or midline shift is seen.
[2020-08-29] MEDS ORDERED: cefTRIAXone IN SWFI 1,000 MG/10 ML SYRINGE IVP STA (08:21)
[2020-08-29] MEDS ORDERED: MAGNESIUM SULFATE-D5W PMX 1 GM in DEXTROSE/WATER 1 100ML.BAG IVPB ONE (08:22)
[2020-08-29 08:27] LABS: Partial Thromboplastin Time 17.8 sec (22.0-30.0)
--- NOTE | 2020-08-29 08:35 | CT ---
EXAMINATION TYPE: CT facial bones wo con DATE OF EXAM: 08/29/2020 COMPARISON: Abnormal CT same date HISTORY: bruising to Rt sided mandible, trauma and pain CT DLP: 1115.1 mGycm Automated exposure control for dose reduction was used. TECHNIQUE: CT scan of the sinuses is performed without contrast, axial images are obtained, coronal r eformatted images are also reviewed. FINDINGS: The paranasal sinuses including the frontal, ethmoid, sphenoid, and maxillary sinuses bila terally are well-aerated without abnormal opacification. The ostiomeatal complex is patent bilateral ly on the coronal images. There is abnormal soft tissue present within the anterior nasal region whic h may represent polyp disease on the right, some local bone thinning is present which may be due to b one remodeling. Dental amalgam causes streak artifact. Some degenerative change present at the tempor omandibular joints. Soft tissue swelling is noted in the submandibular location consistent with patie nt's history of trauma, ecchymosis, edema Visualized portion of mastoid air cells show no abnormal opacification. The globes are intact bilate rally. IMPRESSION: The sinuses are clear and the ostiomeatal complex is patent bilaterally. The mandible is intact, soft tissue injury. Correlate for polyp disease the anterior nasal region on the right as de scribed.
[2020-08-29] MEDS ORDERED: ONDANSETRON 4 MG/2 ML VIAL IVP PRN (09:09)
[2020-08-29] MEDS ORDERED: IBUPROFEN 400 MG TAB PO PRN (09:09)
[2020-08-29] MEDS ORDERED: NALOXONE 0.4 MG/ML 1 ML VIAL IV PRN (09:09)
[2020-08-29] MEDS ORDERED: LORazepam 2 MG/ML INJ IV PRN (09:09)
[2020-08-29] MEDS ORDERED: HYDROcodone/APAP 5-325MG 1 EACH TAB PO PRN (09:09)
[2020-08-29] MEDS ORDERED: ACETAMINOPHEN TAB 325 MG TAB PO PRN (09:09)
[2020-08-29] MEDS: ERTAPENEM 1 GM in SODIUM CHLORIDE 0.9% 50 ML IVPB SCH (10:30)
--- NOTE | 2020-08-29 10:40 | P.HPIM ---
History of Present Illness H&P Date: 08/29/20 Chief Complaint: Weakness This is a 69-year-old female with past medical history noted below significant for underlying dementia that presented to the emergency room with weakness. She is unable to provide any history given her underlying dementia. Patient is oriented to herself and to the place. She told me that she is feeling fine and does not have any complaints. According to ER reports, family members called EMS as patient is been progressively weak and had multiple falls in the recent past. Patient had extensive imaging in the ER that was unremarkable for any acute findings. He should herself denies any pain. Patient was recently discharged from the hospital after being treated for a new onset seizure and electrolyte abnormalities. Patient told me that she lives with her cousin who is her primary caregiver. She was evaluated in the ER and was found to have evidence of UTI. Straight catheterization in the ER showed 400 him and of urine. Recent urine culture during last admission grew ESBL E. coli. Patient is septic without septic shock. She was started on IV fluid hydration and will be admitted to the hospital for further management. Review of Systems Review of system: 14 points review of systems were obtained and were negative except to what were mentioned in the HPI. Past Medical History Past Medical History: Dementia, Diabetes Mellitus, GERD/Reflux, Hyperlipidemia, Hypertension Additional Past Medical History / Comment(s): FIBROMYALGIA History of Any Multi-Drug Resistant Organisms: Unobtainable Date of last positivie culture/infection: 08/01/20 MDRO Source:: urine Past Surgical History: Adenoidectomy, Appendectomy, Cholecystectomy, Hyst erectomy, Tonsillectomy, Tubal Ligation Additional Past Surgical History / Comment(s): CARARACT RT EYE 07/02/2013, bladder suspension, repair of the fracture, left knee replacement Past Anesthesia/Blood Transfusion Reactions: Motion Sickness, Postoperative Nausea & Vomiting (PONV) Past Psychological History: Depression Smoking Status: Never smoker Past Alcohol Use History: None Reported Past Drug Use History: None Reported - Past Family History Mother Family Medical History: Cancer Medications and Allergies Home Medications Medication Instructions Recorded Confirmed Type metFORMIN HCL [Glucophage] 500 mg PO BID 06/23/17 08/29/20 History Aspirin EC [Ecotrin] 325 mg PO DAILY 04/02/20 08/29/20 History Metoprolol Tartrate [Lopressor] 100 mg PO BID 04/02/20 08/29/20 History Montelukast Sodium [Singulair] 10 mg PO DAILY 04/02/20 08/29/20 History ALPRAZolam [Xanax] 0.25 mg PO BID 07/14/20 08/29/20 History Tamsulosin [Flomax] 0.4 mg PO DAILY 07/14/20 08/29/20 History Cholecalciferol [Vitamin D3 (25 25 mcg PO DAILY 07/24/20 08/29/20 History Mcg = 1000 Iu)] Donepezil [Aricept] 10 mg PO DAILY 07/24/20 08/29/20 History Furosemide [Lasix] 20 mg PO DAILY 30 Days #30 tab 08/03/20 08/29/20 Rx Magnesium Oxide [Magox 400] 400 mg PO DAILY #30 tablet 08/24/20 08/29/20 Rx Potassium Chloride ER [K-Dur 10] 10 meq PO DAILY 30 Days #30 tab 08/24/20 08/29/20 Rx levETIRAcetam [Keppra] 500 mg PO Q12HR 30 Days #60 tab 08/24/20 08/29/20 Rx Allergies Allergy/AdvReac Type Severity Reaction Status Date / Time No Known Allergies Allergy Verified 08/29/20 09:49 Physical Exam Vitals: Vital Signs Temp Pulse Resp BP Pulse Ox 08/29/20 08:28 100.5 F H 54 L 18 156/84 98 08/29/20 06:54 101.3 F H 55 L 16 164/62 97 Intake and Output 08/28/20 08/29/20 08/29/20 22:59 06:59 14:59 Other: Weight 69.853 kg General: The patient is awake and alert, in no distress Eye: there is normal conjunctiva bilaterally. Neck: The neck is supple, there is no JVD. Cardiovascular: Normal S1-S2, no S3-S4, no murmurs. Respiratory: Lungs clear to auscultation bilaterally Gastrointestinal: Abdomen is soft, nontender Musculoskeletal: There is no pedal edema. Neurological:. Speech is normal. Skin: Skin is warm and dry Results CBC & Chem 7: 08/29/20 07:13 08/29/20 07:13 Labs: Abnormal Lab Results - Last 24 Hours (Table) 08/29/20 08/29/20 08/29/20 Range/Units 07:13 07:13 07:13 WBC 11.2 H (3.8-10.6) k/uL MCV 76.0 L (80.0-100.0) fL Neutrophils # 9.8 H (1.3-7.7) k/uL Lymphocytes # 0.6 L (1.0-4.8) k/uL APTT 17.8 L (22.0-30.0) sec Sodium (137-145) mmol/L Chloride (98-107) mmol/L Glucose (74-99) mg/dL Magnesium (1.6-2.3) mg/dL Alkaline Phosphatase (38-126) U/L Urine Appearance Turbid H (Clear) Urine Protein 1+ H (Negative) Urine Blood Small H (Negative) Urine Nitrite Positive H (Negative) Ur Leukocyte Esterase Large H (Negative) Urine RBC 14 H (0-5) /hpf Urine WBC >182 H (0-5) /hpf Urine WBC Clumps Occasional H (None) /hpf Amorphous Sediment Rare H (None) /hpf Urine Bacteria Many H (None) /hpf 08/29/20 Range/Units 07:13 WBC (3.8-10.6) k/uL MCV (80.0-100.0) fL Neutrophils # (1.3-7.7) k/uL Lymphocytes # (1.0-4.8) k/uL APTT (22.0-30.0) sec Sodium 131 L (137-145) mmol/L Chloride 95 L (98-107) mmol/L Glucose 169 H (74-99) mg/dL Magnesium 1.3 L (1.6-2.3) mg/dL Alkaline Phosphatase 133 H (38-126) U/L Urine Appearance (Clear) Urine Protein (Negative) Urine Blood (Negative) Urine Nitrite (Negative) Ur Leukocyte Esterase (Negative) Urine RBC (0-5) /hpf Urine WBC (0-5) /hpf Urine WBC Clumps (None) /hpf Amorphous Sediment (None) /hpf Urine Bacteria (None) /hpf Assessment and Plan Assessment: This is a 69-year-old female with complex past medical history noted below that presented to the emergency room with progressive weakness and fall at home. She was evaluated in the ER and will be admitted to the hospital for further management of her medical problems noted below 1. UTI: Recent urine culture grew ESBL E. coli. I'll start the patient on IV ertapenem and consult infectious disease for further evaluation. Awaiting urine culture from this presentation. 2. Sepsis without septic shock, lactic acid is normal. Continue aggressive IV fluid hydration. Repeat lab work in the morning 3. Urinary retention, straight cath in the ER showed 400 mL of urine. We will continue bladder scan every 8 hours and insert Lucia catheter if obstructive uropathy persist 4. Hypomagnesemia, replacement order 5. Type 2 diabetes: Hold home dose of metformin and continue sliding scale 6. Physical debility, PT/OT consulted. Patient may need placement 7. Underlying seizure disorder: Continue home dose of Keppra 8. Other medical problems, has dementia, GERD, hyperlipidemia, hypertension 9. DVT prophylaxis with subcu Lovenox
[2020-08-29] MEDS: SODIUM CHLORIDE 0.9% 1,000 ML IV SCH ×2 (10:44→17:27)
[2020-08-29 11:55] LABS: Glucose,Whole Blood 151 mg/dL (75-99)
[2020-08-29] MEDS: levETIRAcetam 500 MG TAB PO SCH ×2 (12:11→20:06)
[2020-08-29] MEDS: ASPIRIN 325 MG TAB PO SCH (12:11)
[2020-08-29] MEDS: DONEPEZIL 10 MG TAB PO SCH (12:12)
[2020-08-29] MEDS: INSULIN ASPART (NovoLOG) 100 UNIT/ML VIAL SQ SCH ×3 (12:28→21:35)
[2020-08-29 15:25] LABS: Glucose,Whole Blood 121 mg/dL (75-99)
[2020-08-29] MEDS: ALPRAZolam 0.25 MG TAB PO SCH ×2 (16:46→20:06)
[2020-08-29 17:35] LABS: Glucose,Whole Blood 93 mg/dL (75-99)
[2020-08-29] MEDS: METOPROLOL TARTRATE 50 MG TAB PO SCH (20:05)
[2020-08-29 21:33] LABS: Glucose,Whole Blood 168 mg/dL (75-99)
[2020-08-30 06:39] LABS: Basophils % (A) 0 %; Eosinophils % (A) 0 %; HCT 33.9 % (34.0-46.0); Lymphocytes # (A) 0.7 k/uL (1.0-4.8); Lymphocytes % (A) 8 %; MCH 25.4 pg (25.0-35.0); MCHC 32.6 g/dL (31.0-37.0); MCV 77.8 fL (80.0-100.0); Mean Platelet Volume 6.6; Monocytes # (A) 0.7 k/uL (0-1.0); Monocytes % (A) 7 %; Neutrophils % (A) 83 %; Platelet Count 254 k/uL (150-450); RBC 4.36 m/uL (3.80-5.40); RDW 15.4 % (11.5-15.5); WBC 9.6 k/uL (3.8-10.6)
--- NOTE | 2020-08-30 06:43 | CONS ---
CONSULTATION DATE OF SERVICE: 08/29/2020 REASON FOR CONSULTATION: ESBL E coli urinary tract infection. HISTORY OF PRESENT ILLNESS: The patient is a 69-year-old female with past medical history significant for dementia with recent admission to the hospital in patient with new onset of seizure for which the patient did have a workup done and was discharged on Keppra. Patient has been brought back to the hospital with the family calling EMS for continued weakness. The patient has been complaining of not feeling well and some mental status changes. The patient on presentation to the hospital was afebrile. Patient apparently did have a recent urine culture done on the that was positive for ESBL E coli, Enterococcus faecalis, however, no specific antibiotic therapy was recommended or prescribed on discharge. The patient at the time of my evaluation mentioned denies any headache The patient denies having any chest pain. No shortness of breath or cough. No nausea. No vomiting or abdominal pain. No diarrhea. REVIEW OF SYSTEMS: Positive points have been mentioned in HPI. The rest of the systems are negative. PAST MEDICAL HISTORY: Dementia, diabetes mellitus, hypertension, hyperlipidemia, gastroesophageal reflux disease, fibromyalgia and seizure disorder. PAST SURGICAL HISTORY: Hemorrhoidectomy, appendectomy, cholecystectomy, hysterectomy, tubal ligation, tonsillectomy. SOCIAL HISTORY: No history of smoking, drinking or drug use. FAMILY HISTORY: Mother with history of cancer. ALLERGIES: No known drug allergies. MEDICATIONS: The patient is currently on Tylenol, Xanax, aspirin, Aricept, Lovenox, ertapenem 1 g daily, Lasix, NovoLog, Keppra, Mag oxide, Lopressor, Singulair, Narcan, Zofran, K-Dur, IV fluid. PHYSICAL EXAMINATION: VITAL SIGNS: Blood pressure is 127/62 with a pulse of 50, temperature 99.9, T- max is 100.5. She is 99% on 2 L nasal cannula. GENERAL DESCRIPTION: Patient is an elderly female lying in bed in no distress. No tachypnea or accessory muscles of respiration use. HEENT: Examination shows slight pallor, no scleral icterus. Oral mucous membrane is dry. NECK: Trachea central, no thyromegaly. LUNGS: Unlabored breathing, clear to auscultation anteriorly. No wheeze or crackle. HEART: S1-S2, regular rate and rhythm. ABDOMEN: Soft, no tenderness. No guarding or rigidity. EXTREMITIES: No edema of the feet. SKIN: No rash or mass palpable. NEUROLOGICAL: Patient is awake, alert, oriented times two. Mood and affect normal. LABS: Hemoglobin is 11.9 with a white count of 11.2, BUN of 7, creatinine 0.62. Electrolytes normal. Liver enzymes are normal. Urine is positive with large leukocyte esterase, more than 1-2 WBC. Preston PCR was negative. Chest x-ray, no acute cardiopulmonary process. DIAGNOSTIC IMPRESSION: Patient admitted to the hospital with mental status changes, weakness in this patient who did have a low-grade fever of 100.5. Did have mild elevated white count, significant positive UA with likely component of symptomatic urinary tract infection with recent urine culture positive for Enterococcus, and ESBL E coli, more likely infected pathogen. PLAN: 1. Invanz 1 gram IVPB to continue. 2. Gentle IV fluid. 3. We will follow on clinical condition and culture to further adjust medication if needed. Thank you for this consultation. Will follow this patient along with you. MMODL / IJN: [id number] / EMILY
[2020-08-30 06:57] LABS: Glucose,Whole Blood 141 mg/dL (75-99)
[2020-08-30] MEDS: INSULIN ASPART (NovoLOG) 100 UNIT/ML VIAL SQ SCH ×4 (08:06→20:27)
[2020-08-30] MEDS: ENOXAPARIN 40 MG/0.4 ML SYRINGE SQ SCH (08:07)
[2020-08-30] MEDS: ALPRAZolam 0.25 MG TAB PO SCH ×2 (08:07→20:27)
[2020-08-30] MEDS: SODIUM CHLORIDE 0.9% 1,000 ML IV SCH (08:07)
[2020-08-30] MEDS: MONTELUKAST 10 MG TAB PO SCH (08:08)
[2020-08-30] MEDS: POTASSIUM CHLORIDE ER 10 MEQ TAB.ER.PRT PO SCH (08:08)
[2020-08-30] MEDS: FUROSEMIDE 20 MG TAB PO SCH (08:08)
[2020-08-30] MEDS: MAGNESIUM OXIDE 400 MG TAB PO SCH (08:08)
[2020-08-30] MEDS: METOPROLOL TARTRATE 50 MG TAB PO SCH (08:08)
[2020-08-30] MEDS: DONEPEZIL 10 MG TAB PO SCH (08:57)
[2020-08-30] MEDS: ASPIRIN 325 MG TAB PO SCH (08:57)
[2020-08-30] MEDS: levETIRAcetam 500 MG TAB PO SCH ×2 (08:57→20:27)
[2020-08-30 10:28] LABS: African American GFR (CKD) 107.8 (60.0-200.0); Anion Gap 10.5 mmol/L (4.00-12.00); BUN/Creat Ratio 8.33 Ratio (12.00-20.00); Calcium 9.2 mg/dL (8.7-10.3); Carbon Dioxide 23.5 mmol/L (21.6-31.8); Magnesium 1.5 mg/dL (1.5-2.4); Potassium 3.5 mmol/L (3.5-5.5)
[2020-08-30] MEDS: ERTAPENEM 1 GM in SODIUM CHLORIDE 0.9% 50 ML IVPB SCH (10:38)
--- NOTE | 2020-08-30 11:09 | P.PN ---
Subjective Progress Note Date: 08/30/20 Patient is awake and alert this morning. She does not have any complaints. Bladder scan this morning showed 255 mL of urine. Objective - Vital Signs Vital signs: Vital Signs Temp 98.3 F 08/30/20 04:48 Pulse 52 L 08/30/20 04:48 Resp 16 08/30/20 04:48 BP 174/72 08/30/20 04:48 Pulse Ox 100 08/30/20 04:48 Intake & Output 08/29/20 08/30/20 08/30/20 18:59 06:59 18:59 Weight 69.853 kg Other: Voiding Method Diaper Diaper Incontinent Incontinent # Voids 1 1 1 - Exam General: The patient is awake and alert, in no distress Eye: there is normal conjunctiva bilaterally. Neck: The neck is supple, there is no JVD. Cardiovascular: Normal S1-S2, no S3-S4, no murmurs. Respiratory: Lungs clear to auscultation bilaterally Gastrointestinal: Abdomen is soft, nontender Musculoskeletal: There is no pedal edema. Neurological:. Speech is normal. Skin: Skin is warm and dry - Labs CBC & Chem 7: 08/30/20 05:08/30/20 05:31 Labs: Abnormal Lab Results - Last 24 Hours (Table) 08/29/20 08/29/20 08/29/20 Range/Units 11:54 15:21 21:30 Hgb (11.4-16.0) gm/dL Hct (34.0-46.0) % MCV (80.0-100.0) fL Neutrophils # (1.3-7.7) k/uL Lymphocytes # (1.0-4.8) k/uL BUN (9.0-27.0) mg/dL BUN/Creatinine Ratio (12.00-20.00) Ratio Glucose (70-110) mg/dL POC Glucose (mg/dL) 151 H 121 H 168 H (75-99) mg/dL 08/30/20 08/30/20 08/30/20 Range/Units 05:31 05:31 06:55 Hgb 11.0 L (11.4-16.0) gm/dL Hct 33.9 L (34.0-46.0) % MCV 77.8 L (80.0-100.0) fL Neutrophils # 8.0 H (1.3-7.7) k/uL Lymphocytes # 0.7 L (1.0-4.8) k/uL BUN 5.0 L (9.0-27.0) mg/dL BUN/Creatinine Ratio 8.33 L (12.00-20.00) Ratio Glucose 129 H (70-110) mg/dL POC Glucose (mg/dL) 141 H (75-99) mg/dL Microbiology - Last 24 Hours (Table) 08/29/20 07:13 Blood Culture - Preliminary Blood No Growth after 24 hours 08/29/20 07:13 Urine Culture - Preliminary Urine,Catheterized Assessment and Plan Assessment: This is a 69-year-old female with complex past medical history noted below that presented to the emergency room with progressive weakness and fall at home. She was evaluated in the ER and will be admitted to the hospital for further management of her medical problems noted below 1. UTI: Recent urine culture grew ESBL E. coli. Started on IV ertapenem awaiting urine culture from this presentation. Infectious disease following closely. 2. Sepsis without septic shock, lactic acid is normal. Continue aggressive IV fluid hydration. Repeat lab work in the morning 3. Urinary retention, straight cath in the ER showed 400 mL of urine. Bladder scan this morning showed 255 mL of urine. We will continue bladder scan every 8 hours and insert Lucia catheter if obstructive uropathy persist 4. Hypomagnesemia, replacement order 5. Type 2 diabetes: Hold home dose of metformin and continue sliding scale 6. Physical debility, PT/OT consulted. Patient may need placement 7. Underlying seizure disorder: Continue home dose of Keppra 8. Other medical problems, has dementia, GERD, hyperlipidemia, hypertension 9. DVT prophylaxis with subcu Lovenox
[2020-08-30] MEDS: MAGNESIUM SULFATE-D5W PMX 1 GM in DEXTROSE/WATER 1 100ML.BAG IVPB SCH ×2 (11:22→12:21)
[2020-08-30 12:07] LABS: Glucose,Whole Blood 132 mg/dL (75-99)
[2020-08-30 15:09] LABS: T4, Free (Free Thyroxine) 1.58 ng/dL (0.78-2.19)
[2020-08-30 18:43] LABS: Glucose,Whole Blood 124 mg/dL (75-99)
--- NOTE | 2020-08-30 18:57 | PN ---
PROGRESS NOTE DATE OF SERVICE: 08/30/2020 REASON FOR FOLLOWUP: Urinary tract infection. INTERVAL HISTORY: The patient is currently afebrile. The patient is breathing comfortably. The patient denies having any chest pain. No shortness of breath or cough. No nausea, vomiting, abdominal pain or diarrhea. PHYSICAL EXAMINATION: Blood pressure 160/76, pulse of 43, temperature 98.4. She is 96% on room air. General description: The patient is an elderly female lying in in no distress. Respiratory system: Unlabored breathing, clear to auscultation anteriorly. Heart S1, S2. Regular rate and rhythm. ABDOMEN: Soft. No tenderness. LABS: Hemoglobin is 11.9, white count 9.3, BUN of 5, creatinine 0.6. Urine showing Gram- negative. Blood culture so far negative. DIAGNOSTIC IMPRESSION AND PLAN: Patient admitted to hospital with sepsis with fever, elevated white count, mental status changes concerning for urinary tract infection clinically responding to Invanz to continue while waiting for the culture to finalize. Monitor clinical course closely. MMODL / IJN: [id number] /
[2020-08-30 20:23] LABS: Glucose,Whole Blood 186 mg/dL (75-99)
[2020-08-30] MEDS ORDERED: METOPROLOL TARTRATE 50 MG TAB PO SCH (21:00)
[2020-08-31 07:16] LABS: Glucose,Whole Blood 157 mg/dL (75-99)
[2020-08-31] MEDS: FUROSEMIDE 20 MG TAB PO SCH (07:59)
[2020-08-31] MEDS: ASPIRIN 325 MG TAB PO SCH (07:59)
[2020-08-31] MEDS: MAGNESIUM OXIDE 400 MG TAB PO SCH (08:00)
[2020-08-31] MEDS: DONEPEZIL 10 MG TAB PO SCH (08:00)
[2020-08-31] MEDS: ALPRAZolam 0.25 MG TAB PO SCH ×2 (08:00→20:57)
[2020-08-31] MEDS: POTASSIUM CHLORIDE ER 10 MEQ TAB.ER.PRT PO SCH (08:00)
[2020-08-31] MEDS: MONTELUKAST 10 MG TAB PO SCH (08:00)
[2020-08-31] MEDS: INSULIN ASPART (NovoLOG) 100 UNIT/ML VIAL SQ SCH ×4 (08:00→20:57)
[2020-08-31] MEDS: levETIRAcetam 500 MG TAB PO SCH ×2 (08:00→20:57)
[2020-08-31] MEDS: ENOXAPARIN 40 MG/0.4 ML SYRINGE SQ SCH (08:00)
--- NOTE | 2020-08-31 09:30 | P.PN ---
Subjective Progress Note Date: 08/31/20 Patient is doing well today. She does not have any concerns or complaints this morning. She was noted to be bradycardic last night with a heart rate in the 40s. Patient is a symptomatic. She denies dizziness or lightheadedness. Her home dose of metoprolol was discontinued. Objective - Vital Signs Vital signs: Vital Signs Temp 99.7 F H 08/31/20 04:27 Pulse 53 L 08/31/20 08:35 Resp 16 08/31/20 04:27 BP 164/73 08/31/20 04:27 Pulse Ox 95 08/31/20 04:27 Intake & Output 08/30/20 08/31/20 08/31/20 18:59 06:59 18:59 Intake Total 1250 1800 Output Total 236 810 Balance 1014 990 Intake: Intake, IV Titration 600 1200 Amount Ertapenem 1 gm In Sodium 100 Chloride 0.9% 50 ml @ 100 mls/hr IVPB DAILY@1000 ANDREW Rx#:[id number] Magnesium Sulfate-D5w Pmx 100 1 gm In Dextrose/Water 1 100ml.bag @ 100 mls/hr IVPB Q1H ANDREW Rx#: [id number] Sodium Chloride 0.9% 1, 400 1200 000 ml @ 100 mls/hr IV . Q10H ANDREW Rx#:[id number] Oral 650 600 Output: Urine 810 Post Void Residual 236 Other: Voiding Method Diaper Diaper Incontinent Incontinent # Voids 1 3 # Bowel Movements 1 - Exam General: The patient is awake and alert, in no distress Eye: there is normal conjunctiva bilaterally. Neck: The neck is supple, there is no JVD. Cardiovascular: Normal S1-S2, no S3-S4, no murmurs. Respiratory: Lungs clear to auscultation bilaterally Gastrointestinal: Abdomen is soft, nontender Musculoskeletal: There is no pedal edema. Neurological:. Speech is normal. Skin: Skin is warm and dry - Labs CBC & Chem 7: 08/30/20 05:31 08/30/20 05:31 Labs: Abnormal Lab Results - Last 24 Hours (Table) 08/30/20 08/30/20 08/30/20 Range/Units 05: 11:57 18:40 BUN 5.0 L (9.0-27.0) mg/dL BUN/Creatinine Ratio 8.33 L (12.00-20.00) Ratio Glucose 129 H (70-110) mg/dL POC Glucose (mg/dL) 132 H 124 H (75-99) mg/dL 08/30/20 08/31/20 Range/Units 20:22 07:14 BUN (9.0-27.0) mg/dL BUN/Creatinine Ratio (12.00-20.00) Ratio Glucose (70-110) mg/dL POC Glucose (mg/dL) 186 H 157 H (75-99) mg/dL Microbiology - Last 24 Hours (Table) 08/29/20 07:13 Blood Culture - Preliminary Blood No Growth after 48 hours 08/29/20 07:13 Urine Culture - Preliminary Urine,Catheterized Gram Neg Bacilli Assessment and Plan Assessment: This is a 69-year-old female with complex past medical history noted below that presented to the emergency room with progressive weakness and fall at home. She was evaluated in the ER and will be admitted to the hospital for further management of her medical problems noted below 1. UTI: Recent urine culture grew ESBL E. coli. Started on IV ertapenem awaiting urine culture from this presentation. Infectious disease following closely. 2. Sepsis without septic shock, lactic acid is normal. Improved with aggressive IV fluid hydration. Repeat lab work in the morning 3. Bradycardia: He be secondary to beta blockers use. Home dose of metoprolol discontinued. Thyroid function tests within normal range. Seen and evaluated by cardiology. Echocardiogram ordered. Continue telemetry monitoring. 4. Hypomagnesemia, replaced awaiting repeat lab work 5. Type 2 diabetes: Hold home dose of metformin and continue sliding scale 6. Physical debility, PT/OT consulted. Patient may need placement 7. Underlying seizure disorder: Continue home dose of Keppra 8. Other medical problems, has dementia, GERD, hyperlipidemia, hypertension 9. DVT prophylaxis with subcu Lovenox
[2020-08-31 10:21] LABS: African American GFR (CKD) 114.5 (60.0-200.0); Blood Urea Nitrogen <5.0 mg/dL (9.0-27.0); Calcium 8.6 mg/dL (8.7-10.3); Carbon Dioxide 24.7 mmol/L (21.6-31.8); Chloride 98 mmol/L (96-109); Glucose 149 mg/dL (70-110); Magnesium 1.5 mg/dL (1.5-2.4); Non-African American GFR(CKD) 98.8 (60.0-200.0); Potassium 3.1 mmol/L (3.5-5.5); Sodium 133 mmol/L (135-145)
--- NOTE | 2020-08-31 11:03 | US ---
EXAMINATION TYPE: US carotid duplex BILAT DATE OF EXAM: 08/31/2020 COMPARISON: NONE CLINICAL HISTORY: symptomatic bradycardia. weakness EXAM MEASUREMENTS: RIGHT: Peak Systolic Velocity (PSV) cm/sec ----- Right CCA: 91.6 ----- Right ICA: 89.6 ----- Right ECA: 106 ICA/CCA ratio: 0.98 RIGHT: End Diastole cm/sec ----- Right CCA: 16.2 ----- Right ICA: 18.8 ----- Right ECA: 7.8 LEFT: Peak Systolic Velocity (PSV) cm/sec ----- Left CCA: 92.9 ----- Left ICA: 103 ----- Left ECA: 92.2 ICA/CCA ratio: 1.11 LEFT: End Diastole cm/sec ----- Left CCA: 13.0 ----- Left ICA: 13.6 ----- Left ECA: 7.2 VERTEBRALS (direction of flow): Right Vertebral: Antegrade Left Vertebral: Antegrade Rhythm: Normal Grayscale, color Doppler, spectral Doppler imaging performed of the carotid arteries. Waveform anal ysis does not show significant stenosis of the internal carotid arteries. mild plaque bilateral bifu rcations. no evidence of increased velocities IMPRESSION: No hemodynamic significant stenosis of the proximal internal carotid arteries by Doppler criteria, an indirect measurement of carotid stenosis Criteria for Assigning % of Stenosis / Diameter reduction (Estimation based on the indirect measurements of the internal carotid artery velocities (ICA PSV). 1. Normal (no stenosis)=ICA PSV < 125 cm/s: ratio < 2.0: ICA EDV<40 cm/s. 2. Less than 50% stenosis=ICA PSV < 125 cm/s: ratio < 2.0: ICA EDV<40 cm/s. 3. 50 to 69% stenosis=ICA PSV of 125 to 230 cm/s: ration 2.0 ? 4.0: ICA EDV 40-100 cm/s. 4. Greater than 70% stenosis to near occlusion= ICA PSV > 230 cm/s: ratio > 4.0: ICA EDV > 100 cm/s. 5. Near occlusion= ICA PSV velocities may be low or undetectable: variable ratio and ICA EDV. 6. Total occlusion=unable to detect flow.
[2020-08-31 11:25] LABS: Glucose,Whole Blood 193 mg/dL (75-99)
--- NOTE | 2020-08-31 11:27 | CONS ---
CONSULTATION HISTORY OF PRESENT ILLNESS: Aundrea Del Real is a 69-year-old lady who has been admitted to the hospital with episode of what seems to be some falls. She came in through the emergency room on the of this month with complaints of having been recently hospitalized with a seizure disorder as well. She had some electrolytes abnormalities. Had a thorough evaluation including the MRI of brain and EEGs and was discharged on Keppra recently. She called the EMS because of weakness, lack of energy and after she came in, she had bruises over her face and right mandible area. Does not remember falling. There is a history that she has been falling. There is a question of a bradycardia. She is on 100 mg b.i.d. of metoprolol tartrate. She has type 2 diabetes, hypertension, hyperlipidemia. She also has some underlying dementia and memory issues and is not a reliable historian. PAST MEDICAL HISTORY: 1. Type 2 diabetes. 2. Hypertension. 3. Hyperlipidemia. 4. Dementia. 5. History of gastroesophageal reflux disease. 6. Recent diagnosis of seizure disorder. MEDICATIONS: Medications at home include: Metformin 5 mg b.i.d., aspirin 325 mg daily, Lopressor 100 mg b.i.d., Singulair 10 mg daily, Xanax, Lasix 20 mg daily and potassium supplements, Keppra 500 mg b.i.d. ALLERGIES: None. REVIEW OF SYSTEMS: Unable to perform a detailed review of systems. PHYSICAL EXAMINATION: On examination, blood pressure is 150/70, pulse rate is 58 per minute, regular. HEENT unremarkable. Fundus was not examined by me. Neck is supple. There is no JVD. I do not hear any carotid bruit. HEART exam reveals S1 and S2 with ejection systolic murmur audible at the base. Second heart sound is preserved. LUNGS are clear with decent air entry. There is a bruise on the right mandible area noted. ABDOMEN is soft, nontender. Lower EXTREMITIES with diminished pulses. CENTRAL NERVOUS SYSTEM grossly no focal deficits but I did not do a detailed exam. IMPRESSION: 1. Episode of fall. 2. Bradycardia on a high dose of metoprolol. 3. Hypertension. 4. Possible mild aortic stenosis. 5. Type 2 diabetes mellitus. RECOMMENDATIONS: I am recommending reduce aspirin to 81 mg daily. Continue telemetry. Hold metoprolol. The patient may have some underlying sick sinus syndrome. We will see if the heart rate comes up after holding metoprolol for 72 hours. Her blood sugar control is being addressed by the admitting physician. I will perform an EKG tomorrow morning and a CBC and BMP. A carotid Doppler is also being advised. Prognosis remains guarded. Thank you very much for the consult. MMODL / IJN: [id number] /
[2020-08-31] MEDS: ERTAPENEM 1 GM in SODIUM CHLORIDE 0.9% 50 ML IVPB SCH (11:31)
[2020-08-31 17:39] LABS: Glucose,Whole Blood 149 mg/dL (75-99)
[2020-08-31 19:52] VITALS: RESP 16
--- NOTE | 2020-08-31 20:33 | PN ---
PROGRESS NOTE DATE OF SERVICE: 08/31/2020. REASON FOR FOLLOWUP: ESBL E coli urinary tract infection. INTERVAL HISTORY: The patient is afebrile. The patient is breathing comfortably. No chest pain, shortness of breath or cough. No nausea, vomiting, abdominal pain, no diarrhea. PHYSICAL EXAMINATION: Blood pressure 159/72 with a pulse of 51, temperature 98.1. She is 96% on room air. General description is an elderly female lying in in no distress. Respiratory system: Unlabored breathing, clear to auscultation anteriorly. Heart S1, S2. Regular rate and rhythm. Abdomen soft, no tenderness. Extremities: No edema of the feet. LABS: BUN of 5, creatinine 0.5. Culture with ESBL E coli. DIAGNOSTIC IMPRESSION AND PLAN: ESBL E coli urinary tract infection, admitted to the hospital with sepsis, possible deep infection on Invanz to continue for another 10 days for which a midline will be placed and close outpatient followup. MMODL / IJN: [id number] /
[2020-08-31 20:47] LABS: Glucose,Whole Blood 215 mg/dL (75-99)
[2020-09-01 07:01] LABS: Glucose,Whole Blood 153 mg/dL (75-99)
[2020-09-01] MEDS: ENOXAPARIN 40 MG/0.4 ML SYRINGE SQ SCH (08:09)
[2020-09-01] MEDS: DONEPEZIL 10 MG TAB PO SCH (08:09)
[2020-09-01] MEDS: ALPRAZolam 0.25 MG TAB PO SCH ×2 (08:09→21:22)
[2020-09-01] MEDS: levETIRAcetam 500 MG TAB PO SCH ×2 (08:09→21:23)
[2020-09-01] MEDS: INSULIN ASPART (NovoLOG) 100 UNIT/ML VIAL SQ SCH ×4 (08:10→21:23)
[2020-09-01] MEDS: MAGNESIUM OXIDE 400 MG TAB PO SCH (08:10)
[2020-09-01] MEDS: MONTELUKAST 10 MG TAB PO SCH (08:10)
[2020-09-01] MEDS: FUROSEMIDE 20 MG TAB PO SCH (08:10)
[2020-09-01] MEDS: POTASSIUM CHLORIDE ER 10 MEQ TAB.ER.PRT PO SCH (08:10)
[2020-09-01] MEDS: ASPIRIN 81 MG PO SCH (08:10)
[2020-09-01] MEDS: ERTAPENEM 1 GM in SODIUM CHLORIDE 0.9% 50 ML IVPB SCH (11:27)
[2020-09-01 11:50] LABS: Glucose,Whole Blood 162 mg/dL (75-99)
[2020-09-01 11:58] LABS: African American GFR (CKD) 123.2 (60.0-200.0); Blood Urea Nitrogen <5.0 mg/dL (9.0-27.0); Calcium 8.6 mg/dL (8.7-10.3); Carbon Dioxide 27.5 mmol/L (21.6-31.8); Chloride 97 mmol/L (96-109); Glucose 146 mg/dL (70-110); Magnesium 1.3 mg/dL (1.5-2.4); Non-African American GFR(CKD) 106.3 (60.0-200.0); Potassium 2.7 mmol/L (3.5-5.5); Sodium 134 mmol/L (135-145)
--- NOTE | 2020-09-01 12:08 | ECHOF ---
Referral Reason:symptomatic bradycardia, murmur MEASUREMENTS -------- HEIGHT: 162.6 cm WEIGHT: 69.9 kg BP: 184/80 RVIDd: 2.5 cm (< 3.3) IVSd: 1.4 cm (0.6 - 1.1) LVIDd: 3.6 cm (3.9 - 5.3) LVPWd: 1.4 cm (0.6 - 1.1) IVSs: 1.7 cm LVIDs: 2.4 cm LVPWs: 1.8 cm LAESV Index (A-L): 49.41 ml/m Ao Diam: 2.7 cm (2.0 - 3.7) AV Cusp: 1.3 cm (1.5 - 2.6) MV EXCURSION: 16.396 mm (> 18.000) MV EF SLOPE: 66 mm/s (70 - 150) EPSS: 0.5 cm MV E Dex: 1.39 m/s MV DecT: 305 ms MV A Dex: 1.48 m/s MV E/A Ratio: 0.94 AV maxP.96 mmHg AV meanP.95 mmHg RAP: 5.00 mmHg RVSP: 33.47 mmHg FINDINGS -------- Sinus rhythm. This was a technically adequate study. The left ventricular size is normal. There is moderate concentric left ventricular hypertrophy. O verall left ventricular systolic function is normal with, an EF between 55 - 60 %. Left ventricular fillimg pressure cannot be estimated due to severe mitral annular calcification. The right ventricle is normal in size. LA is severely dilated >40 ml/m2 The right atrial size is normal. Interatrial and interventricular septum intact. Trace amount of aortic regurgitation. There is mild aortic stenosis present. Peak/mean gradient across the Aortic Valve is 18.96mmHg / 9.95mmHg. Severe mitral annular calcification present. Vfpgeebc-jo-jjzhjy mitral regurgitation is present. Vyau-te-wjfkyjvi tricuspid regurgitation present. There is no evidence of pulmonary hypertension. The right ventricular systolic pressure, as measured by Doppler, is 33.47mmHg. There is no pulmonic regurgitation present. The aortic root size is normal. Normal inferior vena cava with normal inspiratory collapse consistent with estimated right atrial pre ssure of 5 mmHg. There is a small pericardial effusion located near the left ventricle. CONCLUSIONS -------- 1. The left ventricular size is normal. 2. There is moderate concentric left ventricular hypertrophy. 3. Overall left ventricular systolic function is normal with, an EF between 55 - 60 %. 4. Left ventricular fillimg pressure cannot be estimated due to severe mitral annular calcification. 5. LA is severely dilated >40 ml/m2 6. Trace amount of aortic regurgitation. 7. There is mild aortic stenosis present. 8. Peak/mean gradient across the Aortic Valve is 18.96mmHg / 9.95mmHg. 9. Severe mitral annular calcification present. 10. Bpypiqvq-fx-wzvfid mitral regurgitation is present. 11. Yxbv-lk-wqmveukp tricuspid regurgitation present. 12. There is a small pericardial effusion located near the left ventricle. [employer] INTERN: Martine Ramirez RDCS
[2020-09-01] MEDS ORDERED: POTASSIUM CHLORIDE 20 MEQ in WATER FOR INJECTION 1 100ML.BAG IVPB STA (12:10)
[2020-09-01] MEDS ORDERED: POTASSIUM CHLORIDE ER 20 MEQ TAB.ER PO STA (12:10)
--- NOTE | 2020-09-01 13:08 | P.PN ---
Subjective Progress Note Date: 09/01/20 Patient is doing well today. She does not have any concerns or complaints this morning. Heart rate still in the 50s. Metoprolol was discontinued yesterday. No acute events overnight reported by nursing staff. Objective - Vital Signs Vital signs: Vital Signs Temp 98.1 F 09/01/20 11:38 Pulse 50 L 09/01/20 11:38 Resp 16 09/01/20 11:38 BP 182/76 09/01/20 11:38 Pulse Ox 95 09/01/20 11:38 Intake & Output 08/31/20 09/01/20 09/01/20 18:59 06:59 18:59 Intake Total 50 924 Output Total 1 Balance 50 924 -1 Intake: Intake, IV Titration 50 Amount Ertapenem 1 gm In Sodium 50 Chloride 0.9% 50 ml @ 100 mls/hr IVPB DAILY@1000 ANDREW Rx#:[id number] Oral 924 Output: Stool 1 Other: Voiding Method Diaper Diaper Toilet Incontinent Incontinent Diaper Incontinent # Voids 3 2 1 # Bowel Movements 0 - Exam General: The patient is awake and alert, in no distress Eye: there is normal conjunctiva bilaterally. Neck: The neck is supple, there is no JVD. Cardiovascular: Normal S1-S2, no S3-S4, no murmurs. Respiratory: Lungs clear to auscultation bilaterally Gastrointestinal: Abdomen is soft, nontender Musculoskeletal: There is no pedal edema. Neurological:. Speech is normal. Skin: Skin is warm and dry - Labs CBC & Chem 7: 08/30/20 05:31 09/01/20 06:13 Labs: Abnormal Lab Results - Last 24 Hours (Table) 08/31/20 08/31/20 09/01/20 Range/Units 17:33 20:46 06:13 Sodium 134 L (135-145) mmol/L Potassium 2.7 L* (3.5-5.5) mmol/L BUN <5.0 L (9.0-27.0) mg/dL Creatinine 0.4 L (0.6-1.5) mg/dL Glucose 146 H (70-110) mg/dL POC Glucose (mg/dL) 149 H 215 H (75-99) mg/dL Calcium 8.6 L (8.7-10.3) mg/dL Magnesium 1.3 L (1.5-2.4) mg/dL 09/01/20 09/01/20 Range/Units 06:55 11:41 Sodium (135-145) mmol/L Potassium (3.5-5.5) mmol/L BUN (9.0-27.0) mg/dL Creatinine (0.6-1.5) mg/dL Glucose (70-110) mg/dL POC Glucose (mg/dL) 153 H 162 H (75-99) mg/dL Calcium (8.7-10.3) mg/dL Magnesium (1.5-2.4) mg/dL Microbiology - Last 24 Hours (Table) 08/29/20 07:13 Blood Culture - Preliminary Blood No Growth after 72 hours 08/29/20 07:13 Urine Culture - Final Urine,Catheterized Escherichia coli Assessment and Plan Assessment: This is a 69-year-old female with complex past medical history noted below that presented to the emergency room with progressive weakness and fall at home. She was evaluated in the ER and will be admitted to the hospital for further management of her medical problems noted below 1. UTI: Recent urine culture grew ESBL E. coli. Started on IV ertapenem day #5. Urine culture grew during this admission ESBL E. coli. Infectious disease following closely. 2. Sepsis without septic shock, lactic acid is normal. Improved with aggressive IV fluid hydration. Repeat lab work in the morning 3. Bradycardia: maybe secondary to beta blockers use. Home dose of metoprolol discontinued. Thyroid function tests within normal range. Seen and evaluated by cardiology. Echocardiogram showed preserved ejection fraction with severely dilated left atrium and moderate/severe mitral regurg. Continue telemetry monitoring. 4. Hypomagnesemia and hypokalemia, replacement ordered repeat lab work in the morning. Will require oral potassium and magnesium supplement upon discharge 5. Type 2 diabetes: Hold home dose of metformin and continue sliding scale 6. Physical debility, PT/OT consulted. Patient will be discharged to [facility] when medically stable 7. Underlying seizure disorder: Continue home dose of Keppra 8. Other medical problems, has dementia, GERD, hyperlipidemia, hypertension 9. DVT prophylaxis with subcu Lovenox Midline Ordered today will need 7-10 days course of Invanz awaiting final recommendation from infectious disease Repeat lab work in the morning
--- NOTE | 2020-09-01 13:26 | P.PN ---
Subjective This is a pleasant 69-year-old female past medical history significant for hypertension, dyslipidemia, diabetes mellitus and dementia. She is seen and examined up ambulating in the halls with physical therapy. She is steady but slow on her feet. She denies symptoms of chest pain, shortness of breath, dizziness or palpitations. Heart rate has been running between 47 and 52. Blood pressure 182/76. Laboratory data reviewed, sodium 137, potassium 2.7, creatinine 0.4 and magnesium 1.3. Echocardiogram obtained reveals preserved LV systolic function with ejection fraction 55-60%, severely dilated left atrium, mild aortic stenosis with a mean gradient of 9 mmHg, moderate to severe mitral regurgitation and mild to moderate tricuspid regurgitation. GENERAL: Well-appearing, well-nourished and in no acute distress. NECK: Supple without JVD or thyromegaly. LUNGS: Breath sounds clear to auscultation bilaterally. Respiration equal and unlabored. No wheezes, rales or rhonchi. HEART: Regular rate and rhythm with systolic ejection murmur at the base, no rubs or gallops. S1 and S2 heard. EXTREMITIES: Normal range of motion, no edema. No clubbing or cyanosis. Peripheral pulses intact. ASSESSMENT Frequent falls Sinus bradycardia on beta blockers Hypokalemia Hypomagnesemia Hypertension Aortic stenosis Diabetes mellitus PLAN Replace electrolytes per protocol. Given her history of diabetes mellitus and hypertension initiate lisinopril 10 mg daily and atorvastatin 40 mg at bedtime. Continue to hold beta blockers. Follow up on discharge with Dr. Irvin. Nurse Practitioner note has been reviewed, I agree with a documented findings and plan of care. Patient was seen and examined. Objective - Vital Signs Vital signs: Vital Signs Temp 98.1 F 09/01/20 11:38 Pulse 50 L 09/01/20 11:38 Resp 16 09/01/20 11:38 BP 182/76 09/01/20 11:38 Pulse Ox 95 09/01/20 11:38 Intake & Output 08/31/20 09/01/20 09/01/20 18:59 06:59 18:59 Intake Total 50 924 Output Total 1 Balance 50 924 -1 Intake: Intake, IV Titration 50 Amount Ertapenem 1 gm In Sodium 50 Chloride 0.9% 50 ml @ 100 mls/hr IVPB DAILY@1000 [facility] Rx#:[id number] Oral 924 Output: Stool 1 Other: Voiding Method Diaper Diaper Toilet Incontinent Incontinent Diaper Incontinent # Voids 3 2 1 # Bowel Movements 0 - Labs CBC & Chem 7: 08/30/20 05:31 09/01/20 06:13 Labs: Abnormal Lab Results - Last 24 Hours (Table) 08/31/20 08/31/20 09/01/20 Range/Units 17:33 20:46 06:13 Sodium 134 L (135-145) mmol/L Potassium 2.7 L* (3.5-5.5) mmol/L BUN <5.0 L (9.0-27.0) mg/dL Creatinine 0.4 L (0.6-1.5) mg/dL Glucose 146 H (70-110) mg/dL POC Glucose (mg/dL) 149 H 215 H (75-99) mg/dL Calcium 8.6 L (8.7-10.3) mg/dL Magnesium 1.3 L (1.5-2.4) mg/dL 09/01/20 09/01/20 Range/Units 06:55 11:41 Sodium (135-145) mmol/L Potassium (3.5-5.5) mmol/L BUN (9.0-27.0) mg/dL Creatinine (0.6-1.5) mg/dL Glucose (70-110) mg/dL POC Glucose (mg/dL) 153 H 162 H (75-99) mg/dL Calcium (8.7-10.3) mg/dL Magnesium (1.5-2.4) mg/dL Microbiology - Last 24 Hours (Table) 08/29/20 07:13 Blood Culture - Preliminary Blood No Growth after 72 hours 08/29/20 07:13 Urine Culture - Final Urine,Catheterized Escherichia coli
[2020-09-01] MEDS: lisinopriL 10 MG TAB PO SCH (14:56)
[2020-09-01] MEDS: MAGNESIUM SULFATE-D5W PMX 1 GM in DEXTROSE/WATER 1 100ML.BAG IVPB SCH ×2 (15:38→17:18)
[2020-09-01 17:10] LABS: Glucose,Whole Blood 143 mg/dL (75-99)
--- NOTE | 2020-09-01 20:08 | PN ---
PROGRESS NOTE DATE OF SERVICE: 09/01/2020 REASON FOR FOLLOWUP: ESBL E coli UTI. INTERVAL HISTORY: The patient is currently afebrile. The patient is breathing comfortably. The patient denies having any chest pain. No shortness of breath or cough. No nausea. No abdominal pain or diarrhea. PHYSICAL EXAMINATION: Blood pressure 182/76, pulse of 50, temperature 98.1. She is 95% on room air. General description is an elderly female lying in in no distress. Respiratory system: Unlabored breathing, clear to auscultation anteriorly. Heart S1, S2. Regular rate and rhythm. Abdomen soft, no tenderness. LABS: BUN 5, creatinine 0.4. DIAGNOSTIC IMPRESSION AND PLAN: ESBL E. coli urinary tract infection in this patient admitted to the hospital with sepsis and did have a fever, elevated white count. Recommend a midline, another 10 days of IV Invanz 1 g daily and close outpatient followup. MMODL / IJN: [id number] /
[2020-09-01 20:56] LABS: Glucose,Whole Blood 186 mg/dL (75-99)
[2020-09-01] MEDS ORDERED: ATORVASTATIN 40 MG TAB PO SCH (21:00)
[2020-09-02] MEDS ORDERED: POTASSIUM CHLORIDE ER 20 MEQ TAB.ER PO STA (02:15)
[2020-09-02 04:43] VITALS: BP 171/89; TEMP 97.4
[2020-09-02 06:57] LABS: Glucose,Whole Blood 153 mg/dL (75-99)
[2020-09-02 07:38] LABS: African American GFR (CKD) >90 (>60 ml/min/1.73 sqM); Anion Gap 6 mmol/L; Blood Urea Nitrogen 3 mg/dL (7-17); Calcium 9.3 mg/dL (8.4-10.2); Carbon Dioxide 26 mmol/L (22-30); Chloride 102 mmol/L (98-107); Glucose 147 mg/dL (74-99); Magnesium 1.8 mg/dL (1.6-2.3); Non-African American GFR(CKD) >90 (>60 ml/min/1.73 sqM); Sodium 134 mmol/L (137-145)
[2020-09-02 07:39] LABS: Potassium 4.4 mmol/L (3.5-5.1)
[2020-09-02] MEDS: MAGNESIUM OXIDE 400 MG TAB PO SCH (08:05)
[2020-09-02] MEDS: ALPRAZolam 0.25 MG TAB PO SCH (08:05)
[2020-09-02] MEDS: INSULIN ASPART (NovoLOG) 100 UNIT/ML VIAL SQ SCH ×2 (08:05→12:14)
[2020-09-02] MEDS: MONTELUKAST 10 MG TAB PO SCH (08:05)
[2020-09-02] MEDS: POTASSIUM CHLORIDE ER 10 MEQ TAB.ER.PRT PO SCH (08:05)
[2020-09-02] MEDS: ASPIRIN 81 MG PO SCH (08:05)
[2020-09-02] MEDS: FUROSEMIDE 20 MG TAB PO SCH (08:05)
[2020-09-02] MEDS: ENOXAPARIN 40 MG/0.4 ML SYRINGE SQ SCH (08:05)
[2020-09-02] MEDS: lisinopriL 10 MG TAB PO SCH (08:07)
[2020-09-02] MEDS: levETIRAcetam 500 MG TAB PO SCH (08:07)
[2020-09-02] MEDS: DONEPEZIL 10 MG TAB PO SCH (08:08)
[2020-09-02 09:43] VITALS: PULSE 81
[2020-09-02] MEDS: ERTAPENEM 1 GM in SODIUM CHLORIDE 0.9% 50 ML IVPB SCH (09:49)
--- NOTE | 2020-09-02 11:47 | P.DS ---
<Gavino Orellana - Last Filed: 09/02/20 11:23> Providers Expected date of discharge: 09/02/20 Hospital Course: Discharge Diagnosis: UTI: ESBL E. coli Sepsis without septic shock Urinary retention Hypomagnesemia Type 2 diabetes Physical debility Underlying seizure disorder Advanced dementia GERD Hyperlipidemia Hypertension Hospital Course: Patient is a 69-year-old female with a past medical history of advanced dementia, hypertension, seizure disorder, and type II cob-[id number]-[id number] diabetes mellitus. She presented to [facility] with a chief complaint of weakness and recurrent falls at home. Patient was seen and fully evaluated and found to show signs and symptoms of sepsis without septic shock and have evidence of a UTI and urinary retention. She underwent extensive imaging including chest x-ray head CT, cervical spine CT and facial CT which was negative for any acute abnormalities. Patient was admitted on 08/28/20 and underwent treatment for UTI and sepsis. Urine culture obtained positive for ESBL E. coli. Blood cultures showing no growth after 96 hours. Echocardiogram completed revealing a reserved ejection fraction between 55 and 60%, severe mitral annular calcification and moderate to severe mitral regurgitation. Patient being discharged home to [facility] care facility where she will continue to receive an additional 10 days of Invanz and be closely monitored by infectious disease provider, Dr. Mason. Patient seen and examined at bedside. Vital signs reviewed and stable. General: Nontoxic, no distress and appears stated age. Derm: Skin warm and dry, normal coloration for ethnicity. Head: Atraumatic, normocephalic and symmetric. Bruising to right jaw Eyes: no lid lag, and anicteric sclera Mouth: no lip lesions, mucus membranes moist Cardiovascular: regular rate and rhythm with normal S1S2, murmur present, positive posterior tibial pulses bilaterally, and cap refill < 2 seconds. Lungs: Respirations even, regular, and unlabored on room air. Lungs CTA bilaterally, no rhonchi, no rales, no wheezing, and no accessory muscle usage. Abdominal: soft, nontender to palpation, no guarding, no appreciable organomegaly Ext: ROM intact. No gross muscle atrophy, no edema, no contractures Neuro: Speech clear, face symmetrical and CN II-XII grossly intact with no noted focal neuro deficits Psych: Awake and alert, no distress A total of 45 minutes of time were spent preparing this complex discharge summary. Patient Condition at Discharge: Stable Plan - Discharge Summary New Discharge Prescriptions: New lisinopriL [Zestril] 10 mg PO DAILY 30 Days #30 tab Ertapenem [INVanz] 1 gm IVPB Q24H #9 bag Atorvastatin [Lipitor] 40 mg PO HS 30 Days #30 tab Continue metFORMIN HCL [Glucophage] 500 mg PO BID Aspirin EC [Ecotrin] 325 mg PO DAILY Montelukast Sodium [Singulair] 10 mg PO DAILY ALPRAZolam [Xanax] 0.25 mg PO BID Donepezil [Aricept] 10 mg PO DAILY Cholecalciferol [Vitamin D3 (25 Mcg = 1000 Iu)] 25 mcg PO DAILY Potassium Chloride ER [K-Dur 10] 10 meq PO DAILY 30 Days #30 tab levETIRAcetam [Keppra] 500 mg PO Q12HR 30 Days #60 tab Tamsulosin [Flomax] 0.4 mg PO DAILY Furosemide [Lasix] 20 mg PO DAILY 30 Days #30 tab Magnesium Oxide [Magox 400] 400 mg PO DAILY #30 tablet Discontinued Metoprolol Tartrate [Lopressor] 100 mg PO BID Discharge Medication List metFORMIN HCL [Glucophage] 500 mg PO BID 06/23/17 [History] Aspirin EC [Ecotrin] 325 mg PO DAILY 04/02/20 [History] Montelukast Sodium [Singulair] 10 mg PO DAILY 04/02/20 [History] ALPRAZolam [Xanax] 0.25 mg PO BID 07/14/20 [History] Tamsulosin [Flomax] 0.4 mg PO DAILY 07/14/20 [History] Cholecalciferol [Vitamin D3 (25 Mcg = 1000 Iu)] 25 mcg PO DAILY 07/24/20 [History] Donepezil [Aricept] 10 mg PO DAILY 07/24/20 [History] Furosemide [Lasix] 20 mg PO DAILY 30 Days #30 tab 08/03/20 [Rx] Magnesium Oxide [Magox 400] 400 mg PO DAILY #30 tablet 08/24/20 [Rx] Potassium Chloride ER [K-Dur 10] 10 meq PO DAILY 30 Days #30 tab 08/24/20 [Rx] levETIRAcetam [Keppra] 500 mg PO Q12HR 30 Days #60 tab 08/24/20 [Rx] Atorvastatin [Lipitor] 40 mg PO HS 30 Days #30 tab 09/02/20 [Rx] Ertapenem [INVanz] 1 gm IVPB Q24H #9 bag 09/02/20 [Rx] lisinopriL [Zestril] 10 mg PO DAILY 30 Days #30 tab 09/02/20 [Rx] Follow up Appointment(s)/Referral(s): Vicky Fabian MD [Primary Care Provider] - 1-2 days France Mason MD [STAFF PHYSICIAN] - 1 Week Activity/Diet/Wound Care/Special Instructions: Activity: As tolerated Diet: Heart healthy carb consistent diet Special Instructions: You will require 10 more days of IV antibiotics INVANZ and will need to follow up with infectious disease, Dr. Mason upon completion of these antibiotics. Discharge Disposition: TRANSFER TO SNF/ECF <Idalmis Puri - Last Filed: 09/02/20 18:05> Providers Date of admission: 08/29/20 09:03 Attending physician: Garry Hamlin Consults: 08/29/20 09:07 Consult Physician Routine Consulting Provider: France Mason Consult Reason/Comments: ESBL in urine Do you want consulting provider notified?: Yes 08/30/20 14:10 Consult Physician Routine Consulting Provider: [facility] Consult Reason/Comments: bradycardia Do you want consulting provider notified?: Yes Primary care physician: [facility] Course: Patient seen and examined independently. Patient was also seen by Gavino Orellana NP and case was discussed. I am in agreement with subjective, physical exam, assessment and plan as written above and amended below. Patient presently confused. Asking to go home. Denies any chest pain or shortness of breath. States she feels fine. General: non toxic, no distress, appears older than stated age Derm: warm, dry Head: atraumatic, normocephalic, symmetric Eyes: EOMI, no lid lag, anicteric sclera Mouth: no lip lesion, mucus membranes moist Cardiovascular: S1S2 reg with ejection murmur, positive posterior tibial pulse bilateral, Lungs: CTA bilateral, no rhonchi, no rales , no accessory muscle use Abdominal: soft, nontender to palpation, no guarding, no appreciable organomegaly Ext: no gross muscle atrophy, no edema, no contractures Neuro: CN II-XI grossly intact, no focal neuro deficits Psych: Alert to self and not being at home
[2020-09-02 11:57] LABS: Glucose,Whole Blood 147 mg/dL (75-99)
--- NOTE | 2020-09-02 13:11 | PN ---
PROGRESS NOTE DATE OF SERVICE: 09/02/2020. REASON FOR FOLLOW UP: ESBL E-coli urinary tract infection. INTERVAL HISTORY: The patient is currently afebrile. The patient is breathing comfortably. The patient denies having any chest pain. No shortness of breath or cough. No nausea. No vomiting. No abdominal pain. No diarrhea. PHYSICAL EXAMINATION: VITAL SIGNS: Blood pressure is 171/81, pulse of 55, temperature 98.4, she is 98% on room air. GENERAL DESCRIPTION: An elderly female lying in bed in no distress. RESPIRATORY SYSTEM: Unlabored breathing, clear to auscultation anteriorly. HEART: S1, S2. Regular rate and rhythm. ABDOMEN: Soft, no tenderness. LABS: No new labs have been obtained today. DIAGNOSTIC IMPRESSION AND PLAN: Patient with ESBL urinary tract infection The patient responded to the Invanz, finishing therapy with Invanz 1 gram daily for another 10 days to finish course of therapy. Continue supportive care. MMODL / IJN: [id number] / MTDD
== END 2020-09-02 12:30 | DRG 872 ==
LOC: EC 06:53 → 5NMEDONC 09:03
PROVIDERS: ADMIT Internal Medicine; ATTEND Internal Medicine
PROC: 05HF33Z Insertion of Infusion Device into Left Cephalic Vein, Percutaneous Approach (ICD-10-PCS; principal; 2020-09-01 19:25)
DX: A41.51 Sepsis due to Escherichia coli [E. coli] (principal); S82.001A Unspecified fracture of right patella, initial encounter for closed fracture; N39.0 Urinary tract infection, site not specified; Z16.12 Extended spectrum beta lactamase (ESBL) resistance; F03.90 Unspecified dementia, unspecified severity, without behavioral disturbance, psychotic disturbance, mood disturbance, and anxiety; E87.6 Hypokalemia; W19.XXXA Unspecified fall, initial encounter; M25.561 Pain in right knee; Z79.84 Long term (current) use of oral hypoglycemic drugs; Z79.82 Long term (current) use of aspirin; E83.42 Hypomagnesemia; R29.6 Repeated falls; E78.5 Hyperlipidemia, unspecified; K21.9 Gastro-esophageal reflux disease without esophagitis; M79.7 Fibromyalgia; E11.9 Type 2 diabetes mellitus without complications; G40.909 Epilepsy, unspecified, not intractable, without status epilepticus; Z20.822 Contact with and (suspected) exposure to COVID-19; Z80.9 Family history of malignant neoplasm, unspecified; S00.83XA Contusion of other part of head, initial encounter; R00.1 Bradycardia, unspecified; I10 Essential (primary) hypertension; R33.9 Retention of urine, unspecified; F32.9 Major depressive disorder, single episode, unspecified; I08.3 Combined rheumatic disorders of mitral, aortic and tricuspid valves; Z90.710 Acquired absence of both cervix and uterus; Y92.009 Unspecified place in unspecified non-institutional (private) residence as the place of occurrence of the external cause; Z96.652 Presence of left artificial knee joint; Z79.899 Other long term (current) drug therapy
CPT/HCPCS: 36410; 36415; 70450; 70486; 71046; 72125; 76937; 80048; 80053; 81001; 83605; 83735; 84100; 84132; 84439; 84443; 84484; 85025; 85610; 85730; 87040; 87077; 87086; 87186; 87635; 93005; 93306; 93880; 96361; 96365; 96375; 99285

== ENCOUNTER 2020-09-27 10:26 | Emergency (ER) | payer MEDICARE ==
[2020-09-27 10:33] VITALS: RESP 18; TEMP 97
--- NOTE | 2020-09-27 10:59 | ED ---
General Adult HPI - General Chief complaint: Altered Mental Status Stated complaint: altered mental status Time Seen by Provider: 09/27/20 10:37 Source: patient, EMS, RN notes reviewed Mode of arrival: EMS Limitations: no limitations - History of Present Illness Initial comments: Patient is a pleasant [age]-year-old female [facility] with complaints of reported episode of confusion. Patient states she feels fine and has no complaints. Patient is unclear why she is here. Patient denies weakness. Patient does not feel confused. Per history family stated that patient had an episode this morning where she did not recall her name. Patient does reportedly have a history of dementia. Patient denies any weakness. - Related Data Home Medications Medication Instructions Recorded Confirmed metFORMIN HCL [Glucophage] 500 mg PO BID 06/23/17 08/29/20 Aspirin EC [Ecotrin] 325 mg PO DAILY 04/02/20 08/29/20 Montelukast Sodium [Singulair] 10 mg PO DAILY 04/02/20 08/29/20 ALPRAZolam [Xanax] 0.25 mg PO BID 07/14/20 08/29/20 Tamsulosin [Flomax] 0.4 mg PO DAILY 07/14/20 08/29/20 Cholecalciferol [Vitamin D3 (25 25 mcg PO DAILY 07/24/20 08/29/20 Mcg = 1000 Iu)] Donepezil [Aricept] 10 mg PO DAILY 07/24/20 08/29/20 Previous Rx's Medication Instructions Recorded Furosemide [Lasix] 20 mg PO DAILY 30 Days #30 tab 08/03/20 Magnesium Oxide [Magox 400] 400 mg PO DAILY #30 tablet 08/24/20 Potassium Chloride ER [K-Dur 10] 10 meq PO DAILY 30 Days #30 tab 08/24/20 levETIRAcetam [Keppra] 500 mg PO Q12HR 30 Days #60 tab 08/24/20 Atorvastatin [Lipitor] 40 mg PO HS 30 Days #30 tab 09/02/20 Ertapenem [INVanz] 1 gm IVPB Q24H #9 bag 09/02/20 lisinopriL [Zestril] 10 mg PO DAILY 30 Days #30 tab 09/02/20 Allergies Allergy/AdvReac Type Severity Reaction Status Date / Time No Known Allergies Allergy Verified 08/29/20 09:49 Review of Systems ROS Statement: Those systems with pertinent positive or pertinent negative responses have been documented in the HPI. ROS Other: All systems not noted in ROS Statement are negative. Constitutional: Denies: fever Eyes: Denies: eye pain ENT: Denies: ear pain Respiratory: Denies: cough Cardiovascular: Denies: chest pain Endocrine: Denies: fatigue Gastrointestinal: Denies: abdominal pain Genitourinary: Denies: dysuria Musculoskeletal: Denies: back pain Skin: Denies: rash Neurological: Reports: as per HPI. Denies: headache, weakness Psychiatric: Denies: anxiety Past Medical History Past Medical History: Dementia, Diabetes Mellitus, GERD/Reflux, Hyperlipidemia, Hypertension Additional Past Medical History / Comment(s): FIBROMYALGIA History of Any Multi-Drug Resistant Organisms: ESBL Date of last positivie culture/infection: 08/29/20 ESBL E.coli MDRO Source:: Urine Past Surgical History: Adenoidectomy, Appendectomy, Cholecystectomy, Hysterectomy, Tonsillectomy, Tubal Ligation Additional Past Surgical History / Comment(s): CARARACT RT EYE 07/02/2013, bladder suspension, repair of the fracture, left knee replacement Past Anesthesia/Blood Transfusion Reactions: Motion Sickness, Postoperative Nausea & Vomiting (PONV) Past Psychological History: Depression Smoking Status: Never smoker Past Alcohol Use History: None Reported Past Drug Use History: None Reported - Past Family History Mother Family Medical History: Cancer General Exam Limitations: no limitations General appearance: alert, in no apparent distress Head exam: Present: normocephalic Eye exam: Present: normal appearance, PERRL, EOMI. Absent: nystagmus ENT exam: Present: normal oropharynx Neck exam: Present: normal inspection Respiratory exam: Present: normal lung sounds bilaterally Cardiovascular Exam: Present: regular rate, normal rhythm GI/Abdominal exam: Present: soft. Absent: tenderness Extremities exam: Present: normal inspection Neurological exam: Present: alert, CN II-XII intact, normal gait. Absent: motor sensory deficit Expanded Neurological exam: Present: protecting the airway Patient oriented to: Present: person, place. Absent: time Speech: Present: fluid speech Cranial nerves: EOM's Intact: Normal Motor strength exam: RUE: 5, LUE: 5, RLE: 5, LLE: 5 Eye Response: (4) open spontaneously Motor Response: (6) obeys commands Verbal Response: (4) confused conversation Psychiatric exam: Present: normal affect, normal mood Skin exam: Present: normal color Course Vital Signs 09/27/20 10:28 Temperature 97 F L Pulse Rate 75 Respiratory 18 Rate Blood Pressure 128/76 O2 Sat by Pulse 100 Oximetry EKG Findings - EKG Comments: EKG Findings:: No sinus rhythm with a rate of 70. LA 142. QRS 82. QT 404. QTC 436. Normal axis. Normal QRS. No acute ST change. Medical Decision Making - Medical Decision Making Patient reevaluated and resting comfortably in bed. Patient and family updated on results. Case was discussed in detail with Dr. Mustafa is comfortable with discharge and follow-up. Family is also comfortable with discharge. They state patient was confused this morning and had difficulty getting out of bed. They state patient has improved since that time. Patient has had 2 seizures this year prior to today. - Lab Data Result diagrams: 09/27/20 11:10 09/27/20 11:10 Lab Results 09/27/20 09/27/20 09/27/20 Range/Units 11:10 11:10 11:10 WBC 6.8 (3.8-10.6) k/uL RBC 4.77 (3.80-5.40) m/uL Hgb 12.2 (11.4-16.0) gm/dL Hct 36.9 (34.0-46.0) % MCV 77.3 L (80.0-100.0) fL MCH 25.7 (25.0-35.0) pg MCHC 33.2 (31.0-37.0) g/dL RDW 16.4 H (11.5-15.5) % Plt Count 242 (150-450) k/uL MPV 6.4 Neutrophils % 82 % Lymphocytes % 14 % Monocytes % 3 % Eosinophils % 0 % Basophils % 0 % Neutrophils # 5.6 (1.3-7.7) k/uL Lymphocytes # 0.9 L (1.0-4.8) k/uL Monocytes # 0.2 (0-1.0) k/uL Eosinophils # 0.0 (0-0.7) k/uL Basophils # 0.0 (0-0.2) k/uL Anisocytosis Slight Microcytosis Slight Sodium 133 L (137-145) mmol/L Potassium 3.9 (3.5-5.1) mmol/L Chloride 98 (98-107) mmol/L Carbon Dioxide 22 (22-30) mmol/L Anion Gap 13 mmol/L BUN 3 L (7-17) mg/dL Creatinine 0.47 L (0.52-1.04) mg/dL Est GFR (CKD-EPI)AfAm >90 (>60 ml/min/1.73 sqM) Est GFR (CKD-EPI)NonAf >90 (>60 ml/min/1.73 sqM) Glucose 156 H (74-99) mg/dL Calcium 9.7 (8.4-10.2) mg/dL Total Bilirubin 0.8 (0.2-1.3) mg/dL AST 29 (14-36) U/L ALT 15 (4-34) U/L Alkaline Phosphatase 170 H (38-126) U/L Total Protein 7.1 (6.3-8.2) g/dL Albumin 4.3 (3.5-5.0) g/dL Urine Color Light Yellow Urine Appearance Clear (Clear) Urine pH 7.0 (5.0-8.0) Ur Specific [place] 1.005 (1.001-1.035) Urine Protein Negative (Negative) Urine Glucose (UA) Negative (Negative) Urine Ketones Negative (Negative) Urine Blood Negative (Negative) Urine Nitrite Negative (Negative) Urine Bilirubin Negative (Negative) Urine Urobilinogen <2.0 (<2.0) mg/dL Ur Leukocyte Esterase Negative (Negative) - Radiology Data Radiology results: report reviewed (Computed tomography scan shows no acute bleed or mass effect. Senescent changes which are stable.), image reviewed (Chest x-ray reveals no acute process) Disposition Clinical Impression: Altered mental status Disposition: HOME SELF-CARE Condition: Serious Instructions (If sedation given, give patient instructions): Altered Mental Status (ED) Additional Instructions: Please follow-up with primary care physician this week. Have sodium level rechecked. Return for change in mental status, weakness, worsening change in symptoms or other concerns. Is patient prescribed a controlled substance at d/c from ED?: No Referrals: Steven Mustafa MD [Primary Care Provider] - 1-2 days Time of Disposition: 13:41
[2020-09-27 11:23] LABS: Anisocytosis Slight; Basophils % (A) 0 %; Eosinophils % (A) 0 %; HCT 36.9 % (34.0-46.0); HGB 12.2 gm/dL (11.4-16.0); Lymphocytes # (A) 0.9 k/uL (1.0-4.8); Lymphocytes % (A) 14 %; MCH 25.7 pg (25.0-35.0); MCHC 33.2 g/dL (31.0-37.0); MCV 77.3 fL (80.0-100.0); Mean Platelet Volume 6.4; Microcytosis Slight; Monocytes # (A) 0.2 k/uL (0-1.0); Monocytes % (A) 3 %; Neutrophils # (A) 5.6 k/uL (1.3-7.7); Neutrophils % (A) 82 %; Platelet Count 242 k/uL (150-450); RBC 4.77 m/uL (3.80-5.40); RDW 16.4 % (11.5-15.5); WBC 6.8 k/uL (3.8-10.6)
[2020-09-27 11:33] LABS: ALT 15 U/L (4-34); AST 29 U/L (14-36); African American GFR (CKD) >90 (>60 ml/min/1.73 sqM); Albumin 4.3 g/dL (3.5-5.0); Alkaline Phosphatase 170 U/L (38-126); Anion Gap 13 mmol/L; Blood Urea Nitrogen 3 mg/dL (7-17); Calcium 9.7 mg/dL (8.4-10.2); Carbon Dioxide 22 mmol/L (22-30); Chloride 98 mmol/L (98-107); Glucose 156 mg/dL (74-99); Non-African American GFR(CKD) >90 (>60 ml/min/1.73 sqM); Potassium 3.9 mmol/L (3.5-5.1); Sodium 133 mmol/L (137-145); Total Bilirubin 0.8 mg/dL (0.2-1.3); Total Protein 7.1 g/dL (6.3-8.2)
[2020-09-27 11:39] LABS: Appearance,Urine Clear (Clear); Bilirubin,Urine Negative (Negative); Blood,Urine Negative (Negative); Color,Urine Light Yellow; Glucose,Urine (UA) Negative (Negative); Ketones,Urine Negative (Negative); Leukocyte Esterase,Urine Negative (Negative); Nitrite,Urine Negative (Negative); Protein,Urine Negative (Negative); Specific Gravity,Urine 1.005 (1.001-1.035); Urobilinogen,Urine <2.0 mg/dL (<2.0)
--- NOTE | 2020-09-27 11:59 | CT ---
EXAMINATION TYPE: CT brain wo con DATE OF EXAM: 09/27/2020 COMPARISON: 08/29/2020 HISTORY: Altered mental status CT DLP: 1040.4 mGycm Automated exposure control for dose reduction was used. FINDINGS: The ventricles, basal cisterns and sulci over convexities are moderately enlarged consistent with gen eralized atrophy. There is no mass effect or shift of midline structures. There is mild calcifications in the basal ganglia which were seen previously and are stable. There is no acute intra or extra-axial hemorrhage. The posterior fossa including the brainstem, fourth ventricle and cerebellar pontine angles are gross ly normal. Intraorbital contents appear normal and symmetric. Visualized paranasal sinuses and mastoid air cells are well aerated. The calvarium is intact. There is been no interval change since the prior study. IMPRESSION: Senescent changes which are stable. There is no acute bleed or mass effect.
--- NOTE | 2020-09-27 12:00 | XR ---
EXAMINATION TYPE: XR chest 2V DATE OF EXAM: 09/27/2020 COMPARISON: 08/29/2020 HISTORY: Altered mental status TECHNIQUE: Frontal and lateral views of the chest are obtained. FINDINGS: There is no focal air space opacity, pleural effusion, or pneumothorax seen. The cardiac silhouette size is within normal limits. The osseous structures are intact. IMPRESSION: No acute cardiopulmonary process.
[2020-09-27 13:52] VITALS: BP 151/78; PULSE 92
== END 2020-09-27 13:52 | disposition home or self-care (01) ==
LOC: EC 10:26
DX: R41.82 Altered mental status, unspecified (principal); E11.9 Type 2 diabetes mellitus without complications; I10 Essential (primary) hypertension; Z79.84 Long term (current) use of oral hypoglycemic drugs; Z79.899 Other long term (current) drug therapy
CPT/HCPCS: 36415; 70450; 71046; 80053; 81003; 85025; 93005; 99285

== ENCOUNTER 2020-11-21 14:10 | Inpatient (IN) | payer MEDICARE ==
[2020-11-21] MEDS ORDERED: SODIUM CHLORIDE 0.9% 500 ML 500 ML IV STA (14:39)
--- NOTE | 2020-11-21 14:44 | ED ---
Seizure HPI - General Chief Complaint: Seizure Stated Complaint: seizure Source: patient, family, EMS, RN notes reviewed, old records reviewed Mode of arrival: EMS Limitations: no limitations - History of Present Illness Initial Comments: 70-year-old well-appearing white female, alert to person and place presents with family member who states that she had a seizure lasting about 2 minutes. She states it was tonic clonic the patient's eyes were open. She states that she does have a history of seizures was taken off of her Keppra [address] Dunn. Family is concerned that she may have a urinary tract infection that may have precipitated this seizure. She has had 2 seizures this year she was seen here on September 27 had a CAT scan done at that time. She also has a history of fibromyalgia, hypertension, diabetes and dementia. She is awake and alert at this time following simple commands. Denies any pain, fevers, nausea or vomiting. Family states that she has had a decrease in appetite and she has only been eating a couple bites at a time. Patient states that she is just not hungry. Patient states that she does want to go home. MD Complaint: seizure Description of Episode: tonic-clonic movement -: minutes(s) (2) Witnessed: yes - by bystander Trauma: No (Family member) Seizure History: known seizure disorder Place: home Possible Precipitating Event: none Associated Symptoms: denies other symptoms Treatments Prior to Arrival: other (zofran) - Related Data Home Medications Medication Instructions Recorded Confirmed metFORMIN HCL [Glucophage] 500 mg PO BID 06/23/17 08/29/20 Aspirin EC [Ecotrin] 325 mg PO DAILY 04/02/20 08/29/20 Montelukast Sodium [Singulair] 10 mg PO DAILY 04/02/20 08/29/20 ALPRAZolam [Xanax] 0.25 mg PO BID 07/14/20 08/29/20 Tamsulosin [Flomax] 0.4 mg PO DAILY 07/14/20 08/29/20 Cholecalciferol [Vitamin D3 (25 25 mcg PO DAILY 07/24/20 08/29/20 Mcg = 1000 Iu)] Donepezil [Aricept] 10 mg PO DAILY 07/24/20 08/29/20 Previous Rx's Medication Instructions Recorded Furosemide [Lasix] 20 mg PO DAILY 30 Days #30 tab 08/03/20 Magnesium Oxide [Magox 400] 400 mg PO DAILY #30 tablet 08/24/20 Potassium Chloride ER [K-Dur 10] 10 meq PO DAILY 30 Days #30 tab 08/24/20 levETIRAcetam [Keppra] 500 mg PO Q12HR 30 Days #60 tab 08/24/20 Atorvastatin [Lipitor] 40 mg PO HS 30 Days #30 tab 09/02/20 Ertapenem [INVanz] 1 gm IVPB Q24H #9 bag 09/02/20 lisinopriL [Zestril] 10 mg PO DAILY 30 Days #30 tab 09/02/20 Allergies Allergy/AdvReac Type Severity Reaction Status Date / Time No Known Allergies Allergy Verified 11/21/20 14:28 Review of Systems ROS Statement: Those systems with pertinent positive or pertinent negative responses have been documented in the HPI. ROS Other: All systems not noted in ROS Statement are negative. Past Medical History Past Medical History: Dementia, Diabetes Mellitus, GERD/Reflux, Hyperlipidemia, Hypertension Additional Past Medical History / Comment(s): FIBROMYALGIA History of Any Multi-Drug Resistant Organisms: ESBL Date of last positivie culture/infection: 08/29/20 ESBL E.coli MDRO Source:: Urine Past Surgical History: Adenoidectomy, Appendectomy, Cholecystectomy, Hysterectomy, Tonsillectomy, Tubal Ligation Additional Past Surgical History / Comment(s): CARARACT RT EYE 07/02/2013, bladder suspension, repair of the fracture, left knee replacement Past Anesthesia/Blood Transfusion Reactions: Motion Sickness, Postoperative Nausea & Vomiting (PONV) Past Psychological History: Depression Smoking Status: Never smoker Past Alcohol Use History: None Reported Past Drug Use History: None Reported - Past Family History Mother Family Medical History: Cancer General Exam Limitations: no limitations General appearance: alert, in no apparent distress Head exam: Present: atraumatic, normocephalic, normal inspection Eye exam: Present: normal appearance, PERRL, EOMI. Absent: scleral icterus, conjunctival injection, nystagmus, periorbital swelling ENT exam: Present: normal exam, normal oropharynx, mucous membranes moist Neck exam: Present: normal inspection, full ROM. Absent: tenderness, meningismus, lymphadenopathy, thyromegaly Respiratory exam: Present: normal lung sounds bilaterally. Absent: respiratory distress, wheezes, rales, rhonchi, stridor, chest wall tenderness, accessory muscle use, decreased breath sounds Cardiovascular Exam: Present: regular rate, normal rhythm, normal heart sounds. Absent: systolic murmur, diastolic murmur, rubs, gallop, clicks GI/Abdominal exam: Present: soft, normal bowel sounds. Absent: distended, tenderness, guarding, rebound, rigid Extremities exam: Present: full ROM, normal capillary refill. Absent: pedal edema, joint swelling, calf tenderness Right Knee exam: Present: deformity (Good range of motion, deformity from previous surgery that resulted in infection) Neurovascular tendon exam: Present: no vascular compromise. Absent: pallor Back exam: Present: normal inspection, other (quarter sized bruise to her right mid back) Neurological exam: Present: alert, oriented X3, CN II-XII intact Expanded Patient oriented to: Present: person, place Speech: Present: fluid speech Cranial nerves: EOM's Intact: Normal, Gag Reflex: Normal, Tongue Deviation: Normal Motor strength exam: RUE: 5, LUE: 5, RLE: 5, LLE: 5 Eye Response: (4) open spontaneously Motor Response: (6) obeys commands Verbal Response: (5) oriented [place] Total: 15 Psychiatric exam: Present: normal affect, normal mood Skin exam: Present: warm, dry, intact, normal color, other (Old bruises in multiple stages of healing to bilateral lower extremities.). Absent: rash Course Vital Signs 11/21/20 14:19 Temperature 98.0 F Pulse Rate 80 Respiratory 18 Rate Blood Pressure 119/64 O2 Sat by Pulse 99 Oximetry Medical Decision Making - Medical Decision Making Chest x-ray shows no acute cardiopulmonary process there is no pneumothorax or pleural effusion. No evidence of urinary tract infection. Sodium is 130, potassium is 3.1 and she was given 40meq of k-dur. Magnesium is 1.0 she was given 2 g of magnesium IV. Family at bedside states that her potassium and her magnesium have been replaced in the past. patient and family state that she is not eating well at all and has had a decreased appetite. She'll be observed for replacement. She is agreeable to this plan of care. Case discussed with Dr. Jones - Lab Data Result diagrams: 11/21/20 15:14 11/21/20 15:14 Lab Results 11/21/20 11/21/20 11/21/20 Range/Units 15:14 15:14 16:41 WBC 13.2 H (3.8-10.6) k/uL RBC 4.37 (3.80-5.40) m/uL Hgb 13.2 (11.4-16.0) gm/dL Hct 38.2 (34.0-46.0) % MCV 87.4 D (80.0-100.0) fL MCH 30.1 (25.0-35.0) pg MCHC 34.5 (31.0-37.0) g/dL RDW 16.6 H (11.5-15.5) % Plt Count 327 (150-450) k/uL MPV 6.5 Neutrophils % 95 % Lymphocytes % 2 % Monocytes % 2 % Eosinophils % 0 % Basophils % 0 % Neutrophils # 12.6 H (1.3-7.7) k/uL Lymphocytes # 0.2 L (1.0-4.8) k/uL Monocytes # 0.2 (0-1.0) k/uL Eosinophils # 0.0 (0-0.7) k/uL Basophils # 0.1 (0-0.2) k/uL Anisocytosis Slight Sodium 130 L (137-145) mmol/L Potassium 3.1 L (3.5-5.1) mmol/L Chloride 92 L (98-107) mmol/L Carbon Dioxide 23 (22-30) mmol/L Anion Gap 15 mmol/L BUN 6 L (7-17) mg/dL Creatinine 0.59 (0.52-1.04) mg/dL Est GFR (CKD-EPI)AfAm >90 (>60 ml/min/1.73 sqM) Est GFR (CKD-EPI)NonAf >90 (>60 ml/min/1.73 sqM) Glucose 193 H (74-99) mg/dL Calcium 9.6 (8.4-10.2) mg/dL Magnesium 1.0 L (1.6-2.3) mg/dL Total Bilirubin 1.0 (0.2-1.3) mg/dL AST 32 (14-36) U/L ALT 23 (4-34) U/L Alkaline Phosphatase 140 H (38-126) U/L Total Protein 6.9 (6.3-8.2) g/dL Albumin 4.5 (3.5-5.0) g/dL Urine Color Light Yellow Urine Appearance Clear (Clear) Urine pH 6.0 (5.0-8.0) Ur Specific [place] 1.008 (1.001-1.035) Urine Protein Negative (Negative) Urine Glucose (UA) Negative (Negative) Urine Ketones Negative (Negative) Urine Blood Negative (Negative) Urine Nitrite Negative (Negative) Urine Bilirubin Negative (Negative) Urine Urobilinogen <2.0 (<2.0) mg/dL Ur Leukocyte Esterase Negative (Negative) - EKG Data EKG shows normal: sinus rhythm (Ventricular rate of 79, IA interval 0.134, QRS of 0.84, QTC of 0.419) Disposition Clinical Impression: Hypokalemia, Hypomagnesemia, Seizure Disposition: [facility] Condition: Good Referrals: Vicky Fabian MD [Primary Care Provider] - 1-2 days Decision Date: 11/21/20 Decision Time: 18:25
[2020-11-21 15:35] LABS: Anisocytosis Slight; Basophils # (A) 0.1 k/uL (0-0.2); Basophils % (A) 0 %; Eosinophils % (A) 0 %; HCT 38.2 % (34.0-46.0); HGB 13.2 gm/dL (11.4-16.0); Lymphocytes # (A) 0.2 k/uL (1.0-4.8); Lymphocytes % (A) 2 %; MCH 30.1 pg (25.0-35.0); MCHC 34.5 g/dL (31.0-37.0); Mean Platelet Volume 6.5; Monocytes # (A) 0.2 k/uL (0-1.0); Monocytes % (A) 2 %; Neutrophils # (A) 12.6 k/uL (1.3-7.7); Neutrophils % (A) 95 %; Platelet Count 327 k/uL (150-450); RBC 4.37 m/uL (3.80-5.40); RDW 16.6 % (11.5-15.5); WBC 13.2 k/uL (3.8-10.6)
[2020-11-21 15:40] LABS: MCV 87.4 fL (80.0-100.0)
[2020-11-21 15:44] LABS: AST 32 U/L (14-36); African American GFR (CKD) >90 (>60 ml/min/1.73 sqM); Albumin 4.5 g/dL (3.5-5.0); Alkaline Phosphatase 140 U/L (38-126); Anion Gap 15 mmol/L; Blood Urea Nitrogen 6 mg/dL (7-17); Calcium 9.6 mg/dL (8.4-10.2); Carbon Dioxide 23 mmol/L (22-30); Chloride 92 mmol/L (98-107); Glucose 193 mg/dL (74-99); Non-African American GFR(CKD) >90 (>60 ml/min/1.73 sqM); Potassium 3.1 mmol/L (3.5-5.1); Sodium 130 mmol/L (137-145); Total Protein 6.9 g/dL (6.3-8.2)
[2020-11-21 15:59] LABS: ALT 23 U/L (4-34)
[2020-11-21 16:56] LABS: Appearance,Urine Clear (Clear); Bilirubin,Urine Negative (Negative); Blood,Urine Negative (Negative); Color,Urine Light Yellow; Glucose,Urine (UA) Negative (Negative); Ketones,Urine Negative (Negative); Leukocyte Esterase,Urine Negative (Negative); Nitrite,Urine Negative (Negative); Protein,Urine Negative (Negative); Specific Gravity,Urine 1.008 (1.001-1.035); Urobilinogen,Urine <2.0 mg/dL (<2.0)
--- NOTE | 2020-11-21 18:03 | XR ---
EXAMINATION TYPE: XR chest 2V DATE OF EXAM: 11/21/2020 COMPARISON: 09/27/2020. HISTORY: Seizure. TECHNIQUE: Frontal and lateral views of the chest are obtained. FINDINGS: There is no focal air space opacity, pleural effusion, or pneumothorax seen. The cardiac silhouette size is within normal limits. The osseous structures are intact. IMPRESSION: No acute cardiopulmonary process.
[2020-11-21] MEDS ORDERED: POTASSIUM CHLORIDE ER 20 MEQ TAB.ER PO STA (18:21)
[2020-11-21] MEDS ORDERED: levETIRAcetam 500 MG TAB PO STA (18:24)
[2020-11-21] MEDS ORDERED: ACETAMINOPHEN TAB 325 MG TAB PO PRN (18:26)
[2020-11-21] MEDS ORDERED: NALOXONE 0.4 MG/ML 1 ML VIAL IV PRN (18:26)
[2020-11-21] MEDS ORDERED: 0.9% NACL WITH KCL 20 MEQ/L 1,000 ML IV SCH (18:30)
[2020-11-21] MEDS: MAGNESIUM SULFATE-D5W PMX 1 GM in DEXTROSE/WATER 1 100ML.BAG IVPB SCH ×2 (20:29→21:36)
--- NOTE | 2020-11-22 01:10 | P.HPIM ---
History of Present Illness H&P Date: 11/21/20 Chief Complaint: Seizure episode 70-year-old female with paroxysmal A. fib not on blood thinners, history of seizure, diabetes mellitus, dementia, hypertension Patient has advanced dementia unable to provide any meaningful history she is alert and oriented to place and person however she has no idea why she is in the hospital at this time and when asked she denies any complaint. When directly asked about any episode of seizure she had no idea. Seems like she lives with her cousin who brought her to the hospital History obtained by reviewing medical records and talking to the ED staff seems like the patient neurologist has stopped her Keppra about a week ago as she had normal EEG is not clear the exact circumstances of that decision. And her cousin has brought her in today due to suspected seizure activity that was described as tonic-clonic body jerks with rolling up of her eyes but doesn't seem to have been associated with any tongue biting or loss of bladder or bowel control In the ED blood work was significant for electrolyte imbalance with hyponatremia hypokalemia and hypomagnesemia EKG showed rate controlled A. fib with frequent atrial ectopies Vital signs overall stable urine analysis unremarkable patient had slightly elevated white count Patient admitted for neurology evaluation she was given Keppra in the ED Review of Systems ROS unobtainable: due to mental status Past Medical History Past Medical History: Dementia, Diabetes Mellitus, GERD/Reflux, Hyperlipidemia, Hypertension Additional Past Medical History / Comment(s): FIBROMYALGIA History of Any Multi-Drug Resistant Organisms: ESBL Date of last positivie culture/infection: 08/29/20 ESBL E.coli MDRO Source:: Urine Past Surgical History: Adenoidectomy, Appendectomy, Cholecystectomy, Hysterectomy, Tonsillectomy, Tubal Ligation Additional Past Surgical History / Comment(s): CARARACT RT EYE 07/02/2013, bladder suspension, repair of the fracture, left knee replacement Past Anesthesia/Blood Transfusion Reactions: Motion Sickness, Postoperative Nausea & Vomiting (PONV) Past Psychological History: Depression Smoking Status: Never smoker Past Alcohol Use History: None Reported Past Drug Use History: None Reported - Past Family History Mother Family Medical History: Cancer Medications and Allergies Home Medications Medication Instructions Recorded Confirmed Type metFORMIN HCL [Glucophage] 500 mg PO BID 06/23/17 11/21/20 History Aspirin EC [Ecotrin] 325 mg PO DAILY 04/02/20 11/21/20 History Montelukast Sodium [Singulair] 10 mg PO DAILY 04/02/20 11/21/20 History ALPRAZolam [Xanax] 0.25 mg PO DAILY PRN 07/14/20 11/21/20 History Tamsulosin [Flomax] 0.4 mg PO DAILY 07/14/20 11/21/20 History Cholecalciferol [Vitamin D3 (25 25 mcg PO DAILY 07/24/20 11/21/20 History Mcg = 1000 Iu)] Furosemide [Lasix] 20 mg PO DAILY 30 Days #30 tab 08/03/20 11/21/20 Rx Magnesium Oxide [Magox 400] 400 mg PO DAILY #30 tablet 08/24/20 11/21/20 Rx Potassium Chloride ER [K-Dur 10] 10 meq PO DAILY 30 Days #30 tab 08/24/20 11/21/20 Rx levETIRAcetam [Keppra] 500 mg PO Q12HR 30 Days #60 tab 08/24/20 11/21/20 Rx Atorvastatin [Lipitor] 40 mg PO HS 30 Days #30 tab 09/02/20 11/21/20 Rx lisinopriL [Zestril] 10 mg PO DAILY 30 Days #30 tab 09/02/20 11/21/20 Rx Donepezil 23mg 23 mg PO HS 11/21/20 11/21/20 History FLUoxetine HCL [PROzac] 20 mg PO DAILY 11/21/20 11/21/20 History Allergies Allergy/AdvReac Type Severity Reaction Status Date / Time No Known Allergies Allergy Verified 11/21/20 18:55 Physical Exam Vitals: Vital Signs Temp Pulse Resp BP Pulse Ox 11/21/20 18:45 73 18 138/81 100 11/21/20 14:19 98.0 F 80 18 119/64 99 Intake and Output 11/21/20 11/21/20 11/21/20 06:59 14:59 22:59 Other: Weight 65.771 kg Constitutional: No acute distress, conversant, pleasant, Eyes: Anicteric sclerae, moist conjunctiva, Pupils equal round reactive to light ENMT: NC/AT Oropharynx clear, no erythema, or exudates, no evidence of tongue biting Neck: Supple, FROM, no masses, or JVD No carotid bruits No thyromegaly Lungs: Clear to auscultation Clear to percussion Normal respiratory effort, no accessory muscle use Cardiovascular: Heart irregular with skipped beats Systolic murmurs, no gallops, or rubs No peripheral edema Abdominal: Soft Nontender, no guarding, rebound or rigidity Abdomen moving with respiration Normoactive bowel sounds No hepatomegaly, No splenomegaly No palpable mass No abdominal wall hernia noted Skin: Normal temperature, tone, texture, turgor No induration No subcutaneous nodules No rash, lesions No ulcers Extremities: No digital cyanosis No clubbing Pedal pulses intact and symmetrical Radial pulses intact and symmetrical No calf tenderness Psychiatric: Alert and oriented to person, place . She recognized the year Patient suffers from advanced dementia Neuro Muscles Strength 4/5 in all 4 extremities Sensation to light touch grossly present throughout Cranial nerves II-XII grossly intact No focal sensory deficits Lymphatics: no palpable cervical or supraclavicular , or inguinal lymph nodes Results CBC & Chem 7: 11/21/20 15:14 11/21/20 15:14 Labs: Abnormal Lab Results - Last 24 Hours (Table) 11/21/20 11/21/20 Range/Units 15:14 15:14 WBC 13.2 H (3.8-10.6) k/uL RDW 16.6 H (11.5-15.5) % Neutrophils # 12.6 H (1.3-7.7) k/uL Lymphocytes # 0.2 L (1.0-4.8) k/uL Sodium 130 L (137-145) mmol/L Potassium 3.1 L (3.5-5.1) mmol/L Chloride 92 L (98-107) mmol/L BUN 6 L (7-17) mg/dL Glucose 193 H (74-99) mg/dL Magnesium 1.0 L (1.6-2.3) mg/dL Alkaline Phosphatase 140 H (38-126) U/L Assessment and Plan Assessment: Suspected breakthrough seizure episodes patient has recently stopped her Keppra per neurology recommendations Neurology consult Seizure precautions Patient started on Keppra again Electrolyte imbalance Hyponatremia, keep patient on normal saline IV fluid this is suspected due to a component of poor by mouth intake and dehydration Hypokalemia again due to poor by mouth intake would replace and follow up potassium level Hypomagnesemia will be replaced and follow-up levels Advanced dementia Paroxysmal A. fib currently rate controlled patient doesn't seem to be on blood thinners Replace electrolytes Cardiac monitoring Patient is not on rate controlling medications Hypertension Resume lisinopril Hyperlipidemia Resume statin Diabetes mellitus on oral hypoglycemic Hold metformin Insulin sliding scale Will need verification of home medications Follow-up electrolytes CODE STATUS: Full code DVT prophylaxis: Heparin subcu 3 times a day Discussed with: Patient, ER, RN Anticipated length of stay less than [address]: Home A total of 65 minutes was spent on the care of this complex patient more than 50% of the time was spent in counseling and care coordination.
[2020-11-22] MEDS ORDERED: INSULIN ASPART (NovoLOG) 100 UNIT/ML VIAL SQ ONE (01:11)
[2020-11-22 04:18] LABS: Anisocytosis Slight; Basophils % (A) 0 %; Eosinophils % (A) 0 %; Lymphocytes # (A) 1.3 k/uL (1.0-4.8); Lymphocytes % (A) 15 %; MCH 29.7 pg (25.0-35.0); MCHC 33.5 g/dL (31.0-37.0); MCV 88.6 fL (80.0-100.0); Mean Platelet Volume 7.2; Monocytes # (A) 0.4 k/uL (0-1.0); Monocytes % (A) 5 %; Neutrophils # (A) 7.1 k/uL (1.3-7.7); Neutrophils % (A) 79 %; Platelet Count 300 k/uL (150-450); RBC 4.06 m/uL (3.80-5.40); RDW 16.7 % (11.5-15.5)
[2020-11-22 04:39] LABS: African American GFR (CKD) >90 (>60 ml/min/1.73 sqM); Anion Gap 7 mmol/L; Blood Urea Nitrogen 7 mg/dL (7-17); Carbon Dioxide 26 mmol/L (22-30); Chloride 96 mmol/L (98-107); Glucose 112 mg/dL (74-99); Magnesium 1.9 mg/dL (1.6-2.3); Non-African American GFR(CKD) >90 (>60 ml/min/1.73 sqM); Potassium 3.4 mmol/L (3.5-5.1); Sodium 129 mmol/L (137-145)
[2020-11-22 04:42] LABS: Glucose,Whole Blood 105 mg/dL (75-99)
[2020-11-22 06:34] LABS: Glucose,Whole Blood 119 mg/dL (75-99)
[2020-11-22] MEDS ORDERED: POTASSIUM CHLORIDE ER 20 MEQ TAB.ER PO STA (07:38)
[2020-11-22] MEDS: ASPIRIN 325 MG TAB PO SCH (08:26)
[2020-11-22] MEDS: SODIUM CHLORIDE 0.9% 1,000 ML IV SCH ×3 (08:26→23:04)
[2020-11-22] MEDS: levETIRAcetam 500 MG TAB PO SCH ×2 (08:26→20:16)
[2020-11-22] MEDS: HEPARIN SODIUM,PORCINE/PF 5,000 UNIT/0.5 ML SYRINGE SQ SCH ×3 (08:26→23:04)
[2020-11-22] MEDS: lisinopriL 10 MG TAB PO SCH (08:26)
[2020-11-22] MEDS ORDERED: ALPRAZolam 0.25 MG TAB PO PRN (12:14)
[2020-11-22 12:23] LABS: Glucose,Whole Blood 118 mg/dL (75-99)
--- NOTE | 2020-11-22 12:24 | P.PN ---
Subjective Progress Note Date: 11/22/20 Hospital course: Patient is a 70-year-old female with a past medical history of advanced dementia, hypertension, paroxysmal atrial fibrillation not on anticoagulation, seizure disorder, previous ESBL UTI, and type II [id number] diabetes mellitus. Patient presented to the emergency department on 11/21/20 with reports of witnessed seizure activity. Patient has a history of seizure disorders and after following with neurologist and having a normal EEG, she was reportedly taken off of her antiepileptic medication, Keppra. Patient initially arriving to ED and what appeared to be postictal state and was having difficulties answering questions. Patient currently alert to person, place, time, and situation. Patient is admitted under our services with consultation to neurology. Physical exam: Patient seen and fully evaluated at bedside this morning. Patient's mentation has returned to normal and she is alert to person, place, time, and situation. Patient does not recall seizure event but was able to elaborate on medical history. Patient currently denies having any complaints or pains at this time including headache, lightheadedness, dizziness, chest pain, palpitations, shortness of breath, or experiencing any numbness/tingling/weakness in her extremities. Patient does have bruising on upper and lower extremities in different stages of healing. Morning labs reviewed, patient remains with hypokalemia again replaced. Will continue to monitor with repeat a.m. labs. Vital signs reviewed and stable. General: Nontoxic, no distress and appears stated age. Derm: Skin warm and dry, normal coloration for ethnicity. Head: Atraumatic, normocephalic and symmetric. Eyes: EOMs intact, no lid lag, and anicteric sclera Mouth: no lip lesions, mucus membranes moist Cardiovascular: regular rate and rhythm with normal S1S2, no murmur, positive posterior tibial pulses bilaterally, and cap refill < 2 seconds. Lungs: Respirations even, regular, and unlabored on room air. Lungs CTA bilater ally, no rhonchi, no rales, no wheezing, and no accessory muscle usage. Abdominal: soft, nontender to palpation, no guarding, no appreciable organomegaly Ext: ROM intact. No gross muscle atrophy, no edema, no contractures Neuro: Speech clear, face symmetrical and CN II-XII grossly intact with no noted focal neuro deficits Psych: Alert and oriented to person, place, time, and situation. Appropriate and pleasant affect. Assessment and Plan of Care: Seizure Activity: -Neurology consulted -Seizure precautions, aspiration precautions, and fall precautions in place. -Keppra 500 mg twice a day Hypomagnesemia -Replaced -We will continue to monitor with repeat a.m. labs and replace any electrolyte abnormalities as needed. Hypokalemia -Replaced -We will continue to monitor with repeat a.m. labs and replace any electrolyte abnormalities as needed. Hyponatremia -Gentle hydration with IV fluids. -We will continue to monitor with repeat a.m. labs and replace any electrolyte abnormalities as needed. Type II auz-tldlztg-lprvlxiat diabetes mellitus -Hold Glucophage at this time and place patient on glycemic protocol with NovoLog sliding scale. CODE STATUS: Full code DVT prophylaxis: Heparin Discussed with: Patient and RN Anticipated discharge date: 1-[address]: Back home with family A total of 45 minutes was spent on the care of this complex patient more than 50% of the time was spent in counseling and care coordination. Objective - Vital Signs Vital signs: Vital Signs Temp 97.7 F 11/22/20 11:23 Pulse 66 11/22/20 11:23 Resp 18 11/22/20 11:23 BP 155/78 11/22/20 11:23 Pulse Ox 100 11/22/20 11:23 Intake & Output 11/21/20 11/22/20 11/22/20 18:59 06:59 18:59 Weight 65.771 kg 65.771 kg - Labs CBC & Chem 7: 11/22/20 03:47 11/22/20 03:47 Labs: Abnormal Lab Results - Last 24 Hours (Table) 11/21/20 11/21/20 11/22/20 Range/Units 15:14 15:14 03:47 WBC 13.2 H (3.8-10.6) k/uL RDW 16.6 H 16.7 H (11.5-15.5) % Neutrophils # 12.6 H (1.3-7.7) k/uL Lymphocytes # 0.2 L (1.0-4.8) k/uL Sodium 130 L (137-145) mmol/L Potassium 3.1 L (3.5-5.1) mmol/L Chloride 92 L (98-107) mmol/L BUN 6 L (7-17) mg/dL Creatinine (0.52-1.04) mg/dL Glucose 193 H (74-99) mg/dL POC Glucose (mg/dL) (75-99) mg/dL Magnesium 1.0 L (1.6-2.3) mg/dL Alkaline Phosphatase 140 H (38-126) U/L 11/22/20 11/22/20 11/22/20 Range/Units 03:47 04:39 06:32 WBC (3.8-10.6) k/uL RDW (11.5-15.5) % Neutrophils # (1.3-7.7) k/uL Lymphocytes # (1.0-4.8) k/uL Sodium 129 L (137-145) mmol/L Potassium 3.4 L (3.5-5.1) mmol/L Chloride 96 L (98-107) mmol/L BUN (7-17) mg/dL Creatinine 0.43 L (0.52-1.04) mg/dL Glucose 112 H (74-99) mg/dL POC Glucose (mg/dL) 105 H 119 H (75-99) mg/dL Magnesium (1.6-2.3) mg/dL Alkaline Phosphatase (38-126) U/L
[2020-11-22 16:25] LABS: Glucose,Whole Blood 112 mg/dL (75-99)
[2020-11-22 20:37] LABS: Glucose,Whole Blood 116 mg/dL (75-99)
[2020-11-22] MEDS ORDERED: ATORVASTATIN 40 MG TAB PO SCH (21:00)
[2020-11-22] MEDS ORDERED: DONEPEZIL 10 MG TAB PO SCH (21:00)
[2020-11-23 06:49] LABS: Glucose,Whole Blood 109 mg/dL (75-99)
[2020-11-23 07:21] LABS: Anisocytosis Slight; HCT 36.6 % (34.0-46.0); HGB 12.2 gm/dL (11.4-16.0); MCH 30.4 pg (25.0-35.0); MCHC 33.2 g/dL (31.0-37.0); MCV 91.5 fL (80.0-100.0); Mean Platelet Volume 7.2; Platelet Count 271 k/uL (150-450); RBC 4.01 m/uL (3.80-5.40); RDW 16.1 % (11.5-15.5); WBC 8.5 k/uL (3.8-10.6)
[2020-11-23 07:36] LABS: African American GFR (CKD) >90 (>60 ml/min/1.73 sqM); Anion Gap 6 mmol/L; Blood Urea Nitrogen 5 mg/dL (7-17); Calcium 8.9 mg/dL (8.4-10.2); Carbon Dioxide 22 mmol/L (22-30); Chloride 102 mmol/L (98-107); Glucose 113 mg/dL (74-99); Magnesium 1.3 mg/dL (1.6-2.3); Non-African American GFR(CKD) >90 (>60 ml/min/1.73 sqM); Potassium 3.8 mmol/L (3.5-5.1); Sodium 130 mmol/L (137-145)
[2020-11-23 08:10] VITALS: RESP 16; TEMP 98.6
[2020-11-23] MEDS: HEPARIN SODIUM,PORCINE/PF 5,000 UNIT/0.5 ML SYRINGE SQ SCH ×2 (08:13→16:16)
[2020-11-23] MEDS: SODIUM CHLORIDE 0.9% 1,000 ML IV SCH (08:13)
[2020-11-23] MEDS: levETIRAcetam 500 MG TAB PO SCH (08:13)
[2020-11-23] MEDS: ASPIRIN 325 MG TAB PO SCH (08:13)
[2020-11-23] MEDS: lisinopriL 10 MG TAB PO SCH (08:15)
[2020-11-23] MEDS ORDERED: MONTELUKAST 10 MG TAB PO SCH (09:00)
[2020-11-23] MEDS ORDERED: FLUoxetine HCL 20 MG CAP PO SCH (09:00)
[2020-11-23] MEDS ORDERED: TAMSULOSIN 0.4 MG CAP.ER.24H PO SCH (09:00)
--- NOTE | 2020-11-23 10:16 | P.PN ---
<Gavino Orellana - Last Filed: 11/23/20 10:08> Subjective Progress Note Date: 11/23/20 Hospital course: Patient is a 70-year-old female with a past medical history of advanced sylvain ia, hypertension, paroxysmal atrial fibrillation not on anticoagulation, seizure disorder, previous ESBL UTI, and type II [id number]-fsliynqlr diabetes mellitus. Patient presented to the emergency department on 11/21/20 with reports of witnessed seizure activity. Patient has a history of seizure disorders and after following with neurologist and having a normal EEG, she was reportedly taken off of her antiepileptic medication, Keppra. Patient initially arriving to ED and what appeared to be postictal state and was having difficulties answering questions. Patient currently alert to person, place, time, and situation. Patient is admitted under our services with consultation to neurology. Physical exam: Patient seen and fully evaluated at bedside this morning. She remains at baseline mentation and is alert to person, place, time, and situation. Patient currently denies having any complaints or pains at this time including headache, lightheadedness, dizziness, chest pain, palpitations, shortness of breath, or experiencing any numbness/tingling/weakness in her extremities. His stated patient has significant bruising to upper and lower extremities in different stages of healing as well as bruising to her chest. Patient reports multiple falls at home. Consults placed to PT/OT and discuss plans with patient for likely discharge to residential facility for continued PT/OT secondary to risks of injury she continues to fall at home. Vital signs reviewed and stable. General: Nontoxic, no distress and appears stated age. Derm: Skin warm and dry, normal coloration for ethnicity. Patient does have bruising on upper and lower extremities and chest in different stages of healing. Head: Atraumatic, normocephalic and symmetric. Eyes: EOMs intact, no lid lag, and anicteric sclera Mouth: no lip lesions, mucus membranes moist Cardiovascular: regular rate and rhythm with normal S1S2, no murmur, positive posterior tibial pulses bilaterally, and cap refill < 2 seconds. Lungs: Respirations even, regular, and unlabored on room air. Lungs CTA bilaterally, no rhonchi, no rales, no wheezing, and no accessory muscle usage. Abdominal: soft, nontender to palpation, no guarding, no appreciable organomegaly Ext: ROM intact. No gross muscle atrophy, no edema, no contractures Neuro: Speech clear, face symmetrical and CN II-XII grossly intact with no noted focal neuro deficits Psych: Alert and oriented to person, place, time, and situation. Appropriate and pleasant affect. Assessment and Plan of Care: Seizure Activity -Seizure precautions, aspiration precautions, and fall precautions in place. -Keppra 500 mg twice a day -No further seizure activity since arrival to facility and reinitiation of Keppra Hypomagnesemia -Magnesium 1.3, replaced. -We will continue to monitor with repeat a.m. labs and replace any electrolyte abnormalities as needed. Hypokalemia, resolved -We will continue to monitor with repeat a.m. labs and replace any electrolyte abnormalities as needed. Hyponatremia -Gentle hydration with IV fluids. -We will continue to monitor with repeat a.m. labs and replace any electrolyte abnormalities as needed. Type II [id number] diabetes mellitus -Hold Glucophage at this time and place patient on glycemic protocol with NovoLog sliding scale. CODE STATUS: Full code DVT prophylaxis: Heparin Discussed with: Patient and RN Anticipated discharge date: 1-[address]: Possible SNF pending PT/OT evaluation A total of 45 minutes was spent on the care of this complex patient more than 50% of the time was spent in counseling and care coordination. Objective - Vital Signs Vital signs: Vital Signs Temp 98.6 F 11/23/20 08:09 Pulse 52 L 11/23/20 08:09 Resp 16 11/23/20 08:09 BP 177/76 11/23/20 08:09 Pulse Ox 100 11/23/20 08:09 Intake & Output 11/22/20 11/23/20 11/23/20 18:59 06:59 18:59 Intake Total 240 Balance 240 Weight 61 kg Intake: Oral 240 Other: Voiding Method Diaper # Voids 2 1 # Bowel Movements 1 - Labs CBC & Chem 7: 11/23/20 06:37 11/23/20 06:37 Labs: Abnormal Lab Results - Last 24 Hours (Table) 11/22/20 11/22/20 11/22/20 Range/Units 11:59 16:23 20:27 RDW (11.5-15.5) % Sodium (137-145) mmol/L BUN (7-17) mg/dL Creatinine (0.52-1.04) mg/dL Glucose (74-99) mg/dL POC Glucose (mg/dL) 118 H 112 H 116 H (75-99) mg/dL Magnesium (1.6-2.3) mg/dL 11/23/20 11/23/20 11/23/20 Range/Units 06:29 06:37 06:37 RDW 16.1 H (11.5-15.5) % Sodium 130 L (137-145) mmol/L BUN 5 L (7-17) mg/dL Creatinine 0.40 L (0.52-1.04) mg/dL Glucose 113 H (74-99) mg/dL POC Glucose (mg/dL) 109 H (75-99) mg/dL Magnesium 1.3 L (1.6-2.3) mg/dL <KarineJaimiegwenmaulik - Last Filed: 11/23/20 16:02> Objective - Vital Signs Vital signs: Vital Signs Temp 98.6 F 11/23/20 08:09 Pulse 60 11/23/20 11:48 Resp 16 11/23/20 11:48 BP 144/71 11/23/20 11:48 Pulse Ox 100 11/23/20 11:48 Intake & Output 11/22/20 11/23/20 11/23/20 18:59 06:59 18:59 Intake Total 240 240 Balance 240 240 Weight 61 kg Intake: Oral 240 240 Other: Voiding Method Diaper Diaper # Voids 2 1 # Bowel Movements 1 - Labs CBC & Chem 7: 11/23/20 06:37 11/23/20 06:37 Labs: Abnormal Lab Results - Last 24 Hours (Table) 11/22/20 11/22/20 11/23/20 Range/Units 16:23 20:27 06:29 RDW (11.5-15.5) % Sodium (137-145) mmol/L BUN (7-17) mg/dL Creatinine (0.52-1.04) mg/dL Glucose (74-99) mg/dL POC Glucose (mg/dL) 112 H 116 H 109 H (75-99) mg/dL Magnesium (1.6-2.3) mg/dL 11/23/20 11/23/20 11/23/20 Range/Units 06:37 06:37 11:42 RDW 16.1 H (11.5-15.5) % Sodium 130 L (137-145) mmol/L BUN 5 L (7-17) mg/dL Creatinine 0.40 L (0.52-1.04) mg/dL Glucose 113 H (74-99) mg/dL POC Glucose (mg/dL) 126 H (75-99) mg/dL Magnesium 1.3 L (1.6-2.3) mg/dL Assessment and Plan Assessment: I reviewed the documentation as provided by the HOLDEN above, who is the original author of this note. I agree with the documented assessment and plan, with the following changes: None
[2020-11-23 11:44] LABS: Glucose,Whole Blood 126 mg/dL (75-99)
[2020-11-23] MEDS: MAGNESIUM SULFATE-D5W PMX 1 GM in DEXTROSE/WATER 1 100ML.BAG IVPB SCH ×4 (11:44→16:15)
--- NOTE | 2020-11-23 15:01 | P.DS ---
<Gavino Orellana - Last Filed: 11/23/20 14:54> Providers Expected date of discharge: 11/23/20 Hospital Course: Discharge Diagnosis: Seizure Activity Hypomagnesemia Hypokalemia Hyponatremia Type II [id number] diabetes mellitus Hospital Course: Patient is a 70-year-old female with a past medical history of advanced dementia, hypertension, paroxysmal atrial fibrillation not on anticoagulation, seizure disorder, previous ESBL UTI, and type II xse-iznbdga-xbrlzwibp diabetes mellitus. Patient presented to the emergency department on 11/21/20 with reports of witnessed seizure activity. Patient has a history of seizure disorders and after following with neurologist and having a normal EEG, she was reportedly taken off of her antiepileptic medication, Keppra. Patient initially arriving to ED and what appeared to be postictal state and was having difficulties answering questions. Patient currently alert to person, place, time, and situation. Patient is admitted under our services for recurrent seizure. Patient started back on Keppra 500 mg twice a day and was also treated for electrolyte abnormalities including hypomagnesemia hypokalemia, and hyponatremia. Patient was monitored closely and had no further episodes of seizure activity. Patient being discharged home with prescription for Keppra 500 mg twice a day and Mag-Ox 400 mg daily. Patient to follow-up with PCP in 1- 2 days and neurologist in 1 week. Patient to have repeat labs drawn in 3 days for continued close monitoring of electrolyte values with results to be sent to PCP for continued long-term monitoring/management. Patient stable for discharge home at this time. A total of 45 minutes of time were spent preparing this complex discharge summary. Assessment: I reviewed the documentation as provided by the HOLDEN above, who is the original author of this note. I agree with the documented assessment and plan, with the following changes: none Patient Condition at Discharge: Stable Plan - Discharge Summary Discharge Rx Participant: No New Discharge Prescriptions: New levETIRAcetam [Keppra] 500 mg PO Q12HR 30 Days #60 tab Continue metFORMIN HCL [Glucophage] 500 mg PO BID Aspirin EC [Ecotrin] 325 mg PO DAILY Montelukast Sodium [Singulair] 10 mg PO DAILY ALPRAZolam [Xanax] 0.25 mg PO DAILY PRN PRN Reason: Anxiety Cholecalciferol [Vitamin D3 (25 Mcg = 1000 Iu)] 25 mcg PO DAILY Potassium Chloride ER [K-Dur 10] 10 meq PO DAILY 30 Days #30 tab levETIRAcetam [Keppra] 500 mg PO Q12HR 30 Days #60 tab lisinopriL [Zestril] 10 mg PO DAILY 30 Days #30 tab Donepezil 23mg 23 mg PO HS Tamsulosin [Flomax] 0.4 mg PO DAILY Furosemide [Lasix] 20 mg PO DAILY 30 Days #30 tab Atorvastatin [Lipitor] 40 mg PO HS 30 Days #30 tab FLUoxetine HCL [PROzac] 20 mg PO DAILY Magnesium Oxide [Magox 400] 400 mg PO DAILY 30 Days #30 tablet Discharge Medication List metFORMIN HCL [Glucophage] 500 mg PO BID 06/23/17 [History] Aspirin EC [Ecotrin] 325 mg PO DAILY 04/02/20 [History] Montelukast Sodium [Singulair] 10 mg PO DAILY 04/02/20 [History] ALPRAZolam [Xanax] 0.25 mg PO DAILY PRN 07/14/20 [History] Tamsulosin [Flomax] 0.4 mg PO DAILY 07/14/20 [History] Cholecalciferol [Vitamin D3 (25 Mcg = 1000 Iu)] 25 mcg PO DAILY 07/24/20 [History] Furosemide [Lasix] 20 mg PO DAILY 30 Days #30 tab 08/03/20 [Rx] Potassium Chloride ER [K-Dur 10] 10 meq PO DAILY 30 Days #30 tab 08/24/20 [Rx] levETIRAcetam [Keppra] 500 mg PO Q12HR 30 Days #60 tab 08/24/20 [Rx] Atorvastatin [Lipitor] 40 mg PO HS 30 Days #30 tab 09/02/20 [Rx] lisinopriL [Zestril] 10 mg PO DAILY 30 Days #30 tab 09/02/20 [Rx] Donepezil 23mg 23 mg PO HS 11/21/20 [History] FLUoxetine HCL [PROzac] 20 mg PO DAILY 11/21/20 [History] Magnesium Oxide [Magox 400] 400 mg PO DAILY 30 Days #30 tablet 11/23/20 [Rx] levETIRAcetam [Keppra] 500 mg PO Q12HR 30 Days #60 tab 11/23/20 [Rx] Follow up Appointment(s)/Referral(s): Johnson Childers MD [REFERRING] - 1 Week (Office contacted, they will be calling you with appointment date & time) Vicky Fabian MD [Primary Care Provider] - 1-2 days (Office will call you to fit in an appointment date/time with Dr Pfeiffer) [facility] [NON-STAFF] - Ambulatory/Diagnostic Orders: Basic Metabolic Panel [LAB.AMB] Time Frame: 3 Days, Location: None Selected Magnesium [LAB.AMB] Time Frame: 3 Days, Location: None Selected Patient Instructions/Handouts: Seizure/Epilepsy Discharge Instructions & Follow-Up Activity/Diet/Wound Care/Special Instructions: Activity: As tolerated Diet: Heart healthy diet Special Instructions: You are being discharged home and due to recurring seizure it is very important to resume Keppra 500 mg twice daily. You have been given a prescription and it is important to follow-up with neurology Dr. Palafox in 1 week. In addition to being placed on seizure medication, it is important to take daily magnesium supplements due to hypomagnesemia and he will need to follow up and have labs drawn to check her electrolyte levels in 3 days. These results will be sent here primary care doctor, Dr. Ortiz for follow-up and continued long-term monitoring/management. Thank you for allowing us to participate in your care, it was truly a pleasure having new for our patient!! Discharge Disposition: HOME WITH HOME HEALTH SERVICES <Misha Milton - Last Filed: 11/23/20 15:53> Providers Date of admission: 11/21/20 18:26 Attending physician: Idalmis Puri DO Primary care physician: Vicky Fabian
[2020-11-23 16:46] LABS: Glucose,Whole Blood 203 mg/dL (75-99)
[2020-11-23 16:49] VITALS: BP 125/75; PULSE 58
== END 2020-11-23 17:39 | disposition home health service (06) | DRG 101 ==
LOC: EC 14:10 → 3SCARD 18:26
PROVIDERS: ADMIT Internal Medicine; ATTEND Internal Medicine
DX: G40.909 Epilepsy, unspecified, not intractable, without status epilepticus (principal); E87.1 Hypo-osmolality and hyponatremia; M79.7 Fibromyalgia; I10 Essential (primary) hypertension; E11.9 Type 2 diabetes mellitus without complications; F03.90 Unspecified dementia, unspecified severity, without behavioral disturbance, psychotic disturbance, mood disturbance, and anxiety; Z79.82 Long term (current) use of aspirin; Z79.84 Long term (current) use of oral hypoglycemic drugs; Z79.899 Other long term (current) drug therapy; E87.6 Hypokalemia; E83.42 Hypomagnesemia; I48.0 Paroxysmal atrial fibrillation; Z90.710 Acquired absence of both cervix and uterus; Z96.652 Presence of left artificial knee joint; F32.9 Major depressive disorder, single episode, unspecified; E78.5 Hyperlipidemia, unspecified
CPT/HCPCS: 36415; 71046; 80048; 80053; 81003; 83735; 85025; 85027; 93005; 96361; 96365; 96366; 99285